=== PATIENT | female | born 1980 | race Caucasian/White ===

== ENCOUNTER 2020-06-24 14:32 | Emergency (ER) | payer OTHER, SELFPAY ==
--- NOTE | 2020-06-24 14:33 | ECG_ITS ---
Test Reason : CHEST PAIN Blood Pressure : / mmHG Vent. Rate : 075 BPM Atrial Rate : 075 BPM P-R Int : 128 ms QRS Dur : 082 ms QT Int : 436 ms P-R-T Axes : 072 067 054 degrees QTc Int : 486 ms Normal sinus rhythm with sinus arrhythmia RSR' or QR pattern in V1 suggests right ventricular conduction delay Otherwise normal ECG When compared with ECG of 10-JUL-2019 19:39, No significant change was found Referred By: Generic ED Physician Electronically Signed By:SELVIN SANDOVAL MD
[2020-06-24 14:55] VITALS: BP 156/89; PULSE 79; RESP 18; TEMP 35.8; O2SAT 97; BMI 31.2
[2020-06-24 16:00] VITALS: BP 166/88; PULSE 62; RESP 16; TEMP 37; O2SAT 99
--- NOTE | 2020-06-24 16:06 | ED.CHESTPAIN ---
HPI - Chest Pain General Chief Complaint: Chest Pain Stated Complaint: CHEST PAIN ABD PAIN Time Seen by Provider: 06/24/20 15:59 Source: patient Mode of arrival: ambulatory Limitations: no limitations History of Present Illness HPI narrative: pt comes to the ED c/o diffuse abdominal cramping and left sided chest pain that started this morning. Pt states that vomiting makes the CP worse MD complaint: chest pain Related Data Previous Rx's Medication Instructions Recorded hyoscyamine sulfate 0.25 mg PO QID PRN #10 tab 06/24/20 ondansetron HCl [Zofran] 4 mg PO Q8H PRN #14 tab 06/24/20 Allergies Allergy/AdvReac Type Severity Reaction Status Date / Time Penicillins Allergy Intermediate HIVES Verified 06/24/20 15:14 ciprofloxacin Allergy Unresponsiv Verified 06/24/20 15:15 e Amoxicillin Allergy Intermediate Unknown Uncoded 06/24/20 15:14 Review of Systems Review of Systems: Constitutional : No Weight loss, No Fever, No Chills, No Night Sweats, No Fatigue, No Malaise ENT/Mouth : No Hearing loss, No Ear Pain, No Nasal Congestion, No Sinus Pain, No Hoarseness, No sore throat, No Rhinorrhea, No Swallowing Difficulty Eyes: No Eye Pain, No Swelling, No Redness, No Foreign Body, No Discharge, No Vision Changes Cardiovascular : Complaining of left-sided chest pain, nonradiating, No SOB, No Dyspnea on Exertion, No Orthopnea, No Edema, No Palpitations Respiratory : No Cough, No Sputum, No Wheezing, No Smoke Exposure, No Dyspnea Gastrointestinal : Patient complaining of nausea and vomiting, no diarrhea, diffuse abdominal pain, No Hematochezia, No Melena Genitourinary : no irregular bleeding, No Dysuria, No Urinary Frequency, No Hematuria, No Urinary Incontinence, No Urgency, No Flank Pain, No Urinary Flow Changes, No Hesitancy Musculoskeletal : No joint pain, No Myalgias, No Joint Swelling Skin : No Skin Lesions, No rash Neuro : No Weakness, No Numbness, No Paresthesias, No Loss of Consciousness, No Dizziness, No Headache Psych : Patient complaining of anxiety, No Depression, No SI/HI/AH/VH, No Social Issues, Heme/Lymph: No Bruising, No Bleeding,No Lymphadenopathy Endocrine : No Polyuria, No Polydipsia, No Temperature Intolerance PMFSH Past Medical History Medical History Anxiety Bipolar 1 disorder Social History Social History Alcohol intake: never Smoking Status: Current every day smoker Use of substances other than those prescribed or required for medical reasons: No Advance Directives: No Advance Directives Information Provided: Yes Physical Exam Vital Signs: Vital Signs: Last Vital Signs Temp 98.6 F 06/24/20 16:00 Pulse 62 06/24/20 16:00 Resp 16 06/24/20 16:00 BP 166/88 H 06/24/20 16:00 Pulse Ox 99 06/24/20 16:00 Body Mass Index 31.2 Appearance: Alert. Oriented X3. No acute distress. Eyes: Pupils equal, round and reactive to light. ENT: Pharynx normal. Neck: Normal inspection. Neck supple. No lymph nodes noted. No crepitus CVS: Normal heart rate and rhythm. Pulses normal. Normal S1 and S2, reproducible chest pain Respiratory: No respiratory distress. Breath sounds normal. No Wheezing. No rales Abdomen: Soft , reports diffuse abdominal tenderness with superficial palpation, No rigidity. No distention. good BS x4 Skin: Skin warm and dry. Normal skin color. Normal skin turgor. Extremities: No lower extremity edema. No lower extremity edema. No Lacerations. No Rash Neuro: Oriented X 3. No motor deficit. No sensory deficit. Moving all extermities. No slurred speech. Course Course Course Narrative: Patient states states that she feels much better now. I discussed the labs with the patient, patient is sleeping comfortably, patient ready to be discharged home. Patient likely having anxiety versus viral illness. Patient will follow-up with her primary care physician. Patient at this time, no longer feeling anxious. MDM - Chest Pain Lab Data Result diagrams: 06/24/20 16:27 06/24/20 16:27 Labs: Lab Results 06/24/20 06/24/20 06/24/20 Range/Units 16:27 16:27 16:27 WBC 11.8 H (4.8-10.8) X10*3/uL RBC 5.06 (4.20-5.50) X10*6/uL Hgb 14.4 (12.0-16.0) g/dl Hct 43.0 (37-47) % MCV 85.0 (80-98) fL MCH 28.5 (27.0-33.0) pg MCHC 33.5 (31.0-35.0) g/dl RDW 13.9 (11.0-16.0) % Plt Count 300 (160-400) X10*3/uL MPV 9.4 (9.4-12.3) fL Immature Gran % (Auto) 0.5 H (0.0-0.4) % Neut % (Auto) 82.5 H (45-73) % Lymph % (Auto) 12.7 L (20-40) % Saunders % (Auto) 3.6 (2-11) % Eos % (Auto) 0.1 (0-4) % Baso % (Auto) 0.6 (0-2) % Lymph # (Auto) 1.5 (1.2-4.9) X10*3/uL Saunders # (Auto) 0.4 (0.1-1.2) X10*3/uL Eos # (Auto) 0.0 (0.0-0.4) X10*3/uL Baso # (Auto) 0.1 (0.0-0.2) X10*3/uL Abs Immat Gran (auto) 0.06 H (0.00-0.03) X10*3/uL Absolute Neuts (auto) 9.8 H (2.0-8.3) X10*3/uL Absolute Nucleated RBC 0.000 (0.0-0.012) X10*3/uL Nucleated RBC % (auto) 0.0 (0.0-0.2) /100WBC Sodium 141 (135-145) mmol/L Potassium 4.0 (3.3-5.1) mmol/l Chloride 105 (96-108) mmol/L Carbon Dioxide 26 (22-29) mmol/L Anion Gap 14 (12-20) BUN 9 (9-16) mg/dL Creatinine 0.86 (0.5-1.4) mg/dL Estim Creat Clear Calc 77.3 Estimated GFR > 60 Random Glucose 192 H (60-115) mg/dL Calcium 9.1 (8.4-10.2) mg/dL Total Bilirubin 0.2 (0.0-1.0) mg/dL Direct Bilirubin < 0.2 (0.0-0.5) mg/dL AST 9 (5-31) U/L ALT 11 (0-31) U/L Alkaline Phosphatase 109 (39-117) U/L Troponin I High Sens < 3.5 (<3.5-17.0) ng/L Total Protein 7.2 (6.5-8.0) g/dL Albumin 4.4 (3.5-5.0) g/dL Urine Color Urine Appearance Urine pH (5.0-8.0) Ur Specific [place] (1.005-1.025) Urine Protein (NEG-TRACE) MG/DL Urine Glucose (UA) (NEG) MG/DL Urine Ketones (NEG) MG/DL Urine Blood (NEG) Urine Nitrite (NEG) Ur Leukocyte Esterase (NEG) 06/24/20 Range/Units 16:27 WBC (4.8-10.8) X10*3/uL RBC (4.20-5.50) X10*6/uL Hgb (12.0-16.0) g/dl Hct (37-47) % MCV (80-98) fL MCH (27.0-33.0) pg MCHC (31.0-35.0) g/dl RDW (11.0-16.0) % Plt Count (160-400) X10*3/uL MPV (9.4-12.3) fL Immature Gran % (Auto) (0.0-0.4) % Neut % (Auto) (45-73) % Lymph % (Auto) (20-40) % Saunders % (Auto) (2-11) % Eos % (Auto) (0-4) % Baso % (Auto) (0-2) % Lymph # (Auto) (1.2-4.9) X10*3/uL Saunders # (Auto) (0.1-1.2) X10*3/uL Eos # (Auto) (0.0-0.4) X10*3/uL Baso # (Auto) (0.0-0.2) X10*3/uL Abs Immat Gran (auto) (0.00-0.03) X10*3/uL Absolute Neuts (auto) (2.0-8.3) X10*3/uL Absolute Nucleated RBC (0.0-0.012) X10*3/uL Nucleated RBC % (auto) (0.0-0.2) /100WBC Sodium (135-145) mmol/L Potassium (3.3-5.1) mmol/l Chloride (96-108) mmol/L Carbon Dioxide (22-29) mmol/L Anion Gap (12-20) BUN (9-16) mg/dL Creatinine (0.5-1.4) mg/dL Estim Creat Clear Calc Estimated GFR Random Glucose (60-115) mg/dL Calcium (8.4-10.2) mg/dL Total Bilirubin (0.0-1.0) mg/dL Direct Bilirubin (0.0-0.5) mg/dL AST (5-31) U/L ALT (0-31) U/L Alkaline Phosphatase (39-117) U/L Troponin I High Sens (<3.5-17.0) ng/L Total Protein (6.5-8.0) g/dL Albumin (3.5-5.0) g/dL Urine Color YELLOW Urine Appearance CLOUDY Urine pH 7.5 (5.0-8.0) Ur Specific [place] 1.020 (1.005-1.025) Urine Protein TRACE (NEG-TRACE) MG/DL Urine Glucose (UA) NEG (NEG) MG/DL Urine Ketones 15 (NEG) MG/DL Urine Blood NEG (NEG) Urine Nitrite NEG (NEG) Ur Leukocyte Esterase NEG (NEG) ECG Data ECG #1: Attestation: I personally reviewed and interpreted this ECG as follows: (Sinus rhythm, heart rate 75, QTC 486, poor quality EKG) Discharge Plan Discharge Clinical Impression: Atypical chest pain, Anxiety Vomiting Qualifiers: Vomiting type: unspecified Vomiting Intractability: unspecified Nausea presence: unspecified Qualified Code(s): R11.10 - Vomiting, unspecified Patient Disposition: Home, Self-Care Instructions: Chest Pain (ED), Acute Nausea and Vomiting (ED) Additional Instructions: Please follow-up with your primary care physician tomorrow. If you have any worsening or new symptoms, please return to the emergency room or call 911 Prescriptions: New ondansetron HCl [Zofran] 4 mg tablet 4 mg PO Q8H PRN (Reason: nausea and vomiting) Qty: 14 RF: 0 hyoscyamine sulfate 0.125 mg tablet 0.25 mg PO QID PRN (Reason: dyspepsia) Qty: 10 RF: 0
[2020-06-24] MEDS: 0.9 % Sodium Chloride 1,000 ML 999 ML IVCONT (16:35)
[2020-06-24] MEDS: LORazepam 2 MG/ML VIAL 1 MG IVPUSH (16:35)
[2020-06-24] MEDS: ondansetron HCL 4 MG/2 ML VIAL IVPUSH (16:35)
[2020-06-24] MEDS: Ketorolac Tromethamine 30 MG/ML VIAL IVPUSH (16:35)
[2020-06-24 16:37] LABS: Basophils Absolute Auto 0.1 X10*3/uL (0.0-0.2); Basophils Percent Auto 0.6 % (0-2); Eosinophils Percent Auto 0.1 % (0-4); Glucose Urine UA NEG (NEG); Hemoglobin 14.4 g/dl (12.0-16.0); Imm Gran Abs Auto 0.06 X10*3/uL (0.00-0.03); Imm Gran Pct Auto 0.5 % (0.0-0.4); Leukocyte Esterase Urine NEG (NEG); Lymphocytes Absolute Auto 1.5 X10*3/uL (1.2-4.9); Lymphocytes Percent Auto 12.7 % (20-40); MANUAL DIFF FLAG NO; Mean Corpuscular HGB Conc 33.5 g/dl (31.0-35.0); Mean Corpuscular Hemoglobin 28.5 pg (27.0-33.0); Mean Platelet Volume 9.4 fL (9.4-12.3); Monocytes Absolute Auto 0.4 X10*3/uL (0.1-1.2); Monocytes Percent Auto 3.6 % (2-11); Neutrophils Absolute Auto 9.8 X10*3/uL (2.0-8.3); Neutrophils Percent Auto 82.5 % (45-73); Nitrite Urine NEG (NEG); PH 7.5 (5.0-8.0); Platelet Count 300 X10*3/uL (160-400); Red Blood Count 5.06 X10*6/uL (4.20-5.50); Red Cell Distribution Width 13.9 % (11.0-16.0); Urine Blood NEG (NEG); Urine Ketones 15 MG/DL (NEG); Urine Protein TRACE MG/DL (NEG-TRACE); White Blood Count 11.8 X10*3/uL (4.8-10.8)
[2020-06-24 16:40] LABS: Appearance Urine CLOUDY; Color Urine YELLOW
[2020-06-24 17:04] LABS: Alanine Aminotransferase 11 U/L (0-31); Albumin Level 4.4 g/dL (3.5-5.0); Alkaline Phosphatase 109 U/L (39-117); Anion Gap 14 (12-20); Aspartate Amino Transferase 9 U/L (5-31); Bilirubin Direct < 0.2 mg/dL (0.0-0.5); Bilirubin Total 0.2 mg/dL (0.0-1.0); Blood Urea Nitrogen 9 mg/dL (9-16); Calcium 9.1 mg/dL (8.4-10.2); Carbon Dioxide 26 mmol/L (22-29); Chloride 105 mmol/L (96-108); Creatinine Clr Calc Pharmacy 77.3; Estimated Glomerular Filt Rate > 60; Glucose Random 192 mg/dL (60-115); Sodium 141 mmol/L (135-145); Total Protein 7.2 g/dL (6.5-8.0)
[2020-06-24 17:11] LABS: Troponin-I High Sensitivity < 3.5 ng/L (<3.5-17.0)
--- NOTE | 2020-06-24 17:55 | PC.NURSE ---
EKG COMPLETED AT 1448 BY UNA JOHNSON
[2020-06-24 18:00] VITALS: BP 162/86; PULSE 62; RESP 16; TEMP 37.1; O2SAT 98
[2020-06-24] MEDS: Prochlorperazine Edisylate 10 MG/2 ML VIAL IM (18:46)
[2020-06-24] MEDS: Acetaminophen 325 MG TABLET 650 MG PO (19:04)
== END 2020-06-24 19:18 | disposition home or self-care (01) ==
PROVIDERS: Emergency Provider Emergency Medicine; PCP Internal Medicine
DX: R07.89 Other chest pain (principal); F41.1 Generalized anxiety disorder; F43.0 Acute stress reaction; R11.10 Vomiting, unspecified; Z79.899 Other long term (current) drug therapy; F17.200 Nicotine dependence, unspecified, uncomplicated; Z71.6 Tobacco abuse counseling
CPT/HCPCS: 36415; 80048; 80076; 81003; 84484; 85025; 93005; 96361; 96372; 96374; 96375; 99284; J1885; J2060; J2405

== ENCOUNTER 2020-06-25 01:22 | Emergency (ER) | payer OTHER, SELFPAY ==
[2020-06-25 01:28] VITALS: BP 162/83; PULSE 81; RESP 18; TEMP 36.6; O2SAT 99
--- NOTE | 2020-06-25 02:01 | ED.NAVMDI ---
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 but has not seen lately patient was here last evening and labs were drawn which were stable went home and continued to vomit hence came back MD elicited complaint: nausea and vomiting Onset (ago): day(s) (3) Description of vomiting: watery and blood-streaked Location of pain: epigastric Related Data Previous Rx's Medication Instructions Recorded hyoscyamine sulfate 0.25 mg PO QID PRN #10 tab 06/24/20 metoclopramide HCl [Reglan] 10 mg PO Q6H PRN #20 tab 06/25/20 Allergies Allergy/AdvReac Type Severity Reaction Status Date / Time Penicillins Allergy Intermediate HIVES Verified 06/24/20 15:14 ciprofloxacin Allergy Unresponsiv Verified 06/24/20 15:15 e Amoxicillin Allergy Intermediate Unknown Uncoded 06/24/20 15:14 Review of Systems Review of Systems: REVIEW OF SYSTEMS: Pertinent positives and negatives are stated above in the history. GEN: no fevers, chills, fatigue HEENT: no nasal congestion, sore throat, ear pain NEURO: no headache, dizziness, focal weakness PULM: no cough, shortness of breath CV: no chest pain, palpitations, LE edema ABD: no diarrhea : no dysuria, urgency, frequency SKIN: no rash ROS otherwise negative x 10 PMFSH Past Medical History Medical History Anxiety Bipolar 1 disorder Social History Social History Alcohol intake: never Smoking Status: Current every day smoker Advance Directives: No Advance Directives Information Provided: No Physical Exam Vital Signs: Vital Signs: Last Vital Signs Temp 99.3 F 06/25/20 02:02 Pulse 81 06/25/20 04:00 Resp 16 06/25/20 04:00 BP 107/50 L 06/25/20 04:00 Pulse Ox 99 11/18/20 04:00 Body Mass Index 29.5 Appearance: Alert. Oriented X3. No acute distress very anxious. Eyes: Pupils equal, round and reactive to light. ENT: Pharynx normal. Neck: Normal inspection. Neck supple. CVS: Normal heart rate and rhythm. Pulses normal. Respiratory: No respiratory distress. Breath sounds normal. Abdomen: Soft and mild tenderness in epigastric area no rebound tenderness no mass no guarding no hepatosplenomegaly bowel sounds are normal Skin: Skin warm and dry. Normal skin color. Normal skin turgor. Extremities: No lower extremity edema. Good range of movement Neuro: Oriented X 3. No motor deficit. No sensory deficit. Course Course Course Narrative: Patient with bipolar disorder chronic gastritis recurrent ER visits for vomiting and abdominal pain likely from anxiety induced. Patient feeling better after IV Reglan and Ativan will try taking p.o. 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 Drink plenty of fluids Prescriptions: New metoclopramide HCl [Reglan] 10 mg tablet 10 mg PO Q6H PRN (Reason: nausea and vomiting) Qty: 20 RF: 0 Discontinued ondansetron HCl [Zofran] 4 mg tablet 4 mg PO Q8H PRN (Reason: nausea and vomiting) Qty: 14 RF: 0 No Action hyoscyamine sulfate 0.125 mg tablet 0.25 mg PO QID PRN (Reason: dyspepsia) Qty: 10 RF: 0
[2020-06-25 02:02] VITALS: BP 171/94; PULSE 80; RESP 16; TEMP 37.4; O2SAT 100; BMI 29.5
[2020-06-25] MEDS: 0.9 % Sodium Chloride 1,000 ML 999 ML IVCONT (02:27)
[2020-06-25] MEDS: LORazepam 2 MG/ML VIAL 1 MG IVPUSH ×2 (02:34→02:35)
[2020-06-25] MEDS: Metoclopramide HCl 10 MG/2 ML VIAL IVPUSH (02:35)
--- NOTE | 2020-06-25 02:51 | PC.NURSE ---
PT AMBULATES TO ROOM WITH C/O MID ABD PAIN WHICH STARTED 2 DAYS AGO. +NAUSEATED WITHOUT VOMITING. PT ARRIVES ALERT, RESPIRATIONS EASY, N/L. SKIN W/D. HL PLACED TO LAC, PT MEDICATED PER EMAR FOR NAUSEA. NS UP AND RUNNING W/O SITE INTACT.
--- NOTE | 2020-06-25 03:58 | PC.NURSE ---
Pt drinking [place] as a PO challenge as per MD's orders. Pt tolerating well. MD aware.
[2020-06-25 04:00] VITALS: BP 107/50; PULSE 81; RESP 16; O2SAT 99
[2020-06-25] MEDS: Magnesium Hydrox/Alum Hydrox 30 ML ORAL.SUSP PO (05:04)
== END 2020-06-25 05:48 | disposition home or self-care (01) ==
PROVIDERS: Emergency Provider Internal Medicine; PCP Internal Medicine
DX: F50.89 Other specified eating disorder (principal); F17.200 Nicotine dependence, unspecified, uncomplicated; Z71.6 Tobacco abuse counseling; Z79.899 Other long term (current) drug therapy
CPT/HCPCS: 96361; 96374; 96375; 99284; J2060; J2765

== ENCOUNTER 2020-06-26 13:32 | Emergency (ER) | payer OTHER, SELFPAY ==
[2020-06-26 13:46] VITALS: BP 170/99; PULSE 76; RESP 21; TEMP 37.1; O2SAT 99; BMI 30.2
--- NOTE | 2020-06-26 14:00 | ED.SOB ---
HPI - SOB/Dyspnea General Chief Complaint: Dyspnea Stated Complaint: sob Time Seen by Provider: 06/26/20 13:58 Source: patient Mode of arrival: ambulatory Limitations: no limitations History of Present Illness HPI Narrative: 39 y/o presenting for her 3rd ER visit in 3 days. She was seen here on the for anxiety and vomiting and again on the for the same. She was prescribed Reglan and instructed to continue her Ativan. Today she presents with left sided chest pain that started today about 2 hours ago. She describes the pain as pressure, it's constant and non-radiating. It is worse with deep breaths and palpation. On arrival she is anxious and crying uncontrollably. She states she took her Ativan as prescribed at 12 noon today. Pain started about 1 hour after. She has been vomiting and took her prescribed reglan without improvement. Related Data Previous Rx's Medication Instructions Recorded hyoscyamine sulfate 0.25 mg PO QID PRN #10 tab 06/24/20 metoclopramide HCl [Reglan] 10 mg PO Q6H PRN #20 tab 06/25/20 lidocaine [Lidoderm] 1 patch TOPICAL DAILY #15 ea 06/26/20 naproxen 500 mg PO BID PRN #20 tab 06/26/20 Allergies Allergy/AdvReac Type Severity Reaction Status Date / Time Penicillins Allergy Intermediate HIVES Verified 06/24/20 15:14 ciprofloxacin Allergy Unresponsiv Verified 06/24/20 15:15 e Amoxicillin Allergy Intermediate Unknown Uncoded 06/24/20 15:14 Review of Systems Review of Systems: Constitutional: No Fever, + Chills ENT/Mouth: No sore throat, No Rhinorrhea, No Swallowing Difficulty Eyes: No Eye Pain, No Swelling, No Redness Cardiovascular: + Chest Pain, + SOB, No Orthopnea, No Edema Respiratory: + Cough (chronic), No Sputum, No Wheezing, No dyspnea Gastrointestinal: + Nausea, + Vomiting, No Diarrhea, + abdominal Pain Genitourinary: No Dysuria, No Urinary Frequency, No Hematuria Musculoskeletal: No joint pain, + Myalgias Skin: No Skin Lesions, No rash Neuro: No Weakness, No Numbness, No Dizziness, No Headache Psych: No Anxiety/Panic, No Depression Heme/Lymph: No Bruising, No Lymphadenopathy Endocrine: No Polyuria, No Polydipsia PMFSH Past Medical History Medical History Anxiety Bipolar 1 disorder Social History Social History Alcohol intake: unknown Smoking Status: Unknown if ever smoked Use of substances other than those prescribed or required for medical reasons: Unknown Advance Directives: No Advance Directives Information Provided: No Physical Exam Vital Signs: Vital Signs: Last Vital Signs Temp 99.1 F 06/26/20 19:17 Pulse 61 06/26/20 19:17 Resp 16 06/26/20 19:17 BP 114/68 06/26/20 19:17 Pulse Ox 97 06/26/20 19:17 Body Mass Index 30.2 Appearance: Tearful, anxious, hyperventilating ENT: Pharynx normal. Neck: Normal inspection. Neck supple. CVS: Normal heart rate and rhythm. Pulses normal. Respiratory: No respiratory distress. Breath sounds normal. Left chest wall tenderness through Abdomen: Soft and nontender. +BS x4 Skin: Skin warm and dry. Normal skin color. Normal skin turgor. No rashes. Extremities: No lower extremity edema. Neuro: Oriented X 3. No motor deficit. No sensory deficit. Course Course Course Narrative: 39 y/o female with her 3rd ER visit in 3 days with anxiety and reported vomiting. Tearful and anxious. Asking for IV for IVF and IV meds. Reports chest pain - reproducible on exam. Very low suspicion for ACS. Will check labs and EKG. Reevaluation(s) Reevaluation #1: 1st troponin <3.5. EKG with some artifact due to crying but no ischemic changes. Ativan and IVF ordered. Repeat troponin ordered. Reevaluation #2: 2nd troponin <5. Upon re-evaluation patient is sleeping comfortably. Results were discussed. She is stable for discharge at this time. MDM - SOB/Dyspnea Lab Data Attestation: I reviewed the patient's lab results. Result diagrams: 06/26/20 14:45 06/26/20 14:45 Labs: Lab Results 06/26/20 06/26/20 06/26/20 Range/Units 14:45 14:45 14:45 WBC 10.0 (4.8-10.8) X10*3/uL RBC 4.47 (4.20-5.50) X10*6/uL Hgb 12.6 (12.0-16.0) g/dl Hct 37.5 (37-47) % MCV 83.9 (80-98) fL MCH 28.2 (27.0-33.0) pg MCHC 33.6 (31.0-35.0) g/dl RDW 13.9 (11.0-16.0) % Plt Count 241 (160-400) X10*3/uL MPV 9.2 L (9.4-12.3) fL Immature Gran % (Auto) 0.2 (0.0-0.4) % Neut % (Auto) 74.2 H (45-73) % Lymph % (Auto) 18.9 L (20-40) % [place] % (Auto) 5.9 (2-11) % Eos % (Auto) 0.2 (0-4) % Baso % (Auto) 0.6 (0-2) % Lymph # (Auto) 1.9 (1.2-4.9) X10*3/uL [place] # (Auto) 0.6 (0.1-1.2) X10*3/uL Eos # (Auto) 0.0 (0.0-0.4) X10*3/uL Baso # (Auto) 0.1 (0.0-0.2) X10*3/uL Abs Immat Gran (auto) 0.02 (0.00-0.03) X10*3/uL Absolute Neuts (auto) 7.4 (2.0-8.3) X10*3/uL Absolute Nucleated RBC 0.000 (0.0-0.012) X10*3/uL Nucleated RBC % (auto) 0.0 (0.0-0.2) /100WBC Sodium 140 (135-145) mmol/L Potassium 3.4 (3.3-5.1) mmol/l Chloride 105 (96-108) mmol/L Carbon Dioxide 23 (22-29) mmol/L Anion Gap 15 (12-20) BUN 8 L (9-16) mg/dL Creatinine 0.75 (0.5-1.4) mg/dL Estim Creat Clear Calc 90.8 Estimated GFR > 60 Random Glucose 116 H D (60-115) mg/dL Calcium 8.4 D (8.4-10.2) mg/dL Troponin I High Sens < 3.5 (<3.5-17.0) ng/L 06/26/20 Range/Units 19:36 WBC (4.8-10.8) X10*3/uL RBC (4.20-5.50) X10*6/uL Hgb (12.0-16.0) g/dl Hct (37-47) % MCV (80-98) fL MCH (27.0-33.0) pg MCHC (31.0-35.0) g/dl RDW (11.0-16.0) % Plt Count (160-400) X10*3/uL MPV (9.4-12.3) fL Immature Gran % (Auto) (0.0-0.4) % Neut % (Auto) (45-73) % Lymph % (Auto) (20-40) % [place] % (Auto) (2-11) % Eos % (Auto) (0-4) % Baso % (Auto) (0-2) % Lymph # (Auto) (1.2-4.9) X10*3/uL [place] # (Auto) (0.1-1.2) X10*3/uL Eos # (Auto) (0.0-0.4) X10*3/uL Baso # (Auto) (0.0-0.2) X10*3/uL Abs Immat Gran (auto) (0.00-0.03) X10*3/uL Absolute Neuts (auto) (2.0-8.3) X10*3/uL Absolute Nucleated RBC (0.0-0.012) X10*3/uL Nucleated RBC % (auto) (0.0-0.2) /100WBC Sodium (135-145) mmol/L Potassium (3.3-5.1) mmol/l Chloride (96-108) mmol/L Carbon Dioxide (22-29) mmol/L Anion Gap (12-20) BUN (9-16) mg/dL Creatinine (0.5-1.4) mg/dL Estim Creat Clear Calc Estimated GFR Random Glucose (60-115) mg/dL Calcium (8.4-10.2) mg/dL Troponin I High Sens 4.6 (<3.5-17.0) ng/L ECG Data Attestation: I personally reviewed and interpreted this ECG as follows: ECG interpretation date: 06/26/20 ECG interpretation time: 14:45 Interpretation: normal sinus rhythm with sinus arrythmia, artifact present, normal ND interval, prolonged QTc 482 ms Scores Heart Score History: -1- moderately suspicious ECG: -0- normal Age: -0- < or = 45 Risk factory: -0- no risk factors known Troponin: -0- < or = normal limit Score: 1 Risk: 1.7% Critical Care Time Critical Care Time Critical Care Time: No Discharge Plan Discharge Clinical Impression: Anxiety, Atypical chest pain Patient Disposition: Home, Self-Care Instructions: Chest Pain (ED) Additional Instructions: Your workup today in the Emergency Department was unremarkable. It is very unlikely that your chest pain is cardiac in nature. Continue taking your Reglan as needed for vomiting. Take the prescribed anti-inflammatory medication as needed for chest discomfort which is likely muscular pain. Follow up with a GI doctor for further evaluation of your vomiting. Follow up with your doctor in the next 1 week. Prescriptions: New lidocaine [Lidoderm] 5 % adhesive patch,medicated 1 patch topical DAILY Qty: 15 RF: 0 naproxen 500 mg tablet 500 mg PO BID PRN (Reason: pain) Qty: 20 RF: 0 No Action hyoscyamine sulfate 0.125 mg tablet 0.25 mg PO QID PRN (Reason: dyspepsia) Qty: 10 RF: 0 metoclopramide HCl [Reglan] 10 mg tablet 10 mg PO Q6H PRN (Reason: nausea and vomiting) Qty: 20 RF: 0 Referrals: Madan Nieto [Physician] - 5 days
--- NOTE | 2020-06-26 14:11 | ECG_ITS ---
Test Reason : VOMITING Blood Pressure : / mmHG Vent. Rate : 075 BPM Atrial Rate : 075 BPM P-R Int : 140 ms QRS Dur : 094 ms QT Int : 432 ms P-R-T Axes : 057 060 049 degrees QTc Int : 482 ms Normal sinus rhythm with sinus arrhythmia Possible Left atrial enlargement RSR' or QR pattern in V1 suggests right ventricular conduction delay Abnormal ECG When compared with ECG of 24-JUN-2020 14:48, No significant changes seen Referred By: Fabi Haley Electronically Signed By:SELVIN SANDOVAL MD
--- NOTE | 2020-06-26 14:11 | XR_ITS ---
EXAMINATION: XR CHEST CLINICAL INFORMATION: Chest pain COMPARISON: 07/10/2019 TECHNIQUE: Frontal view of the chest was obtained. FINDINGS: The lungs are well expanded. There is no focal consolidation, edema, or effusion. No pneumothorax. The cardiomediastinal silhouette is within normal limits. No acute osseous abnormality. XR/XR chest 1V IMPRESSION: Clear lungs.
[2020-06-26] MEDS: Ketorolac Tromethamine 30 MG/ML VIAL IM (14:19)
[2020-06-26] MEDS: LORazepam 1 MG TABLET PO (14:19)
[2020-06-26 14:58] LABS: Basophils Absolute Auto 0.1 X10*3/uL (0.0-0.2); Basophils Percent Auto 0.6 % (0-2); Eosinophils Percent Auto 0.2 % (0-4); Hematocrit 37.5 % (37-47); Hemoglobin 12.6 g/dl (12.0-16.0); Imm Gran Abs Auto 0.02 X10*3/uL (0.00-0.03); Imm Gran Pct Auto 0.2 % (0.0-0.4); Lymphocytes Absolute Auto 1.9 X10*3/uL (1.2-4.9); Lymphocytes Percent Auto 18.9 % (20-40); MANUAL DIFF FLAG NO; Mean Corpuscular HGB Conc 33.6 g/dl (31.0-35.0); Mean Corpuscular Hemoglobin 28.2 pg (27.0-33.0); Mean Corpuscular Volume 83.9 fL (80-98); Mean Platelet Volume 9.2 fL (9.4-12.3); Monocytes Absolute Auto 0.6 X10*3/uL (0.1-1.2); Monocytes Percent Auto 5.9 % (2-11); Neutrophils Absolute Auto 7.4 X10*3/uL (2.0-8.3); Neutrophils Percent Auto 74.2 % (45-73); Platelet Count 241 X10*3/uL (160-400); Red Blood Count 4.47 X10*6/uL (4.20-5.50); Red Cell Distribution Width 13.9 % (11.0-16.0)
[2020-06-26 15:23] LABS: Anion Gap 15 (12-20); Blood Urea Nitrogen 8 mg/dL (9-16); Calcium 8.4 mg/dL (8.4-10.2); Carbon Dioxide 23 mmol/L (22-29); Chloride 105 mmol/L (96-108); Creatinine Clr Calc Pharmacy 90.8; Estimated Glomerular Filt Rate > 60; Glucose Random 116 mg/dL (60-115); Potassium 3.4 mmol/l (3.3-5.1); Sodium 140 mmol/L (135-145)
[2020-06-26 15:35] LABS: Troponin-I High Sensitivity < 3.5 ng/L (<3.5-17.0)
[2020-06-26] MEDS: Metoclopramide HCl 10 MG TABLET PO (16:06)
[2020-06-26] MEDS: diphenhydrAMINE HCL 25 MG TABLET PO (16:06)
[2020-06-26 16:43] VITALS: BP 158/97; PULSE 66; RESP 12; TEMP 37.3; O2SAT 99
[2020-06-26] MEDS: LORazepam 2 MG/ML VIAL 1 MG IVPUSH (17:18)
[2020-06-26] MEDS: 0.9 % Sodium Chloride 1,000 ML 999 ML IVCONT (17:18)
[2020-06-26 19:17] VITALS: BP 114/68; PULSE 61; RESP 16; TEMP 37.3; O2SAT 97
--- NOTE | 2020-06-26 19:25 | PC.NURSE ---
pt moved with her belongings from room 3 to room 13, nurse to nurse report given to Jacob mccauley.
[2020-06-26 20:19] LABS: Troponin-I High Sensitivity 4.6 ng/L (<3.5-17.0)
== END 2020-06-26 20:53 | disposition home or self-care (01) ==
PROVIDERS: Physician Assistant; Emergency Provider Emergency Medicine; PCP Internal Medicine
DX: R07.89 Other chest pain (principal); R06.00 Dyspnea, unspecified; F41.1 Generalized anxiety disorder; F43.0 Acute stress reaction; Z79.899 Other long term (current) drug therapy
CPT/HCPCS: 36415; 71045; 80048; 84484; 85025; 93005; 96361; 96372; 96374; 99284; J1885; J2060; Q0163

== ENCOUNTER 2020-08-25 21:35 | Emergency (ER) | payer OTHER, SELFPAY ==
--- NOTE | 2020-08-25 | XR_ITS ---
EXAMINATION: CHEST 2 VIEWS CLINICAL INFORMATION: back pain . COMPARISON: 06/26/2020. TECHNIQUE: PA and lateral views of the chest obtained. FINDINGS: The lungs are well expanded. No focal infiltrate, effusion, edema, or pneumothorax. Cardiac and mediastinal silhouettes are within normal limits for technique. No acute bony abnormality seen XR/XR chest 1V IMPRESSION: No evidence of acute disease
[2020-08-25 21:46] VITALS: BP 135/84; PULSE 79; RESP 18; TEMP 36.8; O2SAT 96; BMI 28.3
--- NOTE | 2020-08-25 23:27 | PC.NURSE ---
PT UPDATED. WAITING FOR PROVIDER EVAL. DECLINED ICE PACK.
[2020-08-25] MEDS: Acetaminophen 325 MG TABLET 650 MG PO (23:40)
--- NOTE | 2020-08-26 00:24 | ED_ITS ---
HPI - Back Pain/Injury General Chief Complaint: Back Pain/Injury Stated Complaint: Shoulder pain Time Seen by Provider: 08/25/20 23:17 Source: patient Mode of arrival: ambulatory History of Present Illness HPI Narrative: This is a 39-year-old female who presents with right upper back pain that is atraumatic in nature and not associated cough, sore throat, recent travel, calf pain the swelling, fevers, chills,, chest pain/patient's. She denies that it worsens with movement of her right upper extremity. In addition, she denies any radiation of the pain or numbness/tingling into the right upper extremity weakness. Related Data Previous Rx's Medication Instructions Recorded hyoscyamine sulfate 0.25 mg PO QID PRN #10 tab 06/24/20 metoclopramide HCl [Reglan] 10 mg PO Q6H PRN #20 tab 06/25/20 lidocaine [Lidoderm] 1 patch TOPICAL DAILY #15 ea 06/26/20 naproxen 500 mg PO BID PRN #20 tab 06/26/20 cyclobenzaprine 10 mg PO BEDTIME #3 tab 08/26/20 ketorolac 10 mg PO Q6H PRN 5 Days #20 tab 08/26/20 ketorolac 10 mg PO TID PRN 5 Days tab 08/26/20 Allergies Allergy/AdvReac Type Severity Reaction Status Date / Time Penicillins Allergy Intermediate HIVES Verified 08/25/20 23:42 ciprofloxacin Allergy Unresponsiv Verified 08/25/20 23:42 e Amoxicillin Allergy Intermediate Unknown Uncoded 06/24/20 15:14 Review of Systems Review of Systems: Positive negatives as stated in the HPI view of systems is otherwise negative. [facility] Past Medical History Source: nursing notes reviewed Medical History Anxiety Bipolar 1 disorder Social History Social History Alcohol intake: unknown Smoking Status: Unknown if ever smoked Advance Directives: No Advance Directives Information Provided: Yes Physical Exam Vital Signs: Vital Signs: Last Vital Signs Temp 98.2 F 08/25/20 21:46 Pulse 79 08/25/20 21:46 Resp 18 08/25/20 21:46 BP 135/84 08/25/20 21:46 Pulse Ox 96 08/25/20 21:46 Body Mass Index 28.3 VITAL SIGNS: Reviewed. GENERAL: Well developed, well nourished, in no acute distress. NOSE: Nares patent bilateral OROPHARYNX: no oral lesions noted, posterior pharynx clear NECK: Supple, no adenopathy LUNGS: Normal breath sounds. SpO2<96> BACK: Palpation of the back is negative for evidence of pain over the vertebral bodies as well as paraspinal, however there is noted spasm involving the right upper trapezius stretching between the shoulder and running a the superior scalp. CARDIOVASCULAR: Regular rate and rhythm without noted murmurs ABDOMEN: Soft, non-tender, non-distended with bowel sounds. MUSCULOSKELETAL: No tenderness, deformities, or effusions noted on gross inspection. EXTREMITIES: No cyanosis, clubbing or edema. SKIN: Inspection of the skin reveals no rashe NEUROLOGIC: Alert and oriented x 4. Strength and sensation to light touch were grossly intact x 4. Course Course Course Narrative: This is a 39-year-old female with history and clinical presentation consistent with right upper back muscle spasm there is no evidence for pneumonia, bony abnormality, and patient be treated with combination analgesic/ lidocaine patch/muscle relaxant and re-evaluated. On re-evaluation patient has had some improvement of her muscle spasm of the right shoulder and she will be discharged in stable condition with additional outpatient treatment with combination analgesics. Discharge Plan Discharge Clinical Impression: Muscle spasm of right shoulder Patient Disposition: Home, Self-Care Instructions: Muscle Spasm (ED) Additional Instructions: 1. Tylenol 1000 mg, oral, every 6 hours as needed for pain control. Do not exceed 4000 mg within 24 hours. 2. Lidocaine patch, available at every [facility], apply to area of maximal tenderness as directed on the outside packaging. Prescriptions: New ketorolac 10 mg tablet 10 mg PO TID PRN (Reason: pain) 5 Days RF: 0 cyclobenzaprine 10 mg tablet 10 mg PO BEDTIME Qty: 3 RF: 0 ketorolac 10 mg tablet 10 mg PO Q6H PRN (Reason: pain) 5 Days Qty: 20 RF: 0 No Action hyoscyamine sulfate 0.125 mg tablet 0.25 mg PO QID PRN (Reason: dyspepsia) Qty: 10 RF: 0 metoclopramide HCl [Reglan] 10 mg tablet 10 mg PO Q6H PRN (Reason: nausea and vomiting) Qty: 20 RF: 0 lidocaine [Lidoderm] 5 % adhesive patch,medicated 1 patch topical DAILY Qty: 15 RF: 0 naproxen 500 mg tablet 500 mg PO BID PRN (Reason: pain) Qty: 20 RF: 0 Referrals: Mansoor Ren MD [Primary Care Provider] - 2 days (RE-EVALUATION OUTPATIENT MANAGEMENT OF SUSPECTED RIGHT TRAPEZIUS MUSCLE spasm)
[2020-08-26] MEDS: Cyclobenzaprine HCl 10 MG TABLET PO (00:31)
[2020-08-26] MEDS: Lidocaine 4 % Patch ADH..PATCH 1 PATCH TRANSDERMA (00:32)
[2020-08-26] MEDS: Ketorolac Tromethamine 15 MG/ML VIAL IM (00:32)
== END 2020-08-26 01:49 | disposition home or self-care (01) ==
PROVIDERS: Emergency Provider Student in an Organized Health Care Education/Training Program; PCP Internal Medicine
DX: M62.838 Other muscle spasm (principal); M25.511 Pain in right shoulder
CPT/HCPCS: 71045; 96372; 99284; J1885

== ENCOUNTER 2020-10-15 22:27 | Emergency (ER) | payer OTHER, SELFPAY ==
[2020-10-15 23:37] VITALS: BP 178/77; PULSE 74; RESP 16; TEMP 36.8; O2SAT 98; BMI 33.2
[2020-10-16] VITALS: BP 150/96; PULSE 82; RESP 18; O2SAT 99
[2020-10-16 01:24] LABS: Basophils Absolute Auto 0.1 X10*3/uL (0.0-0.2); Basophils Percent Auto 0.5 % (0-2); Hematocrit 41.8 % (37-47); Hemoglobin 14.1 g/dl (12.0-16.0); Imm Gran Abs Auto 0.04 X10*3/uL (0.00-0.03); Imm Gran Pct Auto 0.3 % (0.0-0.4); Lymphocytes Absolute Auto 1.8 X10*3/uL (1.2-4.9); Lymphocytes Percent Auto 13.6 % (20-40); MANUAL DIFF FLAG NO; Mean Corpuscular HGB Conc 33.7 g/dl (31.0-35.0); Mean Corpuscular Hemoglobin 28.1 pg (27.0-33.0); Mean Corpuscular Volume 83.3 fL (80-98); Mean Platelet Volume 9.5 fL (9.4-12.3); Monocytes Absolute Auto 0.3 X10*3/uL (0.1-1.2); Monocytes Percent Auto 2.4 % (2-11); Neutrophils Absolute Auto 10.9 X10*3/uL (2.0-8.3); Neutrophils Percent Auto 83.2 % (45-73); Platelet Count 260 X10*3/uL (160-400); Red Blood Count 5.02 X10*6/uL (4.20-5.50); Red Cell Distribution Width 14.7 % (11.0-16.0); White Blood Count 13.1 X10*3/uL (4.8-10.8)
[2020-10-16 01:25] LABS: Glucose Urine UA NEG (NEG); Leukocyte Esterase Urine NEG (NEG); Nitrite Urine NEG (NEG); PH 8.5 (5.0-8.0); Specific Gravity - Urine 1.015 (1.005-1.025); Urine Blood NEG (NEG); Urine Ketones NEG (NEG); Urine Protein TRACE MG/DL (NEG-TRACE)
[2020-10-16 01:26] LABS: Appearance Urine CLEAR; Color Urine YELLOW
[2020-10-16 01:27] LABS: UPreg QC Valid YES; Urine Pregnancy NEGATIVE (NEGATIVE)
--- NOTE | 2020-10-16 01:41 | ED.NAVMDI ---
HPI - Nausea/Vomiting/Diarrhea General Chief complaint: Abdominal Pain Stated complaint: Abdominal pain Time Seen by Provider: 10/16/20 00:55 Source: patient Mode of arrival: ambulatory History of Present Illness HPI Narrative: This is a 39-year-old female with history of anxiety, marijuana use presents with 2 days of nausea and vomiting with subsequent development of epigastric pain, nonradiating but sharp in nature not associated with fevers, chills or urinary pain/burning/frequency. Patient denies any alcohol use. Related Data Previous Rx's Medication Instructions Recorded hyoscyamine sulfate 0.25 mg PO QID PRN #10 tab 06/24/20 metoclopramide HCl [Reglan] 10 mg PO Q6H PRN #20 tab 06/25/20 lidocaine [Lidoderm] 1 patch TOPICAL DAILY #15 ea 06/26/20 naproxen 500 mg PO BID PRN #20 tab 06/26/20 cyclobenzaprine 10 mg PO BEDTIME #3 tab 08/26/20 ketorolac 10 mg PO Q6H PRN 5 Days #20 tab 08/26/20 ketorolac 10 mg PO TID PRN 5 Days tab 08/26/20 ondansetron HCl [Zofran] 4 mg PO Q6H PRN 3 Days #8 tab 10/16/20 sucralfate [Carafate] 10 ml PO BID #420 ml 10/16/20 Allergies Allergy/AdvReac Type Severity Reaction Status Date / Time Penicillins Allergy Intermediate HIVES Verified 08/25/20 23:42 ciprofloxacin Allergy Unresponsiv Verified 08/25/20 23:42 e Amoxicillin Allergy Intermediate Unknown Uncoded 06/24/20 15:14 Review of Systems Review of Systems: Pertinent positives and negatives as stated in HPI 10 point review systems is otherwise negative. PMFSH Past Medical History Source: nursing notes reviewed Medical History Anxiety Bipolar 1 disorder Surgical History H/O: hysterectomy Social History Social History Alcohol intake: never Smoking Status: Current every day smoker Smoked in Last 30 Days: No Advance Directives: No Advance Directives Information Provided: No Physical Exam Vital Signs: Vital Signs: Last Vital Signs Temp 98.2 F 10/15/20 23:37 Pulse 76 10/16/20 03:01 Resp 20 10/16/20 03:43 BP 110/70 10/16/20 03:01 Pulse Ox 99 10/16/20 00:00 Body Mass Index 33.2 VITAL SIGNS: Reviewed. GENERAL: Well developed, well nourished, in no acute distress. HEAD: Normocephalic/atraumatic, EYES: PERRLA, EOMI EARS: Ext canals without abnormality NOSE: Nares patent bilateral OROPHARYNX: no oral lesions noted, posterior pharynx clear, dry mucosa NECK: Supple, no adenopathy LUNGS: Normal breath sounds. No adventitious sounds or accessory muscle use. SpO2<99> CARDIOVASCULAR: Regular rate and rhythm without noted murmurs ABDOMEN: Soft, diffuse mild tenderness on palpation without rebound, non-distended with bowel sounds. SKIN: Inspection of the skin reveals no rashes NEUROLOGIC: Alert and oriented x 4. Course Course Course Narrative: This is a 39-year-old female with history and clinical presentation consistent with anxiety and noted by nursing to be self inducing vomiting. Suspect patient is suffering from significant gastritis secondary to multiple episodes of nausea and vomiting. -labs, UA 1 L of IV fluids, Pepcid, Reglan/Benadryl, hydroxyzine, Zofran On review of all investigations and on re-evaluation there are no acute findings to better explain patient's presenting symptoms other than suspect cyclic vomiting in nature. On re-evaluation patient has had improvement in her symptoms and is requesting to go home. The noted leukocytosis is consistent with patient's nausea and vomiting. All results and findings were discussed with her at bedside and she was discharged in stable condition tolerating oral intake. MDM - Nausea/Vomiting/Diarrhea Lab Data Result diagrams: 10/16/20 01:15 10/16/20 01:15 Labs: Lab Results 10/16/20 10/16/20 10/16/20 Range/Units 01:15 01:15 01:15 WBC 13.1 H (4.8-10.8) X10*3/uL RBC 5.02 (4.20-5.50) X10*6/uL Hgb 14.1 (12.0-16.0) g/dl Hct 41.8 (37-47) % MCV 83.3 (80-98) fL MCH 28.1 (27.0-33.0) pg MCHC 33.7 (31.0-35.0) g/dl RDW 14.7 (11.0-16.0) % Plt Count 260 (160-400) X10*3/uL MPV 9.5 (9.4-12.3) fL Immature Gran % (Auto) 0.3 (0.0-0.4) % Neut % (Auto) 83.2 H (45-73) % Lymph % (Auto) 13.6 L (20-40) % [place] % (Auto) 2.4 (2-11) % Eos % (Auto) 0.0 (0-4) % Baso % (Auto) 0.5 (0-2) % Lymph # (Auto) 1.8 (1.2-4.9) X10*3/uL [place] # (Auto) 0.3 (0.1-1.2) X10*3/uL Eos # (Auto) 0.0 (0.0-0.4) X10*3/uL Baso # (Auto) 0.1 (0.0-0.2) X10*3/uL Abs Immat Gran (auto) 0.04 H (0.00-0.03) X10*3/uL Absolute Neuts (auto) 10.9 H (2.0-8.3) X10*3/uL Absolute Nucleated RBC 0.000 (0.0-0.012) X10*3/uL Nucleated RBC % (auto) 0.0 (0.0-0.2) /100WBC Sodium 141 (135-145) mmol/L Potassium 3.8 (3.3-5.1) mmol/L Chloride 102 (96-108) mmol/L Carbon Dioxide 27 (22-29) mmol/L Anion Gap 16 (12-20) BUN 9 (9-16) mg/dL Creatinine 0.84 (0.5-1.4) mg/dL Estim Creat Clear Calc 81.7 Estimated GFR > 60 Random Glucose 172 H D (60-115) mg/dL Calcium 9.5 D (8.4-10.2) mg/dL Total Bilirubin 0.2 (0.0-1.0) mg/dL AST 12 (5-31) U/L ALT 11 (0-31) U/L Alkaline Phosphatase 99 (39-117) U/L Total Protein 7.4 (6.5-8.0) g/dL Albumin 4.7 (3.5-5.0) g/dL Lipase 13 (8-78) U/L Urine Color Urine Appearance Urine pH (5.0-8.0) Ur Specific [place] (1.005-1.025) Urine Protein (NEG-TRACE) MG/DL Urine Glucose (UA) (NEG) MG/DL Urine Ketones (NEG) MG/DL Urine Blood (NEG) Urine Nitrite (NEG) Ur Leukocyte Esterase (NEG) Urine Test NEGATIVE (NEGATIVE) 10/16/20 Range/Units 01:15 WBC (4.8-10.8) X10*3/uL RBC (4.20-5.50) X10*6/uL Hgb (12.0-16.0) g/dl Hct (37-47) % MCV (80-98) fL MCH (27.0-33.0) pg MCHC (31.0-35.0) g/dl RDW (11.0-16.0) % Plt Count (160-400) X10*3/uL MPV (9.4-12.3) fL Immature Gran % (Auto) (0.0-0.4) % Neut % (Auto) (45-73) % Lymph % (Auto) (20-40) % [place] % (Auto) (2-11) % Eos % (Auto) (0-4) % Baso % (Auto) (0-2) % Lymph # (Auto) (1.2-4.9) X10*3/uL [place] # (Auto) (0.1-1.2) X10*3/uL Eos # (Auto) (0.0-0.4) X10*3/uL Baso # (Auto) (0.0-0.2) X10*3/uL Abs Immat Gran (auto) (0.00-0.03) X10*3/uL Absolute Neuts (auto) (2.0-8.3) X10*3/uL Absolute Nucleated RBC (0.0-0.012) X10*3/uL Nucleated RBC % (auto) (0.0-0.2) /100WBC Sodium (135-145) mmol/L Potassium (3.3-5.1) mmol/L Chloride (96-108) mmol/L Carbon Dioxide (22-29) mmol/L Anion Gap (12-20) BUN (9-16) mg/dL Creatinine (0.5-1.4) mg/dL Estim Creat Clear Calc Estimated GFR Random Glucose (60-115) mg/dL Calcium (8.4-10.2) mg/dL Total Bilirubin (0.0-1.0) mg/dL AST (5-31) U/L ALT (0-31) U/L Alkaline Phosphatase (39-117) U/L Total Protein (6.5-8.0) g/dL Albumin (3.5-5.0) g/dL Lipase (8-78) U/L Urine Color YELLOW Urine Appearance CLEAR Urine pH 8.5 H (5.0-8.0) Ur Specific [place] 1.015 (1.005-1.025) Urine Protein TRACE (NEG-TRACE) MG/DL Urine Glucose (UA) NEG (NEG) MG/DL Urine Ketones NEG (NEG) MG/DL Urine Blood NEG (NEG) Urine Nitrite NEG (NEG) Ur Leukocyte Esterase NEG (NEG) Urine Test (NEGATIVE) Discharge Plan Discharge Clinical Impression: Mild dehydration Nausea & vomiting Qualifiers: Vomiting type: unspecified Vomiting Intractability: non-intractable Qualified Code(s): R11.2 - Nausea with vomiting, unspecified Patient Disposition: Home, Self-Care Instructions: Dehydration (ED), Acute Nausea and Vomiting (ED) Additional Instructions: Please increase fluid intake especially with water. Please follow-up with your primary care provider in 2-3 days for re-evaluation. Do not hesitate to return to the emergency department should you experience any acute worsening of your symptoms. Prescriptions: New ondansetron HCl [Zofran] 4 mg tablet 4 mg PO Q6H PRN (Reason: nausea and vomiting) 3 Days Qty: 8 RF: 0 sucralfate [Carafate] 100 mg/mL suspension 10 ml PO BID Qty: 420 RF: 0 No Action hyoscyamine sulfate 0.125 mg tablet 0.25 mg PO QID PRN (Reason: dyspepsia) Qty: 10 RF: 0 ketorolac 10 mg tablet 10 mg PO TID PRN (Reason: pain) 5 Days RF: 0 cyclobenzaprine 10 mg tablet 10 mg PO BEDTIME Qty: 3 RF: 0 ketorolac 10 mg tablet 10 mg PO Q6H PRN (Reason: pain) 5 Days Qty: 20 RF: 0 metoclopramide HCl [Reglan] 10 mg tablet 10 mg PO Q6H PRN (Reason: nausea and vomiting) Qty: 20 RF: 0 lidocaine [Lidoderm] 5 % adhesive patch,medicated 1 patch topical DAILY Qty: 15 RF: 0 naproxen 500 mg tablet 500 mg PO BID PRN (Reason: pain) Qty: 20 RF: 0 Referrals: Mansoor Ren MD [Primary Care Provider] - 2 days (Re-evaluation outpatient management for suspected cyclical vomiting with mild dehydration.)
[2020-10-16 01:49] LABS: Alanine Aminotransferase 11 U/L (0-31); Albumin Level 4.7 g/dL (3.5-5.0); Alkaline Phosphatase 99 U/L (39-117); Anion Gap 16 (12-20); Aspartate Amino Transferase 12 U/L (5-31); Bilirubin Total 0.2 mg/dL (0.0-1.0); Blood Urea Nitrogen 9 mg/dL (9-16); Calcium 9.5 mg/dL (8.4-10.2); Carbon Dioxide 27 mmol/L (22-29); Chloride 102 mmol/L (96-108); Creatinine Clr Calc Pharmacy 81.7; Estimated Glomerular Filt Rate > 60; Glucose Random 172 mg/dL (60-115); Lipase 13 U/L (8-78); Potassium 3.8 mmol/L (3.3-5.1); Sodium 141 mmol/L (135-145); Total Protein 7.4 g/dL (6.5-8.0)
[2020-10-16] MEDS: Famotidine/PF 20 MG/2 ML VIAL IVPUSH (02:25)
[2020-10-16] MEDS: ondansetron HCL 4 MG/2 ML VIAL IVPUSH (02:25)
[2020-10-16] MEDS: hydrOXYzine HCL 25 MG TABLET PO (02:25)
[2020-10-16] MEDS: 0.9 % Sodium Chloride 1,000 ML 999 ML IV (02:26)
[2020-10-16 03:01] VITALS: BP 110/70; PULSE 76; RESP 16
[2020-10-16] MEDS: diphenhydrAMINE HCL 50 MG/ML VIAL 25 MG IVPUSH (03:40)
[2020-10-16] MEDS: Metoclopramide HCl 10 MG/2 ML VIAL IVPUSH (03:40)
[2020-10-16 03:43] VITALS: RESP 20
--- NOTE | 2020-10-16 03:49 | PC.NURSE ---
pt is anxiouse, afraid to eat or drink due to vomiting, this rn tried working with the pt to establish anxiety reducing tecniques like guided imagery, getting exercise, walking, eating right with plenty of sleep. pt states she doesnt go anywhere. pt medicated and waiting results.
--- NOTE | 2020-10-16 04:11 | PC.NURSE ---
pt drank a small amount of gingerale and vomited it up. pt doesnt want to try the saltine crackers for fear she will vomit.
== END 2020-10-16 04:51 | disposition home or self-care (01) ==
PROVIDERS: Emergency Provider Student in an Organized Health Care Education/Training Program; PCP Internal Medicine
DX: R11.2 Nausea with vomiting, unspecified (principal); E86.0 Dehydration; R10.13 Epigastric pain; F12.90 Cannabis use, unspecified, uncomplicated; F17.200 Nicotine dependence, unspecified, uncomplicated; F41.9 Anxiety disorder, unspecified
CPT/HCPCS: 36415; 80053; 81003; 81025; 83690; 85025; 96361; 96374; 96375; 99284; J1200; J2405; J2765

== ENCOUNTER 2021-01-04 21:49 | Emergency (ER) | payer OTHER, SELFPAY ==
[2021-01-04 21:55] VITALS: BP 148/115; PULSE 95; RESP 16; TEMP 36.3; O2SAT 98; BMI 31.2
[2021-01-04 22:00] VITALS: BP 142/88; PULSE 82; RESP 18; O2SAT 99
--- NOTE | 2021-01-04 22:00 | ECG_ITS ---
Test Reason : CHEST PAIN Blood Pressure : / mmHG Vent. Rate : 082 BPM Atrial Rate : 082 BPM P-R Int : 130 ms QRS Dur : 082 ms QT Int : 398 ms P-R-T Axes : 053 063 041 degrees QTc Int : 464 ms Sinus rhythm with marked sinus arrhythmia Possible Left atrial enlargement Borderline ECG When compared with ECG of 26-JUN-2020 14:46, No significant change was found Referred By: Generic ED Physician Electronically Signed By:RHIANNA HAMLIN
--- NOTE | 2021-01-04 22:13 | ED_ITS ---
HPI - Chest Pain General Chief Complaint: Chest Pain Stated Complaint: chest pain Time Seen by Provider: 01/04/21 22:13 Source: patient Mode of arrival: ambulatory Limitations: no limitations History of Present Illness HPI narrative: Patient history of cyclic vomiting syndrome history of cocaine and marijuana abuse comes here frequently for vomiting episode comes here with similar episodes since am today vomiting multiple times having diarrhea feel very anxious, epigastric pain was seen in the ER trying to vomit by putting her fingers in mouth Related Data Previous Rx's Medication Instructions Recorded hyoscyamine sulfate 0.25 mg PO QID PRN #10 tab 06/24/20 metoclopramide HCl [Reglan] 10 mg PO Q6H PRN #20 tab 06/25/20 lidocaine [Lidoderm] 1 patch TOPICAL DAILY #15 ea 06/26/20 naproxen 500 mg PO BID PRN #20 tab 06/26/20 cyclobenzaprine 10 mg PO BEDTIME #3 tab 08/26/20 ketorolac 10 mg PO Q6H PRN 5 Days #20 tab 08/26/20 ketorolac 10 mg PO TID PRN 5 Days tab 08/26/20 ondansetron HCl [Zofran] 4 mg PO Q6H PRN 3 Days #8 tab 10/16/20 sucralfate [Carafate] 10 ml PO BID #420 ml 10/16/20 Allergies Allergy/AdvReac Type Severity Reaction Status Date / Time Penicillins Allergy Intermediate HIVES Verified 01/04/21 21:59 ciprofloxacin Allergy Unresponsiv Verified 01/04/21 21:59 e Amoxicillin Allergy Intermediate Unknown Uncoded 01/04/21 21:59 Review of Systems Review of Systems: Constitutional : No Weight loss, No Fever, No Chills ENT/Mouth : No sore throat, No Rhinorrhea Eyes: No Eye Pain, No Swelling Cardiovascular : No Chest Pain, no palpitations Respiratory : No Cough, No Sputum, no shortness of breath Gastrointestinal : + Nausea, + Vomiting, No Diarrhea, No abdominal Pain, no [place] stools Genitourinary : No Dysuria, No Urinary Frequency Musculoskeletal : No joint pain, No Myalgias, No Joint Swelling Skin : No Skin Lesions, No rash Neuro : No Weakness, No Numbness, No Dizziness, No Headache Psych : No Anxiety/Panic, No Depression Heme/Lymph: No Bruising, No Lymphadenopathy Endocrine : No Polyuria, No Polydipsia All other systems reviewed and are negative [facility] Past Medical History Medical History Anxiety Bipolar 1 disorder Surgical History H/O: hysterectomy Social History Social History Alcohol intake: never Advance Directives: No Advance Directives Information Provided: No Patient : No Physical Exam Vital Signs: Vital Signs: Last Vital Signs Temp 97.3 F 01/04/21 21:55 Pulse 82 01/04/21 22:00 Resp 18 01/04/21 22:00 BP 142/88 H 01/04/21 22:00 Pulse Ox 99 01/04/21 22:00 Body Mass Index 31.2 Appearance: Alert. Oriented X3. Anxious no significant distress Eyes: PERRLA, No Nystagmus ENT: Pharynx normal. Oral Mucosa moist Neck: Normal inspection. Neck supple. CVS: Normal heart rate and rhythm. Pulses normal. Respiratory: No respiratory distress. Equal air entry bilateral, no wheezin g/rales/rhonchi Abdomen: Soft and mild epigastric tenderness Bowel sounds are present, no mass palpable, no CVA tenderness Skin: Skin warm and dry. Normal skin color. Normal skin turgor. Extremities: No lower extremity edema. No calf tenderness Neuro: Oriented X 3. No motor deficit. No sensory deficit.No cerebellar signs , cranial nerves II-XII intact MDM - Chest Pain MDM Narrative Medical decision making narrative: Patient was found in the ER putting her fingers in her mouth and trying to vomit feels very anxious will give her Compazine and IV fluids Lab Data Attestation: I reviewed the patient's lab results. Result diagrams: 01/04/21 22:33 01/04/21 22:33 Labs: Lab Results 01/04/21 01/04/21 01/04/21 Range/Units 22:13 22:13 22:13 WBC (4.8-10.8) X10*3/uL RBC (4.20-5.50) X10*6/uL Hgb (12.0-16.0) g/dl Hct (37-47) % MCV (80-98) fL MCH (27.0-33.0) pg MCHC (31.0-35.0) g/dl RDW (11.0-16.0) % Plt Count (160-400) X10*3/uL MPV (9.4-12.3) fL Immature Gran % (Auto) (0.0-0.4) % Neut % (Auto) (45-73) % Lymph % (Auto) (20-40) % [place] % (Auto) (2-11) % Eos % (Auto) (0-4) % Baso % (Auto) (0-2) % Lymph # (Auto) (1.2-4.9) X10*3/uL [place] # (Auto) (0.1-1.2) X10*3/uL Eos # (Auto) (0.0-0.4) X10*3/uL Baso # (Auto) (0.0-0.2) X10*3/uL Abs Immat Gran (auto) (0.00-0.03) X10*3/uL Absolute Neuts (auto) (2.0-8.3) X10*3/uL Absolute Nucleated RBC (0.0-0.012) X10*3/uL Nucleated RBC % (auto) (0.0-0.2) /100WBC Sodium (135-145) mmol/L Potassium (3.3-5.1) mmol/L Chloride (96-108) mmol/L Carbon Dioxide (22-29) mmol/L Anion Gap (12-20) BUN (9-16) mg/dL Creatinine (0.5-1.4) mg/dL Estim Creat Clear Calc Estimated GFR Random Glucose (60-115) mg/dL Calcium (8.4-10.2) mg/dL Total Bilirubin (0.0-1.0) mg/dL Direct Bilirubin (0.0-0.5) mg/dL AST (5-31) U/L ALT (0-31) U/L Alkaline Phosphatase (39-117) U/L Total Protein (6.5-8.0) g/dL Albumin (3.5-5.0) g/dL Lipase (8-78) U/L Urine Color YELLOW Urine Appearance HAZY Urine pH 6.5 (5.0-8.0) Ur Specific [place] 1.025 (1.005-1.025) Urine Protein TRACE (NEG-TRACE) MG/DL Urine Glucose (UA) NEG (NEG) MG/DL Urine Ketones 15 (NEG) MG/DL Urine Blood TRACE (NEG) Urine Nitrite NEG (NEG) Ur Leukocyte Esterase TRACE H (NEG) Urine RBC 1-4 (0) /HPF Urine WBC 5-9 H (0-4) /HPF Ur Squamous Epith Cells 2+ /LPF Urine Bacteria 4+ /LPF Urine Mucus 2+ /LPF Urine Test NEGATIVE (NEGATIVE) Urine Opiates Screen Not Detected (Not Detect) Ur Barbiturates Screen Not Detected (Not Detect) Ur Phencyclidine Scrn Not Detected (Not Detect) Ur Amphetamines Screen Not Detected (Not Detect) U Benzodiazepines Scrn Not Detected (Not Detect) Urine Cocaine Screen POSITIVE H (Not Detect) U Marijuana (THC) Screen POSITIVE H (Not Detect) 01/04/21 01/04/21 Range/Units 22:33 22:33 WBC 11.5 H (4.8-10.8) X10*3/uL RBC 5.31 (4.20-5.50) X10*6/uL Hgb 15.0 (12.0-16.0) g/dl Hct 44.2 (37-47) % MCV 83.2 (80-98) fL MCH 28.2 (27.0-33.0) pg MCHC 33.9 (31.0-35.0) g/dl RDW 14.1 (11.0-16.0) % Plt Count 263 (160-400) X10*3/uL MPV 9.6 (9.4-12.3) fL Immature Gran % (Auto) 0.4 (0.0-0.4) % Neut % (Auto) 61.8 (45-73) % Lymph % (Auto) 29.2 (20-40) % [place] % (Auto) 6.2 (2-11) % Eos % (Auto) 1.7 (0-4) % Baso % (Auto) 0.7 (0-2) % Lymph # (Auto) 3.4 (1.2-4.9) X10*3/uL [place] # (Auto) 0.7 (0.1-1.2) X10*3/uL Eos # (Auto) 0.2 (0.0-0.4) X10*3/uL Baso # (Auto) 0.1 (0.0-0.2) X10*3/uL Abs Immat Gran (auto) 0.05 H (0.00-0.03) X10*3/uL Absolute Neuts (auto) 7.1 (2.0-8.3) X10*3/uL Absolute Nucleated RBC 0.000 (0.0-0.012) X10*3/uL Nucleated RBC % (auto) 0.0 (0.0-0.2) /100WBC Sodium 141 (135-145) mmol/L Potassium 3.5 (3.3-5.1) mmol/L Chloride 103 (96-108) mmol/L Carbon Dioxide 24 (22-29) mmol/L Anion Gap 18 (12-20) BUN 9 (9-16) mg/dL Creatinine 0.88 (0.5-1.4) mg/dL Estim Creat Clear Calc 74.8 Estimated GFR > 60 Random Glucose 143 H (60-115) mg/dL Calcium 9.2 (8.4-10.2) mg/dL Total Bilirubin 0.4 (0.0-1.0) mg/dL Direct Bilirubin 0.2 (0.0-0.5) mg/dL AST 14 (5-31) U/L ALT 19 (0-31) U/L Alkaline Phosphatase 119 H D (39-117) U/L Total Protein 7.2 (6.5-8.0) g/dL Albumin 4.5 (3.5-5.0) g/dL Lipase 22 (8-78) U/L Urine Color Urine Appearance Urine pH (5.0-8.0) Ur Specific [place] (1.005-1.025) Urine Protein (NEG-TRACE) MG/DL Urine Glucose (UA) (NEG) MG/DL Urine Ketones (NEG) MG/DL Urine Blood (NEG) Urine Nitrite (NEG) Ur Leukocyte Esterase (NEG) Urine RBC (0) /HPF Urine WBC (0-4) /HPF Ur Squamous Epith Cells /LPF Urine Bacteria /LPF Urine Mucus /LPF Urine Test (NEGATIVE) Urine Opiates Screen (Not Detect) Ur Barbiturates Screen (Not Detect) Ur Phencyclidine Scrn (Not Detect) Ur Amphetamines Screen (Not Detect) U Benzodiazepines Scrn (Not Detect) Urine Cocaine Screen (Not Detect) U Marijuana (THC) Screen (Not Detect) ECG Data ECG #1: Attestation: I personally reviewed and interpreted this ECG as follows: Interpretation: Normal sinus rhythm with sinus arrhythmia heart rate 82 beats per minute normal axis normal intervals no acute ischemia Discharge Plan Discharge Prescriptions: No Action hyoscyamine sulfate 0.125 mg tablet 0.25 mg PO QID PRN (Reason: dyspepsia) Qty: 10 RF: 0 ketorolac 10 mg tablet 10 mg PO TID PRN (Reason: pain) 5 Days RF: 0 cyclobenzaprine 10 mg tablet 10 mg PO BEDTIME Qty: 3 RF: 0 ketorolac 10 mg tablet 10 mg PO Q6H PRN (Reason: pain) 5 Days Qty: 20 RF: 0 ondansetron HCl [Zofran] 4 mg tablet 4 mg PO Q6H PRN (Reason: nausea and vomiting) 3 Days Qty: 8 RF: 0 sucralfate [Carafate] 100 mg/mL suspension 10 ml PO BID Qty: 420 RF: 0 metoclopramide HCl [Reglan] 10 mg tablet 10 mg PO Q6H PRN (Reason: nausea and vomiting) Qty: 20 RF: 0 lidocaine [Lidoderm] 5 % adhesive patch,medicated 1 patch topical DAILY Qty: 15 RF: 0 naproxen 500 mg tablet 500 mg PO BID PRN (Reason: pain) Qty: 20 RF: 0
--- NOTE | 2021-01-04 22:20 | ECG_ITS ---
Test Reason : CP Blood Pressure : / mmHG Vent. Rate : 078 BPM Atrial Rate : 078 BPM P-R Int : 128 ms QRS Dur : 092 ms QT Int : 442 ms P-R-T Axes : 054 059 037 degrees QTc Int : 503 ms Sinus rhythm with marked sinus arrhythmia Possible Left atrial enlargement RSR' or QR pattern in V1 suggests right ventricular conduction delay Prolonged QT Abnormal ECG When compared with ECG of 04-JAN-2021 22:16, No significant change was found Referred By: Rudy Denson Electronically Signed By:RHIANNA HAMLIN
[2021-01-04 22:28] LABS: Appearance Urine HAZY; Color Urine YELLOW; Glucose Urine UA NEG (NEG); Leukocyte Esterase Urine TRACE (NEG); Nitrite Urine NEG (NEG); PH 6.5 (5.0-8.0); Specific Gravity - Urine 1.025 (1.005-1.025); UACC Culture Trigger YES; Urine Blood TRACE (NEG); Urine Ketones 15 MG/DL (NEG); Urine Protein TRACE MG/DL (NEG-TRACE)
[2021-01-04 22:29] LABS: UPreg QC Valid YES; Urine Pregnancy NEGATIVE (NEGATIVE)
[2021-01-04 22:34] LABS: Bacteria Urine 4+ /LPF; Mucus Urine 2+ /LPF; Squamous Epithelial Cell Urine 2+ /LPF
[2021-01-04 22:37] LABS: MANUAL DIFF FLAG NO
[2021-01-04 22:38] LABS: Basophils Absolute Auto 0.1 X10*3/uL (0.0-0.2); Basophils Percent Auto 0.7 % (0-2); Eosinophils Absolute Auto 0.2 X10*3/uL (0.0-0.4); Eosinophils Percent Auto 1.7 % (0-4); Hematocrit 44.2 % (37-47); Imm Gran Abs Auto 0.05 X10*3/uL (0.00-0.03); Imm Gran Pct Auto 0.4 % (0.0-0.4); Lymphocytes Absolute Auto 3.4 X10*3/uL (1.2-4.9); Lymphocytes Percent Auto 29.2 % (20-40); Mean Corpuscular HGB Conc 33.9 g/dl (31.0-35.0); Mean Corpuscular Hemoglobin 28.2 pg (27.0-33.0); Mean Corpuscular Volume 83.2 fL (80-98); Mean Platelet Volume 9.6 fL (9.4-12.3); Monocytes Absolute Auto 0.7 X10*3/uL (0.1-1.2); Monocytes Percent Auto 6.2 % (2-11); Neutrophils Absolute Auto 7.1 X10*3/uL (2.0-8.3); Neutrophils Percent Auto 61.8 % (45-73); Platelet Count 263 X10*3/uL (160-400); Red Blood Count 5.31 X10*6/uL (4.20-5.50); Red Cell Distribution Width 14.1 % (11.0-16.0); White Blood Count 11.5 X10*3/uL (4.8-10.8)
[2021-01-04] MEDS: 0.9 % Sodium Chloride 1,000 ML 999 ML IVCONT ×2 (22:39→23:37)
[2021-01-04] MEDS: LORazepam 2 MG/ML VIAL IVPUSH (22:39)
[2021-01-04 22:44] LABS: Amphetamine Screen Urine Not Detected (Not Detect); Barbiturates, Urine Not Detected (Not Detect); Benzodiazepines Screen Urine Not Detected (Not Detect); Cannabinoid Screen Urine POSITIVE (Not Detect); Cocaine Screen Urine POSITIVE (Not Detect); Opiate Screen Urine Not Detected (Not Detect); Phencyclidine Screen Urine Not Detected (Not Detect)
[2021-01-04 23:01] LABS: Alanine Aminotransferase 19 U/L (0-31); Albumin Level 4.5 g/dL (3.5-5.0); Alkaline Phosphatase 119 U/L (39-117); Anion Gap 18 (12-20); Aspartate Amino Transferase 14 U/L (5-31); Bilirubin Direct 0.2 mg/dL (0.0-0.5); Bilirubin Total 0.4 mg/dL (0.0-1.0); Blood Urea Nitrogen 9 mg/dL (9-16); Calcium 9.2 mg/dL (8.4-10.2); Carbon Dioxide 24 mmol/L (22-29); Chloride 103 mmol/L (96-108); Creatinine Clr Calc Pharmacy 74.8; Estimated Glomerular Filt Rate > 60; Glucose Random 143 mg/dL (60-115); Lipase 22 U/L (8-78); Potassium 3.5 mmol/L (3.3-5.1); Sodium 141 mmol/L (135-145); Total Protein 7.2 g/dL (6.5-8.0)
--- NOTE | 2021-01-04 23:21 | PC.NURSE ---
Patient medicated as ordered with Ativan 2mg, and Normal Saline 1 liter. Pt is quiet while staff is not in room, but has self-induced vomiting witnessed by this RN once. Pt dry heaves & spits into emesis bag when staff is in the room. Pt is needy, frequently asking for various things, states is one of my favorites. Him and . Pt is known to the ED. Labs drawn and sent for analysis. Awaiting results. Urine toxicology positive for cocaine and marijuana. 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 Will continue to monitor.
[2021-01-04] MEDS: Prochlorperazine Edisylate 10 MG/2 ML VIAL IVPUSH (23:37)
== END 2021-01-05 00:29 | disposition home or self-care (01) ==
PROVIDERS: Emergency Provider Internal Medicine
DX: R07.9 Chest pain, unspecified (principal); R10.13 Epigastric pain; F41.9 Anxiety disorder, unspecified; F14.10 Cocaine abuse, uncomplicated; F12.10 Cannabis abuse, uncomplicated; F31.9 Bipolar disorder, unspecified; R11.15 Cyclical vomiting syndrome unrelated to migraine; F17.210 Nicotine dependence, cigarettes, uncomplicated
CPT/HCPCS: 36415; 80048; 80076; 80307; 81001; 81003; 81025; 83690; 85025; 87086; 93005; 96361; 96374; 96375; 99284; J2060

== ENCOUNTER 2021-01-05 02:57 | Observation (INO) | payer OTHER, SELFPAY ==
[2021-01-05 03:18] VITALS: BP 152/90; PULSE 90; RESP 20; TEMP 36.2; O2SAT 99; BMI 31.2
--- NOTE | 2021-01-05 03:23 | PC.NURSE ---
PT DRINKING LARGE AMOUNTS OF WATER, ADVISED TO HOLD OFF UNTIL SHE IS EVALUATED BY .
--- NOTE | 2021-01-05 04:00 | PC.NURSE ---
Patient arrives to ED after being discharged 2-3 hours prior to return. No new labs to be drawn, per .
[2021-01-05] MEDS: LORazepam 2 MG/ML VIAL 1 MG IVPUSH ×2 (04:22→08:38)
[2021-01-05] MEDS: 0.9 % Sodium Chloride 1,000 ML 999 ML IVCONT (04:22)
[2021-01-05] MEDS: ondansetron HCL 4 MG/2 ML VIAL IVPUSH ×2 (04:22→08:39)
--- NOTE | 2021-01-05 05:44 | PC.NURSE ---
Patient has been sleeping throughout most of this ED visit. Pt then woke up, stating my stomach hurts . notified/aware.
--- NOTE | 2021-01-05 06:22 | ED.NAVMDI ---
HPI - Nausea/Vomiting/Diarrhea General Chief complaint: Nausea/Vomiting/Diarrhea Stated complaint: Vomiting Time Seen by Provider: 01/05/21 03:50 Source: patient Mode of arrival: ambulatory Limitations: no limitations History of Present Illness HPI Narrative: 40-year-old female with history of drug abuse of cocaine and, patient has multiple ED visits for cyclic vomiting syndrome. Patient admitted to last using cocaine was 2 days ago, patient presented earlier to the emergency department with persistent vomiting patient was sent home after felt better then patient returned back again after restarting vomiting. Patient emergency department needed IV hydration and multiple doses of anti emetic medication. Labs earlier today was unremarkable. Related Data Allergies Allergy/AdvReac Type Severity Reaction Status Date / Time Penicillins Allergy Intermediate HIVES Verified 01/05/21 04:51 ciprofloxacin Allergy Unresponsiv Verified 01/05/21 04:51 e Amoxicillin Allergy Intermediate Unknown Uncoded 01/05/21 04:51 Review of Systems Review of Systems: All other systems are reviewed and are negative Constitutional: Reports as per HPI and Reports no additional constitutional complaints Eyes: Reports as per HPI and Reports no additional eye complaints Reports system reviewed and no additional complaints, except as documented Cardiovascular: Reports as per HPI and Reports no additional cardiovascular complaints Respiratory: Reports as per HPI and Reports no additional respiratory complaints Gastrointestinal: Reports as per HPI and Reports no additional gastrointestinal complaints Genitourinary: Reports no additional female genitourinary complaints Musculoskeletal: Reports no additional musculoskeletal complaints Skin/Breast: Reports system reviewed and no additional complaints, except as docu Psychiatric: Reports no additional psychiatric complaints Endocrine: Reports no additional endocrine complaints Hematologic/Lymphatic: Reports no additional hematologic/lymphatic complaints Allergic/Immunologic: Reports no additional allergic/immunologic complaints Reports system reviewed and no additional complaints, except as documented and Reports Abnormal speech present [facility] Past Medical History Medical History Anxiety Bipolar 1 disorder Surgical History H/O: hysterectomy Social History Social History Alcohol intake: never Advance Directives: No Advance Directives Information Provided: No Physical Exam Vital Signs: Vital Signs: Last Vital Signs Temp 97.1 F 01/05/21 03:18 Pulse 90 01/05/21 03:18 Resp 20 01/05/21 03:18 BP 152/90 H 01/05/21 03:18 Pulse Ox 99 01/05/21 03:18 Body Mass Index 31.2 Vital signs have been reviewed as appeared to be correct. Blood pressure elevated. Heart rate normal. Respiration rate normal. Temperature normal. Oxygen saturation normal. Appearance: Alert. Oriented X3. No acute distress. Head: Normal external exam. Normocephalic. Atraumatic. No Argueta signs noted. No raccoon eyes noted Eyes: PERRLA. EOMI. Conjunctiva and sclera normal. Eyelids normal. ENT: TM's Normal. Pharynx normal. Uvula midline. Moist mucous membranes. No trismus noted. No drooling noted. No muffled voice noted. Neck: Normal inspection. Neck supple. FROM. No adenopathy. Thyroid Normal. No meningeal signs. No neck mass noted. CVS: Normal heart rate and rhythm. Heart sound normal. No murmurs noted. Pulses normal throughout. Respiratory: No respiratory distress. Painless inspiration. Breath sounds normal. No wheezes/rales/rhonchi noted. Chest nontender. No accessory muscle usage noted or decreased air movement noted. Abdomen: Soft and nontender. Bowel sounds normal in all 4 quadrants. No distention noted. No organomegaly noted. No visible injury noted. Back: No CVA tenderness. Full range of motion noted. Skin: Skin warm and dry. Normal skin color. Normal skin turgor. No rashes/lesions/lacerations noted. Extremities: No lower extremity edema. Extremities exhibit normal range of motion. Extremities nontender. Neuro: Oriented X 3. No motor deficit. No sensory deficit. Reflexes normal. Course Course Course Narrative: Assessment and plan. Cyclic vomiting syndrome likely due to drug abuse, with intractable vomiting not controlled, require IV hydration and IV medication to control her symptoms. Will admit the patient for further management. MDM - Nausea/Vomiting/Diarrhea Lab Data Attestation: I reviewed the patient's lab results. Discharge Plan Discharge Clinical Impression: Cyclic vomiting syndrome Patient Disposition: Admitted As Inpatient
[2021-01-05 07:37] LABS: COVID-19 Test Negative (Negative)
--- NOTE | 2021-01-05 09:16 | PM.IMHP ---
History of Present Illness Date of Service: 01/05/21 Chief Complaint: n/v 40F with history of cyclic vomiting syndrome, presented complaining of 1 day of nausea vomiting. Patient states the day prior she woke up with no symptoms and was able to eat. Then she had sudden onset nausea vomiting without abdominal pain, she does note diarrhea now has chest pain after multiple vomiting episodes. Patient does smoke marijuana but does not attribute her symptoms to marijuana use. Denies any fevers, chills, sick contacts. In ED patient given antiemetics but still has no appetite and is concerned about hydration. Review of Systems Review of Systems: Constitutional: Denies fever, denies Chills Eyes: denies blurry vision ENT: denies sore throat CVS: chest pain Respiratory: Denies dyspnea GI: no abdominal pain : denies dysuria MSK: denies neck pain Skin: denies rash Neuro: denies specific motor weakness Psych: denies suicidal ideation Endocrine: denies heat/cold intoleratnce Hematologic: denies easy bleeding Allergy: denies hives [facility] Medical History Anxiety Bipolar 1 disorder Endometriosis Pulmonary embolism Family history: reviewed and not pertinent Surgical History H/O: hysterectomy History of cholecystectomy Hx of appendectomy Social History Alcohol intake: never Patient Tobacco Use Status: Current someday Tobacco user Substance Use Type: Crack/Cocaine and Marijuana Advance Directives: No Advance Directives Information Provided: No Meds Allergies Allergy/AdvReac Type Severity Reaction Status Date / Time Penicillins Allergy Intermediate HIVES Verified 01/05/21 04:51 ciprofloxacin Allergy Unresponsiv Verified 01/05/21 04:51 e Amoxicillin Allergy Intermediate Unknown Uncoded 01/05/21 04:51 Home Medications Medication Instructions Recorded Confirmed Last Taken Type aripiprazole 1 tab PO DAILY 01/05/21 01/05/21 Unknown History fluoxetine 1 cap PO DAILY 01/05/21 01/05/21 Unknown History lamotrigine 1 tab PO TID 01/05/21 01/05/21 Unknown History lorazepam 0.5 tab PO BID 01/05/21 01/05/21 Unknown History melatonin 1 tab PO BEDTIME PRN 01/05/21 01/05/21 Unknown History quetiapine 1 tab PO BEDTIME 01/05/21 01/05/21 Unknown History sucralfate 10 ml PO BID 01/05/21 01/05/21 Unknown History zolpidem 1 tab PO BEDTIME PRN 01/05/21 01/05/21 Unknown History Physical Exam Vital Signs and Narrative: Vital Signs: Last Vital Signs Temp 97.1 F 01/05/21 03:18 Pulse 90 01/05/21 03:18 Resp 20 01/05/21 03:18 BP 152/90 H 01/05/21 03:18 Pulse Ox 99 01/05/21 03:18 Body Mass Index 31.2 General: no acute distress HEENT: atraumatic Neck: normal to visual inspection CVS: S1, S2, RRR Resp: CTA bilateral Chest: non tender GI: soft, non tender, non distended : no CVA tenderness Skin: no rashes Extremities: no edema Neuro: lethargic X3, grossly intact Psych: cooperative Results Labs Labs: Laboratory Results - last 24 hr 01/05/21 07:15 COVID-19 ([facility]) Negative COVID-19 Clin Com See Note Assessment and Plan (1) Cyclic vomiting syndrome: Status: Acute 40-year-old female presented with nausea vomiting Cyclic vomiting syndrome with acute episode Placed in observation IV fluids, antiemetics Advance diet as tolerated, patient requesting to be NPO hernia Recommend to discontinue marijuana Bipolar Continue mood stabilizers Smoking cessation Cocaine cessation obesity Recommend weight loss VT prophylaxis low-dose Xarelto
[2021-01-05 11:07] VITALS: BP 97/57; PULSE 79; RESP 20; TEMP 36.8; O2SAT 97
[2021-01-05] MEDS: Lactated Ringers 1,000 ML 80 ML IVCONT (11:17)
--- NOTE | 2021-01-05 12:47 | PM.DS ---
DS: Providers Provider Date of Service: 01/05/21 Date of admission: 01/05/21 09:15 Primary care physician: Unknown Physician DS: Diagnosis Discharge Diagnosis (1) Cyclic vomiting syndrome: Status: Acute DS: Medications Discharge Medications Home Medications: Home Medications Medication Instructions Recorded Confirmed aripiprazole 1 tab PO DAILY 01/05/21 01/05/21 lamotrigine 1 tab PO TID 01/05/21 01/05/21 lorazepam 0.5 tab PO BID 01/05/21 01/05/21 melatonin 1 tab PO BEDTIME PRN 01/05/21 01/05/21 quetiapine 1 tab PO BEDTIME 01/05/21 01/05/21 sucralfate 10 ml PO BID 01/05/21 01/05/21 zolpidem 1 tab PO BEDTIME PRN 01/05/21 01/05/21 DS: Summary Hospital Course Hospital Course: Patient was placed on observation for cyclic vomiting syndrome. She was concerned that she was not going to be able to hydrate herself. However, after short amount of time patient's symptoms improved and she was able to drink plenty of fluids. She is now interested in being discharged home. She is encouraged discontinue illicit drugs and marijuana. Time Spent with Patient Time attestation: Total time spent providing and/or coordinating discharge services: Discharge coordination time: Greater than 30 minutes Quality: Stroke Does the patient have a stroke diagnosis?: No Physical Exam Vital Signs: Vital Signs: Last Vital Signs Temp 98.2 F 01/05/21 11:07 Pulse 79 01/05/21 11:07 Resp 20 01/05/21 11:07 BP 97/57 L 01/05/21 11:07 Pulse Ox 97 01/05/21 11:07 Body Mass Index 31.2 General: AO X 3, no acute distress Resp: CTA bilateral CVS: S1,S2,RRR GI: soft, non tender, non distended Neuro: motor grossly intact Psych: appropriate affect DS: Data Data Completed and Pending Labs on day of discharge: Laboratory Results - last 24 hr 01/05/21 07:15 COVID-19 ([facility]) Negative COVID-19 Clin Com See Note Discharge Plan Discharge Patient Disposition: Home, Self-Care Discharge Diagnosis: cyclic vomitting Referrals: Physician,Unknown [Primary Care Provider] - 1 Week Discharge Medications: Continued aripiprazole 10 mg tablet 1 tab PO DAILY RF: 0 lamotrigine 100 mg tablet 1 tab PO TID RF: 0 lorazepam 1 mg tablet 0.5 tab PO BID RF: 0 melatonin 5 mg tablet 1 tab PO BEDTIME PRN (Reason: insomnia) RF: 0 quetiapine 50 mg tablet 1 tab PO BEDTIME RF: 0 sucralfate 100 mg/mL suspension 10 ml PO BID RF: 0 zolpidem 5 mg tablet 1 tab PO BEDTIME PRN (Reason: Sleep) RF: 0 Discharge Orders: Discharge Order (Routine); Ordered 01/05/21 Ordered By: Krystian Sheikh Diet: advance to usual diet Activity on Discharge: As tolerated Stand Alone Forms: Patient Portal Discharge page Care Plan Goals: Avoid episodes Health Concerns: Cyclic vomiting syndrome Plan of Treatment: Avoid marijuana and other drugs Assessment: See above Discharge Date/Time: 01/05/21 13:31
== END 2021-01-05 13:31 | disposition home or self-care (01) ==
LOC: HO.ED 06:34 → HO.EDOVER 09:30 → HO.IMC 09:36
PROVIDERS: Admitting Provider Internal Medicine; Emergency Provider Emergency Medicine; Visit Provider Internal Medicine
DX: R11.15 Cyclical vomiting syndrome unrelated to migraine (principal); R10.9 Unspecified abdominal pain; N80.9 Endometriosis, unspecified; I26.99 Other pulmonary embolism without acute cor pulmonale; F14.10 Cocaine abuse, uncomplicated; F12.10 Cannabis abuse, uncomplicated; F32.9 Major depressive disorder, single episode, unspecified; Z88.1 Allergy status to other antibiotic agents; Z88.0 Allergy status to penicillin; Z20.822 Contact with and (suspected) exposure to COVID-19; Z72.0 Tobacco use; Z90.710 Acquired absence of both cervix and uterus; Z79.899 Other long term (current) drug therapy; Z53.29 Procedure and treatment not carried out because of patient's decision for other reasons
CPT/HCPCS: 36415; 87635; 96361; 96374; 96375; 96376; 99218; 99285; J2060; J2405

== ENCOUNTER 2021-01-06 21:01 | Emergency (ER) | payer OTHER, SELFPAY ==
[2021-01-06 21:43] VITALS: BP 168/106; PULSE 81; RESP 16; TEMP 37.2; O2SAT 98; BMI 31.2
--- NOTE | 2021-01-07 00:31 | ED.NAVMDI ---
HPI - Nausea/Vomiting/Diarrhea General Chief complaint: Nausea/Vomiting/Diarrhea Stated complaint: VOMITTING Time Seen by Provider: 01/07/21 00:24 Source: patient Mode of arrival: ambulatory Limitations: no limitations History of Present Illness HPI Narrative: Patient comes emergency room complaining of nausea vomiting and diarrhea. Patient states she was discharged on January 05. Since then she has been unable to eat or drink anything due to vomiting. MD elicited complaint: nausea, vomiting and diarrhea Related Data Home Medications Medication Instructions Recorded Confirmed aripiprazole 1 tab PO DAILY 01/05/21 01/05/21 lamotrigine 1 tab PO TID 01/05/21 01/05/21 lorazepam 0.5 tab PO BID 01/05/21 01/05/21 melatonin 1 tab PO BEDTIME PRN 01/05/21 01/05/21 quetiapine 1 tab PO BEDTIME 01/05/21 01/05/21 sucralfate 10 ml PO BID 01/05/21 01/05/21 zolpidem 1 tab PO BEDTIME PRN 01/05/21 01/05/21 Previous Rx's Medication Instructions Recorded acetaminophen [Tylenol 8 Hour] 650 mg PO Q8H PRN #10 tab 01/07/21 ondansetron HCl [Zofran] 4 mg PO Q6H PRN #10 tab 01/07/21 Allergies Allergy/AdvReac Type Severity Reaction Status Date / Time Penicillins Allergy Intermediate HIVES Verified 01/05/21 04:51 ciprofloxacin Allergy Unresponsiv Verified 01/05/21 04:51 e Amoxicillin Allergy Intermediate Unknown Uncoded 01/05/21 04:51 Review of Systems Review of Systems: Constitutional : No Weight loss, No Fever, No Chills, No Night Sweats, No Fatigue, No Malaise ENT/Mouth : No Hearing loss, No Ear Pain, No Nasal Congestion, No Sinus Pain, No Hoarseness, No sore throat, No Rhinorrhea, No Swallowing Difficulty Eyes: No Eye Pain, No Swelling, No Redness, No Foreign Body, No Discharge, No Vision Changes Cardiovascular : No Chest Pain, No SOB, No Dyspnea on Exertion, No Orthopnea, No Edema, No Palpitations Respiratory : No Cough, No Sputum, No Wheezing, No Smoke Exposure, No Dyspnea Gastrointestinal : Planning of nausea vomiting and diarrhea,, No Constipation, No abdominal Pain, No Hematochezia, No Melena Genitourinary : no irregular bleeding, No Dysuria, No Urinary Frequency, No Hematuria, No Urinary Incontinence, No Urgency, No Flank Pain, No Urinary Flow Changes, No Hesitancy Musculoskeletal : No joint pain, No Myalgias, No Joint Swelling Skin : No Skin Lesions, No rash Neuro : No Weakness, No Numbness, No Paresthesias, No Loss of Consciousness, No Dizziness, No Headache Psych : No Anxiety/Panic, No Depression, No SI/HI/AH/VH, No Social Issues, Heme/Lymph: No Bruising, No Bleeding,No Lymphadenopathy Endocrine : No Polyuria, No Polydipsia, No Temperature Intolerance [facility] Past Medical History Medical History Anxiety Bipolar 1 disorder Endometriosis Pulmonary embolism Surgical History H/O: hysterectomy History of cholecystectomy Hx of appendectomy Social History Social History Alcohol intake: never Patient Tobacco Use Status: Current someday Tobacco user Tobacco use type: Cigarette Cigarette Packs Per Day: 0.34 Cigarettes Per Day: 6.8 Years Smoked: 32 Second Hand Smoke Exposure: No Substance Use Type: Crack/Cocaine and Marijuana Advance Directives: No Advance Directives Information Provided: No Patient : No Physical Exam Vital Signs: Vital Signs: Last Vital Signs Temp 99.0 F 01/06/21 21:43 Pulse 81 01/06/21 21:43 Resp 16 01/06/21 21:43 BP 168/106 H 01/06/21 21:43 Pulse Ox 98 01/06/21 21:43 Body Mass Index 31.2 Appearance: Alert. Oriented X3. Crying inconsolably Eyes: Pupils equal, round and reactive to light. ENT: Pharynx normal. Neck: Normal inspection. Neck supple. No lymph nodes noted. No crepitus CVS: Normal heart rate and rhythm. Pulses normal. Normal S1 and S2 Respiratory: No respiratory distress. Breath sounds normal. No Wheezing. No rales Abdomen: Soft and nontender. No rigidity. No distention. good BS x4 Skin: Skin warm and dry. Normal skin color. Normal skin turgor. Extremities: No lower extremity edema. No lower extremity edema. No Lacerations. No Rash Neuro: Oriented X 3. No motor deficit. No sensory deficit. Moving all extermities. No slurred speech. Course Course Course Narrative: Patient crying inconsolably, not vomiting, no dry heaving. Patient states she is crying because she wants to be admitted to the hospital. While patient has been in the emergency room, patient has not vomited. We tried to p.o. challenge the patient. Patient refused to drink any fluids, states she wants to be directly admitted. I discussed with the patient's that her labs showed no acute pathology. I discussed with the patient that if she fails p.o. challenge, she will be admitted. Patient went multiple times to the bathroom, did not provide a urine sample. Patient initially came in complaining of flank pain, states that our couch is very comfortable making her back hurt. I ordered a CT scan to rule out kidney stones, however the patient refused to get a CT scan. As mentioned above, patient had no episodes of vomiting. Requested Ativan which was provided for her. Patient requested to be discharged home MDM - Nausea/Vomiting/Diarrhea Lab Data Result diagrams: 01/07/21 00:59 01/07/21 00:59 Labs: Lab Results 01/07/21 01/07/21 Range/Units 00:59 00:59 WBC 10.2 (4.8-10.8) X10*3/uL RBC 4.87 (4.20-5.50) X10*6/uL Hgb 13.9 (12.0-16.0) g/dl Hct 40.4 (37-47) % MCV 83.0 (80-98) fL MCH 28.5 (27.0-33.0) pg MCHC 34.4 (31.0-35.0) g/dl RDW 14.0 (11.0-16.0) % Plt Count 204 (160-400) X10*3/uL MPV 11.1 (9.4-12.3) fL Immature Gran % (Auto) 0.4 (0.0-0.4) % Neut % (Auto) 72.6 (45-73) % Lymph % (Auto) 21.9 (20-40) % Thomas % (Auto) 4.2 (2-11) % Eos % (Auto) 0.3 (0-4) % Baso % (Auto) 0.6 (0-2) % Lymph # (Auto) 2.2 (1.2-4.9) X10*3/uL Thomas # (Auto) 0.4 (0.1-1.2) X10*3/uL Eos # (Auto) 0.0 (0.0-0.4) X10*3/uL Baso # (Auto) 0.1 (0.0-0.2) X10*3/uL Abs Immat Gran (auto) 0.04 H (0.00-0.03) X10*3/uL Absolute Neuts (auto) 7.4 (2.0-8.3) X10*3/uL Absolute Nucleated RBC 0.000 (0.0-0.012) X10*3/uL Nucleated RBC % (auto) 0.0 (0.0-0.2) /100WBC Sodium 140 (135-145) mmol/L Potassium 3.9 (3.3-5.1) mmol/L Chloride 101 (96-108) mmol/L Carbon Dioxide 23 (22-29) mmol/L Anion Gap 20 (12-20) BUN 9 (9-16) mg/dL Creatinine 0.85 (0.5-1.4) mg/dL Estim Creat Clear Calc 77.4 Estimated GFR > 60 Random Glucose 115 (60-115) mg/dL Calcium 9.6 (8.4-10.2) mg/dL Total Bilirubin 0.5 (0.0-1.0) mg/dL Direct Bilirubin 0.2 (0.0-0.5) mg/dL AST 18 (5-31) U/L ALT 19 (0-31) U/L Alkaline Phosphatase 115 (39-117) U/L Total Protein 7.5 (6.5-8.0) g/dL Albumin 4.6 (3.5-5.0) g/dL Lipase 7 L (8-78) U/L Discharge Plan Discharge Clinical Impression: Nausea, Flank pain Patient Disposition: Home, Self-Care Instructions: Flank Pain (ED) Additional Instructions: Please follow-up with your primary care physician tomorrow. If you have any worsening or new symptoms, please return to the emergency room or call 911 Prescriptions: New ondansetron HCl [Zofran] 4 mg tablet 4 mg PO Q6H PRN (Reason: nausea and vomiting) Qty: 10 RF: 0 acetaminophen [Tylenol 8 Hour] 650 mg tablet extended release 650 mg PO Q8H PRN (Reason: pain) Qty: 10 RF: 0 No Action aripiprazole 10 mg tablet 1 tab PO DAILY RF: 0 lamotrigine 100 mg tablet 1 tab PO TID RF: 0 lorazepam 1 mg tablet 0.5 tab PO BID RF: 0 melatonin 5 mg tablet 1 tab PO BEDTIME PRN (Reason: insomnia) RF: 0 quetiapine 50 mg tablet 1 tab PO BEDTIME RF: 0 sucralfate 100 mg/mL suspension 10 ml PO BID RF: 0 zolpidem 5 mg tablet 1 tab PO BEDTIME PRN (Reason: Sleep) RF: 0
[2021-01-07 01:08] LABS: PLT CLUMP 1; SCAN SMEAR FLAG 1
[2021-01-07 01:10] LABS: Basophils Absolute Auto 0.1 X10*3/uL (0.0-0.2); Basophils Percent Auto 0.6 % (0-2); Eosinophils Percent Auto 0.3 % (0-4); Hematocrit 40.4 % (37-47); Hemoglobin 13.9 g/dl (12.0-16.0); Imm Gran Abs Auto 0.04 X10*3/uL (0.00-0.03); Imm Gran Pct Auto 0.4 % (0.0-0.4); Lymphocytes Absolute Auto 2.2 X10*3/uL (1.2-4.9); Lymphocytes Percent Auto 21.9 % (20-40); Mean Corpuscular HGB Conc 34.4 g/dl (31.0-35.0); Mean Corpuscular Hemoglobin 28.5 pg (27.0-33.0); Mean Platelet Volume 11.1 fL (9.4-12.3); Monocytes Absolute Auto 0.4 X10*3/uL (0.1-1.2); Monocytes Percent Auto 4.2 % (2-11); Neutrophils Absolute Auto 7.4 X10*3/uL (2.0-8.3); Neutrophils Percent Auto 72.6 % (45-73); Platelet Count 204 X10*3/uL (160-400); Red Blood Count 4.87 X10*6/uL (4.20-5.50); White Blood Count 10.2 X10*3/uL (4.8-10.8)
[2021-01-07 01:12] LABS: MANUAL DIFF FLAG NO
[2021-01-07] MEDS: 0.9 % Sodium Chloride 1,000 ML 999 ML IVCONT (01:32)
[2021-01-07 01:37] LABS: Alanine Aminotransferase 19 U/L (0-31); Albumin Level 4.6 g/dL (3.5-5.0); Alkaline Phosphatase 115 U/L (39-117); Anion Gap 20 (12-20); Aspartate Amino Transferase 18 U/L (5-31); Bilirubin Direct 0.2 mg/dL (0.0-0.5); Bilirubin Total 0.5 mg/dL (0.0-1.0); Blood Urea Nitrogen 9 mg/dL (9-16); Calcium 9.6 mg/dL (8.4-10.2); Carbon Dioxide 23 mmol/L (22-29); Chloride 101 mmol/L (96-108); Creatinine Clr Calc Pharmacy 77.4; Estimated Glomerular Filt Rate > 60; Glucose Random 115 mg/dL (60-115); Lipase 7 U/L (8-78); Potassium 3.9 mmol/L (3.3-5.1); Sodium 140 mmol/L (135-145); Total Protein 7.5 g/dL (6.5-8.0)
[2021-01-07] MEDS: ondansetron HCL 4 MG/2 ML VIAL IVPUSH (01:39)
[2021-01-07] MEDS: LORazepam 2 MG/ML VIAL IVPUSH (01:49)
--- NOTE | 2021-01-07 03:22 | PC.NURSE ---
TALKING TO PATIENT MULTIPLE TIMES THROUGHOUT STAY IN ED, WANTING A ROOM AND BED, EXPLAINING THAT THEY ER WAS FULL AND MONITORED PATIENTS [employer] FOR ROOMS WITH MONITORS AT BEDSIDE. PATIENT VERBALIZED UNDERSTANDING BUT THEN WALKING AROUND THE UNIT WAILING AND SOBBING THAT SHE DOES NOT HAVE A ROOM. PATIENT ABLE TO COMPLETE HER COURSE OF TREATMENT FROM HER ASSIGNED SPOT IN THE ER, SEEN BY THE PROVIDER AND MEDICATED AND TREATMENTS ACCORDING TO DOCUMENTATION IN CHART. PATIENT AGREEABLE TO DISCHARGE, GIVEN DISCHARGE PAPERWORK AND EXPLAINING PLAN OF CARE FOR HOME BY PRIMARY RN. PATIENT THEN GOING OUT TO THE WAITING ROOM, CONTINUING TO CRY OUT IN THE WAITING ROOM. THIS HYDRATOR OPERATOR CALLED TO COME TALK WITH PATIENT. ASKING PATIENT IF SHE WOULD LIKE TO BE SEEN AGAIN BY THE PROVIDER. PATIENTS RESPONSE WAS I NEED A BED AND TO GET ADMITTED AM I JUST SUPPOSED TO KEEP VOMITING . TALKING WITH PROVIDER DR. LUNDBERG WHO SAW PATIENT, NO DIAGNOSIS FOR ADMISSION AT THIS TIME. INFORMING THE PATIENT OF THAT, WHO STATING I DON'T WANNA SEE THE SAME PERSON I AM JUST GOING TO GO TO [place] SO THEY CAN ADMIT ME WALKING OUT THE WAITING ROOM DOORS TO HER RIDE WAITING THERE BY THE DOOR. NO DIFFICULTY AMBULATING, BREATHING IS EVEN AND UNLABORED, NO ACTIVE VOMITING NOTED FOR THE WHO ER STAY.
== END 2021-01-07 03:00 | disposition home or self-care (01) ==
PROVIDERS: Emergency Provider Emergency Medicine
DX: R11.2 Nausea with vomiting, unspecified (principal); R19.7 Diarrhea, unspecified; R10.9 Unspecified abdominal pain; F17.210 Nicotine dependence, cigarettes, uncomplicated; Z79.899 Other long term (current) drug therapy; Z71.6 Tobacco abuse counseling
CPT/HCPCS: 36415; 80048; 80076; 83690; 85025; 96365; 96375; 99283; J2060; J2405

== ENCOUNTER 2021-08-24 05:42 | Emergency (ER) | payer OTHER, SELFPAY ==
--- NOTE | 2021-08-24 | ECG_ITS ---
Test Reason : cp Blood Pressure : / mmHG Vent. Rate : 076 BPM Atrial Rate : 076 BPM P-R Int : 128 ms QRS Dur : 084 ms QT Int : 414 ms P-R-T Axes : 043 056 041 degrees QTc Int : 465 ms Normal sinus rhythm Normal ECG When compared with ECG of 05-JAN-2021 08:04, No significant change was found Referred By: Generic ED Physician Electronically Signed By:Pascual Casey
--- NOTE | ~2021-08-24 | CT_ITS ---
EXAMINATION: CT ABDOMEN AND PELVIS WITH CONTRAST CLINICAL INFORMATION: Left flank and abdominal tenderness COMPARISON: Previous CT of the abdomen and pelvis January 2019 TECHNIQUE: Multidetector volumetric images were obtained from the superior aspect of the liver through the pubic symphysis following administration 85 mL of Omnipaque 350 intravenous contrast. Sagittal and coronal reformatted images were obtained on the technologist's workstation. Oral contrast: Yes This CT examination was performed using dose optimization techniques as appropriate, variously including the following: *Automated exposure control *Adjustment of mA and/or kV according to patient size (this includes techniques or standardized protocols for targeted exams where dose is matched to indication/reason for exam; i.e. extremities or head) *Use of iterative reconstruction technique DLP: 658 mGy-cm FINDINGS: LUNG BASES: The visualized lung bases are unremarkable. LIVER, GALLBLADDER, AND BILIARY TREE: There is a small 7 mm low-attenuation lesion high in the dome of the liver that is stable from January 2019 exam and therefore probably benign. The liver is otherwise unremarkable. The gallbladder has been removed. PANCREAS: Unremarkable. SPLEEN: There is a stable 7 mm low-attenuation lesion in the main also likely benign. ADRENAL GLANDS: Unremarkable. KIDNEYS AND URETERS: There is a 3 mm stone in the lower pole of the left kidney. There is a cyst small 5 mm low-attenuation lesion exophytic to the posterior upper pole the left kidney that is stable and probably represents a small cyst. It may be renal cortical thinning or scarring in the posterior mid pole of the right kidney. The kidneys are otherwise unremarkable. BLADDER: Unremarkable. GASTROINTESTINAL TRACT: There is a large duodenal diverticulum. Small and large bowel are otherwise unremarkable. The appendix is not identified and may have been removed. ABDOMINAL WALL: No significant hernia is appreciated. LYMPH NODES: Normal. VASCULAR: There is evidence of mild atherosclerotic disease. No aneurysm is seen. PELVIC VISCERA: Unremarkable. OSSEOUS STRUCTURES: Unremarkable. CT/CT abdomen pelvis w con IMPRESSION: 3 mm nonobstructing left lower pole renal stone. Stable small low-attenuation lesions in the liver, spleen and left kidney, probably benign. Fleischner guidelines were followed.
[2021-08-24 05:48] VITALS: BP 107/102; PULSE 81; RESP 16; TEMP 35.7; O2SAT 99; BMI 33.2
--- NOTE | 2021-08-24 06:49 | PC.NURSE ---
pt complaining of chest pain. Ekg completed, provider boudreaux, labs drawn and sent. pt back in waiting. Will continue to monitor.
--- NOTE | 2021-08-24 07:01 | PC.NURSE ---
Pt has approached multiple staff members regarding chest pain/ n/v vomiting blood after EKG being taken. Pt verbalized being upset with waiting in the waiting room and no bed being available.
[2021-08-24] MEDS: Ondansetron ODT 4 MG TAB.RAPDIS TRANSLINGU (07:18)
[2021-08-24 08:53] LABS: COVID-19 Test Negative (Negative)
[2021-08-24 08:58] LABS: Alanine Aminotransferase 21 U/L (0-31); Albumin Level 4.9 g/dL (3.5-5.0); Alkaline Phosphatase 100 U/L (39-117); Aspartate Amino Transferase 16 U/L (5-31); Bilirubin Direct 0.2 mg/dL (0.0-0.5); Bilirubin Total 0.4 mg/dL (0.0-1.0)
[2021-08-24 09:01] LABS: Troponin-I High Sensitivity 3.6 ng/L (<3.5-17.0)
--- NOTE | 2021-08-24 10:25 | ED_ITS ---
HPI - Nausea/Vomiting/Diarrhea General Chief complaint: Nausea/Vomiting/Diarrhea Stated complaint: vomiting Time Seen by Provider: 08/24/21 10:25 Source: patient Mode of arrival: ambulatory Limitations: no limitations History of Present Illness HPI Narrative: 40-year-old female with a history of bipolar, IBS, anxiety, cyclic vomiting syndrome presents with multiple episodes of vomiting that started yesterday evening. Patient reports she has vomited more than 12 times, and has some coffee-ground emesis. No bright red blood. Patient has had diarrhea twice, which is not unusual for her, as she has IBS. Nothing dark or tarry or bloody in her stool. She has a sore throat from vomiting, her chest and back is sore from vomiting. She reports she has some left sided abdominal pain that started yesterday.. P ain in the left side of her abdomen is a 7/10, is a crampy pain, and radiates to her left back. No fevers. Patient has not had any bad foods, unusual water sources, no recent camping, no recent travel, no recent antibiotics. And patient is not vaccinated for COVID, states that her is ?wacky? and does not want her to get vaccinated for COVID. And and denies alcohol or recent drug use. Patient states she was at [facility] 2 days ago for evaluation of abdominal pain Patient has had cholecystectomy, appendectomy, and bilateral oophorectomy and bilateral fallopian tube removal MD elicited complaint: nausea, vomiting, diarrhea, abdominal pain and flank pain Pertinent past history: cyclical vomiting Onset (ago): day(s) (1) Description of vomiting: coffee grounds and continuous Description of diarrhea: loose Associated nausea: Yes Associated abdominal pain: Yes Location of pain: LUQ, LLQ and L flank Radiation: left flank Pain consistency: constant Severity: moderate Pain scale (0-10): 7 Quality: cramping Exacerbating factors: vomiting Relieving factors: none Context: history of abdominal surgery Associated symptoms: nausea/vomiting and anxiety Treatment prior to arrival: none Related Data Home Medications Medication Instructions Recorded Confirmed aripiprazole 10 mg tablet 1 tab PO DAILY 01/05/21 01/05/21 lamotrigine 100 mg tablet 1 tab PO TID 01/05/21 01/05/21 lorazepam 1 mg tablet 0.5 tab PO BID 01/05/21 01/05/21 melatonin 5 mg tablet 1 tab PO BEDTIME PRN 01/05/21 01/05/21 quetiapine 50 mg tablet 1 tab PO BEDTIME 01/05/21 01/05/21 sucralfate 100 mg/mL oral 10 ml PO BID 01/05/21 01/05/21 suspension zolpidem 5 mg tablet 1 tab PO BEDTIME PRN 01/05/21 01/05/21 Previous Rx's Medication Instructions Recorded acetaminophen 650 mg 650 mg PO Q8H PRN #10 tab 01/07/21 tablet,extended release (Tylenol 8 Hour) ondansetron HCl 4 mg tablet 4 mg PO Q6H PRN #10 tab 01/07/21 (Zofran) Allergies Allergy/AdvReac Type Severity Reaction Status Date / Time Penicillins Allergy Intermediate HIVES Verified 01/05/21 04:51 ciprofloxacin Allergy Unresponsiv Verified 01/05/21 04:51 e Amoxicillin Allergy Intermediate Unknown Uncoded 01/05/21 04:51 Review of Systems Constitutional: Constitutional: Denies body ache(s), Denies chills, Denies fatigue, Denies fever(s), Denies headache(s), Denies malaise and Denies weakness Eyes: Eyes: Denies diplopia ENT: Denies dizziness, Denies otalgia, Denies headache(s), Denies nasal discharge, Denies odynophagia, Reports sinus pain, Denies sinus pressure and Reports sore throat (from vomiting) Cardiovascular: Cardiovascular: Denies chest pain, Denies syncope, Denies leg edema, Denies Loss of Consciousness, Denies palpitations and Denies dyspnea Comments: Chest wall pain radiating up into left shoulder Respiratory: Respiratory: Denies chest congestion, Denies cough and Denies dyspnea Gastrointestinal: Gastrointestinal: Reports abdominal pain, Denies melena, Denies hematochezia, Reports coffee ground emesis, Reports GI cramping, Reports diarrhea, Reports nausea, Denies odynophagia, Reports vomiting and Denies hematemesis Genitourinary: Genitourinary: Reports no additional female genitourinary complaints, Denies abnormal vaginal bleeding, Denies hematuria, Denies dysuria and Denies pelvic pain Musculoskeletal: Comments: Chest wall pain Neurologic: Denies confusion, Denies dizziness, Denies syncope, Denies headache(s) and Denies weakness Psychiatric: Psychiatric: Denies anxiety, Denies confusion and Denies depres kyle Endocrine: Endocrine: Denies fatigue and Denies palpitations PMFSH Past Medical History Medical History Anxiety Bipolar 1 disorder Endometriosis Pulmonary embolism Surgical History H/O: hysterectomy History of cholecystectomy Hx of appendectomy Social History Social History Alcohol intake: never Patient Tobacco Use Status: Current someday Tobacco user Tobacco use type: Cigarette Cigarette Packs Per Day: 0.34 Cigarettes Per Day: 6.8 Years Smoked: 32 Second Hand Smoke Exposure: No Substance Use Type: Crack/Cocaine and Marijuana Advance Directives: No Advance Directives Information Provided: No Patient : No (Compete hysterectomy) Physical Exam Vital Signs: Vital Signs: Last Vital Signs Temp 96.3 F L 08/24/21 05:48 Pulse 73 08/24/21 11:09 Resp 18 08/24/21 11:51 BP 103/60 08/24/21 11:09 Pulse Ox 97 08/24/21 11:09 BMI result Body Mass Index 33.2 Const: General: no acute distress, alert and awake; No confusion Nutritional Appearance: well nourished and overweight Orientation/consciousness: patient oriented x3 and No confusion Limitations: no limitations HENMT: Other: hoarse voice Head: Yes normal to inspection, Yes normocephalic and Yes atraumatic Ears: hearing grossly normal bilaterally, external ears normal, TM's normal bilaterally and EAC's normal General nose exam: Normal external nose present Face and sinus: Yes normal facial exam and Yes sinuses nontender Mouth: Normal oral and palatal mucosa present Teeth and gingiva: caries and poor den tition Throat: Yes posterior oropharynx abnormal (mildly erythematous) Eyes: Conjunctivae: conjunctivae normal Pupils: Equal, round and reactive pupils present EOM: EOMs intact bilaterally Neck: Neck: Yes full ROM, Yes no lymphadenopathy and Yes supple Resp: Effort & Inspection: normal respiratory effort and able to speak in complete sentences Auscultation: no crackles, no rales, no rhonchi and wheezes (MIld inspiratory wheeze) Cardio: Rate: regular rate Rhythm: regular rhythm Heart sounds: S1 normal heart sound present and S2 normal heart sound present GI: Inspection: Yes obesity Palpation (GI): Soft to palpation, Tenderness to palpation present (GI) in the LLQ and in the LUQ, Guarding due to palpation present (GI) in the LLQ and not rigid Percussion: Yes normal to percussion Auscultation: normal bowel sounds : General: Yes CVA tenderness on the left Back/Spine/Pelvis: Back: CVA tenderness Skin: General skin exam: no rashes or lesions noted Neuro: General: patient oriented x3 and No confusion Cranial nerves: Yes Equal, round and reactive pupils present Extrem: General: Yes normal to inspection and Yes full ROM Psych: Appearance: grossly normal Affect: normal affect Attitude: cooperative Thought process: Normal thought process present Course Course Course Narrative: 40-year-old female presents with vomiting since yesterday. Patient is well-known to the emergency room, his history of cyclic vomiting. On exam, patient has stable vitals, patient is tender and guarding in her lower left quadrant and has mild left CVA tenderness Will get EKG, troponin, to rule out chest pain of a cardiac etiology. Will get urine, urine drug screen, labs. Gave morphine, Reglan, Compazine, fluids. Will scan abdomen and re-evaluate. Reevaluation(s) Reevaluation #1: CT/CT abdomen pelvis w con IMPRESSION: 3 mm nonobstructing left lower pole renal stone. Stable small low-attenuation lesions in the liver, spleen and left kidney, probably benign. On re-examination, pt is feeling much better. She is not nauseous, reports she did vomit but it was only a little bit, does not feel nauseous now. Patient has mild leukocytosis at 11.5, most likely inflammatory response from vomiting Troponin 3.6, patient has had chest wall pain since yesterday, greater than 6 h ours. EKG is unremarkable CMP is unremarkable. Awaiting urine, then will anticipate discharge home Reevaluation #2: Patient feeling much better with 2 L of fluid, anxious to go home. Patient did give a urine, but we cannot find it, is unable to give a 2nd urine Will send patient home with PCP follow-up. MDM - Nausea/Vomiting/Diarrhea Lab Data Result diagrams: 08/24/21 08:30 08/24/21 14:13 Labs: Lab Results 08/24/21 08/24/21 08/24/21 Range/Units 08:30 08:30 08:30 WBC 11.5 H (4.8-10.8) X10*3/uL RBC 5.56 H (4.20-5.50) X10*6/uL Hgb 15.8 (12.0-16.0) g/dl Hct 46.8 (37.0-47.0) % MCV 84.2 (80.0-98.0) fL MCH 28.4 (27.0-33.0) pg MCHC 33.8 (31.0-35.0) g/dl RDW 14.1 (11.0-16.0) % Plt Count 282 (160-400) X10*3/uL MPV 10.1 (9.4-12.3) fL Immature Gran % (Auto) 0.3 (0.0-0.4) % Neut % (Auto) 80.9 H (45-73) % Lymph % (Auto) 14.1 L (20-40) % [place] % (Auto) 4.3 (2-11) % Eos % (Auto) 0.1 (0-4) % Baso % (Auto) 0.3 (0-2) % Lymph # (Auto) 1.6 (1.2-4.9) X10*3/uL [place] # (Auto) 0.5 (0.1-1.2) X10*3/uL Eos # (Auto) 0.0 (0.0-0.4) X10*3/uL Baso # (Auto) 0.0 (0.0-0.2) X10*3/uL Abs Immat Gran (auto) 0.04 H (0.00-0.03) X10*3/uL Absolute Neuts (auto) 9.3 H (2.0-8.3) x10*3/uL Absolute Nucleated RBC 0.000 (0.0-0.012) X10*3/uL Nucleated RBC % (auto) 0.0 (0.0-0.2) /100WBC Sodium (135-145) mmol/L Potassium (3.3-5.1) mmol/L Chloride (96-108) mmol/L Carbon Dioxide (22-29) mmol/L Anion Gap (12-20) BUN (9-16) mg/dL Creatinine (0.5-1.4) mg/dL Estim Creat Clear Calc Estimated GFR Random Glucose (60-115) mg/dL Calcium (8.4-10.2) mg/dL Total Bilirubin 0.4 (0.0-1.0) mg/dL Direct Bilirubin 0.2 (0.0-0.5) mg/dL AST 16 (5-31) U/L ALT 21 (0-31) U/L Alkaline Phosphatase 100 (39-117) U/L Troponin I High Sens (<3.5-17.0) ng/L Total Protein 8.0 (6.5-8.0) g/dL Albumin 4.9 (3.5-5.0) g/dL COVID-19 ([facility]) Negative (Negative) COVID-19 Clin Com See Note 08/24/21 08/24/21 Range/Units 08:30 14:13 WBC (4.8-10.8) X10*3/uL RBC (4.20-5.50) X10*6/uL Hgb (12.0-16.0) g/dl Hct (37.0-47.0) % MCV (80.0-98.0) fL MCH (27.0-33.0) pg MCHC (31.0-35.0) g/dl RDW (11.0-16.0) % Plt Count (160-400) X10*3/uL MPV (9.4-12.3) fL Immature Gran % (Auto) (0.0-0.4) % Neut % (Auto) (45-73) % Lymph % (Auto) (20-40) % [place] % (Auto) (2-11) % Eos % (Auto) (0-4) % Baso % (Auto) (0-2) % Lymph # (Auto) (1.2-4.9) X10*3/uL [place] # (Auto) (0.1-1.2) X10*3/uL Eos # (Auto) (0.0-0.4) X10*3/uL Baso # (Auto) (0.0-0.2) X10*3/uL Abs Immat Gran (auto) (0.00-0.03) X10*3/uL Absolute Neuts (auto) (2.0-8.3) x10*3/uL Absolute Nucleated RBC (0.0-0.012) X10*3/uL Nucleated RBC % (auto) (0.0-0.2) /100WBC Sodium 138 (135-145) mmol/L Potassium 3.6 (3.3-5.1) mmol/L Chloride 103 (96-108) mmol/L Carbon Dioxide 27 (22-29) mmol/L Anion Gap 12 (12-20) BUN 12 (9-16) mg/dL Creatinine 0.74 (0.5-1.4) mg/dL Estim Creat Clear Calc 91.9 Estimated GFR > 60 Random Glucose 107 (60-115) mg/dL Calcium 8.6 D (8.4-10.2) mg/dL Total Bilirubin (0.0-1.0) mg/dL Direct Bilirubin (0.0-0.5) mg/dL AST (5-31) U/L ALT (0-31) U/L Alkaline Phosphatase (39-117) U/L Troponin I High Sens 3.6 (<3.5-17.0) ng/L Total Protein (6.5-8.0) g/dL Albumin (3.5-5.0) g/dL COVID-19 ([facility]) (Negative) COVID-19 Clin Com ECG Data Interpretation: Normal axis, sinus at a rate of 76, NV 120, QRS 84, QTC 465. No ST elevations or depressions Discharge Plan Discharge Clinical Impression: Cyclic vomiting syndrome Patient Disposition: Home, Self-Care Instructions: Cyclic Vomiting Syndrome (ED) Additional Instructions: All of your labs and your CT scan were normal today. Please call your primary care provider tomorrow for a follow-up appointment from today's ER visit. They may want to prescribe you some antinausea medication, I do not want to prescribe this for you because it may interact with your bipolar medications. If you have worsening abdominal pain, fevers, intractable nausea vomiting, please return. Prescriptions: No Action aripiprazole 10 mg tablet 1 tab PO DAILY RF: 0 lamotrigine 100 mg tablet 1 tab PO TID RF: 0 lorazepam 1 mg tablet 0.5 tab PO BID RF: 0 melatonin 5 mg tablet 1 tab PO BEDTIME PRN (Reason: insomnia) RF: 0 quetiapine 50 mg tablet 1 tab PO BEDTIME RF: 0 sucralfate 100 mg/mL suspension 10 ml PO BID RF: 0 zolpidem 5 mg tablet 1 tab PO BEDTIME PRN (Reason: Sleep) RF: 0 ondansetron HCl [Zofran] 4 mg tablet 4 mg PO Q6H PRN (Reason: nausea and vomiting) Qty: 10 RF: 0 acetaminophen [Tylenol 8 Hour] 650 mg tablet extended release 650 mg PO Q8H PRN (Reason: pain) Qty: 10 RF: 0
[2021-08-24 10:37] LABS: MANUAL DIFF FLAG NO
[2021-08-24 10:38] LABS: Basophils Percent Auto 0.3 % (0-2); Eosinophils Percent Auto 0.1 % (0-4); Hematocrit 46.8 % (37.0-47.0); Hemoglobin 15.8 g/dl (12.0-16.0); Imm Gran Abs Auto 0.04 X10*3/uL (0.00-0.03); Imm Gran Pct Auto 0.3 % (0.0-0.4); Lymphocytes Absolute Auto 1.6 X10*3/uL (1.2-4.9); Lymphocytes Percent Auto 14.1 % (20-40); Mean Corpuscular HGB Conc 33.8 g/dl (31.0-35.0); Mean Corpuscular Hemoglobin 28.4 pg (27.0-33.0); Mean Corpuscular Volume 84.2 fL (80.0-98.0); Mean Platelet Volume 10.1 fL (9.4-12.3); Monocytes Absolute Auto 0.5 X10*3/uL (0.1-1.2); Monocytes Percent Auto 4.3 % (2-11); Neutrophils Absolute Auto 9.3 x10*3/uL (2.0-8.3); Neutrophils Percent Auto 80.9 % (45-73); Platelet Count 282 X10*3/uL (160-400); Red Blood Count 5.56 X10*6/uL (4.20-5.50); Red Cell Distribution Width 14.1 % (11.0-16.0); White Blood Count 11.5 X10*3/uL (4.8-10.8)
[2021-08-24 11:09] VITALS: BP 103/60; PULSE 73; RESP 16; O2SAT 97
[2021-08-24] MEDS: iohexoL 350 MG/ML 100 ML INFUS..BTL IV (11:31)
[2021-08-24] MEDS: 0.9 % Sodium Chloride 1,000 ML 999 ML IV ×2 (11:48→14:02)
[2021-08-24 11:51] VITALS: RESP 18
[2021-08-24] MEDS: Prochlorperazine Edisylate 10 MG/2 ML VIAL IVPUSH (11:51)
[2021-08-24] MEDS: Metoclopramide HCl 10 MG/2 ML VIAL IVPUSH (11:51)
[2021-08-24] MEDS: Morphine Sulfate 4 MG/ML CARTRIDGE IVPUSH (11:51)
[2021-08-24 14:35] LABS: Anion Gap 12 (12-20); Blood Urea Nitrogen 12 mg/dL (9-16); Calcium 8.6 mg/dL (8.4-10.2); Carbon Dioxide 27 mmol/L (22-29); Chloride 103 mmol/L (96-108); Creatinine Clr Calc Pharmacy 91.9; Estimated Glomerular Filt Rate > 60; Glucose Random 107 mg/dL (60-115); Potassium 3.6 mmol/L (3.3-5.1); Sodium 138 mmol/L (135-145)
[2021-08-24 15:42] VITALS: PULSE 64; RESP 18; TEMP 37; O2SAT 97
== END 2021-08-24 15:55 | disposition home or self-care (01) ==
PROVIDERS: Physician Assistant; Emergency Provider Emergency Medicine
DX: R11.15 Cyclical vomiting syndrome unrelated to migraine (principal); Z20.822 Contact with and (suspected) exposure to COVID-19; F17.200 Nicotine dependence, unspecified, uncomplicated; F12.90 Cannabis use, unspecified, uncomplicated
CPT/HCPCS: 36415; 74177; 80048; 80076; 84484; 85025; 87635; 93005; 96361; 96374; 96375; 99284; J2270; J2765; Q9967

== ENCOUNTER 2022-01-05 16:53 | Emergency (ER) | payer OTHER, SELFPAY ==
--- NOTE | 2022-01-05 16:56 | ECG_ITS ---
Test Reason : chest pain Blood Pressure : / mmHG Vent. Rate : 066 BPM Atrial Rate : 066 BPM P-R Int : 122 ms QRS Dur : 084 ms QT Int : 438 ms P-R-T Axes : 056 056 039 degrees QTc Int : 459 ms Sinus rhythm with marked sinus arrhythmia Otherwise normal ECG When compared with ECG of 24-AUG-2021 06:15, No significant change was found Referred By: Inna Overton Electronically Signed By:WILFRIDO MARTIN MD
[2022-01-05 17:03] VITALS: BP 157/100; PULSE 68; RESP 18; TEMP 36.4; O2SAT 98; BMI 33.2
[2022-01-05 17:17] LABS: MANUAL DIFF FLAG NO
[2022-01-05 17:21] LABS: Basophils Absolute Auto 0.1 X10*3/uL (0.0-0.2); Basophils Percent Auto 0.6 % (0-2); Eosinophils Percent Auto 0.3 % (0-4); Hematocrit 45.1 % (37.0-47.0); Hemoglobin 14.8 g/dl (12.0-16.0); Imm Gran Abs Auto 0.05 X10*3/uL (0.00-0.03); Imm Gran Pct Auto 0.4 % (0.0-0.4); Lymphocytes Absolute Auto 2.6 X10*3/uL (1.2-4.9); Lymphocytes Percent Auto 20.2 % (20-40); Mean Corpuscular HGB Conc 32.8 g/dl (31.0-35.0); Mean Corpuscular Hemoglobin 27.7 pg (27.0-33.0); Mean Corpuscular Volume 84.3 fL (80.0-98.0); Mean Platelet Volume 9.4 fL (9.4-12.3); Monocytes Absolute Auto 0.5 X10*3/uL (0.1-1.2); Monocytes Percent Auto 3.7 % (2-11); Neutrophils Absolute Auto 9.6 x10*3/uL (2.0-8.3); Neutrophils Percent Auto 74.8 % (45-73); Platelet Count 274 X10*3/uL (160-400); Red Blood Count 5.35 X10*6/uL (4.20-5.50); Red Cell Distribution Width 14.4 % (11.0-16.0); White Blood Count 12.9 X10*3/uL (4.8-10.8)
[2022-01-05 17:43] LABS: Anion Gap 15 (12-20); Blood Urea Nitrogen 9 mg/dL (9-16); Calcium 9.9 mg/dL (8.4-10.2); Carbon Dioxide 25 mmol/L (22-29); Chloride 106 mmol/L (96-108); Creatinine Clr Calc Pharmacy 76.4; Estimated Glomerular Filt Rate > 60; Glucose Fasting 156 mg/dL (60-99); Lipase 9 U/L (8-78); Potassium 4.9 mmol/L (3.3-5.1); Sodium 141 mmol/L (135-145)
[2022-01-05] MEDS: Ondansetron ODT 4 MG TAB.RAPDIS TRANSLINGU (17:49)
== END 2022-01-05 20:46 | disposition left against medical advice (07) ==
PROVIDERS: Emergency Provider Emergency Medicine
DX: R07.9 Chest pain, unspecified (principal); R11.2 Nausea with vomiting, unspecified; F12.90 Cannabis use, unspecified, uncomplicated; F17.200 Nicotine dependence, unspecified, uncomplicated
CPT/HCPCS: 36415; 80048; 83690; 85025; 93005; 99281; 99283

== ENCOUNTER 2022-01-06 05:55 | Emergency (ER) | payer OTHER, SELFPAY ==
[2022-01-06 06:19] VITALS: BP 181/84; PULSE 77; RESP 18; TEMP 37.2; O2SAT 98; BMI 33.2
[2022-01-06 07:08] VITALS: BP 148/91; PULSE 70; RESP 12; TEMP 36.8; O2SAT 99
[2022-01-06 07:17] LABS: MANUAL DIFF FLAG NO
[2022-01-06 07:19] LABS: Basophils Absolute Auto 0.1 X10*3/uL (0.0-0.2); Basophils Percent Auto 0.5 % (0-2); Hematocrit 43.2 % (37.0-47.0); Hemoglobin 14.4 g/dl (12.0-16.0); Imm Gran Abs Auto 0.03 X10*3/uL (0.00-0.03); Imm Gran Pct Auto 0.3 % (0.0-0.4); Lymphocytes Absolute Auto 1.9 X10*3/uL (1.2-4.9); Lymphocytes Percent Auto 17.3 % (20-40); Mean Corpuscular HGB Conc 33.3 g/dl (31.0-35.0); Mean Corpuscular Hemoglobin 27.7 pg (27.0-33.0); Mean Corpuscular Volume 83.1 fL (80.0-98.0); Mean Platelet Volume 9.5 fL (9.4-12.3); Monocytes Absolute Auto 0.6 X10*3/uL (0.1-1.2); Monocytes Percent Auto 5.3 % (2-11); Neutrophils Absolute Auto 8.5 x10*3/uL (2.0-8.3); Neutrophils Percent Auto 76.6 % (45-73); Platelet Count 269 X10*3/uL (160-400); Red Cell Distribution Width 14.6 % (11.0-16.0)
[2022-01-06 07:41] LABS: Alanine Aminotransferase 17 U/L (0-31); Albumin Level 4.6 g/dL (3.5-5.0); Alkaline Phosphatase 115 U/L (39-117); Anion Gap 15 (12-20); Aspartate Amino Transferase 12 U/L (5-31); Bilirubin Direct < 0.2 mg/dL (0.0-0.5); Bilirubin Total < 0.2 mg/dL (0.0-1.0); Blood Urea Nitrogen 10 mg/dL (9-16); Carbon Dioxide 26 mmol/L (22-29); Chloride 101 mmol/L (96-108); Estimated Glomerular Filt Rate > 60; Glucose Random 151 mg/dL (60-115); Lipase 5 U/L (8-78); Potassium 3.8 mmol/L (3.3-5.1); Sodium 138 mmol/L (135-145); Total Protein 7.8 g/dL (6.5-8.0)
--- NOTE | 2022-01-06 07:56 | ED.NAVMDI ---
HPI - Nausea/Vomiting/Diarrhea General Chief complaint: Nausea/Vomiting/Diarrhea Stated complaint: Vomiting and CP Time Seen by Provider: 01/06/22 07:56 Source: patient Mode of arrival: ambulatory Limitations: no limitations History of Present Illness HPI Narrative: yesterday at 4pm with left upper abdominal pain, patient had a lot of vomiting and eventually had some fine streaks of blood, she then developed diarrhea and states that she developed bloody diarrhea. She feels that she is anxious and has not taken her anxiety medication. MD elicited complaint: nausea, vomiting and diarrhea Onset (ago): week(s) Description of diarrhea: blood and watery Associated nausea: Yes Associated abdominal pain: Yes Location of pain: LUQ Quality: cramping Associated symptoms: nausea/vomiting, shortness of breath and anxiety Related Data Home Medications Medication Instructions Recorded Confirmed aripiprazole 10 mg tablet 1 tab PO DAILY 01/05/21 01/05/21 lamotrigine 100 mg tablet 1 tab PO TID 01/05/21 01/05/21 lorazepam 1 mg tablet 0.5 tab PO BID 01/05/21 01/05/21 melatonin 5 mg tablet 1 tab PO BEDTIME PRN 01/05/21 01/05/21 quetiapine 50 mg tablet 1 tab PO BEDTIME 01/05/21 01/05/21 sucralfate 100 mg/mL oral 10 ml PO BID 01/05/21 01/05/21 suspension zolpidem 5 mg tablet 1 tab PO BEDTIME PRN 01/05/21 01/05/21 Previous Rx's Medication Instructions Recorded acetaminophen 650 mg 650 mg PO Q8H PRN #10 tab 01/07/21 tablet,extended release (Tylenol 8 Hour) ondansetron HCl 4 mg tablet 4 mg PO Q6H PRN #10 tab 01/07/21 (Zofran) promethazine 25 mg tablet 25 mg PO TID PRN #20 tab 01/06/22 Allergies Allergy/AdvReac Type Severity Reaction Status Date / Time Penicillins Allergy Intermediate HIVES Verified 01/05/21 04:51 ciprofloxacin Allergy Unresponsiv Verified 01/05/21 04:51 e Amoxicillin Allergy Intermediate Unknown Uncoded 01/05/21 04:51 Review of Systems Constitutional: Constitutional: Reports no additional constitutional complaints Eyes: Eyes: Reports no additional eye complaints ENT: Denies dizziness Cardiovascular: Cardiovascular: Reports no additional cardiovascular complaints Respiratory: Respiratory: Reports as per HPI Gastrointestinal: Gastrointestinal: Reports nausea Genitourinary: Genitourinary: Reports no additional female genitourinary complaints Musculoskeletal: Musculoskeletal: Reports no additional musculoskeletal complaints Integumentary/Breasts: Skin/Breast: Denies rash Neurologic: Reports system reviewed and no additional complaints, except as documented, Denies dizziness and Denies Sensory deficit (Neuro) Psychiatric: Psychiatric: Denies anxiety PMFSH Past Medical History Medical History Anxiety Bipolar 1 disorder Endometriosis Pulmonary embolism Surgical History H/O: hysterectomy History of cholecystectomy Hx of appendectomy Social History Social History Alcohol intake: never Patient Tobacco Use Status: Current everyday Tobacco user Tobacco use type: Cigarette Cigarette Packs Per Day: 0.34 Cigarettes Per Day: 6.8 Years Smoked: 32 Smoked in Last 30 Days: Yes Second Hand Smoke Exposure: No Use of substances other than those prescribed or required for medical reasons: No Substance Use Type: Crack/Cocaine and Marijuana Advance Directives: No Advance Directives Information Provided: Yes Patient : No Physical Exam Vital Signs: Vital Signs: Last Vital Signs Temp 98.2 F 01/06/22 07:08 Pulse 70 01/06/22 10:12 Resp 18 01/06/22 10:12 BP 130/82 01/06/22 10:12 Pulse Ox 99 01/06/22 10:12 BMI result Body Mass Index 33.2 Const: Other: female looking older than stated age, anxious Nutritional Appearance: average body habitus Orientation/consciousness: oriented to person and patient oriented x3 Limitations: no limitations HEENT: Head: Yes normal to inspection Ears: external ears normal General nose exam: Normal external nose present Mouth: Normal oral and palatal mucosa present and oropharynx normal Throat: Yes posterior oropharynx normal Eyes: General: appearance normal, both eyes and all related structures Neck: Other: supple Neck: Yes normal visual inspection Chest: Chest palpation & inspection: normal inspection of the chest Resp: Auscultation: clear to auscultation bilaterally Cardio: Jugular venous distension: no JVD Rate: regular rate Rhythm: regular rhythm Heart sounds: S1 normal heart sound present and S2 normal heart sound present GI: Inspection: Yes normal to inspection Palpation (GI): Soft to palpation, nontender and No hepatosplenomegaly present Auscultation: normal bowel sounds : Other: rectal brown stool heme negative General: Yes no CVA tenderness Back/Spine/Pelvis: Back: no CVA tenderness Skin: General skin exam: no rashes or lesions noted Neuro: General: oriented to person and patient oriented x3 Cranial nerves: Yes CN's II-XII intact bilaterally Motor exam (neuro): 5/5 motor strength present throughout Sensory Exam: No Sensory deficit (Neuro) Extrem: General: Yes normal to inspection Psych: Appearance: grossly normal Course Reevaluation(s) Reevaluation #1: patient sleeping and resting comfortably, will dc on on phenergan Time: 11:20 MDM - Nausea/Vomiting/Diarrhea Lab Data Result diagrams: 01/06/22 07:14 01/06/22 07:14 Labs: Lab Results 01/06/22 01/06/22 01/06/22 Range/Units 07:14 07:14 10:14 WBC 11.0 H (4.8-10.8) X10*3/uL RBC 5.20 (4.20-5.50) X10*6/uL Hgb 14.4 (12.0-16.0) g/dl Hct 43.2 (37.0-47.0) % MCV 83.1 (80.0-98.0) fL MCH 27.7 (27.0-33.0) pg MCHC 33.3 (31.0-35.0) g/dl RDW 14.6 (11.0-16.0) % Plt Count 269 (160-400) X10*3/uL MPV 9.5 (9.4-12.3) fL Immature Gran % (Auto) 0.3 (0.0-0.4) % Neut % (Auto) 76.6 H (45-73) % Lymph % (Auto) 17.3 L (20-40) % [place] % (Auto) 5.3 (2-11) % Eos % (Auto) 0.0 (0-4) % Baso % (Auto) 0.5 (0-2) % Lymph # (Auto) 1.9 (1.2-4.9) X10*3/uL [place] # (Auto) 0.6 (0.1-1.2) X10*3/uL Eos # (Auto) 0.0 (0.0-0.4) X10*3/uL Baso # (Auto) 0.1 (0.0-0.2) X10*3/uL Abs Immat Gran (auto) 0.03 (0.00-0.03) X10*3/uL Absolute Neuts (auto) 8.5 H (2.0-8.3) x10*3/uL Absolute Nucleated RBC 0.000 (0.0-0.012) X10*3/uL Nucleated RBC % (auto) 0.0 (0.0-0.2) /100WBC Sodium 138 (135-145) mmol/L Potassium 3.8 D (3.3-5.1) mmol/L Chloride 101 (96-108) mmol/L Carbon Dioxide 26 (22-29) mmol/L Anion Gap 15 (12-20) BUN 10 (9-16) mg/dL Creatinine 0.82 (0.5-1.4) mg/dL Estim Creat Clear Calc 82.0 Estimated GFR > 60 Random Glucose 151 H (60-115) mg/dL Calcium 10.0 (8.4-10.2) mg/dL Total Bilirubin < 0.2 (0.0-1.0) mg/dL Direct Bilirubin < 0.2 (0.0-0.5) mg/dL AST 12 (5-31) U/L ALT 17 (0-31) U/L Alkaline Phosphatase 115 (39-117) U/L Total Protein 7.8 (6.5-8.0) g/dL Albumin 4.6 (3.5-5.0) g/dL Lipase 5 L (8-78) U/L Urine Color YELLOW Urine Appearance HAZY Urine pH 7.0 (5.0-8.0) Ur Specific [place] 1.020 (1.005-1.025) Urine Protein 1+ H (NEG-TRACE) MG/DL Urine Glucose (UA) NEG (NEG) MG/DL Urine Ketones NEG (NEG) MG/DL Urine Blood NEG (NEG) Urine Nitrite NEG (NEG) Ur Leukocyte Esterase NEG (NEG) Urine RBC 0 (0) /HPF Urine WBC 0-2 (0-4) /HPF Ur Squamous Epith Cells 3+ /LPF Urine Bacteria TRACE /LPF Urine Mucus 4+ /LPF Discharge Plan Discharge Clinical Impression: Cyclic vomiting syndrome, IBS (irritable bowel syndrome), Anxiety Patient Disposition: Home, Self-Care Instructions: Irritable Bowel Syndrome (ED), Anxiety (ED), Cyclic Vomiting Syndrome (ED) Prescriptions: New promethazine 25 mg tablet 25 mg PO TID PRN (Reason: nausea and vomiting) Qty: 20 0RF No Action aripiprazole 10 mg tablet 1 tab PO DAILY 0RF lamotrigine 100 mg tablet 1 tab PO TID 0RF lorazepam 1 mg tablet 0.5 tab PO BID 0RF melatonin 5 mg tablet 1 tab PO BEDTIME PRN (Reason: insomnia) 0RF quetiapine 50 mg tablet 1 tab PO BEDTIME 0RF sucralfate 100 mg/mL suspension 10 ml PO BID 0RF zolpidem 5 mg tablet 1 tab PO BEDTIME PRN (Reason: Sleep) 0RF ondansetron HCl [Zofran] 4 mg tablet 4 mg PO Q6H PRN (Reason: nausea and vomiting) Qty: 10 0RF acetaminophen [Tylenol 8 Hour] 650 mg tablet extended release 650 mg PO Q8H PRN (Reason: pain) Qty: 10 0RF Referrals: Physician,Nonstaff [Primary Care Provider] - 1 week
[2022-01-06] MEDS: 0.9 % Sodium Chloride 1,000 ML 999 ML IVCONT ×2 (08:27→10:09)
[2022-01-06] MEDS: Pantoprazole Sodium 40 MG/10 ML VIAL IVPUSH (08:28)
[2022-01-06 08:44] VITALS: BP 146/73; PULSE 80; RESP 12; O2SAT 97
[2022-01-06 10:12] VITALS: BP 130/82; PULSE 70; RESP 18; O2SAT 99
[2022-01-06 10:20] LABS: Appearance Urine HAZY; Color Urine YELLOW; Glucose Urine UA NEG (NEG); Leukocyte Esterase Urine NEG (NEG); Nitrite Urine NEG (NEG); UACC Culture Trigger NO; Urine Blood NEG (NEG); Urine Ketones NEG (NEG); Urine Protein 1+ MG/DL (NEG-TRACE)
[2022-01-06 10:28] LABS: Bacteria Urine TRACE /LPF; Mucus Urine 4+ /LPF; RBC Urine 0 /HPF (0); Squamous Epithelial Cell Urine 3+ /LPF; WBC Urine 0-2 /HPF (0-4)
== END 2022-01-06 11:38 | disposition home or self-care (01) ==
PROVIDERS: Emergency Provider Emergency Medicine
DX: K58.0 Irritable bowel syndrome with diarrhea (principal); R11.15 Cyclical vomiting syndrome unrelated to migraine; F41.9 Anxiety disorder, unspecified; Z86.711 Personal history of pulmonary embolism
CPT/HCPCS: 36415; 80048; 80076; 81001; 83690; 85025; 96361; 96374; 96375; 99284; J2550

== ENCOUNTER 2022-04-25 20:48 | Emergency (ER) | payer OTHER, SELFPAY ==
[2022-04-25 20:50] VITALS: BP 142/100; PULSE 77; RESP 18; TEMP 37.2; O2SAT 100; BMI 39.0
--- NOTE | 2022-04-25 20:53 | ECG_ITS ---
Test Reason : NAUSEA Blood Pressure : / mmHG Vent. Rate : 072 BPM Atrial Rate : 072 BPM P-R Int : 134 ms QRS Dur : 086 ms QT Int : 462 ms P-R-T Axes : 051 057 046 degrees QTc Int : 505 ms Normal sinus rhythm with sinus arrhythmia Prolonged QT Abnormal ECG When compared with ECG of 05-JAN-2022 16:55, QT has lengthened Referred By: Generic ED Physician Electronically Signed By:MONIKA GARCIA
[2022-04-25 21:03] LABS: MANUAL DIFF FLAG NO
[2022-04-25 21:04] LABS: Basophils Absolute Auto 0.1 X10*3/uL (0.0-0.2); Basophils Percent Auto 0.5 % (0-2); Eosinophils Absolute Auto 0.1 X10*3/uL (0.0-0.4); Eosinophils Percent Auto 0.4 % (0-4); Hematocrit 43.2 % (37.0-47.0); Imm Gran Abs Auto 0.06 X10*3/uL (0.00-0.03); Imm Gran Pct Auto 0.4 % (0.0-0.4); Lymphocytes Absolute Auto 2.2 X10*3/uL (1.2-4.9); Lymphocytes Percent Auto 15.5 % (20-40); Mean Corpuscular HGB Conc 34.7 g/dl (31.0-35.0); Mean Corpuscular Hemoglobin 28.2 pg (27.0-33.0); Mean Corpuscular Volume 81.4 fL (80.0-98.0); Monocytes Absolute Auto 0.5 X10*3/uL (0.1-1.2); Monocytes Percent Auto 3.6 % (2-11); Neutrophils Absolute Auto 11.2 x10*3/uL (2.0-8.3); Neutrophils Percent Auto 79.6 % (45-73); Platelet Count 301 X10*3/uL (160-400); Red Blood Count 5.31 X10*6/uL (4.20-5.50); Red Cell Distribution Width 14.6 % (11.0-16.0)
[2022-04-25 21:34] LABS: Alanine Aminotransferase 34 U/L (0-31); Albumin Level 4.7 g/dL (3.5-5.0); Alkaline Phosphatase 103 U/L (39-117); Anion Gap 20 (12-20); Aspartate Amino Transferase 22 U/L (5-31); Bilirubin Direct < 0.2 mg/dL (0.0-0.5); Bilirubin Total 0.3 mg/dL (0.0-1.0); Blood Urea Nitrogen 15 mg/dL (9-16); Calcium 10.1 mg/dL (8.4-10.2); Carbon Dioxide 23 mmol/L (22-29); Chloride 102 mmol/L (96-108); Creatinine Clr Calc Pharmacy 93.1; Estimated Glomerular Filt Rate > 60; Ethanol < 10 mg/dL; Glucose Random 185 mg/dL (60-115); Lipase 19 U/L (8-78); Potassium 4.1 mmol/L (3.3-5.1); Sodium 141 mmol/L (135-145); Total Protein 7.8 g/dL (6.5-8.0)
== END 2022-04-25 23:22 | disposition left against medical advice (07) ==
LOC: HO.ED 23:15
PROVIDERS: Emergency Provider Emergency Medicine
DX: N93.9 Abnormal uterine and vaginal bleeding, unspecified (principal); R11.0 Nausea; Z79.899 Other long term (current) drug therapy
CPT/HCPCS: 36415; 80053; 82077; 82248; 83690; 85025; 93005; 99281; 99283

== ENCOUNTER 2022-04-26 03:15 | Emergency (ER) | payer OTHER, SELFPAY ==
--- NOTE | 2022-04-26 | ECG_ITS ---
Test Reason : CHEST PAIN Blood Pressure : / mmHG Vent. Rate : 071 BPM Atrial Rate : 071 BPM P-R Int : 132 ms QRS Dur : 082 ms QT Int : 444 ms P-R-T Axes : 062 078 060 degrees QTc Int : 482 ms Poor data quality, interpretation may be adversely affected Normal sinus rhythm with sinus arrhythmia Prolonged QT Abnormal ECG When compared with ECG of 25-APR-2022 20:55, QT has shortened Referred By: Generic ED Physician Electronically Signed By:MONIKA GARCIA
[2022-04-26 03:43] VITALS: BP 146/88; PULSE 74; RESP 18; TEMP 36.4; O2SAT 96; BMI 38.0
[2022-04-26 04:14] LABS: Hematocrit 43.8 % (37.0-47.0); Hemoglobin 14.9 g/dl (12.0-16.0); Mean Corpuscular Hemoglobin 27.9 pg (27.0-33.0); Mean Platelet Volume 9.2 fL (9.4-12.3); Platelet Count 286 X10*3/uL (160-400); Red Blood Count 5.34 X10*6/uL (4.20-5.50); Red Cell Distribution Width 14.6 % (11.0-16.0)
[2022-04-26 04:36] LABS: Alanine Aminotransferase 37 U/L (0-31); Alkaline Phosphatase 100 U/L (39-117); Anion Gap 22 (12-20); Aspartate Amino Transferase 22 U/L (5-31); Bilirubin Total 0.4 mg/dL (0.0-1.0); Blood Urea Nitrogen 17 mg/dL (9-16); Calcium 10.1 mg/dL (8.4-10.2); Carbon Dioxide 24 mmol/L (22-29); Chloride 99 mmol/L (96-108); Creatinine Clr Calc Pharmacy 85.3; Estimated Glomerular Filt Rate > 60; Glucose Random 191 mg/dL (60-115); Potassium 4.2 mmol/L (3.3-5.1); Sodium 141 mmol/L (135-145); Total Protein 8.2 g/dL (6.5-8.0)
[2022-04-26 08:45] VITALS: BP 149/90; PULSE 81; RESP 16; O2SAT 100
--- NOTE | 2022-04-26 08:51 | ED_ITS ---
HPI - General Adult General Chief complaint: General Medical Stated complaint: Vomiting Pain Time Seen by Provider: 04/26/22 08:44 Source: patient Mode of arrival: ambulatory Limitations: no limitations History of Present Illness HPI narrative: [age] year old female presented with upper abdominal pain and vomiting. Symptoms started since yesterday after eating spaghetti sauce that she thinks that is why she is vomiting, the whole family ate from the same food but nobody got sick. Patient did have frequent vomiting with epigastric pain and chest burning, 2 episodes of diarrhea which was described as nonbloody watery diarrhea. Declined any fever or chills, no recent travel, no other sick contact, no recent use of antibiotic. Patient had a had surgical history of appendectomy, cholecystectomy, tubal ligation. Related Data Home Medications Medication Instructions Recorded Confirmed aripiprazole 10 mg tablet 1 tab PO DAILY 01/05/21 01/05/21 lamotrigine 100 mg tablet 1 tab PO TID 01/05/21 01/05/21 lorazepam 1 mg tablet 0.5 tab PO BID 01/05/21 01/05/21 melatonin 5 mg tablet 1 tab PO BEDTIME PRN insomnia 01/05/21 01/05/21 quetiapine 50 mg tablet 1 tab PO BEDTIME 01/05/21 01/05/21 sucralfate 100 mg/mL oral 10 ml PO BID 01/05/21 01/05/21 suspension zolpidem 5 mg tablet 1 tab PO BEDTIME PRN Sleep 01/05/21 01/05/21 Previous Rx's Medication Instructions Recorded acetaminophen 650 mg 650 mg PO Q8H PRN pain #10 tabs 01/07/21 tablet,extended release (Tylenol 8 Hour) ondansetron HCl 4 mg tablet 4 mg PO Q6H PRN nausea and 01/07/21 (Zofran) vomiting #10 tabs promethazine 25 mg tablet 25 mg PO TID PRN nausea and 01/06/22 vomiting #20 tabs Allergies Allergy/AdvReac Type Severity Reaction Status Date / Time Penicillins Allergy Intermediate HIVES Verified 01/05/21 04:51 ciprofloxacin Allergy Unresponsiv Verified 01/05/21 04:51 e Amoxicillin Allergy Intermediate Unknown Uncoded 01/05/21 04:51 Review of Systems Review of Systems: All other systems are reviewed and are negative Constitutional: Reports as per HPI and Reports no additional constitutional complaints Eyes: Reports as per HPI and Reports no additional eye complaints Reports system reviewed and no additional complaints, except as documented Cardiovascular: Reports as per HPI and Reports no additional cardiovascular complaints Respiratory: Reports as per HPI and Reports no additional respiratory complaints Gastrointestinal: Reports as per HPI and Reports no additional gastrointestinal complaints Genitourinary: Reports no additional female genitourinary complaints Musculoskeletal: Reports no additional musculoskeletal complaints Skin/Breast: Reports system reviewed and no additional complaints, except as docu Psychiatric: Reports no additional psychiatric complaints Endocrine: Reports no additional endocrine complaints Hematologic/Lymphatic: Reports no additional hematologic/lymphatic complaints Allergic/Immunologic: Reports no additional allergic/immunologic complaints Reports system reviewed and no additional complaints, except as documented and Reports Abnormal speech present COUNT INCLUDES [facility] Past Medical History Medical History Anxiety Bipolar 1 disorder Endometriosis Pulmonary embolism Surgical History H/O: hysterectomy History of cholecystectomy Hx of appendectomy Social History Social History Alcohol intake: never Patient Tobacco Use Status: Current everyday Tobacco user Tobacco use type: Cigarette Cigarette Packs Per Day: 0.34 Cigarettes Per Day: 6.8 Years Smoked: 32 Second Hand Smoke Exposure: No Use of substances other than those prescribed or required for medical reasons: No Substance Use Type: Crack/Cocaine and Marijuana Advance Directives: No Advance Directives Information Provided: Yes Patient : No Physical Exam ED Vital Signs: Vital Signs - 24 hr 04/26/22 03:43 04/26/22 08:45 04/26/22 11:24 Temperature 97.5 F Pulse Rate 74 81 88 Respiratory Rate 18 16 16 Blood Pressure 146/88 H 149/90 H 110/54 L Pulse Oximetry 96 100 95 Oxygen Delivery Method Room Air Room Air Room Air 04/26/22 12:02 Temperature 99.5 F Pulse Rate 87 Respiratory Rate 16 Blood Pressure 106/63 Pulse Oximetry 97 Oxygen Delivery Method Room Air BMI result Body Mass Index 38.0 Vital signs have been reviewed as appeared to be correct. Blood pressure normal. Heart rate normal. Respiration rate normal. Temperature normal. Oxygen saturation normal. Appearance: Alert. Oriented X3. No acute distress. Head: Normal external exam. Normocephalic. Atraumatic. No Argueta signs noted. No raccoon eyes noted Eyes: PERRLA. EOMI. Conjunctiva and sclera normal. Eyelids normal. ENT: TM's Normal. Pharynx normal. Uvula midline. Moist mucous membranes. No trismus noted. No drooling noted. No muffled voice noted. Neck: Normal inspection. Neck supple. FROM. No adenopathy. Thyroid Normal. No meningeal signs. No neck mass noted. CVS: Normal heart rate and rhythm. Heart sound normal. No murmurs noted. Pulses normal throughout. Respiratory: No respiratory distress. Painless inspiration. Breath sounds normal. No wheezes/rales/rhonchi noted. Chest nontender. No accessory muscle usage noted or decreased air movement noted. Abdomen: Soft, mild epigastric tenderness, no guarding, no rebound tenderness. Bowel sounds normal in all 4 quadrants. No distention noted. No organomegaly noted. No visible injury noted. Back: No CVA tenderness. Full range of motion noted. Skin: Skin warm and dry. Normal skin color. Normal skin turgor. No rashes/lesions/lacerations noted. Extremities: No lower extremity edema. Extremities exhibit normal range of motion. Extremities nontender. Neuro: Oriented X 3. Cranial nerve exam: II-XII are grossly intact No motor deficit. No sensory deficit. Reflexes normal. Course Course Course Narrative: 41-year-old female came in with a complaint of nausea, vomiting and diarrhea after eating bad food, patient improved after IV hydration, able to tolerate p.o. intake now. Leukocytosis is secondary to vomiting and gastroenteritis. Status post remote appendectomy and cholecystectomy. Will discharge the patient with instruction to return to the ED if worsening of her symptoms. Medical Decision Making Medical Records Medical records reviewed: Yes I reviewed the patient's medical records. Lab Data Lab results reviewed: Yes I reviewed the patient's lab results. Result diagrams: 04/26/22 04:10 04/26/22 04:10 Labs: Lab Results 04/26/22 04/26/22 Range/Units 04:10 04:10 WBC 13.0 H (4.8-10.8) X10*3/uL RBC 5.34 (4.20-5.50) X10*6/uL Hgb 14.9 (12.0-16.0) g/dl Hct 43.8 (37.0-47.0) % MCV 82.0 (80.0-98.0) fL MCH 27.9 (27.0-33.0) pg MCHC 34.0 (31.0-35.0) g/dl RDW 14.6 (11.0-16.0) % Plt Count 286 (160-400) X10*3/uL MPV 9.2 L (9.4-12.3) fL Absolute Nucleated RBC 0.000 (0.0-0.012) X10*3/uL Nucleated RBC % (auto) 0.0 (0.0-0.2) /100WBC Sodium 141 (135-145) mmol/L Potassium 4.2 (3.3-5.1) mmol/L Chloride 99 (96-108) mmol/L Carbon Dioxide 24 (22-29) mmol/L Anion Gap 22 H (12-20) BUN 17 H (9-16) mg/dL Creatinine 0.85 (0.5-1.4) mg/dL Estim Creat Clear Calc 85.3 Estimated GFR > 60 Random Glucose 191 H (60-115) mg/dL Calcium 10.1 (8.4-10.2) mg/dL Total Bilirubin 0.4 (0.0-1.0) mg/dL AST 22 (5-31) U/L ALT 37 H (0-31) U/L Alkaline Phosphatase 100 (39-117) U/L Total Protein 8.2 H (6.5-8.0) g/dL Albumin 5.0 (3.5-5.0) g/dL Discharge Plan Discharge Clinical Impression: Gastroenteritis Patient Disposition: Home, Self-Care Instructions: Gastroenteritis (ED) Prescriptions: No Action aripiprazole 10 mg tablet 1 tab PO DAILY lamotrigine 100 mg tablet 1 tab PO TID lorazepam 1 mg tablet 0.5 tab PO BID melatonin 5 mg tablet 1 tab PO BEDTIME PRN (Reason: insomnia) quetiapine 50 mg tablet 1 tab PO BEDTIME sucralfate 100 mg/mL suspension 10 ml PO BID zolpidem 5 mg tablet 1 tab PO BEDTIME PRN (Reason: Sleep) ondansetron HCl [Zofran] 4 mg tablet 4 mg PO Q6H PRN (Reason: nausea and vomiting) Qty: 10 0RF acetaminophen [Tylenol 8 Hour] 650 mg tablet extended release 650 mg PO Q8H PRN (Reason: pain) Qty: 10 0RF promethazine 25 mg tablet 25 mg PO TID PRN (Reason: nausea and vomiting) Qty: 20 0RF Referrals: Physician,Unknown J [Primary Care Provider] -
[2022-04-26] MEDS: ondansetron HCL 4 MG/2 ML VIAL IVPUSH ×2 (09:27→11:23)
[2022-04-26] MEDS: Famotidine/PF 20 MG/2 ML VIAL IVPUSH (09:29)
[2022-04-26] MEDS: 0.9 % Sodium Chloride 1,000 ML 999 ML IV ×2 (09:31→11:23)
[2022-04-26] MEDS: Lidocaine HCl Viscous 2 % 15 ML SOLUTION MUCOUS MEM (09:32)
[2022-04-26] MEDS: Magnesium Hydrox/Alum Hydrox 30 ML ORAL.SUSP PO (09:32)
--- NOTE | 2022-04-26 09:34 | PC.NURSE ---
Pt c/o coiting and diarrhea since yesterday 1600. Green bile noted in vomitus bag. Medicated as charted. States burninf pain worsened by vomiting in throat and epigastric region. Fluids infusing
[2022-04-26 11:24] VITALS: BP 110/54; PULSE 88; RESP 16; O2SAT 95
--- NOTE | 2022-04-26 11:25 | PC.NURSE ---
Decreased vomiting/pain s/p medication interventions. New fluid bolus starte. VSS
[2022-04-26 12:02] VITALS: BP 106/63; PULSE 87; RESP 16; TEMP 37.5; O2SAT 97
== END 2022-04-26 13:00 | disposition home or self-care (01) ==
PROVIDERS: Emergency Provider Emergency Medicine
DX: K52.9 Noninfective gastroenteritis and colitis, unspecified (principal); F17.210 Nicotine dependence, cigarettes, uncomplicated
CPT/HCPCS: 36415; 80053; 85027; 93005; 96361; 96374; 96375; 96376; 99284; 99285; J2405

== ENCOUNTER 2022-06-13 18:16 | Emergency (ER) | payer OTHER, SELFPAY ==
--- NOTE | ~2022-06-13 | CT_ITS ---
EXAMINATION: CT ABDOMEN AND PELVIS WITH CONTRAST CLINICAL INFORMATION: Abdominal pain, question colitis COMPARISON: 08/24/2021 TECHNIQUE: Multidetector volumetric images were obtained from the superior aspect of the liver through the pubic symphysis following administration 85 mL of Omnipaque 350 intravenous contrast. Sagittal and coronal reformatted images were obtained on the technologist's workstation. Oral contrast: No This CT examination was performed using dose optimization techniques as appropriate, variously including the following: *Automated exposure control *Adjustment of mA and/or kV according to patient size (this includes techniques or standardized protocols for targeted exams where dose is matched to indication/reason for exam; i.e. extremities or head) *Use of iterative reconstruction technique DLP: 775 mGy-cm FINDINGS: LUNG BASES: Dependent bibasilar atelectasis. LIVER, GALLBLADDER, AND BILIARY TREE: The liver is normal in size, shape, and attenuation. Subcentimeter hypodensity at the dome of the liver is too small to characterize though appears unchanged from 08/24/2021. There is mild intrahepatic biliary ductal dilatation which may be physiologic in the setting of prior cholecystectomy. PANCREAS: Unremarkable. SPLEEN: Subcentimeter hypodensity at the superior spleen is nonspecific, unchanged from prior. ADRENAL GLANDS: Unremarkable. KIDNEYS AND URETERS: The kidneys are normal in size, shape, and attenuation. There is a 2 mm calculus in the lower left kidney. No hydronephrosis, hydroureter, or obstructing calculi seen. No perinephric stranding. BLADDER: Unremarkable. GASTROINTESTINAL TRACT: No evidence of bowel obstruction or significant wall thickening. Patient appears to be status post appendectomy. No free fluid or free air is seen. ABDOMINAL WALL: No significant hernia is appreciated. LYMPH NODES: Normal. VASCULAR: There is atherosclerotic plaque and calcification along the aorta. PELVIC VISCERA: Unremarkable. OSSEOUS STRUCTURES: Unremarkable. CT/CT abdomen pelvis w IV con IMPRESSION: No acute findings identified in the abdomen/pelvis. Mild intrahepatic biliary ductal dilatation may be physiologic in the setting of prior cholecystectomy.
[2022-06-13 19:26] VITALS: BP 137/77; PULSE 94; RESP 16; TEMP 36.8; O2SAT 97; BMI 36.8
[2022-06-13 19:48] LABS: MANUAL DIFF FLAG NO
[2022-06-13 19:49] LABS: Basophils Absolute Auto 0.1 X10*3/uL (0.0-0.2); Basophils Percent Auto 0.8 % (0-2); Eosinophils Absolute Auto 0.2 X10*3/uL (0.0-0.4); Eosinophils Percent Auto 2.2 % (0-4); Hematocrit 43.9 % (37.0-47.0); Hemoglobin 14.3 g/dl (12.0-16.0); Imm Gran Abs Auto 0.02 X10*3/uL (0.00-0.03); Imm Gran Pct Auto 0.2 % (0.0-0.4); Lymphocytes Absolute Auto 2.9 X10*3/uL (1.2-4.9); Mean Corpuscular HGB Conc 32.6 g/dl (31.0-35.0); Mean Corpuscular Hemoglobin 27.8 pg (27.0-33.0); Mean Corpuscular Volume 85.4 fL (80.0-98.0); Mean Platelet Volume 9.1 fL (9.4-12.3); Monocytes Absolute Auto 0.5 X10*3/uL (0.1-1.2); Neutrophils Absolute Auto 5.9 x10*3/uL (2.0-8.3); Neutrophils Percent Auto 61.8 % (45-73); Platelet Count 241 X10*3/uL (160-400); Red Blood Count 5.14 X10*6/uL (4.20-5.50); Red Cell Distribution Width 14.8 % (11.0-16.0); White Blood Count 9.6 X10*3/uL (4.8-10.8)
[2022-06-13 20:02] LABS: Anion Gap 15 (12-20); Blood Urea Nitrogen 10 mg/dL (9-16); Calcium 9.3 mg/dL (8.4-10.2); Carbon Dioxide 29 mmol/L (22-29); Chloride 103 mmol/L (96-108); Creatinine Clr Calc Pharmacy 80.5; Estimated Glomerular Filt Rate > 60; Glucose Random 79 mg/dL (60-115); Potassium 4.1 mmol/L (3.3-5.1); Sodium 143 mmol/L (135-145)
[2022-06-13 20:04] LABS: COVID-19 Test Negative (Negative)
[2022-06-13 21:22] VITALS: BP 126/76; PULSE 78; RESP 18; TEMP 36.9; O2SAT 96
[2022-06-13] MEDS: 0.9 % Sodium Chloride 1,000 ML 999 ML IV (22:30)
[2022-06-13] MEDS: Morphine Sulfate 4 MG/ML CARTRIDGE IVPUSH (22:31)
[2022-06-13] MEDS: ondansetron HCL 4 MG/2 ML VIAL IVPUSH (22:31)
[2022-06-13 22:38] LABS: HCG Quantitative 6 mIU/mL
[2022-06-13 22:41] LABS: Alanine Aminotransferase 31 U/L (0-31); Albumin Level 4.5 g/dL (3.5-5.0); Alkaline Phosphatase 98 U/L (39-117); Aspartate Amino Transferase 18 U/L (5-31); Bilirubin Direct < 0.2 mg/dL (0.0-0.5); Bilirubin Total 0.3 mg/dL (0.0-1.0); Lipase 19 U/L (8-78); Total Protein 7.2 g/dL (6.5-8.0)
--- NOTE | 2022-06-13 23:19 | PC.NURSE ---
pt receiving iv liter bolus normal saline and morphine and zofran for pain and nausea. vital signs updated. call weeks within reach. patient resting comfortably in no apparent distress. will continue to monitor
[2022-06-13 23:27] VITALS: BP 107/42; PULSE 71; RESP 18; TEMP 36.7; O2SAT 97
--- NOTE | 2022-06-14 00:54 | ED_ITS ---
HPI - Abdominal Pain General Chief Complaint: Abdominal Pain Stated Complaint: showing signs of colitis Time Seen by Provider: 06/13/22 21:51 Source: patient Mode of arrival: ambulatory Limitations: no limitations History of Present Illness HPI narrative: 41 yold female with pmh of IBS, anxiety, and bipolar presents to the ED for diarrhea, abdominal pain, and nausea. patient denies any fever, chills, chest pain, shortness of breath, or coughing. Related Data Home Medications Medication Instructions Recorded Confirmed aripiprazole 10 mg tablet 1 tab PO DAILY 01/05/21 01/05/21 lamotrigine 100 mg tablet 1 tab PO TID 01/05/21 01/05/21 lorazepam 1 mg tablet 0.5 tab PO BID 01/05/21 01/05/21 melatonin 5 mg tablet 1 tab PO BEDTIME PRN insomnia 01/05/21 01/05/21 quetiapine 50 mg tablet 1 tab PO BEDTIME 01/05/21 01/05/21 sucralfate 100 mg/mL oral 10 ml PO BID 01/05/21 01/05/21 suspension zolpidem 5 mg tablet 1 tab PO BEDTIME PRN Sleep 01/05/21 01/05/21 Previous Rx's Medication Instructions Recorded acetaminophen 650 mg 650 mg PO Q8H PRN pain #10 tabs 01/07/21 tablet,extended release (Tylenol 8 Hour) ondansetron HCl 4 mg tablet 4 mg PO Q6H PRN nausea and 01/07/21 (Zofran) vomiting #10 tabs promethazine 25 mg tablet 25 mg PO TID PRN nausea and 01/06/22 vomiting #20 tabs dicyclomine 10 mg capsule 10 mg PO QID 7 days #28 caps 06/14/22 nitrofurantoin 100 mg PO Q12H 7 days #14 caps 06/14/22 monohydrate/macrocrystals 100 mg capsule (Macrobid) Allergies Allergy/AdvReac Type Severity Reaction Status Date / Time Penicillins Allergy Intermediate HIVES Verified 01/05/21 04:51 ciprofloxacin Allergy Unresponsiv Verified 01/05/21 04:51 e Amoxicillin Allergy Intermediate Unknown Uncoded 01/05/21 04:51 Review of Systems Review of Systems Abdominal pain, diarrhea, PMFSH Past Medical History Medical History Anxiety Bipolar 1 disorder Endometriosis Pulmonary embolism Surgical History H/O: hysterectomy History of cholecystectomy Hx of appendectomy Social History Social History Alcohol intake: never Patient Tobacco Use Status: Current everyday Tobacco user Tobacco use type: Cigarette Cigarette Packs Per Day: 0.34 Cigarettes Per Day: 6.8 Years Smoked: 32 Second Hand Smoke Exposure: No Substance Use Type: Crack/Cocaine and Marijuana Advance Directives: No Advance Directives Information Provided: Yes Physical Exam ED Vital Signs: Vital Signs - 24 hr 06/13/22 19:26 06/13/22 21:22 06/13/22 23:27 Temperature 98.3 F 98.5 F 98.0 F Pulse Rate 94 78 71 Respiratory Rate 16 18 18 Blood Pressure 137/77 126/76 107/42 L Pulse Oximetry 97 96 97 Oxygen Delivery Method Room Air Room Air Room Air BMI result Body Mass Index 36.8 Const General: cooperative, healthy appearing, comfortable, no acute distress, well developed, alert, awake and Physically active Orientation/consciousness: oriented to time and patient oriented x3 HENMT Head: Yes normal to inspection, Yes No palpable skull fracture present, Yes normocephalic, Yes atraumatic and No abrasion Eyes General: appearance normal, both eyes and all related structures Neck Neck: Yes normal visual inspection, Yes full ROM, Yes no lymphadenopathy, Yes no meningeal signs, Yes trachea midline, Yes supple, No anterior neck swelling and No tender Chest Chest palpation & inspection: normal inspection of the chest and normal palpation of entire chest wall Resp Effort & Inspection: normal respiratory effort and able to speak in complete sentences Cardio Jugular venous distension: no JVD Heart sounds: S1 normal heart sound present and S2 normal heart sound present GI Inspection: Yes normal to inspection and No abdominal wall ecchymosis Palpation (GI): Soft to palpation, not firm, Tenderness to palpation present (GI) in the LLQ, no guarding and not rigid General: No CVA tenderness and Yes no CVA tenderness Back/Spine/Pelvis Back: no CVA tenderness, No CVA tenderness and No back tenderness Skin General skin exam: no rashes or lesions noted and elasticity normal Neuro General: oriented to time, patient oriented x3, gait normal, tone normal, no meningeal signs and CN's II-XI intact bilaterally Cranial nerves: Yes CN's II-XII intact bilaterally Extrem General: Yes normal to inspection and Yes full ROM Psych Appearance: grossly normal, well kempt and not disheveled Course Course Course Narrative: Labs ordered. Reevaluation(s) Reevaluation #1: Patient had ovaries removed. HCG has a false positive. States she had been false positive in the past. Patient tender to abdomen. Patient going to CT scan of abdomen. UA shows mild TI Time: 01:02 Reevaluation #2: Patient's CT scan normal. Patient discharged with antibiotics and dycloclimine Time: 15:01 MDM - Abdominal Pain MDM Narrative Medical decision making narrative: IBS. UTI Lab Data Result diagrams: 06/13/22 19:41 06/13/22 19:41 Labs: Lab Results 06/13/22 06/13/22 06/13/22 Range/Units 19:41 19:41 19:41 WBC 9.6 (4.8-10.8) X10*3/uL RBC 5.14 (4.20-5.50) X10*6/uL Hgb 14.3 (12.0-16.0) g/dl Hct 43.9 (37.0-47.0) % MCV 85.4 (80.0-98.0) fL MCH 27.8 (27.0-33.0) pg MCHC 32.6 (31.0-35.0) g/dl RDW 14.8 (11.0-16.0) % Plt Count 241 (160-400) X10*3/uL MPV 9.1 L (9.4-12.3) fL Immature Gran % (Auto) 0.2 (0.0-0.4) % Neut % (Auto) 61.8 (45-73) % Lymph % (Auto) 30.0 (20-40) % [place] % (Auto) 5.0 (2-11) % Eos % (Auto) 2.2 (0-4) % Baso % (Auto) 0.8 (0-2) % Lymph # (Auto) 2.9 (1.2-4.9) X10*3/uL [place] # (Auto) 0.5 (0.1-1.2) X10*3/uL Eos # (Auto) 0.2 (0.0-0.4) X10*3/uL Baso # (Auto) 0.1 (0.0-0.2) X10*3/uL Abs Immat Gran (auto) 0.02 (0.00-0.03) X10*3/uL Absolute Neuts (auto) 5.9 (2.0-8.3) x10*3/uL Absolute Nucleated RBC 0.000 (0.0-0.012) X10*3/uL Nucleated RBC % (auto) 0.0 (0.0-0.2) /100WBC Sodium 143 (135-145) mmol/L Potassium 4.1 (3.3-5.1) mmol/L Chloride 103 (96-108) mmol/L Carbon Dioxide 29 (22-29) mmol/L Anion Gap 15 (12-20) BUN 10 (9-16) mg/dL Creatinine 0.92 (0.5-1.4) mg/dL Estim Creat Clear Calc 80.5 Estimated GFR > 60 Random Glucose 79 (60-115) mg/dL Calcium 9.3 D (8.4-10.2) mg/dL Total Bilirubin 0.3 (0.0-1.0) mg/dL Direct Bilirubin < 0.2 (0.0-0.5) mg/dL AST 18 (5-31) U/L ALT 31 (0-31) U/L Alkaline Phosphatase 98 (39-117) U/L Total Protein 7.2 (6.5-8.0) g/dL Albumin 4.5 (3.5-5.0) g/dL Lipase 19 (8-78) U/L Beta HCG, Quant 6 mIU/mL Urine Color Urine Appearance Urine pH (5.0-9.0) Ur Specific [place] (1.005-1.025) Urine Protein (Neg-Trace) mg/dL Urine Glucose (UA) (Negative) mg/dL Urine Ketones (Negative) mg/dL Urine Blood (Negative) Urine Nitrite (Negative) Ur Leukocyte Esterase (Negative) Urine RBC (0-2) /HPF Urine WBC (0-5) /HPF Ur Squamous Epith Cells (0-2) /HPF Urine Bacteria (None Seen) Hyaline Casts (0-2) /LPF Urine Test (NEGATIVE) COVID-19 ([facility]) Negative (Negative) COVID-19 Clin Com See Note 06/14/22 06/14/22 Range/Units 01:25 01:26 WBC (4.8-10.8) X10*3/uL RBC (4.20-5.50) X10*6/uL Hgb (12.0-16.0) g/dl Hct (37.0-47.0) % MCV (80.0-98.0) fL MCH (27.0-33.0) pg MCHC (31.0-35.0) g/dl RDW (11.0-16.0) % Plt Count (160-400) X10*3/uL MPV (9.4-12.3) fL Immature Gran % (Auto) (0.0-0.4) % Neut % (Auto) (45-73) % Lymph % (Auto) (20-40) % [place] % (Auto) (2-11) % Eos % (Auto) (0-4) % Baso % (Auto) (0-2) % Lymph # (Auto) (1.2-4.9) X10*3/uL [place] # (Auto) (0.1-1.2) X10*3/uL Eos # (Auto) (0.0-0.4) X10*3/uL Baso # (Auto) (0.0-0.2) X10*3/uL Abs Immat Gran (auto) (0.00-0.03) X10*3/uL Absolute Neuts (auto) (2.0-8.3) x10*3/uL Absolute Nucleated RBC (0.0-0.012) X10*3/uL Nucleated RBC % (auto) (0.0-0.2) /100WBC Sodium (135-145) mmol/L Potassium (3.3-5.1) mmol/L Chloride (96-108) mmol/L Carbon Dioxide (22-29) mmol/L Anion Gap (12-20) BUN (9-16) mg/dL Creatinine (0.5-1.4) mg/dL Estim Creat Clear Calc Estimated GFR Random Glucose (60-115) mg/dL Calcium (8.4-10.2) mg/dL Total Bilirubin (0.0-1.0) mg/dL Direct Bilirubin (0.0-0.5) mg/dL AST (5-31) U/L ALT (0-31) U/L Alkaline Phosphatase (39-117) U/L Total Protein (6.5-8.0) g/dL Albumin (3.5-5.0) g/dL Lipase (8-78) U/L Beta HCG, Quant mIU/mL Urine Color Yellow Urine Appearance Clear Urine pH 8.0 (5.0-9.0) Ur Specific [place] >= 1.030 H (1.005-1.025) Urine Protein Trace (Neg-Trace) mg/dL Urine Glucose (UA) Negative (Negative) mg/dL Urine Ketones Trace (Negative) mg/dL Urine Blood Negative (Negative) Urine Nitrite Negative (Negative) Ur Leukocyte Esterase Trace H (Negative) Urine RBC 0-2 (0-2) /HPF Urine WBC 11-20 H (0-5) /HPF Ur Squamous Epith Cells 6-10 (0-2) /HPF Urine Bacteria 2+ (None Seen) Hyaline Casts 0-2 (0-2) /LPF Urine Test NEGATIVE (NEGATIVE) COVID-19 ([facility]) (Negative) COVID-19 Clin Com Discharge Plan Discharge Clinical Impression: UTI (urinary tract infection), Irritable bowel syndrome Patient Disposition: Home, Self-Care Instructions: Irritable Bowel Syndrome (ED), Urinary Tract Infection in Women (ED) Additional Instructions: Your CAT scan and labs came back normal. UA shows UTI recommend follow-up with primary care provider and lead applications developer. Return to the ED for severe pain, nausea, vomiting, hematuria, flank pain, fever, chills, blood in stool, or any other concerning symptoms. Prescriptions: New nitrofurantoin monohyd/m-cryst [Macrobid] 100 mg capsule 100 mg PO Q12H 7 Days Qty: 14 0RF Rx Instructions: must administer with a meal/food dicyclomine 10 mg capsule 10 mg PO QID 7 Days Qty: 28 0RF No Action aripiprazole 10 mg tablet 1 tab PO DAILY lamotrigine 100 mg tablet 1 tab PO TID lorazepam 1 mg tablet 0.5 tab PO BID melatonin 5 mg tablet 1 tab PO BEDTIME PRN (Reason: insomnia) quetiapine 50 mg tablet 1 tab PO BEDTIME sucralfate 100 mg/mL suspension 10 ml PO BID zolpidem 5 mg tablet 1 tab PO BEDTIME PRN (Reason: Sleep) ondansetron HCl [Zofran] 4 mg tablet 4 mg PO Q6H PRN (Reason: nausea and vomiting) Qty: 10 0RF acetaminophen [Tylenol 8 Hour] 650 mg tablet extended release 650 mg PO Q8H PRN (Reason: pain) Qty: 10 0RF promethazine 25 mg tablet 25 mg PO TID PRN (Reason: nausea and vomiting) Qty: 20 0RF Stand Alone Forms: Work/School Release Print Language: Ma[place]
[2022-06-14] MEDS: iohexoL 350 MG/ML 100 ML INFUS..BTL 85 ML IV (01:09)
--- NOTE | 2022-06-14 01:22 | PC.NURSE ---
pt asking for more pain meds. states relief from morphine but now the pain is back. ambulatory with steady gait to and from bathroom.
[2022-06-14 01:36] LABS: Appearance Urine Clear; Color Urine Yellow; Glucose Urine UA Negative (Negative); Leukocyte Esterase Urine Trace (Negative); Nitrite Urine Negative (Negative); Specific Gravity - Urine >= 1.030 (1.005-1.025); UMIC TRIGGER UACC YES; Urine Blood Negative (Negative); Urine Ketones Trace mg/dL (Negative); Urine Protein Trace mg/dL (Neg-Trace)
[2022-06-14 01:37] LABS: UPreg QC Valid YES; Urine Pregnancy NEGATIVE (NEGATIVE)
[2022-06-14 01:41] LABS: Bacteria Urine 2+ (None Seen); Hyaline Casts Urine 0-2 /LPF (0-2); RBC Urine 0-2 /HPF (0-2); UACC Culture Trigger YES
[2022-06-14] MEDS: Ketorolac Tromethamine 30 MG/ML VIAL IVPUSH (01:50)
== END 2022-06-14 03:11 | disposition home or self-care (01) ==
PROVIDERS: Physician Assistant; Emergency Provider Emergency Medicine
DX: N39.0 Urinary tract infection, site not specified (principal); K58.9 Irritable bowel syndrome, unspecified; Z20.822 Contact with and (suspected) exposure to COVID-19; Z79.899 Other long term (current) drug therapy
CPT/HCPCS: 74177; 80048; 80076; 81001; 81025; 83690; 84702; 85025; 87086; 87635; 96374; 96375; 99283; 99284; J1885; J2270; J2405; Q9967

== ENCOUNTER 2022-06-16 16:42 | Emergency (ER) | payer OTHER, SELFPAY ==
[2022-06-16 18:11] VITALS: BP 117/49; PULSE 76; RESP 16; TEMP 36.6; O2SAT 96; BMI 36.8
[2022-06-16 18:22] LABS: MANUAL DIFF FLAG NO
[2022-06-16 18:25] LABS: Appearance Urine Clear; Color Urine Yellow; Glucose Urine UA Negative (Negative); Leukocyte Esterase Urine Trace (Negative); Nitrite Urine Negative (Negative); PH 7.5 (5.0-9.0); UMIC TRIGGER UACC YES; Urine Blood Negative (Negative); Urine Ketones Negative (Negative); Urine Protein Negative (Neg-Trace)
[2022-06-16 18:25] LABS: Basophils Absolute Auto 0.1 X10*3/uL (0.0-0.2); Basophils Percent Auto 1.1 % (0-2); Eosinophils Absolute Auto 0.2 X10*3/uL (0.0-0.4); Eosinophils Percent Auto 1.6 % (0-4); Hematocrit 42.4 % (37.0-47.0); Imm Gran Abs Auto 0.02 X10*3/uL (0.00-0.03); Imm Gran Pct Auto 0.2 % (0.0-0.4); Lymphocytes Absolute Auto 3.1 X10*3/uL (1.2-4.9); Lymphocytes Percent Auto 32.9 % (20-40); Mean Corpuscular Hemoglobin 27.9 pg (27.0-33.0); Mean Corpuscular Volume 84.6 fL (80.0-98.0); Mean Platelet Volume 9.2 fL (9.4-12.3); Monocytes Absolute Auto 0.5 X10*3/uL (0.1-1.2); Monocytes Percent Auto 5.2 % (2-11); Neutrophils Absolute Auto 5.5 x10*3/uL (2.0-8.3); Platelet Count 245 X10*3/uL (160-400); Red Blood Count 5.01 X10*6/uL (4.20-5.50); Red Cell Distribution Width 14.4 % (11.0-16.0); White Blood Count 9.3 X10*3/uL (4.8-10.8)
[2022-06-16 18:28] LABS: Bacteria Urine Trace (None Seen); Hyaline Casts Urine 0-2 /LPF (0-2); RBC Urine 0-2 /HPF (0-2); WBC Urine 0-5 /HPF (0-5)
[2022-06-16 18:42] LABS: Alanine Aminotransferase 32 U/L (0-31); Albumin Level 4.4 g/dL (3.5-5.0); Alkaline Phosphatase 88 U/L (39-117); Anion Gap 16 (12-20); Aspartate Amino Transferase 16 U/L (5-31); Bilirubin Total 0.2 mg/dL (0.0-1.0); Blood Urea Nitrogen 6 mg/dL (9-16); Calcium 9.4 mg/dL (8.4-10.2); Carbon Dioxide 25 mmol/L (22-29); Chloride 102 mmol/L (96-108); Creatinine Clr Calc Pharmacy 93.8; Estimated Glomerular Filt Rate > 60; Glucose Random 93 mg/dL (60-115); Potassium 4.4 mmol/L (3.3-5.1); Sodium 139 mmol/L (135-145); Total Protein 7.1 g/dL (6.5-8.0)
--- NOTE | 2022-06-16 20:59 | ED.ABDPAIN ---
HPI - Abdominal Pain General Chief Complaint: Abdominal Pain Stated Complaint: uti Source: patient Mode of arrival: ambulatory Limitations: no limitations History of Present Illness HPI narrative: pt c/o of Right flank pain for 2 dyas, pt was dx with a uti 2 days ago, was here in the ED, was sent home with rx macrobid. denies fever, has mild chills, no nausea/vomiting/diarrhea Related Data Home Medications Medication Instructions Recorded Confirmed aripiprazole 10 mg tablet 1 tab PO DAILY 01/05/21 01/05/21 lamotrigine 100 mg tablet 1 tab PO TID 01/05/21 01/05/21 lorazepam 1 mg tablet 0.5 tab PO BID 01/05/21 01/05/21 melatonin 5 mg tablet 1 tab PO BEDTIME PRN insomnia 01/05/21 01/05/21 quetiapine 50 mg tablet 1 tab PO BEDTIME 01/05/21 01/05/21 sucralfate 100 mg/mL oral 10 ml PO BID 01/05/21 01/05/21 suspension zolpidem 5 mg tablet 1 tab PO BEDTIME PRN Sleep 01/05/21 01/05/21 Previous Rx's Medication Instructions Recorded acetaminophen 650 mg 650 mg PO Q8H PRN pain #10 tabs 01/07/21 tablet,extended release (Tylenol 8 Hour) ondansetron HCl 4 mg tablet 4 mg PO Q6H PRN nausea and 01/07/21 (Zofran) vomiting #10 tabs promethazine 25 mg tablet 25 mg PO TID PRN nausea and 01/06/22 vomiting #20 tabs dicyclomine 10 mg capsule 10 mg PO QID 7 days #28 caps 06/14/22 nitrofurantoin 100 mg PO Q12H 7 days #14 caps 06/14/22 monohydrate/macrocrystals 100 mg capsule (Macrobid) ibuprofen 600 mg tablet 600 mg PO TID PRN pain #20 tabs 06/16/22 phenazopyridine 100 mg tablet 100 mg PO TID 6 doses #6 tabs 06/16/22 sulfamethoxazole 800 1 tab PO BID #14 tabs 06/16/22 mg-trimethoprim 160 mg tablet (Bactrim DS) Allergies Allergy/AdvReac Type Severity Reaction Status Date / Time Penicillins Allergy Intermediate HIVES Verified 01/05/21 04:51 ciprofloxacin Allergy Unresponsiv Verified 01/05/21 04:51 e Amoxicillin Allergy Intermediate Unknown Uncoded 01/05/21 04:51 Review of Systems Review of Systems Constitutional : No Weight loss, No Fever, No Chills, No Night Sweats, No Fatigue, No Malaise ENT/Mouth : No Hearing loss, No Ear Pain, No Nasal Congestion, No Sinus Pain, No Hoarseness, No sore throat, No Rhinorrhea, No Swallowing Difficulty Eyes: No Eye Pain, No Swelling, No Redness, No Foreign Body, No Discharge, No Vision Changes Cardiovascular : No Chest Pain, No SOB, No Dyspnea on Exertion, No Orthopnea, No Edema, No Palpitations Respiratory : No Cough, No Sputum, No Wheezing, No Smoke Exposure, No Dyspnea Gastrointestinal : No Nausea, No Vomiting, No Diarrhea, No Constipation, No abdominal Pain, No Hematochezia, No Melena Genitourinary :c/o mild Dysuria, mild Urinary Frequency, No Hematuria, No Urinary Incontinence, No Urgency, c/o right sided Flank Pain, No Urinary Flow Changes, No Hesitancy Musculoskeletal : No joint pain, No Myalgias, No Joint Swelling Skin : No Skin Lesions, No rash Neuro : No Weakness, No Numbness, No Paresthesias, No Loss of Consciousness, No Dizziness, No Headache Psych : No Anxiety/Panic, No Depression, No SI/HI/AH/VH, No Social Issues, Heme/Lymph: No Bruising, No Bleeding,No Lymphadenopathy Endocrine : No Polyuria, No Polydipsia, No Temperature Intolerance PMFSH Past Medical History Medical History Anxiety Bipolar 1 disorder Endometriosis Pulmonary embolism Surgical History H/O: hysterectomy History of cholecystectomy Hx of appendectomy Social History Social History Alcohol intake: never Patient Tobacco Use Status: Current everyday Tobacco user Tobacco use type: Cigarette Cigarette Packs Per Day: 0.34 Cigarettes Per Day: 6.8 Years Smoked: 32 Second Hand Smoke Exposure: No Substance Use Type: Crack/Cocaine and Marijuana Advance Directives: No Advance Directives Information Provided: Yes Physical Exam ED Vital Signs: Vital Signs - 24 hr 06/16/22 18:11 Temperature 97.8 F Pulse Rate 76 Respiratory Rate 16 Blood Pressure 117/49 L Pulse Oximetry 96 Oxygen Delivery Method Room Air BMI result Body Mass Index 36.8 Const Other: Appearance: Alert. Oriented X3. No acute distress. Well-appearing Eyes: Pupils equal, round and reactive to light. ENT: Pharynx normal. Neck: Normal inspection. Neck supple. No lymph nodes noted. No crepitus CVS: Normal heart rate and rhythm. Pulses normal. Normal S1 and S2 Respiratory: No respiratory distress. Breath sounds normal. No Wheezing. No rales Abdomen: Soft and nontender. No rigidity. No distention. Mild CVA tenderness on the right side Skin: Skin warm and dry. Normal skin color. Normal skin turgor. Extremities: No lower extremity edema. No Lacerations. No Rash Neuro: Oriented X 3. No motor deficit. No sensory deficit. Moving all extremities. No slurred speech. CN 2 through 12 grossly intact Psych: calm, cooperative, normal affect Course Course Course Narrative: Patient's white blood cell count normal limits, mild UTI, given patient's symptoms UTI right-sided flank pain, clinically patient has pyelonephritis. Sepsis is not suspected. Patient instructed to return to the emergency room she has any further symptoms. Instructed to discontinue taking Macrobid, will be starting Bactrim. Patient cannot take ciprofloxacin or levofloxacin due to allergy. MDM - Abdominal Pain Lab Data Result diagrams: 06/16/22 18:18 06/16/22 18:18 Labs: Lab Results 06/16/22 06/16/22 06/16/22 Range/Units 18:17 18:18 18:18 WBC 9.3 (4.8-10.8) X10*3/uL RBC 5.01 (4.20-5.50) X10*6/uL Hgb 14.0 (12.0-16.0) g/dl Hct 42.4 (37.0-47.0) % MCV 84.6 (80.0-98.0) fL MCH 27.9 (27.0-33.0) pg MCHC 33.0 (31.0-35.0) g/dl RDW 14.4 (11.0-16.0) % Plt Count 245 (160-400) X10*3/uL MPV 9.2 L (9.4-12.3) fL Immature Gran % (Auto) 0.2 (0.0-0.4) % Neut % (Auto) 59.0 (45-73) % Lymph % (Auto) 32.9 (20-40) % [place] % (Auto) 5.2 (2-11) % Eos % (Auto) 1.6 (0-4) % Baso % (Auto) 1.1 (0-2) % Lymph # (Auto) 3.1 (1.2-4.9) X10*3/uL [place] # (Auto) 0.5 (0.1-1.2) X10*3/uL Eos # (Auto) 0.2 (0.0-0.4) X10*3/uL Baso # (Auto) 0.1 (0.0-0.2) X10*3/uL Abs Immat Gran (auto) 0.02 (0.00-0.03) X10*3/uL Absolute Neuts (auto) 5.5 (2.0-8.3) x10*3/uL Absolute Nucleated RBC 0.000 (0.0-0.012) X10*3/uL Nucleated RBC % (auto) 0.0 (0.0-0.2) /100WBC Sodium 139 (135-145) mmol/L Potassium 4.4 (3.3-5.1) mmol/L Chloride 102 (96-108) mmol/L Carbon Dioxide 25 (22-29) mmol/L Anion Gap 16 (12-20) BUN 6 L (9-16) mg/dL Creatinine 0.79 (0.5-1.4) mg/dL Estim Creat Clear Calc 93.8 Estimated GFR > 60 Random Glucose 93 (60-115) mg/dL Calcium 9.4 (8.4-10.2) mg/dL Total Bilirubin 0.2 (0.0-1.0) mg/dL AST 16 (5-31) U/L ALT 32 H (0-31) U/L Alkaline Phosphatase 88 (39-117) U/L Total Protein 7.1 (6.5-8.0) g/dL Albumin 4.4 (3.5-5.0) g/dL Urine Color Yellow Urine Appearance Clear Urine pH 7.5 (5.0-9.0) Ur Specific [place] 1.010 (1.005-1.025) Urine Protein Negative (Neg-Trace) mg/dL Urine Glucose (UA) Negative (Negative) mg/dL Urine Ketones Negative (Negative) mg/dL Urine Blood Negative (Negative) Urine Nitrite Negative (Negative) Ur Leukocyte Esterase Trace H (Negative) Urine RBC 0-2 (0-2) /HPF Urine WBC 0-5 (0-5) /HPF Ur Squamous Epith Cells 3-5 (0-2) /HPF Urine Bacteria Trace (None Seen) Hyaline Casts 0-2 (0-2) /LPF Discharge Plan Discharge Clinical Impression: Pyelonephritis Patient Disposition: Home, Self-Care Instructions: Kidney Infection (ED) Additional Instructions: Please follow-up with your primary care physician tomorrow. If you have any worsening or new symptoms, please return to the emergency room or call 911 Prescriptions: New sulfamethoxazole-trimethoprim [Bactrim DS] 800-160 mg tablet 1 tab PO BID Qty: 14 0RF phenazopyridine 100 mg tablet 100 mg PO TID Qty: 6 0RF ibuprofen 600 mg tablet 600 mg PO TID PRN (Reason: pain) Qty: 20 0RF No Action aripiprazole 10 mg tablet 1 tab PO DAILY lamotrigine 100 mg tablet 1 tab PO TID lorazepam 1 mg tablet 0.5 tab PO BID melatonin 5 mg tablet 1 tab PO BEDTIME PRN (Reason: insomnia) quetiapine 50 mg tablet 1 tab PO BEDTIME sucralfate 100 mg/mL suspension 10 ml PO BID zolpidem 5 mg tablet 1 tab PO BEDTIME PRN (Reason: Sleep) ondansetron HCl [Zofran] 4 mg tablet 4 mg PO Q6H PRN (Reason: nausea and vomiting) Qty: 10 0RF acetaminophen [Tylenol 8 Hour] 650 mg tablet extended release 650 mg PO Q8H PRN (Reason: pain) Qty: 10 0RF nitrofurantoin monohyd/m-cryst [Macrobid] 100 mg capsule 100 mg PO Q12H 7 Days Qty: 14 0RF Rx Instructions: must administer with a meal/food dicyclomine 10 mg capsule 10 mg PO QID 7 Days Qty: 28 0RF promethazine 25 mg tablet 25 mg PO TID PRN (Reason: nausea and vomiting) Qty: 20 0RF
[2022-06-16 21:00] VITALS: BP 125/78; PULSE 76; RESP 18; TEMP 36.5; O2SAT 98
== END 2022-06-16 21:09 | disposition home or self-care (01) ==
PROVIDERS: Emergency Provider Emergency Medicine
DX: N12 Tubulo-interstitial nephritis, not specified as acute or chronic (principal); N39.0 Urinary tract infection, site not specified; F17.210 Nicotine dependence, cigarettes, uncomplicated; F14.10 Cocaine abuse, uncomplicated; Z71.6 Tobacco abuse counseling; Z79.899 Other long term (current) drug therapy
CPT/HCPCS: 36415; 80053; 81001; 85025; 99282; 99283

== ENCOUNTER 2022-12-12 01:25 | Emergency (ER) | payer OTHER, SELFPAY ==
--- NOTE | ~2022-12-12 | CT_ITS ---
EXAMINATION: CT ABDOMEN AND PELVIS WITH CONTRAST CLINICAL INFORMATION: diffuse abd pain, distention, nausea COMPARISON: 06/14/2022 TECHNIQUE: Multidetector volumetric images were obtained from the superior aspect of the liver through the pubic symphysis following administration 85 mL of Omnipaque 350 intravenous contrast. Sagittal and coronal reformatted images were obtained on the technologist's workstation. Oral contrast: No This CT examination was performed using dose optimization techniques as appropriate, variously including the following: *Automated exposure control *Adjustment of mA and/or kV according to patient size (this includes techniques or standardized protocols for targeted exams where dose is matched to indication/reason for exam; i.e. extremities or head) *Use of iterative reconstruction technique DLP: 760 mGy-cm FINDINGS: LUNG BASES: Mild atelectasis. Pleural parenchymal scarring in the lingula. LIVER, GALLBLADDER, AND BILIARY TREE: The liver is normal in size, shape, and attenuation. No biliary ductal dilatation is present. No suspicious hepatic lesions. A 6 mm focus of hypoattenuation in the hepatic lobe near the dome is unchanged 09/27/2018 and of doubtful clinical significance, likely benign. Gallbladder is surgically absent. PANCREAS: Unremarkable. SPLEEN: A 7 mm low-attenuation focus within the spleen near the left hemidiaphragm is unchanged and also benign. ADRENAL GLANDS: Unremarkable. KIDNEYS AND URETERS: Focal cortical scarring in the posterior aspect of the interpolar region of the right kidney. No hydronephrosis or hydroureter. Kidneys enhance symmetrically. Preserved lobulation is noted. A 2 mm nonobstructing calculus is present within a calyx at the lower pole of the left kidney. No suspicious renal lesions are identified. BLADDER: Unremarkable. GASTROINTESTINAL TRACT: Stomach, small bowel, and colon are normal in caliber. Again seen is a 2.5 cm diverticulum at the lateral aspect of the second segment of the duodenum. No bowel wall thickening or surrounding inflammatory changes. Appendix is surgically absent. No intraperitoneal free fluid or free air. ABDOMINAL WALL: No significant hernia is appreciated. A sebaceous cyst is again seen in the epigastric region, measuring 1.3 cm in diameter. LYMPH NODES: Normal. VASCULAR: Atherosclerotic calcifications are present in the abdominal aorta and iliac arteries. No aneurysmal dilatation. PELVIC VISCERA: The uterus and adnexa are unremarkable. OSSEOUS STRUCTURES: Unremarkable. CT/CT abdomen pelvis w IV con IMPRESSION: 1. No acute intra-abdominal or intrapelvic abnormalities. 2. A 2 mm nonobstructing left renal calculus. Fleischner guidelines were followed.
[2022-12-12 01:30] VITALS: BP 136/82; PULSE 102; RESP 18; TEMP 36.6; O2SAT 95; BMI 39.1
[2022-12-12 02:12] LABS: MANUAL DIFF FLAG NO
[2022-12-12 02:15] LABS: Basophils Absolute Auto 0.1 X10*3/uL (0.0-0.2); Basophils Percent Auto 0.9 % (0-2); Eosinophils Absolute Auto 0.2 X10*3/uL (0.0-0.4); Eosinophils Percent Auto 1.8 % (0-4); Hematocrit 42.7 % (37.0-47.0); Hemoglobin 14.2 g/dl (12.0-16.0); Imm Gran Abs Auto 0.02 X10*3/uL (0.00-0.03); Imm Gran Pct Auto 0.2 % (0.0-0.4); Lymphocytes Absolute Auto 3.8 X10*3/uL (1.2-4.9); Lymphocytes Percent Auto 41.4 % (20-40); Mean Corpuscular HGB Conc 33.3 g/dl (31.0-35.0); Mean Corpuscular Hemoglobin 28.1 pg (27.0-33.0); Mean Corpuscular Volume 84.6 fL (80.0-98.0); Mean Platelet Volume 9.7 fL (9.4-12.3); Monocytes Absolute Auto 0.4 X10*3/uL (0.1-1.2); Monocytes Percent Auto 4.7 % (2-11); Neutrophils Absolute Auto 4.6 x10*3/uL (2.0-8.3); Platelet Count 254 X10*3/uL (160-400); Red Blood Count 5.05 X10*6/uL (4.20-5.50); Red Cell Distribution Width 14.7 % (11.0-16.0); White Blood Count 9.1 X10*3/uL (4.8-10.8)
[2022-12-12 02:40] LABS: Alanine Aminotransferase 20 U/L (0-31); Albumin Level 4.1 g/dL (3.5-5.0); Alkaline Phosphatase 96 U/L (39-117); Anion Gap 13 (12-20); Aspartate Amino Transferase 14 U/L (5-31); Bilirubin Direct 0.1 mg/dL (0.0-0.5); Bilirubin Total 0.3 mg/dL (0.0-1.0); Blood Urea Nitrogen 9 mg/dL (9-16); Calcium 9.5 mg/dL (8.4-10.2); Carbon Dioxide 30 mmol/L (22-29); Chloride 103 mmol/L (96-108); Creatinine Clr Calc Pharmacy 86.5; Estimated Glomerular Filt Rate > 60; Glucose Random 96 mg/dL (60-115); Lipase 23 U/L (8-78); Potassium 4.1 mmol/L (3.3-5.1); Sodium 142 mmol/L (135-145); Total Protein 6.7 g/dL (6.5-8.0)
[2022-12-12 02:46] LABS: HCG Quantitative 6 mIU/mL
[2022-12-12 04:15] VITALS: BP 122/72; PULSE 75; RESP 17; TEMP 36.6; O2SAT 97
[2022-12-12 04:25] LABS: Appearance Urine Turbid; Color Urine Yellow; Glucose Urine UA Negative (Negative); Leukocyte Esterase Urine Moderate (2+) (Negative); Nitrite Urine Negative (Negative); PH 8.5 (5.0-9.0); UMIC TRIGGER UACC YES; Urine Blood Negative (Negative); Urine Ketones Negative (Negative); Urine Protein Trace mg/dL (Neg-Trace)
[2022-12-12 04:37] LABS: Bacteria Urine 2+ (None Seen); Hyaline Casts Urine 0-2 /LPF (0-2); RBC Urine 0-2 /HPF (0-2); UACC Culture Trigger YES
--- NOTE | 2022-12-12 06:29 | ED_ITS ---
HPI - Abdominal Pain General Chief Complaint: Abdominal Pain Stated Complaint: swollen stomach, nausea Time Seen by Provider: 12/12/22 06:28 Source: patient Mode of arrival: ambulatory Limitations: no limitations History of Present Illness HPI narrative: 41 yo female with history of bipolar disorder, anxiety, IBS, cyclical vomiting syndrome who presents to the ER for evaluation of abdominal pain & for the last 4 days. She states she has significant nausea but has not vomited. Shes has been having normal BMs. She states she has not been able to eat or drink much in days due to the pain. She reports the pain is mostly in the epigastric area but radiates down to her periumbilical area. she describes it as rumbling and Bubbling type pains. She has intermittent cramping Throughout the whole abdomen. She denies any back pain, chest pain, fever, chills, urinary symptoms. MD elicited complaint: abdominal pain Pertinent past history: other (irritable bowel syndrome and cyclical vomiting) Onset (ago): day(s) (4) Pain Consistency: constant Location: epigastric Severity: moderate Quality: stabbing and aching Radiation: other (periumbilical area) Migration to: periumbilical Exacerbating factors: eating Relieving factors: nothing Context: history of similar episodes Associated symptoms: nausea Related Data Home Medications Medication Instructions Recorded Confirmed aripiprazole 10 mg tablet 1 tab PO DAILY 01/05/21 01/05/21 lamotrigine 100 mg tablet 1 tab PO TID 01/05/21 01/05/21 lorazepam 1 mg tablet 0.5 tab PO BID 01/05/21 01/05/21 melatonin 5 mg tablet 1 tab PO BEDTIME PRN insomnia 01/05/21 01/05/21 quetiapine 50 mg tablet 1 tab PO BEDTIME 01/05/21 01/05/21 sucralfate 100 mg/mL oral 10 ml PO BID 01/05/21 01/05/21 suspension zolpidem 5 mg tablet 1 tab PO BEDTIME PRN Sleep 01/05/21 01/05/21 Previous Rx's Medication Instructions Recorded acetaminophen 650 mg 650 mg PO Q8H PRN pain #10 tabs 01/07/21 tablet,extended release (Tylenol 8 Hour) ondansetron HCl 4 mg tablet 4 mg PO Q6H PRN nausea and 06/02/21 (Zofran) vomiting #10 tabs promethazine 25 mg tablet 25 mg PO TID PRN nausea and 01/06/22 vomiting #20 tabs dicyclomine 10 mg capsule 10 mg PO QID 7 days #28 caps 06/14/22 nitrofurantoin 100 mg PO Q12H 7 days #14 caps 06/14/22 monohydrate/macrocrystals 100 mg capsule (Macrobid) ibuprofen 600 mg tablet 600 mg PO TID PRN pain #20 tabs 06/16/22 phenazopyridine 100 mg tablet 100 mg PO TID 6 doses #6 tabs 06/16/22 sulfamethoxazole 800 1 tab PO BID #14 tabs 06/16/22 mg-trimethoprim 160 mg tablet (Bactrim DS) cefuroxime axetil 250 mg tablet 250 mg PO BID #10 tabs 12/12/22 dicyclomine 10 mg capsule 10 mg PO TID PRN abdominal 12/12/22 distention #20 caps ondansetron 4 mg disintegrating 4 mg PO Q8H PRN nausea and 12/12/22 tablet vomiting #7 tabs polyethylene glycol 3350 17 gram 17 g PO DAILY #14 ea 12/12/22 oral powder packet (Miralax) simethicone 180 mg capsule (Gas 180 mg PO BID PRN abdominal 12/12/22 Relief (simethicone)) distention #14 caps Allergies Allergy/AdvReac Type Severity Reaction Status Date / Time Penicillins Allergy Intermediate HIVES Verified 12/12/22 01:29 ciprofloxacin Allergy Unresponsiv Verified 12/12/22 01:29 e Amoxicillin Allergy Intermediate Unknown Uncoded 12/12/22 01:29 Review of Systems Review of Systems Yes all other systems are reviewed and are negative PMFSH Past Medical History Medical History Anxiety Bipolar 1 disorder Endometriosis Pulmonary embolism Surgical History H/O: hysterectomy History of cholecystectomy Hx of appendectomy Social History Social History Alcohol intake: never Patient Tobacco Use Status: Current everyday Tobacco user Tobacco use type: Cigarette Cigarette Packs Per Day: 0.34 Cigarettes Per Day: 6.8 Years Smoked: 32 Second Hand Smoke Exposure: No Use of substances other than those prescribed or required for medical reasons: No Substance Use Type: Crack/Cocaine and Marijuana Advance Directives: No Advance Directives Information Provided: Yes Patient : No Physical Exam ED Vital Signs: Vital Signs - 24 hr 12/12/22 01:30 12/12/22 04:15 12/12/22 07:11 Temperature 97.9 F 97.8 F Pulse Rate 102 H 75 Respiratory Rate 18 17 20 Blood Pressure 136/82 122/72 Pulse Oximetry 95 97 Oxygen Delivery Method Room Air Room Air 12/12/22 08:40 Temperature 97.7 F Pulse Rate 64 Respiratory Rate 15 Blood Pressure 117/57 L Pulse Oximetry 98 Oxygen Delivery Method Room Air BMI result Body Mass Index 39.1 Appearance: Alert. Oriented X3. No acute distress. Head: normocephalic, atraumatic. Eyes: Pupils equal, round and reactive to light. ENT: Pharynx normal. No tonsillar swelling or exudate. Neck: Normal inspection. Neck supple. CVS: Normal heart rate and rhythm. Pulses normal. Respiratory: No respiratory distress. Breath sounds normal. Abdomen: Softly distended with diffuse tenderness throughout, guarding in the lower quadrants, hyperactive +BS x4 Skin: Skin warm and dry. Normal skin color. Normal skin turgor. No rashes. Extremities: No lower extremity edema. No joint swelling. Neuro/psych: Oriented X 3. No motor deficit. No sensory deficit. CN II-XII intact. Normal speech and cognition. Medical Decision Making Medical Decision Making MDM Narrative: 41 yo female with history of bipolar, anxiety, IBS, cyclical vomiting who presents to the ER for evaluation abdominal distension, abdominal pain and nausea for the last 4 days. No vomiting. She is having normal bowel movements. Her abdomen is softly distended. She has guarding in her lower quadrants. A CT scan was done that was unremarkable. Her urinalysis is positive for infection. Her lab work is otherwise unremarkable. She is complaining of cramping and bubbling in her abdomen. She did have a moderate stool burden on her CT scan. Pain is most likely due to combination of things; gas, UTI, possible flare of her irritable bowel syndrome. Will plan to discharge her on oral antibiotics for UTI, Bentyl, MiraLax, Zofran p.r.n.. We discussed results and plan. She is stable for discharge home. All questions were answered. Differential Diagnosis Differential Diagnoses: The differential diagnosis associated with the presentation includes Colitis, gastroenteritis, obstruction, cystitis, UTI, mass, gas pain, IBS, Lab Data MDM Lab Attestation statement: I reviewed the patient's lab results. unremarkable lab workup. Urinalysis consistent with infection however does appear to be contaminated. Given her lower abdominal tenderness will empirically treat with antibiotics while awaiting urine culture 12/12/22 02:09 12/12/22 02:09 Labs: Lab Results 12/12/22 12/12/22 12/12/22 Range/Units 02:09 02:09 02:09 WBC 9.1 (4.8-10.8) X10*3/uL RBC 5.05 (4.20-5.50) X10*6/uL Hgb 14.2 (12.0-16.0) g/dl Hct 42.7 (37.0-47.0) % MCV 84.6 (80.0-98.0) fL MCH 28.1 (27.0-33.0) pg MCHC 33.3 (31.0-35.0) g/dl RDW 14.7 (11.0-16.0) % Plt Count 254 (160-400) X10*3/uL MPV 9.7 (9.4-12.3) fL Immature Gran % (Auto) 0.2 (0.0-0.4) % Neut % (Auto) 51.0 (45-73) % Lymph % (Auto) 41.4 H (20-40) % [place] % (Auto) 4.7 (2-11) % Eos % (Auto) 1.8 (0-4) % Baso % (Auto) 0.9 (0-2) % Lymph # (Auto) 3.8 (1.2-4.9) X10*3/uL [place] # (Auto) 0.4 (0.1-1.2) X10*3/uL Eos # (Auto) 0.2 (0.0-0.4) X10*3/uL Baso # (Auto) 0.1 (0.0-0.2) X10*3/uL Abs Immat Gran (auto) 0.02 (0.00-0.03) X10*3/uL Absolute Neuts (auto) 4.6 (2.0-8.3) x10*3/uL Absolute Nucleated RBC 0.000 (0.0-0.012) X10*3/uL Nucleated RBC % (auto) 0.0 (0.0-0.2) /100WBC Sodium 142 (135-145) mmol/L Potassium 4.1 (3.3-5.1) mmol/L Chloride 103 (96-108) mmol/L Carbon Dioxide 30 H (22-29) mmol/L Anion Gap 13 (12-20) BUN 9 (9-16) mg/dL Creatinine 0.85 (0.5-1.4) mg/dL Estim Creat Clear Calc 86.5 Estimated GFR > 60 Random Glucose 96 (60-115) mg/dL Calcium 9.5 (8.4-10.2) mg/dL Total Bilirubin 0.3 (0.0-1.0) mg/dL Direct Bilirubin 0.1 (0.0-0.5) mg/dL AST 14 (5-31) U/L ALT 20 (0-31) U/L Alkaline Phosphatase 96 (39-117) U/L Total Protein 6.7 (6.5-8.0) g/dL Albumin 4.1 (3.5-5.0) g/dL Lipase 23 (8-78) U/L Beta HCG, Quant 6 mIU/mL Urine Color Urine Appearance Urine pH (5.0-9.0) Ur Specific [place] (1.005-1.025) Urine Protein (Neg-Trace) mg/dL Urine Glucose (UA) (Negative) mg/dL Urine Ketones (Negative) mg/dL Urine Blood (Negative) Urine Nitrite (Negative) Ur Leukocyte Esterase (Negative) Urine RBC (0-2) /HPF Urine WBC (0-5) /HPF Ur Squamous Epith Cells (0-2) /HPF Urine Bacteria (None Seen) Hyaline Casts (0-2) /LPF 12/12/22 Range/Units 04:18 WBC (4.8-10.8) X10*3/uL RBC (4.20-5.50) X10*6/uL Hgb (12.0-16.0) g/dl Hct (37.0-47.0) % MCV (80.0-98.0) fL MCH (27.0-33.0) pg MCHC (31.0-35.0) g/dl RDW (11.0-16.0) % Plt Count (160-400) X10*3/uL MPV (9.4-12.3) fL Immature Gran % (Auto) (0.0-0.4) % Neut % (Auto) (45-73) % Lymph % (Auto) (20-40) % [place] % (Auto) (2-11) % Eos % (Auto) (0-4) % Baso % (Auto) (0-2) % Lymph # (Auto) (1.2-4.9) X10*3/uL [place] # (Auto) (0.1-1.2) X10*3/uL Eos # (Auto) (0.0-0.4) X10*3/uL Baso # (Auto) (0.0-0.2) X10*3/uL Abs Immat Gran (auto) (0.00-0.03) X10*3/uL Absolute Neuts (auto) (2.0-8.3) x10*3/uL Absolute Nucleated RBC (0.0-0.012) X10*3/uL Nucleated RBC % (auto) (0.0-0.2) /100WBC Sodium (135-145) mmol/L Potassium (3.3-5.1) mmol/L Chloride (96-108) mmol/L Carbon Dioxide (22-29) mmol/L Anion Gap (12-20) BUN (9-16) mg/dL Creatinine (0.5-1.4) mg/dL Estim Creat Clear Calc Estimated GFR Random Glucose (60-115) mg/dL Calcium (8.4-10.2) mg/dL Total Bilirubin (0.0-1.0) mg/dL Direct Bilirubin (0.0-0.5) mg/dL AST (5-31) U/L ALT (0-31) U/L Alkaline Phosphatase (39-117) U/L Total Protein (6.5-8.0) g/dL Albumin (3.5-5.0) g/dL Lipase (8-78) U/L Beta HCG, Quant mIU/mL Urine Color Yellow Urine Appearance Turbid Urine pH 8.5 (5.0-9.0) Ur Specific [place] 1.020 (1.005-1.025) Urine Protein Trace (Neg-Trace) mg/dL Urine Glucose (UA) Negative (Negative) mg/dL Urine Ketones Negative (Negative) mg/dL Urine Blood Negative (Negative) Urine Nitrite Negative (Negative) Ur Leukocyte Esterase Moderate (2+) H (Negative) Urine RBC 0-2 (0-2) /HPF Urine WBC 6-10 H (0-5) /HPF Ur Squamous Epith Cells 11-20 (0-2) /HPF Urine Bacteria 2+ (None Seen) Hyaline Casts 0-2 (0-2) /LPF Independent Interpretation I performed an independent interpretation of an: CT Scan Interpretation: unremarkable CT abd, agree w/ radiology read Radiology Impression Discussion of test interpretation with radiology: I have reviewed the radiologist's reading. Radiologist Impression: EXAMINATION: CT ABDOMEN AND PELVIS WITH CONTRAST? CLINICAL INFORMATION: diffuse abd pain, distention, nausea? COMPARISON: 06/14/2022 TECHNIQUE: Multidetector volumetric images were obtained from the superior aspect of the liver through the pubic symphysis following administration 85 mL of Omnipaque 350 intravenous contrast. Sagittal and coronal reformatted images were obtained on the technologist's workstation.? Oral contrast: No This CT examination was performed using dose optimization techniques as appropriate, variously including the following: *Automated exposure control *Adjustment of mA and/or kV according to patient size (this includes techniques or standardized protocols for targeted exams where dose is matched to indication/reason for exam; i.e. extremities or head) *Use of iterative reconstruction technique DLP: 760 mGy-cm FINDINGS: LUNG BASES: Mild atelectasis. Pleural parenchymal scarring in the lingula.? LIVER, GALLBLADDER, AND BILIARY TREE: The liver is normal in size, shape, and attenuation. No biliary ductal dilatation is present. No suspicious hepatic lesions. A 6 mm focus of hypoattenuation in the hepatic lobe near the dome is unchanged 09/27/2018 and of doubtful clinical significance, likely benign. Gallbladder is surgically absent. ? PANCREAS: Unremarkable.? SPLEEN: A 7 mm low-attenuation focus within the spleen near the left hemidiaphragm is unchanged and also benign.? ADRENAL GLANDS: Unremarkable.? KIDNEYS AND URETERS: Focal cortical scarring in the posterior aspect of the interpolar region of the right kidney. No hydronephrosis or hydroureter. Kidneys enhance symmetrically. Preserved lobulation is noted. A 2 mm nonobstructing calculus is present within a calyx at the lower pole of the left kidney. No suspicious renal lesions are identified.? BLADDER: Unremarkable.? GASTROINTESTINAL TRACT: Stomach, small bowel, and colon are normal in caliber. Again seen is a 2.5 cm diverticulum at the lateral aspect of the second segment of the duodenum. No bowel wall thickening or surrounding inflammatory changes. Appendix is surgically absent. No intraperitoneal free fluid or free air.? ABDOMINAL WALL: No significant hernia is appreciated. A sebaceous cyst is again seen in the epigastric region, measuring 1.3 cm in diameter. LYMPH NODES: Normal. VASCULAR: Atherosclerotic calcifications are present in the abdominal aorta and iliac arteries. No aneurysmal dilatation. PELVIC VISCERA: The uterus and adnexa are unremarkable.? OSSEOUS STRUCTURES: Unremarkable.? CT/CT abdomen pelvis w IV con IMPRESSION: 1.? No acute intra-abdominal or intrapelvic abnormalities. 2.? A 2 mm nonobstructing left renal calculus. Independent Historian Clinical information obtained from an independent historian. History obtained from or confirmed by: Spouse External Record Review External record reviewed: Office record, Outpatient record, Prior outpatient labs and Prior outpatient radiology Prescription Management I considered prescription management with: Pain Medication and Antibiotic Chronic Conditions Patient?s care impacted by: Other (IBS) Medications Administered Discontinued Medications Generic Name Dose Route Start Last Admin Trade Name Freq PRN Reason Stop Dose Admin Cefuroxime Axetil 250 mg 12/12/22 08:21 12/12/22 08:29 Cefuroxime Axetil 250 Mg Tablet PO 12/12/22 08:22 250 mg ONCE ONE Administration Dicyclomine HCl 10 mg 12/12/22 08:21 12/12/22 08:29 Dicyclomine Hcl 10 Mg Capsule PO 12/12/22 08:22 10 mg ONCE ONE Administration Sodium Chloride 1,000 mls @ 999 mls/hr 12/12/22 07:00 12/12/22 08:30 Ns IVCONT 12/12/22 08:00 Infused .Q1H1M FAM Infusion Iohexol 100 ml 12/12/22 07:39 12/12/22 07:39 Iohexol 350 Mg/Ml 100 Ml Infus..Btl IV 12/12/22 07:40 85 ml ONCE ONE Administration Morphine Sulfate 4 mg 12/12/22 06:46 12/12/22 07:11 Morphine Sulfate 4 Mg/Ml Cartridge IVPUSH 12/12/22 06:47 4 mg ONCE ONE Administration Protocol Ondansetron HCl 4 mg 12/12/22 06:46 12/12/22 07:11 Ondansetron Hcl 4 Mg/2 Ml Vial IVPUSH 12/12/22 06:47 4 mg ONCE ONE Administration Polyethylene Glycol 17 gm 12/12/22 08:21 12/12/22 08:29 Polyethylene Glycol 3350 17 Gm Powd.Pack PO 12/12/22 08:22 17 gm ONCE ONE Administration Simethicone 160 mg 12/12/22 08:21 12/12/22 08:29 Simethicone 80 Mg Tab.Chew PO 12/12/22 08:22 160 mg ONCE ONE Administration Discharge Plan Discharge Clinical Impression: Abdominal pain, Constipation, UTI (urinary tract infection) Patient Disposition: Home, Self-Care Instructions: Constipation (DC), Urinary Tract Infection in Women (DC) Additional Instructions: Your CT scan today was normal. You did have a large amount of stool. You are likely constipated. Your lab work was normal. Your urine test showed infection. Take the prescribed antibiotic as directed - sent to [facility] on . in [place] Take the prescribed medications as directed Rest and drink plenty of fluids Stick to a bland diet while you are not feeling well Follow up with your doctor this week If you develop new or worsening symptoms call 911 or come back to the ER for further evaluation. Prescriptions: New dicyclomine 10 mg capsule 10 mg PO TID PRN (Reason: abdominal distention) Qty: 20 0RF cefuroxime axetil 250 mg tablet 250 mg PO BID Qty: 10 0RF ondansetron 4 mg tablet,disintegrating 4 mg PO Q8H PRN (Reason: nausea and vomiting) Qty: 7 0RF simethicone [Gas Relief (simethicone)] 180 mg capsule 180 mg PO BID PRN (Reason: abdominal distention) Qty: 14 0RF polyethylene glycol 3350 [Miralax] 17 gram powder in packet 17 g PO DAILY Qty: 14 0RF No Action aripiprazole 10 mg tablet 1 tab PO DAILY lamotrigine 100 mg tablet 1 tab PO TID lorazepam 1 mg tablet 0.5 tab PO BID melatonin 5 mg tablet 1 tab PO BEDTIME PRN (Reason: insomnia) quetiapine 50 mg tablet 1 tab PO BEDTIME sucralfate 100 mg/mL suspension 10 ml PO BID zolpidem 5 mg tablet 1 tab PO BEDTIME PRN (Reason: Sleep) ondansetron HCl [Zofran] 4 mg tablet 4 mg PO Q6H PRN (Reason: nausea and vomiting) Qty: 10 0RF acetaminophen [Tylenol 8 Hour] 650 mg tablet extended release 650 mg PO Q8H PRN (Reason: pain) Qty: 10 0RF nitrofurantoin monohyd/m-cryst [Macrobid] 100 mg capsule 100 mg PO Q12H 7 Days Qty: 14 0RF Rx Instructions: must administer with a meal/food dicyclomine 10 mg capsule 10 mg PO QID 7 Days Qty: 28 0RF promethazine 25 mg tablet 25 mg PO TID PRN (Reason: nausea and vomiting) Qty: 20 0RF sulfamethoxazole-trimethoprim [Bactrim DS] 800-160 mg tablet 1 tab PO BID Qty: 14 0RF phenazopyridine 100 mg tablet 100 mg PO TID Qty: 6 0RF ibuprofen 600 mg tablet 600 mg PO TID PRN (Reason: pain) Qty: 20 0RF
[2022-12-12 07:11] VITALS: RESP 20
[2022-12-12] MEDS: Morphine Sulfate 4 MG/ML CARTRIDGE IVPUSH (07:11)
[2022-12-12] MEDS: 0.9 % Sodium Chloride 1,000 ML 999 ML IVCONT (07:11)
[2022-12-12] MEDS: ondansetron HCL 4 MG/2 ML VIAL IVPUSH (07:11)
--- NOTE | 2022-12-12 07:36 | PC.NURSE ---
Resumed care of patient this morning, she is a/ox4. reporting 05/17 abd pain, IV placed, medications given, pt taken for CT scan at this time
[2022-12-12] MEDS: iohexoL 350 MG/ML 100 ML INFUS..BTL IV (07:39)
[2022-12-12] MEDS: Dicyclomine HCl 10 MG CAPSULE PO (08:29)
[2022-12-12] MEDS: Simethicone 80 MG TAB.CHEW 160 MG PO (08:29)
[2022-12-12] MEDS: polyethylene glycoL 3350 17 GM POWD.PACK PO (08:29)
[2022-12-12 08:40] VITALS: BP 117/57; PULSE 64; RESP 15; TEMP 36.5; O2SAT 98
== END 2022-12-12 09:02 | disposition home or self-care (01) ==
PROVIDERS: Student in an Organized Health Care Education/Training Program; Emergency Provider Emergency Medicine
DX: R10.13 Epigastric pain (principal); K59.00 Constipation, unspecified; N39.0 Urinary tract infection, site not specified; Z79.899 Other long term (current) drug therapy
CPT/HCPCS: 36415; 74177; 80048; 80076; 81001; 83690; 84702; 85025; 87086; 96361; 96374; 96375; 99284; J2270; J2405; Q9967

== ENCOUNTER 2022-12-19 23:14 | Emergency (ER) | payer OTHER, SELFPAY ==
--- NOTE | ~2022-12-19 | CT_ITS ---
EXAMINATION: CT ABDOMEN AND PELVIS WITH CONTRAST CLINICAL INFORMATION: Epigastric skin lesion, question tracking into deeper tissue COMPARISON: 12/12/2022 TECHNIQUE: Multidetector volumetric images were obtained from the superior aspect of the liver through the pubic symphysis following administration 85 mL of Omnipaque 350 intravenous contrast. Sagittal and coronal reformatted images were obtained on the technologist's workstation. Oral contrast: No This CT examination was performed using dose optimization techniques as appropriate, variously including the following: *Automated exposure control *Adjustment of mA and/or kV according to patient size (this includes techniques or standardized protocols for targeted exams where dose is matched to indication/reason for exam; i.e. extremities or head) *Use of iterative reconstruction technique DLP: 739 mGy-cm FINDINGS: LUNG BASES: The visualized lung bases are unremarkable. LIVER, GALLBLADDER, AND BILIARY TREE: The liver is normal in size, shape, and attenuation. Tiny hypodensity at the dome of the liver is too small to characterize, suggestive of a cyst. No biliary ductal dilatation is present. Patient is status post cholecystectomy. PANCREAS: Unremarkable. SPLEEN: Redemonstrated nonspecific small hypodensity in the anterior spleen. ADRENAL GLANDS: Unremarkable. KIDNEYS AND URETERS: Bilateral nephrograms are symmetric. No hydronephrosis or obstructing calculus identified. There is a 2 mm calculus in the lower left kidney. BLADDER: Partially distended and grossly unremarkable. GASTROINTESTINAL TRACT: No evidence of bowel obstruction or significant bowel wall thickening. Patient is suspected to be status post appendectomy. No free fluid or free air is seen. ABDOMINAL WALL: There is a superficial subcutaneous hypodense lesion measuring 1.5 cm in diameter and 60 Hounsfield units in the anterior upper abdominal wall near the midline, with subtle peripheral enhancement. Mild surrounding stranding is present. No extension into the abdominal wall musculature or intra-abdominal cavity is seen. This lesion was also present on 12/12/2022, though no stranding was present that time. LYMPH NODES: Normal. VASCULAR: There is atherosclerotic calcification along the aorta. PELVIC VISCERA: Unremarkable. OSSEOUS STRUCTURES: Unremarkable. CT/CT abdomen pelvis w IV con IMPRESSION: 1. Superficial subcutaneous cystic appearing lesion measuring 1.5 cm in diameter in the anterior upper abdominal wall near the midline, with mild surrounding stranding. This lesion was also present on 12/12/2022, though no stranding was present that time. This could represent a sebaceous cyst with superimposed infection. No extension into the abdominal wall musculature or intra-abdominal cavity is seen. 2. Left lower pole 3 mm renal calculus without hydronephrosis.
[2022-12-19 23:29] VITALS: BP 132/90; PULSE 98; RESP 18; TEMP 37.1; O2SAT 99; BMI 37.1
[2022-12-20 00:17] LABS: MANUAL DIFF FLAG NO
[2022-12-20 00:19] LABS: Basophils Absolute Auto 0.1 X10*3/uL (0.0-0.2); Basophils Percent Auto 0.7 % (0-2); Eosinophils Absolute Auto 0.2 X10*3/uL (0.0-0.4); Eosinophils Percent Auto 1.9 % (0-4); Hematocrit 39.5 % (37.0-47.0); Hemoglobin 13.3 g/dl (12.0-16.0); Imm Gran Abs Auto 0.03 X10*3/uL (0.00-0.03); Imm Gran Pct Auto 0.3 % (0.0-0.4); Lymphocytes Absolute Auto 2.9 X10*3/uL (1.2-4.9); Mean Corpuscular HGB Conc 33.7 g/dl (31.0-35.0); Mean Corpuscular Hemoglobin 28.4 pg (27.0-33.0); Mean Corpuscular Volume 84.4 fL (80.0-98.0); Mean Platelet Volume 9.4 fL (9.4-12.3); Monocytes Absolute Auto 0.5 X10*3/uL (0.1-1.2); Monocytes Percent Auto 5.3 % (2-11); Neutrophils Absolute Auto 6.2 x10*3/uL (2.0-8.3); Neutrophils Percent Auto 62.8 % (45-73); Platelet Count 219 X10*3/uL (160-400); Red Blood Count 4.68 X10*6/uL (4.20-5.50); Red Cell Distribution Width 14.7 % (11.0-16.0)
--- NOTE | 2022-12-20 00:36 | ED.ABDPAIN ---
HPI - Abdominal Pain General Chief Complaint: Abdominal Pain Stated Complaint: Lump in chest with pain Time Seen by Provider: 12/19/22 23:42 History of Present Illness HPI narrative: Patient is a 41-year-old female presents today with having a lesion developing over the epigastric area. Patient denies any fever chills. Positive history of cyclic vomiting. History of bipolar history of anxiety. History of irritable bowel syndrome. No nausea no vomiting no diarrhea. Patient is from home Related Data Home Medications Medication Instructions Recorded Confirmed aripiprazole 10 mg tablet 1 tab PO DAILY 01/05/21 01/05/21 lamotrigine 100 mg tablet 1 tab PO TID 01/05/21 01/05/21 lorazepam 1 mg tablet 0.5 tab PO BID 01/05/21 01/05/21 melatonin 5 mg tablet 1 tab PO BEDTIME PRN insomnia 01/05/21 01/05/21 quetiapine 50 mg tablet 1 tab PO BEDTIME 01/05/21 01/05/21 sucralfate 100 mg/mL oral 10 ml PO BID 01/05/21 01/05/21 suspension zolpidem 5 mg tablet 1 tab PO BEDTIME PRN Sleep 01/05/21 01/05/21 Previous Rx's Medication Instructions Recorded acetaminophen 650 mg 650 mg PO Q8H PRN pain #10 tabs 01/07/21 tablet,extended release (Tylenol 8 Hour) ondansetron HCl 4 mg tablet 4 mg PO Q6H PRN nausea and 01/07/21 (Zofran) vomiting #10 tabs promethazine 25 mg tablet 25 mg PO TID PRN nausea and 01/06/22 vomiting #20 tabs dicyclomine 10 mg capsule 10 mg PO QID 7 days #28 caps 06/14/22 nitrofurantoin 100 mg PO Q12H 7 days #14 caps 06/14/22 monohydrate/macrocrystals 100 mg capsule (Macrobid) ibuprofen 600 mg tablet 600 mg PO TID PRN pain #20 tabs 06/16/22 phenazopyridine 100 mg tablet 100 mg PO TID 6 doses #6 tabs 06/16/22 sulfamethoxazole 800 1 tab PO BID #14 tabs 06/16/22 mg-trimethoprim 160 mg tablet (Bactrim DS) cefuroxime axetil 250 mg tablet 250 mg PO BID #10 tabs 12/12/22 dicyclomine 10 mg capsule 10 mg PO TID PRN abdominal 12/12/22 distention #20 caps ondansetron 4 mg disintegrating 4 mg PO Q8H PRN nausea and 12/12/22 tablet vomiting #7 tabs polyethylene glycol 3350 17 gram 17 g PO DAILY #14 ea 12/12/22 oral powder packet (Miralax) simethicone 180 mg capsule (Gas 180 mg PO BID PRN abdominal 12/12/22 Relief (simethicone)) distention #14 caps Allergies Allergy/AdvReac Type Severity Reaction Status Date / Time Penicillins Allergy Intermediate HIVES Verified 12/12/22 01:29 ciprofloxacin Allergy Unresponsiv Verified 12/12/22 01:29 e Amoxicillin Allergy Intermediate Unknown Uncoded 12/12/22 01:29 Review of Systems Review of Systems Positive lesion to the epigastric area Yes all other systems are reviewed and are negative PMFSH Past Medical History Attestation statement: The following information was validated with the patient. Medical History Anxiety Bipolar 1 disorder Endometriosis Pulmonary embolism Surgical History H/O: hysterectomy History of cholecystectomy Hx of appendectomy Social History Social History Alcohol intake: never Patient Tobacco Use Status: Current everyday Tobacco user Tobacco use type: Cigarette Cigarette Packs Per Day: 0.34 Cigarettes Per Day: 6.8 Years Smoked: 32 Smoked in Last 30 Days: Yes Second Hand Smoke Exposure: No Use of substances other than those prescribed or required for medical reasons: No Substance Use Type: Crack/Cocaine and Marijuana Advance Directives: No Advance Directives Information Provided: Yes Physical Exam ED Vital Signs: Vital Signs - 24 hr 12/19/22 23:29 12/20/22 02:13 12/20/22 07:07 Temperature 98.8 F 98.8 F 97.8 F Pulse Rate 98 83 75 Respiratory Rate 18 16 16 Blood Pressure 132/90 H 108/58 L 116/54 L Pulse Oximetry 99 97 96 Oxygen Delivery Method Room Air Room Air Room Air BMI result Body Mass Index 37.1 Appearance: Alert. Oriented X3. No acute distress. Eyes: Pupils equal, round and reactive to light. ENT: Pharynx normal. Neck: Normal inspection. Neck supple. No lymph nodes noted. No crepitus CVS: Normal heart rate and rhythm. Pulses normal. Normal S1 and S2 Respiratory: No respiratory distress. Breath sounds normal. No Wheezing. No rales Abdomen: Soft and nontender. No rigidity. No distention. good BS x4. Positive lesion in the epigastric area proximally 3 cm x 3 cm in size, fluctuant. Slight redness noted. Skin: Skin warm and dry. Normal skin color. Normal skin turgor. Extremities: No lower extremity edema. Neurovascular intact to all extremities. No Lacerations. No Rash Neuro: Oriented X 3. No motor deficit. No sensory deficit. Moving all extermities. No slurred speech Procedures Abscess I/D Site: scalp and abdomen Local Anesthetic: lidocaine 1% Amount of anesthesia used (mL): 5 Technique: incised with blade Amount of fluid expressed (mL): 5 Sent for culture/gram staining?: Yes Irrigation: Yes Packing used?: iodoform Medical Decision Making Medical Decision Making [facility] Narrative: Patient is 41 years old positive fluctuant mass in the epigastric area. CT scan of the abdomen did not show any connection to the in her abdominal cavity. The wound was then I and D. Large amount of pus was expressed. Subsequently packed. Culture was sent. Symptoms seems to have improved. Patient is to follow-up in 2 days. Differential Diagnosis Differential Diagnoses: The differential diagnosis associated with the presentation includes Abscess Lab Data [facility] Lab Attestation statement: I reviewed the patient's lab results. 12/20/22 00:11 12/20/22 00:11 Labs: Lab Results 12/20/22 12/20/22 Range/Units 00:11 00:11 WBC 10.0 (4.8-10.8) X10*3/uL RBC 4.68 (4.20-5.50) X10*6/uL Hgb 13.3 (12.0-16.0) g/dl Hct 39.5 (37.0-47.0) % MCV 84.4 (80.0-98.0) fL MCH 28.4 (27.0-33.0) pg MCHC 33.7 (31.0-35.0) g/dl RDW 14.7 (11.0-16.0) % Plt Count 219 (160-400) X10*3/uL MPV 9.4 (9.4-12.3) fL Immature Gran % (Auto) 0.3 (0.0-0.4) % Neut % (Auto) 62.8 (45-73) % Lymph % (Auto) 29.0 (20-40) % [place] % (Auto) 5.3 (2-11) % Eos % (Auto) 1.9 (0-4) % Baso % (Auto) 0.7 (0-2) % Lymph # (Auto) 2.9 (1.2-4.9) X10*3/uL [place] # (Auto) 0.5 (0.1-1.2) X10*3/uL Eos # (Auto) 0.2 (0.0-0.4) X10*3/uL Baso # (Auto) 0.1 (0.0-0.2) X10*3/uL Abs Immat Gran (auto) 0.03 (0.00-0.03) X10*3/uL Absolute Neuts (auto) 6.2 (2.0-8.3) x10*3/uL Absolute Nucleated RBC 0.000 (0.0-0.012) X10*3/uL Nucleated RBC % (auto) 0.0 (0.0-0.2) /100WBC Sodium 140 (135-145) mmol/L Potassium 3.8 (3.3-5.1) mmol/L Chloride 104 (96-108) mmol/L Carbon Dioxide 28 (22-29) mmol/L Anion Gap 12 (12-20) BUN 11 (9-16) mg/dL Creatinine 0.84 (0.5-1.4) mg/dL Estim Creat Clear Calc 85.1 Estimated GFR > 60 Random Glucose 103 (60-115) mg/dL Calcium 9.1 (8.4-10.2) mg/dL Total Bilirubin 0.2 (0.0-1.0) mg/dL Direct Bilirubin < 0.2 (0.0-0.5) mg/dL AST 13 (5-31) U/L ALT 26 (0-31) U/L Alkaline Phosphatase 106 (39-117) U/L Total Protein 6.3 L (6.5-8.0) g/dL Albumin 3.9 (3.5-5.0) g/dL Lipase 59 (8-78) U/L Beta HCG, Quant 4 mIU/mL Medications Administered Discontinued Medications Generic Name Dose Route Start Last Admin Trade Name Freq PRN Reason Stop Dose Admin Sodium Chloride 500 mls @ 999 mls/hr 12/19/22 23:45 12/20/22 01:40 Ns IV 12/20/22 00:15 Infused .Q31M FAM Infusion Iohexol 85 ml 12/20/22 01:14 12/20/22 01:15 Iohexol 350 Mg/Ml 100 Ml Infus..Btl IV 12/20/22 01:15 85 ml ONCE ONE Administration Lidocaine HCl 10 ml 12/20/22 02:03 12/20/22 07:19 Lidocaine Hcl 1 % Mpf 5 Ml Vial SUBCUT 12/20/22 02:04 10 ml ONCE ONE Administration Discharge Plan Discharge Clinical Impression: Abscess Patient Disposition: Home, Self-Care Instructions: Abscess (ED), Abscess Incision and Drainage (DC) Prescriptions: No Action aripiprazole 10 mg tablet 1 tab PO DAILY lamotrigine 100 mg tablet 1 tab PO TID lorazepam 1 mg tablet 0.5 tab PO BID melatonin 5 mg tablet 1 tab PO BEDTIME PRN (Reason: insomnia) quetiapine 50 mg tablet 1 tab PO BEDTIME sucralfate 100 mg/mL suspension 10 ml PO BID zolpidem 5 mg tablet 1 tab PO BEDTIME PRN (Reason: Sleep) ondansetron HCl [Zofran] 4 mg tablet 4 mg PO Q6H PRN (Reason: nausea and vomiting) Qty: 10 0RF acetaminophen [Tylenol 8 Hour] 650 mg tablet extended release 650 mg PO Q8H PRN (Reason: pain) Qty: 10 0RF nitrofurantoin monohyd/m-cryst [Macrobid] 100 mg capsule 100 mg PO Q12H 7 Days Qty: 14 0RF Rx Instructions: must administer with a meal/food dicyclomine 10 mg capsule 10 mg PO QID 7 Days Qty: 28 0RF promethazine 25 mg tablet 25 mg PO TID PRN (Reason: nausea and vomiting) Qty: 20 0RF sulfamethoxazole-trimethoprim [Bactrim DS] 800-160 mg tablet 1 tab PO BID Qty: 14 0RF phenazopyridine 100 mg tablet 100 mg PO TID Qty: 6 0RF ibuprofen 600 mg tablet 600 mg PO TID PRN (Reason: pain) Qty: 20 0RF dicyclomine 10 mg capsule 10 mg PO TID PRN (Reason: abdominal distention) Qty: 20 0RF cefuroxime axetil 250 mg tablet 250 mg PO BID Qty: 10 0RF ondansetron 4 mg tablet,disintegrating 4 mg PO Q8H PRN (Reason: nausea and vomiting) Qty: 7 0RF simethicone [Gas Relief (simethicone)] 180 mg capsule 180 mg PO BID PRN (Reason: abdominal distention) Qty: 14 0RF polyethylene glycol 3350 [Miralax] 17 gram powder in packet 17 g PO DAILY Qty: 14 0RF Referrals: Connie Marcelino MD [Emergency Provider] - 12/23/22
[2022-12-20 00:42] LABS: Alanine Aminotransferase 26 U/L (0-31); Albumin Level 3.9 g/dL (3.5-5.0); Alkaline Phosphatase 106 U/L (39-117); Anion Gap 12 (12-20); Aspartate Amino Transferase 13 U/L (5-31); Bilirubin Direct < 0.2 mg/dL (0.0-0.5); Bilirubin Total 0.2 mg/dL (0.0-1.0); Blood Urea Nitrogen 11 mg/dL (9-16); Calcium 9.1 mg/dL (8.4-10.2); Carbon Dioxide 28 mmol/L (22-29); Chloride 104 mmol/L (96-108); Creatinine Clr Calc Pharmacy 85.1; Estimated Glomerular Filt Rate > 60; Glucose Random 103 mg/dL (60-115); Lipase 59 U/L (8-78); Potassium 3.8 mmol/L (3.3-5.1); Sodium 140 mmol/L (135-145); Total Protein 6.3 g/dL (6.5-8.0)
[2022-12-20 00:43] LABS: HCG Quantitative 4 mIU/mL
[2022-12-20] MEDS: 0.9 % Sodium Chloride 500 ML 999 ML IV (00:52)
--- NOTE | 2022-12-20 00:53 | PC.NURSE ---
IV established, IVF infusing. Pt requesting pain medication, Marcelino aware. MD Abbottu not ordering pain mediation @ this time. Pt aware, pt upset, crying, states that doctor hates me! Pt showing this RN reddened lump below xiphoid process, reporting 10/10 pain. Pt aware of plan for CT.
[2022-12-20] MEDS: iohexoL 350 MG/ML 100 ML INFUS..BTL 85 ML IV (01:15)
[2022-12-20 02:13] VITALS: BP 108/58; PULSE 83; RESP 16; TEMP 37.1; O2SAT 97
[2022-12-20 07:07] VITALS: BP 116/54; PULSE 75; RESP 16; TEMP 36.6; O2SAT 96
--- NOTE | 2022-12-20 07:13 | PC.NURSE ---
Pt on stretcher, airway open and patent, no obvious signs of distress, no difficulty breathing, equal chest rise and fall. Pt a&ox4. Skin color normal for ethnicity, warm, and dry. Heart sounds normal. Bowel sounds present all villar. Abdomen soft. Pt complaining of pain 8/10 on epigastric abdomen. Pt has lesion with slight redness on epigastric area. No edema noted.
[2022-12-20] MEDS: Lidocaine HCl 1 % MPF 5 ML VIAL 10 ML SUBCUT (07:19)
[2022-12-20 07:33] VITALS: BP 125/64; PULSE 82; RESP 16; O2SAT 98
== END 2022-12-20 08:11 | disposition home or self-care (01) ==
PROVIDERS: Emergency Provider Emergency Medicine Emergency Medical Services
DX: L02.211 Cutaneous abscess of abdominal wall (principal); R10.13 Epigastric pain; R10.2 Pelvic and perineal pain; Z79.899 Other long term (current) drug therapy
CPT/HCPCS: 10060; 36415; 74177; 80048; 80076; 83690; 84702; 85025; 87070; 87205; 99284; Q9967

== ENCOUNTER 2022-12-22 17:11 | Emergency (ER) | payer OTHER, SELFPAY ==
[2022-12-22 17:25] VITALS: BP 125/92; PULSE 88; RESP 18; TEMP 36.6; O2SAT 100; BMI 37.5
--- NOTE | 2022-12-22 17:25 | ED.SKABFB ---
HPI - Skin/Abscess/Foreign Bdy General Chief complaint: Skin/Abscess/Foreign Body Stated complaint: gauze removal from abscess Time Seen by Provider: 12/22/22 17:38 Source: patient, family and old records reviewed Mode of arrival: ambulatory Limitations: no limitations History of Present Illness HPI narrative: 41 yo female presents to the ER for evaluation of an abscess to her epigastric area that was incised and drained here on 12/20. The area was packed. She was not discharged on antibiotics. She has kept the area covered with a bandage. No drainage from the area. No fever or chills. complaint: abscess/boil Onset (ago): day(s) Tetanus up to date: yes Location: chest Severity: mild Quality: aching Pain Consistency: intermittent Relieving factors: none Exacerbating factors: none Associated symptoms: denies other symptoms Treatments prior to arrival: bandages Related Data Home Medications Medication Instructions Recorded Confirmed aripiprazole 10 mg tablet 1 tab PO DAILY 01/05/21 01/05/21 lamotrigine 100 mg tablet 1 tab PO TID 01/05/21 01/05/21 lorazepam 1 mg tablet 0.5 tab PO BID 01/05/21 01/05/21 melatonin 5 mg tablet 1 tab PO BEDTIME PRN insomnia 01/05/21 01/05/21 quetiapine 50 mg tablet 1 tab PO BEDTIME 01/05/21 01/05/21 sucralfate 100 mg/mL oral 10 ml PO BID 01/05/21 01/05/21 suspension zolpidem 5 mg tablet 1 tab PO BEDTIME PRN Sleep 01/05/21 01/05/21 Previous Rx's Medication Instructions Recorded acetaminophen 650 mg 650 mg PO Q8H PRN pain #10 tabs 01/07/21 tablet,extended release (Tylenol 8 Hour) ondansetron HCl 4 mg tablet 4 mg PO Q6H PRN nausea and 01/07/21 (Zofran) vomiting #10 tabs promethazine 25 mg tablet 25 mg PO TID PRN nausea and 01/06/22 vomiting #20 tabs dicyclomine 10 mg capsule 10 mg PO QID 7 days #28 caps 06/14/22 nitrofurantoin 100 mg PO Q12H 7 days #14 caps 06/14/22 monohydrate/macrocrystals 100 mg capsule (Macrobid) ibuprofen 600 mg tablet 600 mg PO TID PRN pain #20 tabs 06/16/22 phenazopyridine 100 mg tablet 100 mg PO TID 6 doses #6 tabs 06/16/22 sulfamethoxazole 800 1 tab PO BID #14 tabs 06/16/22 mg-trimethoprim 160 mg tablet (Bactrim DS) cefuroxime axetil 250 mg tablet 250 mg PO BID #10 tabs 12/12/22 dicyclomine 10 mg capsule 10 mg PO TID PRN abdominal 12/12/22 distention #20 caps ondansetron 4 mg disintegrating 4 mg PO Q8H PRN nausea and 12/12/22 tablet vomiting #7 tabs polyethylene glycol 3350 17 gram 17 g PO DAILY #14 ea 12/12/22 oral powder packet (Miralax) simethicone 180 mg capsule (Gas 180 mg PO BID PRN abdominal 12/12/22 Relief (simethicone)) distention #14 caps Allergies Allergy/AdvReac Type Severity Reaction Status Date / Time Penicillins Allergy Intermediate HIVES Verified 12/12/22 01:29 ciprofloxacin Allergy Unresponsiv Verified 12/12/22 01:29 e Amoxicillin Allergy Intermediate Unknown Uncoded 12/12/22 01:29 Review of Systems Review of Systems: Yes all other systems are reviewed and are negative PMFSH Past Medical History Medical History Anxiety Bipolar 1 disorder Endometriosis Pulmonary embolism Surgical History H/O: hysterectomy History of cholecystectomy Hx of appendectomy Social History Social History Alcohol intake: never Patient Tobacco Use Status: Current everyday Tobacco user Tobacco use type: Cigarette Cigarette Packs Per Day: 0.34 Cigarettes Per Day: 6.8 Years Smoked: 32 Second Hand Smoke Exposure: No Substance Use Type: Crack/Cocaine and Marijuana Advance Directives: No Advance Directives Information Provided: No Physical Exam Vital Signs: Vital Signs: Last Vital Signs Temp 97.8 F 12/22/22 17:25 Pulse 88 12/22/22 17:25 Resp 18 12/22/22 17:25 BP 125/92 H 12/22/22 17:25 Pulse Ox 100 12/22/22 17:25 O2 Del Method Room Air 12/22/22 17:25 BMI result Body Mass Index 37.5 Appearance: Alert. Oriented X3. No acute distress. Hoarse voice HEENT: normal inspection CVS: Normal heart rate and rhythm. Pulses normal. Respiratory: No respiratory distress. Skin: Skin warm and dry. Normal skin color. Normal skin turgor. Epigastic area with a 1cm opening w/ gauze tail extending out, minimal surrounding erythema, no drainage. mild tenderness. Extremities: normal inspection x4 Neuro: Oriented X 3. No motor deficit. No sensory deficit. Medical Decision Making Medical Decision Making MDM Narrative: 41 yo female presenting for packing removal from epigastric abscess which was drained here on 12/20 (CT confirmed no extension into peritoneum) Gauze was removed and wound was repacked Ongoing wound care d/w patient and - he will take the packing out in 2 days stable for d/c home. no abx needed at this time. Differential Diagnosis Differential Diagnoses: The differential diagnosis associated with the presentation includes abscess, cellulitis, delayed wound healing, appropriate wound healing Radiology Impression Discussion of test interpretation with radiology: I have reviewed the radiologist's reading. Radiologist Impression: 12/20/22 ?CT/CT abdomen pelvis w IV con IMPRESSION: 1.? Superficial subcutaneous cystic appearing lesion measuring 1.5 cm in diameter in the anterior upper abdominal wall near the midline, with mild surrounding stranding. This lesion was also present on 12/12/2022, though no stranding was present that time. This could represent a sebaceous cyst with superimposed infection. No extension into the abdominal wall musculature or intra-abdominal cavity is seen. 2.? Left lower pole 3 mm renal calculus without hydronephrosis. External Record Review External record reviewed: Outpatient record, Prior outpatient labs and Prior outpatient radiology Prescription Management I considered prescription management with: Antibiotic Critical Care Time Critical Care Time Critical Care Time: No Discharge Plan Discharge Clinical Impression: Abscess packing removal Patient Disposition: Home, Self-Care Instructions: Acute Wounds (DC) Additional Instructions: remove the packing in 2 days keep clean and covered the abscess will take time to heal if you develop increased pain, redness or drainage from the area, call your doctor or come back to the ER for further evaluation Prescriptions: No Action aripiprazole 10 mg tablet 1 tab PO DAILY lamotrigine 100 mg tablet 1 tab PO TID lorazepam 1 mg tablet 0.5 tab PO BID melatonin 5 mg tablet 1 tab PO BEDTIME PRN (Reason: insomnia) quetiapine 50 mg tablet 1 tab PO BEDTIME sucralfate 100 mg/mL suspension 10 ml PO BID zolpidem 5 mg tablet 1 tab PO BEDTIME PRN (Reason: Sleep) ondansetron HCl [Zofran] 4 mg tablet 4 mg PO Q6H PRN (Reason: nausea and vomiting) Qty: 10 0RF acetaminophen [Tylenol 8 Hour] 650 mg tablet extended release 650 mg PO Q8H PRN (Reason: pain) Qty: 10 0RF nitrofurantoin monohyd/m-cryst [Macrobid] 100 mg capsule 100 mg PO Q12H 7 Days Qty: 14 0RF Rx Instructions: must administer with a meal/food dicyclomine 10 mg capsule 10 mg PO QID 7 Days Qty: 28 0RF promethazine 25 mg tablet 25 mg PO TID PRN (Reason: nausea and vomiting) Qty: 20 0RF sulfamethoxazole-trimethoprim [Bactrim DS] 800-160 mg tablet 1 tab PO BID Qty: 14 0RF phenazopyridine 100 mg tablet 100 mg PO TID Qty: 6 0RF ibuprofen 600 mg tablet 600 mg PO TID PRN (Reason: pain) Qty: 20 0RF dicyclomine 10 mg capsule 10 mg PO TID PRN (Reason: abdominal distention) Qty: 20 0RF cefuroxime axetil 250 mg tablet 250 mg PO BID Qty: 10 0RF ondansetron 4 mg tablet,disintegrating 4 mg PO Q8H PRN (Reason: nausea and vomiting) Qty: 7 0RF simethicone [Gas Relief (simethicone)] 180 mg capsule 180 mg PO BID PRN (Reason: abdominal distention) Qty: 14 0RF polyethylene glycol 3350 [Miralax] 17 gram powder in packet 17 g PO DAILY Qty: 14 0RF
== END 2022-12-22 17:49 | disposition home or self-care (01) ==
PROVIDERS: Emergency Provider Emergency Medicine
DX: Z48.01 Encounter for change or removal of surgical wound dressing (principal); Z79.899 Other long term (current) drug therapy
CPT/HCPCS: 99282

== ENCOUNTER 2023-04-20 00:09 | Emergency (ER) | payer OTHER, SELFPAY ==
--- NOTE | ~2023-04-20 | CT_ITS ---
EXAMINATION: CT SOFT TISSUE NECK WITHOUT CONTRAST CLINICAL INFORMATION: Neck pain. Difficulty swallowing. COMPARISON: None available. TECHNIQUE: Helical imaging was performed in the axial plane with generation of coronal and sagittal reformatted images. This CT examination was performed using dose optimization techniques as appropriate, variously including the following: *Automated exposure control *Adjustment of mA and/or kV according to patient size (this includes techniques or standardized protocols for targeted exams where dose is matched to indication/reason for exam; i.e. extremities or head) *Use of iterative reconstruction technique DLP: 522 mGy-cm FINDINGS: The nasopharynx, oropharynx and hypopharynx are within normal limits. The laryngeal regions are unremarkable. The epiglottis is within normal limits. The prevertebral soft tissues are unremarkable. Scattered nonspecific lymph nodes are seen. The thyroid glands, submandibular glands and parotid glands are unremarkable. The visualized upper lung villar are clear. There is mild cervical disc degenerative change with mild reversal of the expected cervical spine curvature. The visualized intracranial structures are unremarkable CT/CT soft tissue neck wo IV con IMPRESSION: No significant abnormality identified.
[2023-04-20 00:10] VITALS: BP 118/59; PULSE 92; RESP 22; TEMP 36.9; O2SAT 96; BMI 36.9
--- NOTE | 2023-04-20 01:03 | ED_ITS ---
HPI - General Adult General Chief complaint: General Medical Stated complaint: Sore throat Time Seen by Provider: 04/20/23 00:49 Source: patient and old records reviewed Mode of arrival: ambulatory Limitations: no limitations History of Present Illness HPI narrative: 42 yo female with hx of anxixety, IBS, bipolar, cyclical vomiting syndrome with hx of visits for pain issues in past tells me [facility] dx with throat cysts when pressed further she notes ENT looked down her throat and told her she had cysts I asked if she meant vocal cord nodules and she states maybe. She also had her tonsils removed around age 19. She note tonight she developed a sore throat and coughed her throat feels tight and she was wondering if a cyst popped. Her voice is more hoarse. She denies sick contacts, she states she has not had a fever and her nose is always congested. She states it is very painful MD complaint: sore throat Onset (ago): hour(s) (10pm yesterday ) Location: mouth Radiation: non-radiation Severity: severe Quality: aching and constant Pain Consistency: constant Relieving factors: none Exacerbating factors: other (swallowing) Associated symptoms: other (states she feels it is swollen) Treatments prior to arrival: none Related Data Home Medications Medication Instructions Recorded Confirmed aripiprazole 10 mg tablet 1 tab PO DAILY 01/05/21 01/05/21 lamotrigine 100 mg tablet 1 tab PO TID 01/05/21 01/05/21 lorazepam 1 mg tablet 0.5 tab PO BID 01/05/21 01/05/21 melatonin 5 mg tablet 1 tab PO BEDTIME PRN insomnia 01/05/21 01/05/21 quetiapine 50 mg tablet 1 tab PO BEDTIME 01/05/21 01/05/21 sucralfate 100 mg/mL oral 10 ml PO BID 01/05/21 01/05/21 suspension zolpidem 5 mg tablet 1 tab PO BEDTIME PRN Sleep 01/05/21 01/05/21 Previous Rx's Medication Instructions Recorded acetaminophen 650 mg 650 mg PO Q8H PRN pain #10 tabs 01/07/21 tablet,extended release (Tylenol 8 Hour) ondansetron HCl 4 mg tablet 4 mg PO Q6H PRN nausea and 01/07/21 (Zofran) vomiting #10 tabs promethazine 25 mg tablet 25 mg PO TID PRN nausea and 01/06/22 vomiting #20 tabs dicyclomine 10 mg capsule 10 mg PO QID 7 days #28 caps 06/14/22 nitrofurantoin 100 mg PO Q12H 7 days #14 caps 06/14/22 monohydrate/macrocrystals 100 mg capsule (Macrobid) ibuprofen 600 mg tablet 600 mg PO TID PRN pain #20 tabs 06/16/22 phenazopyridine 100 mg tablet 100 mg PO TID 6 doses #6 tabs 06/16/22 sulfamethoxazole 800 1 tab PO BID #14 tabs 06/16/22 mg-trimethoprim 160 mg tablet (Bactrim DS) cefuroxime axetil 250 mg tablet 250 mg PO BID #10 tabs 12/12/22 dicyclomine 10 mg capsule 10 mg PO TID PRN abdominal 12/12/22 distention #20 caps ondansetron 4 mg disintegrating 4 mg PO Q8H PRN nausea and 12/12/22 tablet vomiting #7 tabs polyethylene glycol 3350 17 gram 17 g PO DAILY #14 ea 12/12/22 oral powder packet (Miralax) simethicone 180 mg capsule (Gas 180 mg PO BID PRN abdominal 12/12/22 Relief (simethicone)) distention #14 caps Allergies Allergy/AdvReac Type Severity Reaction Status Date / Time Penicillins Allergy Intermediate HIVES Verified 12/12/22 01:29 ciprofloxacin Allergy Unresponsiv Verified 12/12/22 01:29 e Amoxicillin Allergy Intermediate Unknown Uncoded 12/12/22 01:29 Review of Systems 2 Review of Systems: Constitutional : No Fever, No Chills ENT/Mouth : pos swallowing difficulty, no change in voice, positive throat pain, no facial swelling, pos nasal congestion Eyes: No Eye Pain, No Swelling Cardiovascular : No Chest Pain, No SOB Respiratory : pos Cough, No Sputum Gastrointestinal : No Nausea, No Vomiting, No Diarrhea Genitourinary : No Dysuria Musculoskeletal : No Myalgias Skin : No rash Neuro : No Weakness, No Numbness, No Headache PMFSH Past Medical History Attestation statement: The following information was validated with the patient. Medical History Endometriosis Pulmonary embolism Anxiety Bipolar 1 disorder Surgical History Hx of appendectomy History of cholecystectomy H/O: hysterectomy Social History Social History Alcohol intake: never Patient Tobacco Use Status: Current everyday Tobacco user Tobacco use type: Cigarette Cigarette Packs Per Day: 0.34 Cigarettes Per Day: 6.8 Years Smoked: 32 Second Hand Smoke Exposure: No Substance Use Type: Crack/Cocaine and Marijuana Advance Directives: No Advance Directives Information Provided: Yes Physical Exam ED Vital Signs: Vital Signs - 24 hr 04/20/23 00:10 04/20/23 02:31 Temperature 98.4 F 98.0 F Pulse Rate 92 77 Respiratory Rate 22 H 18 Blood Pressure 118/59 L 108/56 L Pulse Oximetry 96 98 Oxygen Delivery Method Room Air Room Air BMI result Body Mass Index 36.9 Appearance: Alert. Oriented X3. No acute distress. Eyes: Pupils equal, round and reactive to light. ENT: uvula midline, no swelling, mild erythema no exudates, hoarse voice, no drooling Neck: Normal inspection. Neck supple. no submandibular or sublingual swelling no mass felt, no stridor CVS: Normal heart rate and rhythm. Pulses normal. Respiratory: No respiratory distress. Breath sounds normal. Abdomen: Soft and nontender. Skin: Skin warm and dry. Normal skin color. Normal skin turgor. Extremities: No lower extremity edema. No calf ttp Neuro: Oriented X 3. No motor deficit. No sensory deficit. Medications Administered Discontinued Medications Generic Name Dose Route Start Last Admin Trade Name Rahatq PRN Reason Stop Dose Admin Dexamethasone Sodium Phosphate 8 mg 04/20/23 01:01 04/20/23 01:07 Dexamethasone Sod Phosphate 4 Mg/Ml Vial PO 04/20/23 01:02 8 mg ONCE ONE Administration Ibuprofen 400 mg 04/20/23 01:01 04/20/23 01:07 Ibuprofen Oral Susp 200 Mg/10 Ml Oral.Susp PO 04/20/23 01:02 400 mg ONCE ONE Administration Ondansetron HCl 4 mg 04/20/23 01:01 04/20/23 01:07 Ondansetron Odt 4 Mg Tab.Rapdis TRANSLINGU 04/20/23 01:02 4 mg ONCE ONE Administration Medical Decision Making Medical Decision Making MDM Narrative: 42 yo female with hx of anxixety, IBS, bipolar, cyclical vomiting syndrome - here with atypical throat pain without external signs of swelling and mild erythema. Has no neck swelling does have hoarse voice. She is hard to follow at times and I believe she is describing cord nodules. I am going to treat her symptoms with liquid motrin and dexamethasone will test for strep, covid, mono and obtain CT scan for mass though clinically there is no outward signs of infection. She initially stated there was swelling but then started to complain of pain but if she has oral swelling I am holding any form of narcotics that could cause airway issue. Differential Diagnosis Differential Diagnoses: The differential diagnosis associated with the presentation includes strep, mono, anxiety, pharyngitis, viral syndrome Admission/Observation Consideration of admission/observation: Escalation of care including admission/observation considered labs and VS stable can be DC home, no edema no resp issues no signs of airway compromise on physical exam or CT scan Lab Data MDM Lab Attestation statement: I reviewed the patient's lab results. 04/20/23 01:11 04/20/23 01:11 Labs: Lab Results 04/20/23 Range/Units 01:11 WBC 8.5 (4.8-10.8) X10*3/uL RBC 4.53 (4.20-5.50) X10*6/uL Hgb 13.0 (12.0-16.0) g/dl Hct 38.2 (37.0-47.0) % MCV 84.3 (80.0-98.0) fL MCH 28.7 (27.0-33.0) pg MCHC 34.0 (31.0-35.0) g/dl RDW 14.2 (11.0-16.0) % Plt Count 219 (160-400) X10*3/uL MPV 9.6 (9.4-12.3) fL Immature Gran % (Auto) 0.2 (0.0-0.4) % Neut % (Auto) 51.6 (45-73) % Lymph % (Auto) 40.5 H (20-40) % [place] % (Auto) 5.2 (2-11) % Eos % (Auto) 1.8 (0-4) % Baso % (Auto) 0.7 (0-2) % Lymph # (Auto) 3.5 (1.2-4.9) X10*3/uL [place] # (Auto) 0.4 (0.1-1.2) X10*3/uL Eos # (Auto) 0.2 (0.0-0.4) X10*3/uL Baso # (Auto) 0.1 (0.0-0.2) X10*3/uL Abs Immat Gran (auto) 0.02 (0.00-0.03) X10*3/uL Absolute Neuts (auto) 4.4 (2.0-8.3) x10*3/uL Absolute Nucleated RBC 0.000 (0.0-0.012) X10*3/uL Nucleated RBC % (auto) 0.0 (0.0-0.2) /100WBC Sodium 141 (135-145) mmol/L Potassium 3.7 (3.3-5.1) mmol/L Chloride 106 (96-108) mmol/L Carbon Dioxide 29 (22-29) mmol/L Anion Gap 10 L (12-20) BUN 8 L (9-16) mg/dL Creatinine 0.81 (0.5-1.4) mg/dL Estim Creat Clear Calc 87.0 Estimated GFR > 60 Random Glucose 94 (60-115) mg/dL Calcium 9.4 (8.4-10.2) mg/dL COVID-19 (WOLF) Negative (Negative) COVID-19 Clin Com See Note Monoscreen Negative (Negative) S. pyogenes GrpA KIANA Negative (Negative) Independent Interpretation I performed an independent interpretation of an: CT Scan (no swelling) Radiology Impression Discussion of test interpretation with radiology: I have reviewed the radiologist's reading. External Record Review External record reviewed: Inpatient record Prescription Management I considered prescription management with: Antibiotic Discharge Plan Discharge Clinical Impression: Acute viral pharyngitis Patient Disposition: Home, Self-Care Instructions: Pharyngitis (ED) Additional Instructions: covid, strep, mono negative. labs normal no swelling or mass seen on CT scan at this time continue to take tylenol or motrin as needed for pain. you were given a dose of steroids in ED to help with swelling return for worsening symptoms swelling, pain, fevers or any other concerns. Prescriptions: No Action aripiprazole 10 mg tablet 1 tab PO DAILY lamotrigine 100 mg tablet 1 tab PO TID lorazepam 1 mg tablet 0.5 tab PO BID melatonin 5 mg tablet 1 tab PO BEDTIME PRN (Reason: insomnia) quetiapine 50 mg tablet 1 tab PO BEDTIME sucralfate 100 mg/mL suspension 10 ml PO BID zolpidem 5 mg tablet 1 tab PO BEDTIME PRN (Reason: Sleep) ondansetron HCl [Zofran] 4 mg tablet 4 mg PO Q6H PRN (Reason: nausea and vomiting) Qty: 10 0RF acetaminophen [Tylenol 8 Hour] 650 mg tablet extended release 650 mg PO Q8H PRN (Reason: pain) Qty: 10 0RF nitrofurantoin monohyd/m-cryst [Macrobid] 100 mg capsule 100 mg PO Q12H 7 Days Qty: 14 0RF Rx Instructions: must administer with a meal/food dicyclomine 10 mg capsule 10 mg PO QID 7 Days Qty: 28 0RF promethazine 25 mg tablet 25 mg PO TID PRN (Reason: nausea and vomiting) Qty: 20 0RF sulfamethoxazole-trimethoprim [Bactrim DS] 800-160 mg tablet 1 tab PO BID Qty: 14 0RF phenazopyridine 100 mg tablet 100 mg PO TID Qty: 6 0RF ibuprofen 600 mg tablet 600 mg PO TID PRN (Reason: pain) Qty: 20 0RF dicyclomine 10 mg capsule 10 mg PO TID PRN (Reason: abdominal distention) Qty: 20 0RF cefuroxime axetil 250 mg tablet 250 mg PO BID Qty: 10 0RF ondansetron 4 mg tablet,disintegrating 4 mg PO Q8H PRN (Reason: nausea and vomiting) Qty: 7 0RF simethicone [Gas Relief (simethicone)] 180 mg capsule 180 mg PO BID PRN (Reason: abdominal distention) Qty: 14 0RF polyethylene glycol 3350 [Miralax] 17 gram powder in packet 17 g PO DAILY Qty: 14 0RF
[2023-04-20] MEDS: Ondansetron ODT 4 MG TAB.RAPDIS TRANSLINGU (01:07)
[2023-04-20] MEDS: Ibuprofen Oral Susp 200 MG/10 ML ORAL.SUSP 400 MG PO (01:07)
[2023-04-20] MEDS: dexAMETHasone sod phosphate 4 MG/ML VIAL 8 MG PO (01:07)
[2023-04-20 01:16] LABS: MANUAL DIFF FLAG NO
[2023-04-20 01:27] LABS: IDNOW Serial# 08D9AD1C; Strep A Nucleic Acid Negative (Negative)
[2023-04-20 01:29] LABS: Basophils Absolute Auto 0.1 X10*3/uL (0.0-0.2); Basophils Percent Auto 0.7 % (0-2); Eosinophils Absolute Auto 0.2 X10*3/uL (0.0-0.4); Eosinophils Percent Auto 1.8 % (0-4); Hematocrit 38.2 % (37.0-47.0); Imm Gran Abs Auto 0.02 X10*3/uL (0.00-0.03); Imm Gran Pct Auto 0.2 % (0.0-0.4); Lymphocytes Absolute Auto 3.5 X10*3/uL (1.2-4.9); Lymphocytes Percent Auto 40.5 % (20-40); Mean Corpuscular Hemoglobin 28.7 pg (27.0-33.0); Mean Corpuscular Volume 84.3 fL (80.0-98.0); Mean Platelet Volume 9.6 fL (9.4-12.3); Monocytes Absolute Auto 0.4 X10*3/uL (0.1-1.2); Monocytes Percent Auto 5.2 % (2-11); Neutrophils Absolute Auto 4.4 x10*3/uL (2.0-8.3); Neutrophils Percent Auto 51.6 % (45-73); Platelet Count 219 X10*3/uL (160-400); Red Blood Count 4.53 X10*6/uL (4.20-5.50); Red Cell Distribution Width 14.2 % (11.0-16.0); White Blood Count 8.5 X10*3/uL (4.8-10.8)
[2023-04-20 01:30] LABS: Monotest Negative (Negative)
[2023-04-20 01:32] LABS: Anion Gap 10 (12-20); Blood Urea Nitrogen 8 mg/dL (9-16); Calcium 9.4 mg/dL (8.4-10.2); Carbon Dioxide 29 mmol/L (22-29); Chloride 106 mmol/L (96-108); Estimated Glomerular Filt Rate > 60; Glucose Random 94 mg/dL (60-115); Potassium 3.7 mmol/L (3.3-5.1); Sodium 141 mmol/L (135-145)
[2023-04-20 01:37] LABS: IDNOW Serial# BCCEAD1C
[2023-04-20 01:38] LABS: COVID-19 Test Negative (Negative)
[2023-04-20 02:31] VITALS: BP 108/56; PULSE 77; RESP 18; TEMP 36.7; O2SAT 98
--- NOTE | 2023-04-20 02:33 | MHC.EDTECH ---
Hourly rounds and vitals completed,patient is resting comfortably at this time and call weeks within reach.
== END 2023-04-20 03:15 | disposition home or self-care (01) ==
PROVIDERS: Emergency Provider Emergency Medicine; PCP Internal Medicine
DX: J02.8 Acute pharyngitis due to other specified organisms (principal); M54.2 Cervicalgia; F17.210 Nicotine dependence, cigarettes, uncomplicated; Z71.6 Tobacco abuse counseling; Z20.822 Contact with and (suspected) exposure to COVID-19; Z20.828 Contact with and (suspected) exposure to other viral communicable diseases; Z79.899 Other long term (current) drug therapy
CPT/HCPCS: 70490; 80048; 85025; 86308; 87635; 87651; 99283; 99284; J1100

== ENCOUNTER 2023-08-31 20:22 | Emergency (ER) | payer OTHER, SELFPAY ==
--- NOTE | ~2023-08-31 | XR_ITS ---
EXAMINATION: XR CHEST CLINICAL INFORMATION: Syncope. Chest pain. COMPARISON: Previous chest x-ray most recent August 2020 TECHNIQUE: 2 views of the chest were obtained. FINDINGS: The cardiac and mediastinal contours are stable. The lungs are clear. No pleural effusion or pneumothorax. Bony structures are unremarkable. XR/XR chest 2V IMPRESSION: Unremarkable examination.
[2023-08-31 20:40] VITALS: BP 154/85; PULSE 84; RESP 18; TEMP 37; O2SAT 97; BMI 36.7
--- NOTE | 2023-08-31 20:40 | ED_ITS ---
HPI - SOB/Dyspnea General Chief Complaint: General Medical Stated Complaint: ? blood clot Time Seen by Provider: 08/31/23 23:26 Source: patient Mode of arrival: ambulatory History of Present Illness HPI Narrative: 42-year-old female who is an everyday smoker presents with a provoked PE history in her 30s that was attributed to estrogen use and states that she has had 1-1/2 weeks right-sided chest discomfort that is achy in nature she denies any associated fevers, chills, sick contacts, nausea/vomiting/abdominal discomfort. Patient states that the discomfort worsens with deep breathing Related Data Home Medications Medication Instructions Recorded Confirmed aripiprazole 10 mg tablet 1 tab PO DAILY 01/05/21 01/05/21 lamotrigine 100 mg tablet 1 tab PO TID 01/05/21 01/05/21 lorazepam 1 mg tablet 0.5 tab PO BID 01/05/21 01/05/21 melatonin 5 mg tablet 1 tab PO BEDTIME PRN insomnia 01/05/21 01/05/21 quetiapine 50 mg tablet 1 tab PO BEDTIME 01/05/21 01/05/21 sucralfate 100 mg/mL oral 10 ml PO BID 01/05/21 01/05/21 suspension zolpidem 5 mg tablet 1 tab PO BEDTIME PRN Sleep 01/05/21 01/05/21 Previous Rx's Medication Instructions Recorded acetaminophen 650 mg 650 mg PO Q8H PRN pain #10 tabs 01/07/21 tablet,extended release (Tylenol 8 Hour) ondansetron HCl 4 mg tablet 4 mg PO Q6H PRN nausea and 01/07/21 (Zofran) vomiting #10 tabs promethazine 25 mg tablet 25 mg PO TID PRN nausea and 01/06/22 vomiting #20 tabs dicyclomine 10 mg capsule 10 mg PO QID 7 days #28 caps 06/14/22 nitrofurantoin 100 mg PO Q12H 7 days #14 caps 06/14/22 monohydrate/macrocrystals 100 mg capsule (Macrobid) ibuprofen 600 mg tablet 600 mg PO TID PRN pain #20 tabs 06/16/22 phenazopyridine 100 mg tablet 100 mg PO TID 6 doses #6 tabs 06/16/22 sulfamethoxazole 800 1 tab PO BID #14 tabs 06/16/22 mg-trimethoprim 160 mg tablet (Bactrim DS) cefuroxime axetil 250 mg tablet 250 mg PO BID #10 tabs 12/12/22 dicyclomine 10 mg capsule 10 mg PO TID PRN abdominal 12/12/22 distention #20 caps ondansetron 4 mg disintegrating 4 mg PO Q8H PRN nausea and 12/12/22 tablet vomiting #7 tabs polyethylene glycol 3350 17 gram 17 g PO DAILY #14 ea 12/12/22 oral powder packet (Miralax) simethicone 180 mg capsule (Gas 180 mg PO BID PRN abdominal 12/12/22 Relief (simethicone)) distention #14 caps Allergies Allergy/AdvReac Type Severity Reaction Status Date / Time Penicillins Allergy Intermediate HIVES Verified 08/31/23 20:39 ciprofloxacin Allergy Unresponsiv Verified 08/31/23 20:39 e Amoxicillin Allergy Intermediate Hives Uncoded 08/31/23 20:39 Review of Systems 2 Review of Systems: Pertinent positives and negatives as stated in [facility] Past Medical History Source: nursing notes reviewed Medical History Endometriosis Pulmonary embolism Anxiety Bipolar 1 disorder Surgical History Hx of appendectomy History of cholecystectomy H/O: hysterectomy Social History Social History Alcohol intake: never Patient Tobacco Use Status: Current everyday Tobacco user Tobacco use type: Cigarette Cigarette Packs Per Day: 0.34 Cigarettes Per Day: 6.8 Years Smoked: 32 Second Hand Smoke Exposure: No Substance Use Type: Crack/Cocaine and Marijuana Advance Directives: No Advance Directives Information Provided: No Physical Exam 2 Vital Signs: Vital Signs: Last Vital Signs Temp 97.9 F 08/31/23 23:58 Pulse 69 08/31/23 23:58 Resp 15 08/31/23 23:58 BP 97/55 L 08/31/23 23:58 Pulse Ox 95 08/31/23 23:58 O2 Del Method Room Air 08/31/23 23:58 BMI result Body Mass Index 36.7 VITAL SIGNS: Reviewed. GENERAL: Well developed, well nourished, in no acute distress. HEAD: Normocephalic/atraumatic EYES: PERRLA, EOMI EARS: Ext canals without abnormality NOSE: Nares patent bilateral OROPHARYNX: no oral lesions noted, posterior pharynx clear NECK: Supple, no adenopathy LUNGS: Normal breath sounds. No adventitious sounds or accessory muscle use. SpO2<95> CARDIOVASCULAR: Regular rate and rhythm without noted murmurs ABDOMEN: Soft, non-tender, non-distended with bowel sounds. MUSCULOSKELETAL: No tenderness, deformities, or effusions noted on gross inspection. EXTREMITIES: No cyanosis, clubbing or edema. SKIN: Inspection of the skin reveals no rashes NEUROLOGIC: Alert and oriented x 4. Strength and sensation to light touch were grossly intact x 4. Course Course Course Narrative: RME: 42 year-old F w/ PMHx IBS, Bipolar, PE (not currently on AC - prior PE believed to be after Estrogen pills) presenting to the ED c/o R upper chest wall pain, SOB & pain worse with deep breathing x1 wk. Admits sx feel similar to prior PE in the past. EKG, Labs, CXR, viral testing ordered Full HPI, ROS and PE to be performed by primary ED provider. Medical Decision Making Medical Decision Making MDM Narrative: 42-year-old female with history and clinical presentation, DDX: Bronchitis, chest wall discomfort, viral illness, low clinical suspicion for PE. I reviewed all investigations and hematologic indices are negative for leukocytosis/left shift/anemia/thrombocytopenia. Coagulation studies are within normal limits with the exception of a chronically stable D-dimer -208. Patient is not tachycardic it is not noted to be hypoxic, there is no lower extremity swelling or discomfort and patient has no recent history of travel or immobilization. Chemistry indices do not demonstrate an LITTLE and there are no electrolyte or liver enzyme derangements, high sensitivity troponin is undetectable and there are no acute changes on EKG. Viral testing is negative for COVID-19/influenza. Chest x-ray is negative for infiltrate or venous congestion otherwise my interpretation is in agreement with radiology suppression. No acute findings on EKG to suggest right heart strain. My impression that patient likely has a bronchitis. Differential Diagnosis Differential Diagnoses: The differential diagnosis associated with the presentation includes Please see the discussion above Admission/Observation Consideration of admission/observation: Escalation of care including admission/observation considered Please see the discussion above Lab Data [facility] Lab Attestation statement: I reviewed the patient's lab results. Please see the discussion above 08/31/23 21:10 08/31/23 21:10 Labs: Lab Results 08/31/23 Range/Units 21:10 WBC 9.7 (4.8-10.8) X10*3/uL RBC 4.78 (4.20-5.50) X10*6/uL Hgb 13.5 (12.0-16.0) g/dl Hct 40.0 (37.0-47.0) % MCV 83.7 (80.0-98.0) fL MCH 28.2 (27.0-33.0) pg MCHC 33.8 (31.0-35.0) g/dl RDW 14.4 (11.0-16.0) % Plt Count 236 (160-400) X10*3/uL MPV 9.4 (9.4-12.3) fL Immature Gran % (Auto) 0.3 (0.0-0.4) % Neut % (Auto) 55.1 (45-73) % Lymph % (Auto) 36.1 (20-40) % [place] % (Auto) 6.1 (2-11) % Eos % (Auto) 1.8 (0-4) % Baso % (Auto) 0.6 (0-2) % Lymph # (Auto) 3.5 (1.2-4.9) X10*3/uL [place] # (Auto) 0.6 (0.1-1.2) X10*3/uL Eos # (Auto) 0.2 (0.0-0.4) X10*3/uL Baso # (Auto) 0.1 (0.0-0.2) X10*3/uL Abs Immat Gran (auto) 0.03 (0.00-0.03) X10*3/uL Absolute Neuts (auto) 5.4 (2.0-8.3) x10*3/uL Absolute Nucleated RBC 0.000 (0.0-0.012) X10*3/uL Nucleated RBC % (auto) 0.0 (0.0-0.2) /100WBC PT 11.2 (11.1-13.3) SEC INR 0.9 (0.9-1.1) D-Dimer High Sensitivty 208 NG/ML Sodium 138 (135-145) mmol/L Potassium 3.7 (3.3-5.1) mmol/L Chloride 102 (96-108) mmol/L Carbon Dioxide 27 (22-29) mmol/L Anion Gap 13 (12-20) BUN 7 L (9-16) mg/dL Creatinine 0.70 (0.5-1.4) mg/dL Estim Creat Clear Calc 104.6 Estimated GFR > 60 Random Glucose 86 (60-115) mg/dL Calcium 9.3 (8.4-10.2) mg/dL Total Bilirubin 0.2 (0.0-1.0) mg/dL Direct Bilirubin < 0.2 (0.0-0.5) mg/dL AST 14 (5-31) U/L ALT 19 (0-31) U/L Alkaline Phosphatase 88 (39-117) U/L Troponin I High Sens < 2.7 (<3.5-17.0) ng/L B-Natriuretic Peptide 30 (<100) pg/mL Total Protein 6.9 (6.5-8.0) g/dL Albumin 4.0 (3.5-5.0) g/dL COVID-19 (WOLF) Negative (Negative) COVID-19 Clin Com See Note Influenza Type A (KIANA) Negative (Negative) Influenza Type B (KIANA) Negative (Negative) Influenza A & B Note N Independent Interpretation I performed an independent interpretation of an: EKG Interpretation: Normal sinus rhythm, HR-79, no STEMI, NH/QRS/QTC is within normal limits. Radiology Impression Discussion of test interpretation with radiology: I have reviewed the radiologist's reading. Radiologist Impression: Please see the discussion above External Record Review External record reviewed: Outpatient record, Prior outpatient labs and Prior outpatient radiology Chronic Conditions Patient?s care impacted by: Other IBS, anxiety, bipolar Critical Care Time Critical Care Time Critical Care Time: Yes Total Critical Care Time: 30 Attestation: I personally attest to this time spent taking care of the patient. Discharge Plan Discharge Clinical Impression: Atypical chest pain, Chest wall pain, Bronchitis Patient Disposition: Home, Self-Care Instructions: Chronic Bronchitis (ED), Chest Wall Pain (ED) Additional Instructions: 1. Resume all home medications as prescribed. 2. Tylenol 1000 mg, orally, every 6 hours as needed for pain control. Do not exceed 4000 mg within 24 hours. 3. Ibuprofen 400 mg, orally with milk and food, every 6 hours for pain control. 4. It is very important that you follow-up with your primary care doctor by calling the office 1st thing in the morning and setting up an appointment for re-evaluation. Return to the ER for any worsening symptoms. Prescriptions: No Action aripiprazole 10 mg tablet 1 tab PO DAILY lamotrigine 100 mg tablet 1 tab PO TID lorazepam 1 mg tablet 0.5 tab PO BID melatonin 5 mg tablet 1 tab PO BEDTIME PRN (Reason: insomnia) quetiapine 50 mg tablet 1 tab PO BEDTIME sucralfate 100 mg/mL suspension 10 ml PO BID zolpidem 5 mg tablet 1 tab PO BEDTIME PRN (Reason: Sleep) ondansetron HCl [Zofran] 4 mg tablet 4 mg PO Q6H PRN (Reason: nausea and vomiting) Qty: 10 0RF acetaminophen [Tylenol 8 Hour] 650 mg tablet extended release 650 mg PO Q8H PRN (Reason: pain) Qty: 10 0RF nitrofurantoin monohyd/m-cryst [Macrobid] 100 mg capsule 100 mg PO Q12H 7 Days Qty: 14 0RF Rx Instructions: must administer with a meal/food dicyclomine 10 mg capsule 10 mg PO QID 7 Days Qty: 28 0RF promethazine 25 mg tablet 25 mg PO TID PRN (Reason: nausea and vomiting) Qty: 20 0RF sulfamethoxazole-trimethoprim [Bactrim DS] 800-160 mg tablet 1 tab PO BID Qty: 14 0RF phenazopyridine 100 mg tablet 100 mg PO TID Qty: 6 0RF ibuprofen 600 mg tablet 600 mg PO TID PRN (Reason: pain) Qty: 20 0RF dicyclomine 10 mg capsule 10 mg PO TID PRN (Reason: abdominal distention) Qty: 20 0RF cefuroxime axetil 250 mg tablet 250 mg PO BID Qty: 10 0RF ondansetron 4 mg tablet,disintegrating 4 mg PO Q8H PRN (Reason: nausea and vomiting) Qty: 7 0RF simethicone [Gas Relief (simethicone)] 180 mg capsule 180 mg PO BID PRN (Reason: abdominal distention) Qty: 14 0RF polyethylene glycol 3350 [Miralax] 17 gram powder in packet 17 g PO DAILY Qty: 14 0RF
--- NOTE | 2023-08-31 20:42 | ECG_ITS ---
Test Reason : CHEST PAIN Blood Pressure : / mmHG Vent. Rate : 079 BPM Atrial Rate : 079 BPM P-R Int : 144 ms QRS Dur : 086 ms QT Int : 392 ms P-R-T Axes : 038 041 039 degrees QTc Int : 449 ms Normal sinus rhythm Normal ECG When compared with ECG of 26-APR-2022 05:38, No significant change was found Referred By: Inna Overton Electronically Signed By:Pascual Casey
[2023-08-31 21:16] LABS: MANUAL DIFF FLAG NO
[2023-08-31 21:20] LABS: Basophils Absolute Auto 0.1 X10*3/uL (0.0-0.2); Basophils Percent Auto 0.6 % (0-2); Eosinophils Absolute Auto 0.2 X10*3/uL (0.0-0.4); Eosinophils Percent Auto 1.8 % (0-4); Hemoglobin 13.5 g/dl (12.0-16.0); Imm Gran Abs Auto 0.03 X10*3/uL (0.00-0.03); Imm Gran Pct Auto 0.3 % (0.0-0.4); Lymphocytes Absolute Auto 3.5 X10*3/uL (1.2-4.9); Lymphocytes Percent Auto 36.1 % (20-40); Mean Corpuscular HGB Conc 33.8 g/dl (31.0-35.0); Mean Corpuscular Hemoglobin 28.2 pg (27.0-33.0); Mean Corpuscular Volume 83.7 fL (80.0-98.0); Mean Platelet Volume 9.4 fL (9.4-12.3); Monocytes Absolute Auto 0.6 X10*3/uL (0.1-1.2); Monocytes Percent Auto 6.1 % (2-11); Neutrophils Absolute Auto 5.4 x10*3/uL (2.0-8.3); Neutrophils Percent Auto 55.1 % (45-73); Platelet Count 236 X10*3/uL (160-400); Red Blood Count 4.78 X10*6/uL (4.20-5.50); Red Cell Distribution Width 14.4 % (11.0-16.0); White Blood Count 9.7 X10*3/uL (4.8-10.8)
[2023-08-31 21:34] LABS: Alanine Aminotransferase 19 U/L (0-31); Alkaline Phosphatase 88 U/L (39-117); Anion Gap 13 (12-20); Aspartate Amino Transferase 14 U/L (5-31); Bilirubin Direct < 0.2 mg/dL (0.0-0.5); Bilirubin Total 0.2 mg/dL (0.0-1.0); Blood Urea Nitrogen 7 mg/dL (9-16); Calcium 9.3 mg/dL (8.4-10.2); Carbon Dioxide 27 mmol/L (22-29); Chloride 102 mmol/L (96-108); Creatinine Clr Calc Pharmacy 104.6; Estimated Glomerular Filt Rate > 60; Glucose Random 86 mg/dL (60-115); Potassium 3.7 mmol/L (3.3-5.1); Sodium 138 mmol/L (135-145); Total Protein 6.9 g/dL (6.5-8.0)
[2023-08-31 21:40] LABS: B Type Natriuretic Peptide 30 pg/mL (<100); COVID-19 Test Negative (Negative); IDNOW Serial# 08D9AD1C; INTERNATIONAL NORM RATIO 0.9 (0.9-1.1); Prothrombin Time 11.2 SEC (11.1-13.3)
[2023-08-31 21:41] LABS: D Dimer High Sensitivity 208 NG/ML
[2023-08-31 21:46] LABS: IDNOW Serial# 152EDE1D; Influenza A Negative (Negative); Influenza A & B2 Note N; Influenza B2 Negative (Negative); Troponin-I High Sensitivity < 2.7 ng/L (<3.5-17.0)
[2023-08-31 22:51] VITALS: BP 124/65; PULSE 69; RESP 16; TEMP 36.7; O2SAT 97
[2023-08-31 23:58] VITALS: BP 97/55; PULSE 69; RESP 15; TEMP 36.6; O2SAT 95
[2023-09-01] MEDS: Ibuprofen 400 MG TABLET PO (00:51)
[2023-09-01] MEDS: Acetaminophen 325 MG TABLET 975 MG PO (00:51)
[2023-09-01 00:59] VITALS: BP 138/70; PULSE 83; RESP 18; O2SAT 98
== END 2023-09-01 01:01 | disposition home or self-care (01) ==
PROVIDERS: Physician Assistant; Emergency Provider Student in an Organized Health Care Education/Training Program
DX: J40 Bronchitis, not specified as acute or chronic (principal); R06.02 Shortness of breath; R07.89 Other chest pain; Z79.899 Other long term (current) drug therapy; Z11.52 Encounter for screening for COVID-19
CPT/HCPCS: 71046; 80048; 80076; 83880; 84484; 85025; 85379; 85610; 87502; 87635; 93005; 99283; 99284

== ENCOUNTER → 2023-08-31 20:42 | Outpatient (BNV) | payer OTHER, SELFPAY | PROVIDERS: Emergency Provider Student in an Organized Health Care Education/Training Program; Visit Provider Internal Medicine Cardiovascular Disease | DX: R07.9 Chest pain, unspecified (principal) | CPT/HCPCS: 93010 ==

== ENCOUNTER 2023-10-03 07:14 | Emergency (ER) | payer OTHER, SELFPAY ==
--- NOTE | ~2023-10-03 | CT_ITS ---
EXAMINATION: CT ABDOMEN AND PELVIS WITH CONTRAST CLINICAL INFORMATION: Abdomen pain. Nausea, vomiting and diarrhea COMPARISON: Portions of a previous study 12/20/22 TECHNIQUE: Multidetector volumetric images were obtained from the superior aspect of the liver through the pubic symphysis following administration 85 mL of Omnipaque 350 intravenous contrast. Sagittal and coronal reformatted images were obtained on the technologist's workstation. Oral contrast: No This CT examination was performed using dose optimization techniques as appropriate, variously including the following: *Automated exposure control *Adjustment of mA and/or kV according to patient size (this includes techniques or standardized protocols for targeted exams where dose is matched to indication/reason for exam; i.e. extremities or head) *Use of iterative reconstruction technique DLP: 700 mGy-cm FINDINGS: LUNG BASES: No suspicious abnormality in the visualized lower chest LIVER, GALLBLADDER, AND BILIARY TREE: Unchanged small circumscribed low attenuating lesion in the dome of the right lobe of liver does not require any further evaluation. There are surgical clips in the expected region of the gallbladder. No significant biliary dilation. PANCREAS: No suspicious abnormality SPLEEN: Unchanged small round low attenuating lesion does not require any further evaluation. ADRENAL GLANDS: No suspicious abnormality KIDNEYS AND URETERS: There is bilateral urinary excretion. There are areas of cortical scarring. No suspicious renal mass. BLADDER: The bladder wall is slightly thickened. No suspicious focal mass demonstrated GASTROINTESTINAL TRACT: There is no localized pericolonic fat stranding. The colon is not fully distended. There is possible submucosal edema in the transverse colon. Alternatively this may be related to incomplete distention. There are some distended fluid-filled loops of jejunum in the left upper quadrant. The stomach is not well distended or evaluated. ABDOMINAL WALL: No bowel hernia. LYMPH NODES: There are no enlarged abdominal or pelvic lymph nodes. There is no free intraperitoneal fluid. VASCULAR: There is no abdominal aortic aneurysm. The portal vein enhances. PELVIC VISCERA: No suspicious abnormality. OSSEOUS STRUCTURES: No suspicious abnormality CT/CT abdomen pelvis w IV con IMPRESSION: No definite acute abnormality. There are some areas of possible bowel wall thickening and some nonspecific distention of jejunal loops. Enteritis or colitis could be present. No evidence of high-grade obstruction or abscess Fleischner guidelines were followed.
--- NOTE | ~2023-10-03 | XR_ITS ---
EXAMINATION: XR CHEST CLINICAL INFORMATION: Chest pain COMPARISON: Chest x-ray August 31, 2023 TECHNIQUE: 2 views of the chest were obtained. FINDINGS: Cardiac silhouette is normal in size. The lungs are well aerated. There is no lobar consolidation. No pleural effusion or pneumothorax. No acute osseous abnormality. XR/XR chest 2V IMPRESSION: No acute pulmonary pathology.
[2023-10-03 07:18] VITALS: BP 167/111; PULSE 106; RESP 18; TEMP 36.6; O2SAT 98; BMI 37.1
[2023-10-03 07:29] LABS: MANUAL DIFF FLAG NO
[2023-10-03 07:30] LABS: Basophils Absolute Auto 0.1 X10*3/uL (0.0-0.2); Basophils Percent Auto 0.5 % (0-2); Eosinophils Absolute Auto 0.1 X10*3/uL (0.0-0.4); Eosinophils Percent Auto 0.5 % (0-4); Hematocrit 45.1 % (37.0-47.0); Hemoglobin 15.9 g/dl (12.0-16.0); Imm Gran Abs Auto 0.07 X10*3/uL (0.00-0.03); Imm Gran Pct Auto 0.4 % (0.0-0.4); Lymphocytes Absolute Auto 4.7 X10*3/uL (1.2-4.9); Lymphocytes Percent Auto 25.7 % (20-40); Mean Corpuscular HGB Conc 35.3 g/dl (31.0-35.0); Mean Corpuscular Volume 79.4 fL (80.0-98.0); Mean Platelet Volume 9.3 fL (9.4-12.3); Monocytes Percent Auto 5.6 % (2-11); Neutrophils Absolute Auto 12.4 x10*3/uL (2.0-8.3); Neutrophils Percent Auto 67.3 % (45-73); Platelet Count 340 X10*3/uL (160-400); Red Blood Count 5.68 X10*6/uL (4.20-5.50); Red Cell Distribution Width 14.2 % (11.0-16.0); White Blood Count 18.5 X10*3/uL (4.8-10.8)
[2023-10-03 07:42] LABS: Anion Gap 18 (12-20); Blood Urea Nitrogen 14 mg/dL (9-16); Calcium 9.6 mg/dL (8.4-10.2); Carbon Dioxide 24 mmol/L (22-29); Chloride 93 mmol/L (96-108); Estimated Glomerular Filt Rate > 60; Glucose Random 194 mg/dL (60-115); Sodium 132 mmol/L (135-145)
--- NOTE | 2023-10-03 08:05 | ECG_ITS ---
Test Reason : cp Blood Pressure : / mmHG Vent. Rate : 085 BPM Atrial Rate : 085 BPM P-R Int : 122 ms QRS Dur : 086 ms QT Int : 428 ms P-R-T Axes : 059 061 038 degrees QTc Int : 509 ms Normal sinus rhythm with sinus arrhythmia Anterior infarct , age undetermined Prolonged QT Abnormal ECG When compared with ECG of 31-AUG-2023 21:04, T wave inversion now evident in Anterior leads QT has lengthened Referred By: Xochilt Carmen Electronically Signed By:RHIANNA HAMLIN
--- NOTE | 2023-10-03 08:17 | ED_ITS ---
HPI - Nausea/Vomiting/Diarrhea General Chief complaint: Nausea/Vomiting/Diarrhea Stated complaint: vomiting Time Seen by Provider: 10/03/23 07:55 Source: patient and RN notes reviewed Mode of arrival: ambulatory Limitations: no limitations History of Present Illness HPI Narrative: This is a 42-year-old female, with a history of bipolar disorder, IBS, anxiety, cyclic vomiting syndrome, who presents emergency department with complaints of multiple episodes of vomiting, abdominal pain pain since yesterday. Patient reports that she has vomited more than 12 times. No coffee-ground emesis. No bright red blood. She also endorses numerous bouts of diarrhea, reports dark stool. She is also endorsing chest and back pain which she attributes to soreness from vomiting. She reports that she has some periumbilical abdominal pain, crampy like in nature, which radiates to her back. Denies consuming of any unusual or bad foods, recent camping, travel or antibiotics. No sick contacts. She is unable to tolerate anything p.o. no other complaints or concerns at this time. MD elicited complaint: nausea, vomiting, diarrhea and abdominal pain Pertinent past history: cyclical vomiting Onset (ago): day(s) Description of vomiting: watery Description of diarrhea: black tarry Associated nausea: Yes Associated abdominal pain: Yes Location of pain: periumbilical Radiation: diffuse Pain consistency: constant Severity: moderate Quality: cramping Exacerbating factors: eating and vomiting Relieving factors: none Context: marijuana use Associated symptoms: denies other symptoms Related Data Home Medications Medication Instructions Recorded Confirmed aripiprazole 10 mg tablet 1 tab PO DAILY 01/05/21 01/05/21 lamotrigine 100 mg tablet 1 tab PO TID 01/05/21 01/05/21 lorazepam 1 mg tablet 0.5 tab PO BID 01/05/21 01/05/21 melatonin 5 mg tablet 1 tab PO BEDTIME PRN insomnia 01/05/21 01/05/21 quetiapine 50 mg tablet 1 tab PO BEDTIME 01/05/21 01/05/21 sucralfate 100 mg/mL oral 10 ml PO BID 01/05/21 01/05/21 suspension zolpidem 5 mg tablet 1 tab PO BEDTIME PRN Sleep 01/05/21 01/05/21 Previous Rx's Medication Instructions Recorded acetaminophen 650 mg 650 mg PO Q8H PRN pain #10 tabs 01/07/21 tablet,extended release (Tylenol 8 Hour) ondansetron HCl 4 mg tablet 4 mg PO Q6H PRN nausea and 01/07/21 (Zofran) vomiting #10 tabs promethazine 25 mg tablet 25 mg PO TID PRN nausea and 01/06/22 vomiting #20 tabs dicyclomine 10 mg capsule 10 mg PO QID 7 days #28 caps 06/14/22 nitrofurantoin 100 mg PO Q12H 7 days #14 caps 06/14/22 monohydrate/macrocrystals 100 mg capsule (Macrobid) ibuprofen 600 mg tablet 600 mg PO TID PRN pain #20 tabs 06/16/22 phenazopyridine 100 mg tablet 100 mg PO TID 6 doses #6 tabs 06/16/22 sulfamethoxazole 800 1 tab PO BID #14 tabs 06/16/22 mg-trimethoprim 160 mg tablet (Bactrim DS) cefuroxime axetil 250 mg tablet 250 mg PO BID #10 tabs 12/12/22 dicyclomine 10 mg capsule 10 mg PO TID PRN abdominal 12/12/22 distention #20 caps ondansetron 4 mg disintegrating 4 mg PO Q8H PRN nausea and 12/12/22 tablet vomiting #7 tabs polyethylene glycol 3350 17 gram 17 g PO DAILY #14 ea 12/12/22 oral powder packet (Miralax) simethicone 180 mg capsule (Gas 180 mg PO BID PRN abdominal 12/12/22 Relief (simethicone)) distention #14 caps ondansetron 4 mg disintegrating 4 mg PO Q6-8H PRN nausea and 10/03/23 tablet vomiting #14 tabs Allergies Allergy/AdvReac Type Severity Reaction Status Date / Time Penicillins Allergy Intermediate HIVES Verified 08/31/23 20:39 ciprofloxacin Allergy Unresponsiv Verified 08/31/23 20:39 e Amoxicillin Allergy Intermediate Hives Uncoded 08/31/23 20:39 Review of Systems 2 Review of Systems: Yes all other systems are reviewed and are negative Constitutional: Constitutional: Reports as per HPI Gastrointestinal: Gastrointestinal: Reports nausea PMFSH Past Medical History Attestation statement: The following information was validated with the patient. Medical History Endometriosis Pulmonary embolism Anxiety Bipolar 1 disorder Surgical History Hx of appendectomy History of cholecystectomy H/O: hysterectomy Social History Social History Alcohol intake: never Patient Tobacco Use Status: Current everyday Tobacco user Tobacco use type: Cigarette Cigarette Packs Per Day: 0.34 Cigarettes Per Day: 6.8 Years Smoked: 32 Second Hand Smoke Exposure: No Substance Use Type: Crack/Cocaine and Marijuana Advance Directives: No Advance Directives Information Provided: No Physical Exam 2 Vital Signs: Vital Signs: Last Vital Signs Temp 98.2 F 10/03/23 12:58 Pulse 88 10/03/23 12:58 Resp 16 10/03/23 12:58 BP 117/83 10/03/23 12:58 Pulse Ox 96 10/03/23 12:58 O2 Del Method Room Air 10/03/23 12:58 BMI result Body Mass Index 37.1 Const: General: cooperative, comfortable and no acute distress O rientation/consciousness: patient oriented x3 Limitations: no limitations HEENT: Head: Yes normal to inspection, Yes normocephalic and Yes atraumatic Ears: hearing grossly normal bilaterally General nose exam: Normal external nose present Face and sinus: Yes normal facial exam Mouth: Normal oral and palatal mucosa present, oropharynx normal and moist mucous membranes Throat: Yes posterior oropharynx normal Eyes: General: appearance normal, both eyes and all related structures E yelids: Yes eyelids normal Conjunctivae: conjunctivae normal Sclerae: s clerae normal Pupils: Equal, round and reactive pupils present EOM: EOMs intact bilaterally Neck: Neck: Yes normal visual inspection, Yes full ROM and Yes no lymphadenopathy Lymphatic: no lymphadenopathy noted Chest: Chest palpation & inspection: normal inspection of the chest Resp: Effort & Inspection: normal respiratory effort and able to speak in complete sentences Auscultation: clear to auscultation bilaterally, no crackles, no rales, no rhonchi and no wheezes Cardio: Rate: regular rate Rhythm: regular rhythm Heart sounds: S1 normal heart sound present and S2 normal heart sound present GI: Other: Abdomen is soft, with tenderness palpation periumbilical region, with guarding. No rebound. Hyperactive bowel sounds present in all 4 quadrants Inspection: Yes normal to inspection Skin: General skin exam: no rashes or lesions noted Trauma: no lacerations or abrasions Wounds: no wounds Neuro: General: patient oriented x3 and moves all extremities Cranial nerves: Yes Equal, round and reactive pupils present Extrem: General: Yes normal to inspection Right upper extremity: normal to inspection Left upper extremity: normal to inspection Right lower extremity: normal to inspection Left lower extremity: normal to inspection Course Reevaluation(s) Reevaluation #1: Patient re-evaluated, feeling much better after receiving IV morphine and IV Zofran. She states that she is only having body aches at this time. Will provide her with 2 L of IV fluids, and oral potassium. Will p.o. challenge afterwards. Time: 11:43 Reevaluation #2: Patient feeling much better, requesting to go home. She was able to drink fluids without difficulty. Given return precautions. Patient understands agrees with plan. Patient stable for discharge Time: 13:57 Medications Administered Discontinued Medications Generic Name Dose Route Start Last Admin Trade Name Freq PRN Reason Stop Dose Admin Sodium Chloride 1,000 mls @ 999 mls/hr 10/03/23 08:06 10/03/23 11:01 Ns IV 10/03/23 09:06 Infused .Q1H1M ONE Infusion Sodium Chloride 1,000 mls @ 999 mls/hr 10/03/23 11:42 10/03/23 13:47 Ns IV 10/03/23 12:42 Infused .Q1H1M ONE Infusion Iohexol 100 ml 10/03/23 10:35 10/03/23 10:35 Iohexol 350 Mg/Ml 100 Ml Infus..Btl IV 10/03/23 10:36 85 ml ONCE ONE Administration Morphine Sulfate 4 mg 10/03/23 08:05 10/03/23 09:25 Morphine Sulfate 4 Mg/Ml Cartridge IVPUSH 10/03/23 08:06 4 mg ONCE ONE Administration Protocol Ondansetron HCl 4 mg 10/03/23 08:05 10/03/23 09:24 Ondansetron Hcl 4 Mg/2 Ml Vial IVPUSH 10/03/23 08:06 4 mg ONCE ONE Administration Potassium Chloride 40 meq 10/03/23 11:42 10/03/23 11:55 Potassium Chloride Er 20 Meq Tab.Er.Prt PO 10/03/23 11:43 40 meq ONCE ONE Administration Medical Decision Making Medical Decision Making [facility] Narrative: This is a 42-year-old female, with a history of bipolar disorder, IBS, anxiety, cyclical vomiting syndrome, who presents emergency department complaints of multiple episodes of nausea, vomiting, abdominal pain, back pain since yesterday. On arrival, patient is hypertensive at 167/111, pulse 106, she is afebrile nontoxic appearing. Abdomen is soft, with tenderness palpation periumbilical region. Plan: Labs, EKG, chest x-ray, CT abdomen and pelvis Differential Diagnosis Differential Diagnoses: The differential diagnosis associated with the presentation includes Gastroenteritis, gastritis, cyclical vomiting syndrome, dehydration, electrolyte abnormality Admission/Observation Consideration of admission/observation: Escalation of care including admission/observation considered Lab Data [facility] Lab Attestation statement: I reviewed the patient's lab results. Patient with leukocytosis > likely reactive given recurrent vomiting. H&H WNL, K low at 3.0; slight hyponatremia 10/03/23 07:26 10/03/23 07:26 Labs: Lab Results 10/03/23 10/03/23 10/03/23 Range/Units 07:26 08:49 09:22 WBC 18.5 H (4.8-10.8) X10*3/uL RBC 5.68 H (4.20-5.50) X10*6/uL Hgb 15.9 (12.0-16.0) g/dl Hct 45.1 (37.0-47.0) % MCV 79.4 L (80.0-98.0) fL MCH 28.0 (27.0-33.0) pg MCHC 35.3 H (31.0-35.0) g/dl RDW 14.2 (11.0-16.0) % Plt Count 340 D (160-400) X10*3/uL MPV 9.3 L (9.4-12.3) fL Immature Gran % (Auto) 0.4 (0.0-0.4) % Neut % (Auto) 67.3 (45-73) % Lymph % (Auto) 25.7 (20-40) % Chambers % (Auto) 5.6 (2-11) % Eos % (Auto) 0.5 (0-4) % Baso % (Auto) 0.5 (0-2) % Lymph # (Auto) 4.7 (1.2-4.9) X10*3/uL Chambers # (Auto) 1.0 (0.1-1.2) X10*3/uL Eos # (Auto) 0.1 (0.0-0.4) X10*3/uL Baso # (Auto) 0.1 (0.0-0.2) X10*3/uL Abs Immat Gran (auto) 0.07 H (0.00-0.03) X10*3/uL Absolute Neuts (auto) 12.4 H (2.0-8.3) x10*3/uL Absolute Nucleated RBC 0.000 (0.0-0.012) X10*3/uL Nucleated RBC % (auto) 0.0 (0.0-0.2) /100WBC Sodium 132 L (135-145) mmol/L Potassium 3.0 L (3.3-5.1) mmol/L Chloride 93 L (96-108) mmol/L Carbon Dioxide 24 (22-29) mmol/L Anion Gap 18 (12-20) BUN 14 (9-16) mg/dL Creatinine 0.93 (0.5-1.4) mg/dL Estim Creat Clear Calc 76.0 Estimated GFR > 60 Random Glucose 194 H (60-115) mg/dL Calcium 9.6 (8.4-10.2) mg/dL Troponin I High Sens 4.0 (<3.5-17.0) ng/L Beta HCG, Quant 7 mIU/mL Ethyl Alcohol < 10 mg/dL COVID-19 ([facility]) Negative (Negative) COVID-19 Clin Com See Note Influenza Type A ([facility]) Negative (Negative) Influenza Type B ([facility]) Negative (Negative) Influenza A & B Note See Note Independent Interpretation I performed an independent interpretation of an: EKG Interpretation: NSR with sinus arrythmia at 85 bpm, no st elevation or depression Radiology Impression Discussion of test interpretation with radiology: I have reviewed the radiologist's reading. Radiologist Impression: EXAMINATION: XR CHEST CLINICAL INFORMATION: Chest pain COMPARISON: Chest x-ray August 31, 2023 TECHNIQUE: 2 views of the chest were obtained. FINDINGS: Cardiac silhouette is normal in size. The lungs are well aerated. There is no lobar consolidation. No pleural effusion or pneumothorax. No acute osseous abnormality. XR/XR chest 2V IMPRESSION: No acute pulmonary pathology. Dictated By: Aroldo Kaye MD Signed By: <Electronically sign External Record Review External record reviewed: Inpatient record, Office record, Outpatient record, Prior outpatient labs, Prior outpatient radiology, Primary care record and Outside ED record Discharge Plan Discharge Clinical Impression: Gastroenteritis, Nausea vomiting and diarrhea, Acute hypokalemia Patient Disposition: Home, Self-Care Instructions: Gastroenteritis (ED), Acute Nausea and Vomiting (ED) Additional Instructions: Your seen in the emergency department due to nausea vomiting and diarrhea. Your CT scan shows evidence of an inflamed bowel, this likely is viral. Your potassium was low, we had given you oral potassium, please have this level rechecked in 1 week to ensure that your potassium is at a normal level. Drink plenty of fluids get plenty of rest. Eat a bland diet, bananas, rice, applesauce, toast. Avoid spicy, fried or dairy containing products. Take Zofran as needed for nausea and vomiting. If any new or worsening symptoms occur including but not limited to inability to eat or drink secondary to vomiting, worsening abdominal pain, fevers, chills, chest pain or shortness of breath, please return for re-evaluation. Prescriptions: New ondansetron 4 mg tablet,disintegrating 4 mg PO Q6-8H PRN (Reason: nausea and vomiting) Qty: 14 0RF No Action aripiprazole 10 mg tablet 1 tab PO DAILY lamotrigine 100 mg tablet 1 tab PO TID lorazepam 1 mg tablet 0.5 tab PO BID melatonin 5 mg tablet 1 tab PO BEDTIME PRN (Reason: insomnia) quetiapine 50 mg tablet 1 tab PO BEDTIME sucralfate 100 mg/mL suspension 10 ml PO BID zolpidem 5 mg tablet 1 tab PO BEDTIME PRN (Reason: Sleep) ondansetron HCl [Zofran] 4 mg tablet 4 mg PO Q6H PRN (Reason: nausea and vomiting) Qty: 10 0RF acetaminophen [Tylenol 8 Hour] 650 mg tablet extended release 650 mg PO Q8H PRN (Reason: pain) Qty: 10 0RF nitrofurantoin monohyd/m-cryst [Macrobid] 100 mg capsule 100 mg PO Q12H 7 Days Qty: 14 0RF Rx Instructions: must administer with a meal/food dicyclomine 10 mg capsule 10 mg PO QID 7 Days Qty: 28 0RF promethazine 25 mg tablet 25 mg PO TID PRN (Reason: nausea and vomiting) Qty: 20 0RF sulfamethoxazole-trimethoprim [Bactrim DS] 800-160 mg tablet 1 tab PO BID Qty: 14 0RF phenazopyridine 100 mg tablet 100 mg PO TID Qty: 6 0RF ibuprofen 600 mg tablet 600 mg PO TID PRN (Reason: pain) Qty: 20 0RF dicyclomine 10 mg capsule 10 mg PO TID PRN (Reason: abdominal distention) Qty: 20 0RF cefuroxime axetil 250 mg tablet 250 mg PO BID Qty: 10 0RF ondansetron 4 mg tablet,disintegrating 4 mg PO Q8H PRN (Reason: nausea and vomiting) Qty: 7 0RF simethicone [Gas Relief (simethicone)] 180 mg capsule 180 mg PO BID PRN (Reason: abdominal distention) Qty: 14 0RF polyethylene glycol 3350 [Miralax] 17 gram powder in packet 17 g PO DAILY Qty: 14 0RF Stand Alone Forms: Work/School Release Interventions: ED Discharge Assessment Last Done: 10/03/23 14:24 Discharge Date/Time: 10/03/23 14:25
[2023-10-03 09:17] LABS: COVID-19 Test Negative (Negative); IDNOW Serial# 08D9AD1C
[2023-10-03 09:18] LABS: IDNOW Serial# 9DB6401D; Influenza A Negative (Negative); Influenza B2 Negative (Negative)
[2023-10-03] MEDS: 0.9 % Sodium Chloride 1,000 ML 999 ML IV ×2 (09:22→11:55)
[2023-10-03] MEDS: ondansetron HCL 4 MG/2 ML VIAL IVPUSH (09:24)
[2023-10-03] MEDS: Morphine Sulfate 4 MG/ML CARTRIDGE IVPUSH (09:25)
[2023-10-03 09:57] LABS: Ethanol < 10 mg/dL
[2023-10-03 09:59] LABS: HCG Quantitative 7 mIU/mL
[2023-10-03] MEDS: iohexoL 350 MG/ML 100 ML INFUS..BTL IV (10:35)
[2023-10-03] MEDS: Potassium Chloride ER 20 MEQ TAB.ER.PRT 40 MEQ PO (11:55)
[2023-10-03 12:58] VITALS: BP 117/83; PULSE 88; RESP 16; TEMP 36.8; O2SAT 96
== END 2023-10-03 14:25 | disposition home or self-care (01) ==
PROVIDERS: Physician Assistant Medical; Emergency Provider Emergency Medicine; PCP Internal Medicine
DX: K52.9 Noninfective gastroenteritis and colitis, unspecified (principal); R11.2 Nausea with vomiting, unspecified; E87.6 Hypokalemia; Z11.52 Encounter for screening for COVID-19; R10.33 Periumbilical pain; R11.15 Cyclical vomiting syndrome unrelated to migraine; F41.9 Anxiety disorder, unspecified; F17.210 Nicotine dependence, cigarettes, uncomplicated; Z79.899 Other long term (current) drug therapy
CPT/HCPCS: 36415; 71046; 74177; 80048; 80307; 84484; 84702; 85025; 87502; 87635; 93005; 96361; 96374; 96375; 99284; 99285; J2270; J2405; Q9967

== ENCOUNTER → 2023-10-03 08:05 | Outpatient (BNV) | payer OTHER, SELFPAY | PROVIDERS: Emergency Provider Emergency Medicine; PCP Internal Medicine; Visit Provider Internal Medicine | DX: I45.81 Long QT syndrome (principal) | CPT/HCPCS: 93010 ==

== ENCOUNTER 2023-10-16 15:21 | Emergency (ER) | payer OTHER, SELFPAY ==
--- NOTE | 2023-10-16 15:22 | ECG_ITS ---
Test Reason : CHEST PAIN Blood Pressure : / mmHG Vent. Rate : 069 BPM Atrial Rate : 069 BPM P-R Int : 130 ms QRS Dur : 082 ms QT Int : 420 ms P-R-T Axes : 052 051 055 degrees QTc Int : 450 ms Normal sinus rhythm Normal ECG When compared with ECG of 03-OCT-2023 08:41, QT has shortened Referred By: Brigid Slater Electronically Signed By:WILFRIDO MARTIN MD
[2023-10-16 15:49] LABS: MANUAL DIFF FLAG NO
[2023-10-16 15:58] LABS: Basophils Absolute Auto 0.1 X10*3/uL (0.0-0.2); Basophils Percent Auto 0.7 % (0-2); Eosinophils Absolute Auto 0.2 X10*3/uL (0.0-0.4); Eosinophils Percent Auto 1.2 % (0-4); Hematocrit 43.3 % (37.0-47.0); Hemoglobin 14.8 g/dl (12.0-16.0); Imm Gran Abs Auto 0.06 X10*3/uL (0.00-0.03); Imm Gran Pct Auto 0.4 % (0.0-0.4); Lymphocytes Absolute Auto 2.5 X10*3/uL (1.2-4.9); Lymphocytes Percent Auto 16.8 % (20-40); Mean Corpuscular HGB Conc 34.2 g/dl (31.0-35.0); Mean Corpuscular Hemoglobin 28.5 pg (27.0-33.0); Mean Corpuscular Volume 83.3 fL (80.0-98.0); Mean Platelet Volume 9.3 fL (9.4-12.3); Monocytes Absolute Auto 0.6 X10*3/uL (0.1-1.2); Monocytes Percent Auto 4.2 % (2-11); Neutrophils Absolute Auto 11.3 x10*3/uL (2.0-8.3); Neutrophils Percent Auto 76.7 % (45-73); Platelet Count 330 X10*3/uL (160-400); Prothrombin Time 11.6 SEC (11.1-13.3); White Blood Count 14.7 X10*3/uL (4.8-10.8)
[2023-10-16 16:11] VITALS: BP 134/76; PULSE 74; RESP 17; TEMP 36.6; O2SAT 98; BMI 37.1
[2023-10-16 16:13] LABS: Alanine Aminotransferase 26 U/L (0-31); Albumin Level 4.4 g/dL (3.5-5.0); Alkaline Phosphatase 96 U/L (39-117); Anion Gap 18 (12-20); Aspartate Amino Transferase 16 U/L (5-31); Bilirubin Direct 0.2 mg/dL (0.0-0.5); Bilirubin Total 0.4 mg/dL (0.0-1.0); Blood Urea Nitrogen 8 mg/dL (9-16); Calcium 10.2 mg/dL (8.4-10.2); Carbon Dioxide 21 mmol/L (22-29); Chloride 105 mmol/L (96-108); Estimated Glomerular Filt Rate > 60; Ethanol < 10 mg/dL; Glucose Random 164 mg/dL (60-115); Lipase 97 U/L (8-78); Magnesium 2.1 mg/dL (1.6-2.6); Potassium 3.7 mmol/L (3.3-5.1); Sodium 140 mmol/L (135-145); Total Protein 7.6 g/dL (6.5-8.0)
[2023-10-16 16:15] LABS: HCG Quantitative 7 mIU/mL; Troponin-I High Sensitivity < 2.7 ng/L (<3.5-17.0)
--- NOTE | 2023-10-16 16:27 | ED.ABDPAIN ---
HPI - Abdominal Pain General Chief Complaint: Abdominal Pain Stated Complaint: chest pain/vomiting Related Data Home Medications Medication Instructions Recorded Confirmed aripiprazole 10 mg tablet 1 tab PO DAILY 01/05/21 01/05/21 lamotrigine 100 mg tablet 1 tab PO TID 01/05/21 01/05/21 lorazepam 1 mg tablet 0.5 tab PO BID 01/05/21 01/05/21 melatonin 5 mg tablet 1 tab PO BEDTIME PRN insomnia 01/05/21 01/05/21 quetiapine 50 mg tablet 1 tab PO BEDTIME 01/05/21 01/05/21 sucralfate 100 mg/mL oral 10 ml PO BID 01/05/21 01/05/21 suspension zolpidem 5 mg tablet 1 tab PO BEDTIME PRN Sleep 01/05/21 01/05/21 Previous Rx's Medication Instructions Recorded acetaminophen 650 mg 650 mg PO Q8H PRN pain #10 tabs 01/07/21 tablet,extended release (Tylenol 8 Hour) ondansetron HCl 4 mg tablet 4 mg PO Q6H PRN nausea and 01/07/21 (Zofran) vomiting #10 tabs promethazine 25 mg tablet 25 mg PO TID PRN nausea and 01/06/22 vomiting #20 tabs dicyclomine 10 mg capsule 10 mg PO QID 7 days #28 caps 06/14/22 nitrofurantoin 100 mg PO Q12H 7 days #14 caps 06/14/22 monohydrate/macrocrystals 100 mg capsule (Macrobid) ibuprofen 600 mg tablet 600 mg PO TID PRN pain #20 tabs 06/16/22 phenazopyridine 100 mg tablet 100 mg PO TID 6 doses #6 tabs 06/16/22 sulfamethoxazole 800 1 tab PO BID #14 tabs 06/16/22 mg-trimethoprim 160 mg tablet (Bactrim DS) cefuroxime axetil 250 mg tablet 250 mg PO BID #10 tabs 12/12/22 dicyclomine 10 mg capsule 10 mg PO TID PRN abdominal 12/12/22 distention #20 caps ondansetron 4 mg disintegrating 4 mg PO Q8H PRN nausea and 12/12/22 tablet vomiting #7 tabs polyethylene glycol 3350 17 gram 17 g PO DAILY #14 ea 05/07/23 oral powder packet (Miralax) simethicone 180 mg capsule (Gas 180 mg PO BID PRN abdominal 12/12/22 Relief (simethicone)) distention #14 caps ondansetron 4 mg disintegrating 4 mg PO Q6-8H PRN nausea and 10/03/23 tablet vomiting #14 tabs Allergies Allergy/AdvReac Type Severity Reaction Status Date / Time Penicillins Allergy Intermediate HIVES Verified 10/16/23 16:10 ciprofloxacin Allergy Unresponsiv Verified 10/16/23 16:10 e Amoxicillin Allergy Intermediate Hives Uncoded 10/16/23 16:10 [facility] Past Medical History Medical History Endometriosis Pulmonary embolism Anxiety Bipolar 1 disorder Surgical History Hx of appendectomy History of cholecystectomy H/O: hysterectomy Social History Social History Alcohol intake: never Patient Tobacco Use Status: Current everyday Tobacco user Tobacco use type: Cigarette Cigarette Packs Per Day: 0.34 Cigarettes Per Day: 6.8 Years Smoked: 32 Second Hand Smoke Exposure: No Substance Use Type: Crack/Cocaine and Marijuana Advance Directives: No Advance Directives Information Provided: No Physical Exam ED Vital Signs: Vital Signs - 24 hr 10/16/23 16:11 Temperature 98 F Pulse Rate 74 Respiratory Rate 17 Blood Pressure 134/76 Pulse Oximetry 98 Oxygen Delivery Method Room Air BMI result Body Mass Index 37.1 Course Course Course Narrative: This is a rapid medical exam. Defer additional HPI, ROS, PE to primary provider. 42-year-old female with history of cyclic vomiting syndrome presents the ER with complaints of chest pain, abdominal pain, nausea, vomiting, dizziness. Will obtain labs, EKG, viral testing VSS Medical Decision Making Lab Data 10/16/23 15:42 10/16/23 15:42 Labs: Lab Results 10/16/23 Range/Units 15:42 WBC 14.7 H (4.8-10.8) X10*3/uL RBC 5.20 (4.20-5.50) X10*6/uL Hgb 14.8 (12.0-16.0) g/dl Hct 43.3 (37.0-47.0) % MCV 83.3 (80.0-98.0) fL MCH 28.5 (27.0-33.0) pg MCHC 34.2 (31.0-35.0) g/dl RDW 15.0 (11.0-16.0) % Plt Count 330 (160-400) X10*3/uL MPV 9.3 L (9.4-12.3) fL Immature Gran % (Auto) 0.4 (0.0-0.4) % Neut % (Auto) 76.7 H (45-73) % Lymph % (Auto) 16.8 L (20-40) % [place] % (Auto) 4.2 (2-11) % Eos % (Auto) 1.2 (0-4) % Baso % (Auto) 0.7 (0-2) % Lymph # (Auto) 2.5 (1.2-4.9) X10*3/uL [place] # (Auto) 0.6 (0.1-1.2) X10*3/uL Eos # (Auto) 0.2 (0.0-0.4) X10*3/uL Baso # (Auto) 0.1 (0.0-0.2) X10*3/uL Abs Immat Gran (auto) 0.06 H (0.00-0.03) X10*3/uL Absolute Neuts (auto) 11.3 H (2.0-8.3) x10*3/uL Absolute Nucleated RBC 0.000 (0.0-0.012) X10*3/uL Nucleated RBC % (auto) 0.0 (0.0-0.2) /100WBC PT 11.6 (11.1-13.3) SEC INR 1.0 (0.9-1.1) Sodium 140 (135-145) mmol/L Potassium 3.7 D (3.3-5.1) mmol/L Chloride 105 (96-108) mmol/L Carbon Dioxide 21 L (22-29) mmol/L Anion Gap 18 (12-20) BUN 8 L (9-16) mg/dL Creatinine 0.79 (0.5-1.4) mg/dL Estim Creat Clear Calc TNP Estimated GFR > 60 Random Glucose 164 H (60-115) mg/dL Calcium 10.2 D (8.4-10.2) mg/dL Magnesium 2.1 (1.6-2.6) mg/dL Total Bilirubin 0.4 (0.0-1.0) mg/dL Direct Bilirubin 0.2 (0.0-0.5) mg/dL AST 16 (5-31) U/L ALT 26 (0-31) U/L Alkaline Phosphatase 96 (39-117) U/L Troponin I High Sens < 2.7 (<3.5-17.0) ng/L Total Protein 7.6 (6.5-8.0) g/dL Albumin 4.4 (3.5-5.0) g/dL Lipase 97 H (8-78) U/L Beta HCG, Quant 7 mIU/mL Ethyl Alcohol < 10 mg/dL Influenza Type A (PCR) NEGATIVE (Negative) Influenza Type B (PCR) NEGATIVE (Negative) RSV RNA Qual (PCR) NEGATIVE (Negative) SARS-CoV-2 RNA (RT-PCR) NEGATIVE (Negative) Discharge Plan Discharge Clinical Impression: Abdominal pain Patient Disposition: Left W/O Completing Treatment Prescriptions: No Action aripiprazole 10 mg tablet 1 tab PO DAILY lamotrigine 100 mg tablet 1 tab PO TID lorazepam 1 mg tablet 0.5 tab PO BID melatonin 5 mg tablet 1 tab PO BEDTIME PRN (Reason: insomnia) quetiapine 50 mg tablet 1 tab PO BEDTIME sucralfate 100 mg/mL suspension 10 ml PO BID zolpidem 5 mg tablet 1 tab PO BEDTIME PRN (Reason: Sleep) ondansetron HCl [Zofran] 4 mg tablet 4 mg PO Q6H PRN (Reason: nausea and vomiting) Qty: 10 0RF acetaminophen [Tylenol 8 Hour] 650 mg tablet extended release 650 mg PO Q8H PRN (Reason: pain) Qty: 10 0RF nitrofurantoin monohyd/m-cryst [Macrobid] 100 mg capsule 100 mg PO Q12H 7 Days Qty: 14 0RF Rx Instructions: must administer with a meal/food dicyclomine 10 mg capsule 10 mg PO QID 7 Days Qty: 28 0RF promethazine 25 mg tablet 25 mg PO TID PRN (Reason: nausea and vomiting) Qty: 20 0RF sulfamethoxazole-trimethoprim [Bactrim DS] 800-160 mg tablet 1 tab PO BID Qty: 14 0RF phenazopyridine 100 mg tablet 100 mg PO TID Qty: 6 0RF ibuprofen 600 mg tablet 600 mg PO TID PRN (Reason: pain) Qty: 20 0RF dicyclomine 10 mg capsule 10 mg PO TID PRN (Reason: abdominal distention) Qty: 20 0RF cefuroxime axetil 250 mg tablet 250 mg PO BID Qty: 10 0RF ondansetron 4 mg tablet,disintegrating 4 mg PO Q8H PRN (Reason: nausea and vomiting) Qty: 7 0RF simethicone [Gas Relief (simethicone)] 180 mg capsule 180 mg PO BID PRN (Reason: abdominal distention) Qty: 14 0RF polyethylene glycol 3350 [Miralax] 17 gram powder in packet 17 g PO DAILY Qty: 14 0RF ondansetron 4 mg tablet,disintegrating 4 mg PO Q6-8H PRN (Reason: nausea and vomiting) Qty: 14 0RF Discharge Date/Time: 10/16/23 20:18
[2023-10-16 16:33] LABS: Influenza A PCR NEGATIVE (Negative); Influenza B PCR NEGATIVE (Negative); Resp Syncy Virus RNA Qual PCR NEGATIVE (Negative); SARS COV2 PCR INHOUSE NEGATIVE (Negative)
== END 2023-10-16 20:18 | disposition left against medical advice (07) ==
PROVIDERS: Nurse Practitioner Family; Emergency Provider Emergency Medicine; PCP Internal Medicine
DX: R07.89 Other chest pain (principal); R11.2 Nausea with vomiting, unspecified; R10.9 Unspecified abdominal pain; Z11.52 Encounter for screening for COVID-19; Z20.822 Contact with and (suspected) exposure to COVID-19; Z79.899 Other long term (current) drug therapy
CPT/HCPCS: 0241U; 36415; 80048; 80076; 80307; 83690; 83735; 84484; 84702; 85025; 85610; 93005; 99283

== ENCOUNTER → 2023-10-16 15:22 | Outpatient (BNV) | payer OTHER, SELFPAY | PROVIDERS: Emergency Provider Emergency Medicine; PCP Internal Medicine; Visit Provider Internal Medicine Cardiovascular Disease | DX: R07.9 Chest pain, unspecified (principal) | CPT/HCPCS: 93010 ==

== ENCOUNTER 2023-11-30 21:45 | Emergency (ER) | payer OTHER, SELFPAY ==
[2023-11-30 22:14] VITALS: BP 135/94; BP 148/94; PULSE 85; PULSE 93; RESP 20; TEMP 36.9; O2SAT 96; O2SAT 98; BMI 35.2
--- NOTE | 2023-11-30 22:23 | PC.NURSE ---
EMS IV removed in triage.
[2023-11-30 22:33] LABS: MANUAL DIFF FLAG NO
[2023-11-30 22:34] LABS: Basophils Absolute Auto 0.1 X10*3/uL (0.0-0.2); Basophils Percent Auto 0.6 % (0-2); Eosinophils Absolute Auto 0.1 X10*3/uL (0.0-0.4); Eosinophils Percent Auto 0.4 % (0-4); Hematocrit 42.5 % (37.0-47.0); Hemoglobin 14.7 g/dl (12.0-16.0); Imm Gran Abs Auto 0.04 X10*3/uL (0.00-0.03); Imm Gran Pct Auto 0.3 % (0.0-0.4); Lymphocytes Absolute Auto 2.6 X10*3/uL (1.2-4.9); Lymphocytes Percent Auto 18.6 % (20-40); Mean Corpuscular HGB Conc 34.6 g/dl (31.0-35.0); Mean Corpuscular Hemoglobin 28.3 pg (27.0-33.0); Mean Corpuscular Volume 81.7 fL (80.0-98.0); Mean Platelet Volume 9.6 fL (9.4-12.3); Monocytes Absolute Auto 0.7 X10*3/uL (0.1-1.2); Monocytes Percent Auto 5.2 % (2-11); Neutrophils Absolute Auto 10.6 x10*3/uL (2.0-8.3); Neutrophils Percent Auto 74.9 % (45-73); Platelet Count 262 X10*3/uL (160-400); Red Cell Distribution Width 14.6 % (11.0-16.0); White Blood Count 14.2 X10*3/uL (4.8-10.8)
[2023-11-30 22:48] LABS: Alanine Aminotransferase 26 U/L (0-31); Albumin Level 4.5 g/dL (3.5-5.0); Alkaline Phosphatase 92 U/L (39-117); Anion Gap 14 (12-20); Aspartate Amino Transferase 17 U/L (5-31); Bilirubin Direct 0.1 mg/dL (0.0-0.5); Bilirubin Total 0.3 mg/dL (0.0-1.0); Blood Urea Nitrogen 7 mg/dL (9-16); Carbon Dioxide 25 mmol/L (22-29); Chloride 106 mmol/L (96-108); Creatinine Clr Calc Pharmacy 85.8; Estimated Glomerular Filt Rate > 60; Glucose Random 134 mg/dL (60-115); Lipase 43 U/L (8-78); Sodium 141 mmol/L (135-145); Total Protein 7.7 g/dL (6.5-8.0)
[2023-11-30 22:55] LABS: HCG Quantitative 11 mIU/mL
[2023-11-30 23:11] LABS: Influenza A PCR NEGATIVE (Negative); Influenza B PCR NEGATIVE (Negative); Resp Syncy Virus RNA Qual PCR NEGATIVE (Negative); SARS COV2 PCR INHOUSE NEGATIVE (Negative)
[2023-12-01 01:12] VITALS: BP 148/76; PULSE 69; RESP 18; TEMP 37; O2SAT 99
--- NOTE | 2023-12-01 03:47 | ED.GENADULT ---
HPI - General Adult General Chief complaint: Abdominal Pain Stated complaint: N/V/D X2DAYS,05/17 ABD PAIN Time Seen by Provider: 12/01/23 03:30 History of Present Illness HPI narrative: The patient is a 42-year-old woman presents to the emergency room complaining of abdominal pain. She says she has not felt well for about 2 or 3 days. She describes having a lot of loose stools. She has also had some nausea and vomiting. She indicates that she has discomfort in her upper abdomen primarily. She says that she thinks she has colitis because of her loose stools and she believes that she has had colitis once in the past although she does not know if she had a particular form of colitis. No fevers. Related Data Home Medications ?Medication ?Instructions ?Recorded ?Confirmed aripiprazole 10 mg tablet 1 tab PO DAILY 01/05/21 01/05/21 lamotrigine 100 mg tablet 1 tab PO TID 01/05/21 01/05/21 lorazepam 1 mg tablet 0.5 tab PO BID 01/05/21 01/05/21 melatonin 5 mg tablet 1 tab PO BEDTIME PRN insomnia 01/05/21 01/05/21 quetiapine 50 mg tablet 1 tab PO BEDTIME 01/05/21 01/05/21 sucralfate 100 mg/mL oral 10 ml PO BID 01/05/21 01/05/21 suspension zolpidem 5 mg tablet 1 tab PO BEDTIME PRN Sleep 01/05/21 01/05/21 Previous Rx's ?Medication ?Instructions ?Recorded acetaminophen 650 mg 650 mg PO Q8H PRN pain #10 tabs 01/07/21 tablet,extended release (Tylenol 8 Hour) ondansetron HCl 4 mg tablet 4 mg PO Q6H PRN nausea and 01/07/21 (Zofran) vomiting #10 tabs promethazine 25 mg tablet 25 mg PO TID PRN nausea and 01/06/22 vomiting #20 tabs dicyclomine 10 mg capsule 10 mg PO QID 7 days #28 caps 06/14/22 nitrofurantoin 100 mg PO Q12H 7 days #14 caps 06/14/22 monohydrate/macrocrystals 100 mg capsule (Macrobid) ibuprofen 600 mg tablet 600 mg PO TID PRN pain #20 tabs 06/16/22 phenazopyridine 100 mg tablet 100 mg PO TID 6 doses #6 tabs 06/16/22 sulfamethoxazole 800 1 tab PO BID #14 tabs 06/16/22 mg-trimethoprim 160 mg tablet (Bactrim DS) cefuroxime axetil 250 mg tablet 250 mg PO BID #10 tabs 12/12/22 dicyclomine 10 mg capsule 10 mg PO TID PRN abdominal 12/12/22 distention #20 caps ondansetron 4 mg disintegrating 4 mg PO Q8H PRN nausea and 12/12/22 tablet vomiting #7 tabs polyethylene glycol 3350 17 gram 17 g PO DAILY #14 ea 12/12/22 oral powder packet (Miralax) simethicone 180 mg capsule (Gas 180 mg PO BID PRN abdominal 12/12/22 Relief (simethicone)) distention #14 caps ondansetron 4 mg disintegrating 4 mg PO Q6-8H PRN nausea and 10/03/23 tablet vomiting #14 tabs ondansetron 4 mg disintegrating 4 mg PO Q6H PRN nausea and 12/01/23 tablet vomiting #10 tabs sucralfate 1 gram tablet 1 g PO BID PRN Upper abdominal 12/01/23 pain #40 tabs Allergies Allergy/AdvReac Type Severity Reaction Status Date / Time Penicillins Allergy Intermediate HIVES Verified 11/30/23 22:17 ciprofloxacin Allergy Unresponsiv Verified 11/30/23 22:17 e Amoxicillin Allergy Intermediate Hives Uncoded 10/16/23 16:10 Review of Systems Review of Systems: Yes all other systems are reviewed and are negative PMFSH Past Medical History Medical History Endometriosis Pulmonary embolism Anxiety Bipolar 1 disorder Surgical History Hx of appendectomy History of cholecystectomy H/O: hysterectomy Social History Social History Alcohol intake: never Patient Tobacco Use Status: Current everyday Tobacco user Tobacco use type: Cigarette Cigarette Packs Per Day: 0.34 Cigarettes Per Day: 6.8 Years Smoked: 32 Smoked in Last 30 Days: Yes Second Hand Smoke Exposure: No Use of substances other than those prescribed or required for medical reasons: No Substance Use Type: Crack/Cocaine and Marijuana Advance Directives: No Advance Directives Information Provided: Yes Do you have a plan to hurt others: No Plan Patient : No Physical Exam ED Vital Signs: Vital Signs - 24 hr 11/30/23 22:14 12/01/23 01:12 12/01/23 04:49 Temperature 98.5 F 98.6 F 98.4 F Pulse Rate 85 69 74 Respiratory Rate 20 18 16 Blood Pressure 135/94 H 148/76 H 120/81 Pulse Oximetry 96 99 97 Oxygen Delivery Method Room Air Room Air Room Air 12/01/23 06:28 Temperature Pulse Rate 81 Respiratory Rate 18 Blood Pressure 121/76 Pulse Oximetry 97 Oxygen Delivery Method Room Air BMI result Body Mass Index 35.2 Const Other: The patient is a somewhat unkempt in chronically ill-appearing 42-year-old with a BMI of 35. She is awake and alert and said she was very uncomfortable. HENMT Other: Face is symmetrical. Mucous membranes moist. Eyes Other: Pupils are round equal, conjunctivae clear Resp Effort & Inspection: normal respiratory effort Auscultation: clear to auscultation bilaterally Cardio Rate: regular rate Rhythm: regular rhythm Heart sounds: S1 normal heart sound present and S2 normal heart sound present GI Other: The patient's abdomen is soft. She seems to have diffuse abdominal tenderness. No definite clear focal tenderness. No rebound or guarding. Skin Other: Skin is dry and unremarkable Neuro Other: The patient is awake, alert and grossly neurologically intact. Extrem Other: No peripheral edema Medications Administered Discontinued Medications Generic Name Dose Route Start Last Admin Trade Name Rahatq PRN Reason Stop Dose Admin Famotidine 20 mg 12/01/23 03:41 12/01/23 04:02 Famotidine/Pf 20 Mg/2 Ml Vial IVPUSH 12/01/23 03:42 20 mg ONCE ONE Administration Sodium Chloride 1,000 mls @ 999 mls/hr 12/01/23 03:45 12/01/23 04:03 Ns IV 12/01/23 04:45 999 mls/hr .Q1H1M FAM Administration Ketorolac Tromethamine 10 mg 12/01/23 03:41 12/01/23 04:02 Ketorolac Tromethamine 15 Mg/Ml Vial IVPUSH 12/01/23 03:42 10 mg ONCE ONE Administration Morphine Sulfate 4 mg 12/01/23 04:11 12/01/23 04:18 Morphine Sulfate 4 Mg/Ml Cartridge IVPUSH 12/01/23 04:12 4 mg ONCE ONE Administration Protocol Morphine Sulfate 4 mg 12/01/23 05:44 12/01/23 06:02 Morphine Sulfate 4 Mg/Ml Cartridge IVPUSH 12/01/23 05:45 4 mg ONCE ONE Administration Protocol Ondansetron HCl 4 mg 12/01/23 04:11 12/01/23 04:18 Ondansetron Hcl 4 Mg/2 Ml Vial IVPUSH 12/01/23 04:12 4 mg ONCE ONE Administration Medical Decision Making Medical Decision Making [facility] Narrative: The patient is a 42-year-old woman who comes for evaluation of abdominal pain, nausea, vomiting, and diarrhea. When I 1st spoke to her she told me ?I think I have colitis. Clinically the patient did not seem toxic and she did not have an acute abdomen. She was treated with IV fluids as well as ketorolac, ondansetron, famotidine, and morphine. She felt somewhat better but had ongoing discomfort and was given additional doses of morphine. She also seemed to be describing epigastric discomfort which might represent gastritis. I reviewed her old chart that showed she has had 5 cat scans of her abdomen and pelvis in the last 2 years none of which have shown any acute pathology. I suspect today's presentation is similar. Stool was sent that is negative for C diff. Her white count is mildly elevated at 13,000 thousand but her CRP is 0.32. After 2 L of hydration and symptomatic treatment I felt she was likely well enough for discharge. She will be discharged to follow up with her PCP and should probably see a absorption operator given her multiple ER visits for abdominal symptoms. She was also given a prescription for sucralfate. Lab Data 11/30/23 22:28 11/30/23 22:28 Labs: Lab Results 11/30/23 12/01/23 Range/Units 22:28 05:32 WBC 14.2 H (4.8-10.8) X10*3/uL RBC 5.20 (4.20-5.50) X10*6/uL Hgb 14.7 (12.0-16.0) g/dl Hct 42.5 (37.0-47.0) % MCV 81.7 (80.0-98.0) fL MCH 28.3 (27.0-33.0) pg MCHC 34.6 (31.0-35.0) g/dl RDW 14.6 (11.0-16.0) % Plt Count 262 (160-400) X10*3/uL MPV 9.6 (9.4-12.3) fL Immature Gran % (Auto) 0.3 (0.0-0.4) % Neut % (Auto) 74.9 H (45-73) % Lymph % (Auto) 18.6 L (20-40) % [place] % (Auto) 5.2 (2-11) % Eos % (Auto) 0.4 (0-4) % Baso % (Auto) 0.6 (0-2) % Lymph # (Auto) 2.6 (1.2-4.9) X10*3/uL [place] # (Auto) 0.7 (0.1-1.2) X10*3/uL Eos # (Auto) 0.1 (0.0-0.4) X10*3/uL Baso # (Auto) 0.1 (0.0-0.2) X10*3/uL Abs Immat Gran (auto) 0.04 H (0.00-0.03) X10*3/uL Absolute Neuts (auto) 10.6 H (2.0-8.3) x10*3/uL Absolute Nucleated RBC 0.000 (0.0-0.012) X10*3/uL Nucleated RBC % (auto) 0.0 (0.0-0.2) /100WBC Sodium 141 (135-145) mmol/L Potassium 4.0 (3.3-5.1) mmol/L Chloride 106 (96-108) mmol/L Carbon Dioxide 25 (22-29) mmol/L Anion Gap 14 (12-20) BUN 7 L (9-16) mg/dL Creatinine 0.80 (0.5-1.4) mg/dL Estim Creat Clear Calc 85.8 Estimated GFR > 60 Random Glucose 134 H (60-115) mg/dL Calcium 10.0 (8.4-10.2) mg/dL Total Bilirubin 0.3 (0.0-1.0) mg/dL Direct Bilirubin 0.1 (0.0-0.5) mg/dL AST 17 (5-31) U/L ALT 26 (0-31) U/L Alkaline Phosphatase 92 (39-117) U/L C-Reactive Protein 0.32 (< or = 0.50) mg/dL Total Protein 7.7 (6.5-8.0) g/dL Albumin 4.5 (3.5-5.0) g/dL Lipase 43 (8-78) U/L Beta HCG, Quant 11 mIU/mL C. difficile Tox B Gene NEGATIVE (Negative) Influenza Type A (PCR) NEGATIVE (Negative) Influenza Type B (PCR) NEGATIVE (Negative) RSV RNA Qual (PCR) NEGATIVE (Negative) SARS-CoV-2 RNA (RT-PCR) NEGATIVE (Negative) Discharge Plan Discharge Clinical Impression: Abdominal pain, vomiting, and diarrhea Patient Disposition: Home, Self-Care Additional Instructions: I have sent a prescription for medication called sucralfate to your pharmacy. This may be helpful for upper abdominal discomfort in case you are having some worsening gastritis pains. I have also sent a prescription for ondansetron (Zofran) that you may use on an as-needed basis for nausea. You seemed to have fairly frequent episodes of abdominal symptoms which often result in CT scans. The 5 CT scans of your abdomen that you have had in the last 2 years have not demonstrated any clearly identifiable problem. Given that you are having these episodes of symptoms I think it would be good for you to follow up with a absorption operator. I provided the number for Dr. Evangelista, one of our absorption operator. Please contact the office to see if you can follow up with their office. You should also follow up with your primary care doctor as you may need a referral to Gastroenterology and there may also be a delay in seeing a absorption operator. Return to the emergency room if worse. Prescriptions: New sucralfate 1 gram tablet 1 g PO BID PRN (Reason: Upper abdominal pain) Qty: 40 0RF ondansetron 4 mg tablet,disintegrating 4 mg PO Q6H PRN (Reason: nausea and vomiting) Qty: 10 0RF No Action aripiprazole 10 mg tablet 1 tab PO DAILY lamotrigine 100 mg tablet 1 tab PO TID lorazepam 1 mg tablet 0.5 tab PO BID melatonin 5 mg tablet 1 tab PO BEDTIME PRN (Reason: insomnia) quetiapine 50 mg tablet 1 tab PO BEDTIME sucralfate 100 mg/mL suspension 10 ml PO BID zolpidem 5 mg tablet 1 tab PO BEDTIME PRN (Reason: Sleep) ondansetron HCl [Zofran] 4 mg tablet 4 mg PO Q6H PRN (Reason: nausea and vomiting) Qty: 10 0RF acetaminophen [Tylenol 8 Hour] 650 mg tablet extended release 650 mg PO Q8H PRN (Reason: pain) Qty: 10 0RF nitrofurantoin monohyd/m-cryst [Macrobid] 100 mg capsule 100 mg PO Q12H 7 Days Qty: 14 0RF Rx Instructions: must administer with a meal/food dicyclomine 10 mg capsule 10 mg PO QID 7 Days Qty: 28 0RF promethazine 25 mg tablet 25 mg PO TID PRN (Reason: nausea and vomiting) Qty: 20 0RF sulfamethoxazole-trimethoprim [Bactrim DS] 800-160 mg tablet 1 tab PO BID Qty: 14 0RF phenazopyridine 100 mg tablet 100 mg PO TID Qty: 6 0RF ibuprofen 600 mg tablet 600 mg PO TID PRN (Reason: pain) Qty: 20 0RF dicyclomine 10 mg capsule 10 mg PO TID PRN (Reason: abdominal distention) Qty: 20 0RF cefuroxime axetil 250 mg tablet 250 mg PO BID Qty: 10 0RF ondansetron 4 mg tablet,disintegrating 4 mg PO Q8H PRN (Reason: nausea and vomiting) Qty: 7 0RF simethicone [Gas Relief (simethicone)] 180 mg capsule 180 mg PO BID PRN (Reason: abdominal distention) Qty: 14 0RF polyethylene glycol 3350 [Miralax] 17 gram powder in packet 17 g PO DAILY Qty: 14 0RF ondansetron 4 mg tablet,disintegrating 4 mg PO Q6-8H PRN (Reason: nausea and vomiting) Qty: 14 0RF Referrals: Alexei Evangelista MD [Physician] - Fahad Thompson MD [Physician] - (possible colitis) Print Language: Amharic
[2023-12-01 04:00] LABS: C Reactive Protein 0.32 mg/dL (< or = 0.50)
[2023-12-01] MEDS: Famotidine/PF 20 MG/2 ML VIAL IVPUSH (04:02)
[2023-12-01] MEDS: Ketorolac Tromethamine 15 MG/ML VIAL 10 MG IVPUSH (04:02)
[2023-12-01] MEDS: 0.9 % Sodium Chloride 1,000 ML 999 ML IV (04:03)
[2023-12-01] MEDS: Morphine Sulfate 4 MG/ML CARTRIDGE IVPUSH ×3 (04:18→08:23)
[2023-12-01] MEDS: ondansetron HCL 4 MG/2 ML VIAL IVPUSH (04:18)
[2023-12-01 04:49] VITALS: BP 120/81; PULSE 74; RESP 16; TEMP 36.9; O2SAT 97
[2023-12-01 06:28] VITALS: BP 121/76; PULSE 81; RESP 18; O2SAT 97
[2023-12-01 06:34] LABS: CDiff Gene PCR NEGATIVE (Negative)
[2023-12-01 08:02] VITALS: BP 129/71; PULSE 76; RESP 18; TEMP 36.4; O2SAT 97
[2023-12-01] MEDS: Sucralfate Oral Suspension 1 GM/10 ML ORAL.SUSP PO (08:23)
[2023-12-01 08:34] VITALS: BP 129/71; PULSE 76; RESP 18; TEMP 36.4; O2SAT 97
== END 2023-12-01 08:35 | disposition home or self-care (01) ==
PROVIDERS: Emergency Provider Emergency Medicine
DX: R11.2 Nausea with vomiting, unspecified (principal); R10.10 Upper abdominal pain, unspecified; Z79.899 Other long term (current) drug therapy; Z11.52 Encounter for screening for COVID-19; Z20.822 Contact with and (suspected) exposure to COVID-19
CPT/HCPCS: 0241U; 36415; 80048; 80076; 83690; 84702; 85025; 86140; 87493; 87507; 96361; 96374; 96375; 96376; 99285; J1885; J2270; J2405

== ENCOUNTER 2024-05-08 08:07 | Emergency (ER) | payer OTHER, SELFPAY ==
[2024-05-08] VITALS (7 sets, daily range): BP systolic 134–156; BP diastolic 72–84; PULSE 78–85; RESP 16–20; TEMP 36.1–36.6; O2SAT 96–100; BMI 30.3
--- NOTE | 2024-05-08 | ECG_ITS ---
Test Reason : chest pain Blood Pressure : / mmHG Vent. Rate : 081 BPM Atrial Rate : 081 BPM P-R Int : 126 ms QRS Dur : 082 ms QT Int : 414 ms P-R-T Axes : 040 051 040 degrees QTc Int : 480 ms Normal sinus rhythm Prolonged QT Abnormal ECG When compared with ECG of 16-OCT-2023 15:30, QT has lengthened Referred By: Generic ED Physician Electronically Signed By:MONIKA GARCIA
--- NOTE | ~2024-05-08 | CT_ITS ---
EXAMINATION: CT ABDOMEN AND PELVIS WITH CONTRAST CLINICAL INFORMATION: Left upper quadrant pain, epigastric pain, vomiting. COMPARISON: CT abdomen 10/03/2023. TECHNIQUE: Multidetector volumetric images were obtained from the superior aspect of the liver through the pubic symphysis following administration 85 mL of Omnipaque 350 intravenous contrast. Sagittal and coronal reformatted images were obtained on the technologist's workstation. Oral contrast: No This CT examination was performed using dose optimization techniques as appropriate, variously including the following: *Automated exposure control *Adjustment of mA and/or kV according to patient size (this includes techniques or standardized protocols for targeted exams where dose is matched to indication/reason for exam; i.e. extremities or head) *Use of iterative reconstruction technique DLP: 596 mGy-cm FINDINGS: LUNG BASES: No suspicious findings. LIVER, GALLBLADDER, AND BILIARY TREE: Stable small circumscribed low attenuation lesion in the dome of the right lobe of the liver, additional workup required. Gallbladder surgically absent. No abnormal biliary duct dilatation. PANCREAS: Unremarkable. SPLEEN: Stable small low-attenuation lesion, no further evaluation required. ADRENAL GLANDS: Unremarkable. KIDNEYS AND URETERS: Symmetric parenchymal enhancement. Redemonstrated are areas of cortical scarring. No suspicious lesions. No calculi. No hydronephrosis. BLADDER: Slightly thickened urinary bladder wall is redemonstrated. More focal wall thickening measuring 1.5 cm AP, (3:83), mass lesion cannot be excluded. GASTROINTESTINAL TRACT: The large colon is nondistended. There is a possible submucosal edema/wall thickening of the descending colon, transverse colon and possibly part of the descending colon. Alternatively, this could be related to lack of distention. The findings appear more extensive as compared to the prior study. Stomach is partially distended, limiting evaluation. No dilated small bowel loops. No free air. No free fluid. ABDOMINAL WALL: No significant hernia is appreciated. LYMPH NODES: No pathologically enlarged lymph node seen. VASCULAR: No aortic aneurysmal dilatation. Portal vein and hepatic veins are enhancing. PELVIC VISCERA: No suspicious findings. OSSEOUS STRUCTURES: No suspicious findings. CT/CT abdomen pelvis w IV con IMPRESSION: Apparent bowel wall thickening of the ascending colon, transverse colon, and possibly part of the descending colon versus sequela of lack of distention. Colitis could be present. Clinically correlate. Urinary bladder wall is slightly thickened. There is a more focal wall thickening measuring 1.5 cm in the anterior bladder wall. A mass lesion could be present. Recommend urinalysis, urology consultation, consideration for cystoscopy. Fleischner guidelines were followed. Electronically signed by: Seferino Hendrix MD 05/08/2024 03:43 PM EDT RP
--- NOTE | ~2024-05-08 | XR_ITS ---
EXAMINATION: XR CHEST CLINICAL INFORMATION: Altered mental status. Chest pain. Vomiting since this morning. COMPARISON: None available. TECHNIQUE: 2 views of the chest were obtained. FINDINGS: No significant abnormality is noted involving the heart, lungs, mediastinum, bony thorax or soft tissues. Status post cholecystectomy. XR/XR chest 2V IMPRESSION: Unremarkable examination. Electronically signed by: Jarett Mills MD 05/08/2024 11:11 AM EDT
--- NOTE | 2024-05-08 08:32 | ED.CHESTPAIN ---
HPI - Chest Pain General Chief Complaint: Chest Pain Stated Complaint: chest pain vomiting headache Time Seen by Provider: 05/08/24 08:30 Source: patient, family and RN notes reviewed Mode of arrival: ambulatory Limitations: no limitations History of Present Illness ED Provider: Xochilt Carmen PA-C HPI narrative: This is a 43-year-old female, with a history of bipolar, IBS, anxiety, and cyclical vomiting syndrome, who presents emergency department with complaints of chest pain for 4 days. She states that she has had vomiting since this morning. She is also endorsing chest pain which has been constant over the last 4 days. She denies fevers, chills, headaches, dizziness, shortness of breath, palpitations. She states that she has vomited many times this morning. She states that she has a history of cyclical vomiting and symptoms feel similar. She denies any alcohol use. She states that she does use marijuana, last used yesterday. No sick contacts, or any known exposures that would have caused her to have her symptoms. She denies any fevers, chills, shortness of breath, palpitations. She reports some diarrhea. No constipation. Denies taking any medications at home. She describes the chest pain as constant pressure, which worsens with vomiting. No recent surgeries, travel or hospitalizations. She is not on control. No other complaints or concerns at this time. MD complaint: chest pain Timing of current episode: constant Severity: moderate Quality: aching Exacerbating factors: nothing Associated symptoms: nausea and vomiting Risk Factors Coronary artery disease risk factors: none Thoracic aortic dissection risk factors: none Related Data On Oral Contraceptives: No Home Medications ?Medication ?Instructions ?Recorded ?Confirmed aripiprazole 10 mg tablet 1 tab PO DAILY 01/05/21 01/05/21 lamotrigine 100 mg tablet 1 tab PO TID 01/05/21 01/05/21 lorazepam 1 mg tablet 0.5 tab PO BID 01/05/21 01/05/21 melatonin 5 mg tablet 1 tab PO BEDTIME PRN insomnia 01/05/21 01/05/21 quetiapine 50 mg tablet 1 tab PO BEDTIME 01/05/21 01/05/21 sucralfate 100 mg/mL oral 10 ml PO BID 01/05/21 01/05/21 suspension zolpidem 5 mg tablet 1 tab PO BEDTIME PRN Sleep 01/05/21 01/05/21 Previous Rx's ?Medication ?Instructions ?Recorded acetaminophen 650 mg 650 mg PO Q8H PRN pain #10 tabs 01/07/21 tablet,extended release (Tylenol 8 Hour) ondansetron HCl 4 mg tablet 4 mg PO Q6H PRN nausea and 01/07/21 (Zofran) vomiting #10 tabs promethazine 25 mg tablet 25 mg PO TID PRN nausea and 01/06/22 vomiting #20 tabs dicyclomine 10 mg capsule 10 mg PO QID 7 days #28 caps 06/14/22 nitrofurantoin 100 mg PO Q12H 7 days #14 caps 06/14/22 monohydrate/macrocrystals 100 mg capsule (Macrobid) ibuprofen 600 mg tablet 600 mg PO TID PRN pain #20 tabs 06/16/22 phenazopyridine 100 mg tablet 100 mg PO TID 6 doses #6 tabs 06/16/22 sulfamethoxazole 800 1 tab PO BID #14 tabs 06/16/22 mg-trimethoprim 160 mg tablet (Bactrim DS) cefuroxime axetil 250 mg tablet 250 mg PO BID #10 tabs 12/12/22 dicyclomine 10 mg capsule 10 mg PO TID PRN abdominal 12/12/22 distention #20 caps ondansetron 4 mg disintegrating 4 mg PO Q8H PRN nausea and 12/12/22 tablet vomiting #7 tabs polyethylene glycol 3350 17 gram 17 g PO DAILY #14 ea 12/12/22 oral powder packet (Miralax) simethicone 180 mg capsule (Gas 180 mg PO BID PRN abdominal 12/12/22 Relief (simethicone)) distention #14 caps ondansetron 4 mg disintegrating 4 mg PO Q6-8H PRN nausea and 10/03/23 tablet vomiting #14 tabs ondansetron 4 mg disintegrating 4 mg PO Q6H PRN nausea and 12/01/23 tablet vomiting #10 tabs sucralfate 1 gram tablet 1 g PO BID PRN Upper abdominal 12/01/23 pain #40 tabs ondansetron 4 mg disintegrating 4 mg PO Q6H PRN nausea and 05/08/24 tablet vomiting #10 tabs Allergies Allergy/AdvReac Type Severity Reaction Status Date / Time Penicillins Allergy Intermediate HIVES Verified 05/09/24 05:37 ciprofloxacin Allergy Unresponsiv Verified 05/09/24 05:37 e Amoxicillin Allergy Intermediate Hives Uncoded 05/09/24 05:37 Review of Systems Review of Systems: Yes all other systems are reviewed and are negative Constitutional: Constitutional: Reports as per HPI [facility] Past Medical History Medical History Endometriosis Pulmonary embolism Anxiety Bipolar 1 disorder Surgical History Hx of appendectomy History of cholecystectomy H/O: hysterectomy Social History Social History Alcohol intake: never Patient Tobacco Use Status: Current everyday Tobacco user Tobacco use type: Cigarette Cigarette Packs Per Day: 0.34 Cigarettes Per Day: 6.8 Years Smoked: 32 Second Hand Smoke Exposure: No Substance Use Type: Marijuana Advance Directives: No Advance Directives Information Provided: No Do you have a plan to hurt others: No Plan Physical Exam Vital Signs: Vital Signs: Last Vital Signs Temp 97.0 F 05/08/24 18:04 Pulse 85 05/08/24 18:04 Resp 16 05/08/24 18:04 BP 156/84 H 05/08/24 18:04 Pulse Ox 96 05/08/24 18:04 O2 Del Method Room Air 05/08/24 18:04 BMI result Body Mass Index 30.3 Const: General: cooperative, comfortable and no acute distress Orientation/consciousness: patient oriented x3 Limitations: no limitations HEENT: Head: Yes normal to inspection, Yes normocephalic and Yes atraumatic Ears: hearing grossly normal bilaterally General nose exam: Normal external nose present Face and sinus: Yes normal facial exam Mouth: Normal oral and palatal mucosa present, oropharynx normal and moist mucous membranes Throat: Yes posterior oropharynx normal Eyes: General: appearance normal, both eyes and all related structures Eyelids: Yes eyelids normal Conjunctivae: conjunctivae normal Sclerae: sclerae normal Pupils: Equal, round and reactive pupils present EOM: EOMs intact bilaterally Neck: Neck: Yes normal visual inspection, Yes full ROM and Yes no lymphadenopathy Lymphatic: no lymphadenopathy noted Chest: Other: Tenderness to palpation along the anterior chest wall Chest palpation & inspection: normal inspection of the chest Resp: Effort & Inspection: normal respiratory effort and able to speak in complete sentences Auscultation: clear to auscultation bilaterally, no crackles, no rales, no rhonchi and no wheezes Cardio: Rate: regular rate Rhythm: regular rhythm Heart sounds: S1 normal heart sound present and S2 normal heart sound present GI: Other: Abdomen is soft with mild tenderness diffusely. No rebound or guarding. No specific point tenderness Inspection: Yes normal to inspection Skin: General skin exam: no rashes or lesions noted Trauma: no lacerations or abrasions Wounds: no wounds Neuro: General: patient oriented x3 and moves all extremities Cranial nerves: Yes Equal, round and reactive pupils present Extrem: General: Yes normal to inspection Right upper extremity: normal to inspection Left upper extremity: normal to inspection Right lower extremity: normal to inspection Left lower extremity: normal to inspection Course Reevaluation(s) Reevaluation #1: Pt resting comfortably after droperidol and benadryl. Will continue to closely monitor. Reevaluation #2: Pt reporting continued pain, overall improvement of nausea. Reporting pain mostly in her abdomen, chest pain has improved. Abdomen still remains soft with no specific point tenderness to palpation. Given ongoing abdominal pain, will obtain CT abd/pelvis to r/o any abnormalities. Time: 12:40 Reevaluation #3: CT scan finally returns, revealed apparent bowel wall thickening of the ascending colon, transverse colon, and parts of the descending colon versus sequela of lack of distention. Colitis could be present. The urinary bladder also appears to be slightly thickened, there is a more focal wall thickening measuring 1.5 cm in the anterior bladder wall a mass lesion could be present. Discussed findings with my attending physician, Dr. Barlow, who agrees that this is not a colitis like presentation and is more consisent with cannabis hyperemesis. She has no urinary symptoms > will await urine culture if + for UTI. Discussed this with patient, she is feeling much better and is eager for discharge. Given strict return precautions. Pt stable for d/c. Time: 16:09 Medications Administered Discontinued Medications Generic Name Dose Route Start Last Admin Trade Name Freq PRN Reason Stop Dose Admin Diphenhydramine HCl 50 mg 05/08/24 09:01 05/08/24 09:19 Diphenhydramine Hcl 50 Mg/Ml Vial IVPUSH 10/01/24 09:02 50 mg ONCE ONE Administration Droperidol 1.25 mg 05/08/24 08:55 05/08/24 09:07 Droperidol 5 Mg/2 Ml Vial IVPUSH 05/08/24 08:56 1.25 mg ONCE ONE Administration Sodium Chloride 1,000 mls @ 999 mls/hr 05/08/24 08:39 05/08/24 10:33 Ns IV 05/08/24 09:39 Infused .Q1H1M ONE Infusion Sodium Chloride 1,000 mls @ 999 mls/hr 05/08/24 12:26 05/08/24 14:33 Ns IV 05/08/24 13:26 Infused .Q1H1M ONE Infusion Iohexol 85 ml 05/08/24 13:39 05/08/24 13:39 Iohexol 350 Mg/Ml 75 Ml Infus..Btl IV 05/08/24 13:40 85 ml ONCE ONE Administration Morphine Sulfate 4 mg 05/08/24 08:38 05/08/24 09:00 Morphine Sulfate 4 Mg/Ml Cartridge IVPUSH 05/08/24 08:39 4 mg ONCE ONE Administration Protocol Morphine Sulfate 4 mg 05/08/24 12:25 05/08/24 12:42 Morphine Sulfate 4 Mg/Ml Cartridge IVPUSH 05/08/24 12:26 4 mg ONCE ONE Administration Protocol Ondansetron HCl 4 mg 05/08/24 08:38 05/08/24 09:05 Ondansetron Hcl 4 Mg/2 Ml Vial IVPUSH 05/08/24 08:39 Not Given ONCE ONE Medical Decision Making Medical Decision Making MDM Narrative: 43 y/o F, with a hx of cyclical vomiting syndrome, who presents to the ER with complaints of chest pain x 4 days and vomiting since this morning. On arrival, pt actively wretching and vomiting. Abdomen soft, nontender. She is speaking in full sentences. Chest pain has been constant for 4 days, without any other symptoms, unlikely ACS. DDX including cyclical vomiting, ACS, PE unlikely given presentation and risk factors, aspiration pneumonia, pneumonia, viral illness, URI, costochondritis, chest wall strain. Pt was seen and evaluated by my attending physician, Dr. Barlow. Given pt has had hx of similar presentation of cyclical vomiting syndrome in the past, will treat with IV hydration, and antiemetics. Plan: Labs, EKG, CXR, antiemetics Differential Diagnosis Differential Diagnoses: The differential diagnosis associated with the presentation includes see above Admission/Observation Consideration of admission/observation: Escalation of care including admission/observation considered Lab Data MDM Lab Attestation statement: I reviewed the patient's lab results. Slight leukocytosis at 13.5, H&H stable, CHEM WNL. 05/08/24 09:17 05/08/24 09:17 Labs: Lab Results 05/08/24 Range/Units 09:17 WBC 13.5 H (4.8-10.8) X10*3/uL RBC 5.36 (4.20-5.50) X10*6/uL Hgb 15.5 (12.0-16.0) g/dl Hct 45.3 (37.0-47.0) % MCV 84.5 (80.0-98.0) fL MCH 28.9 (27.0-33.0) pg MCHC 34.2 (31.0-35.0) g/dl RDW 14.3 (11.0-16.0) % Plt Count 297 (160-400) X10*3/uL MPV 9.6 (9.4-12.3) fL Immature Gran % (Auto) 0.4 (0.0-0.4) % Neut % (Auto) 78.6 H (45-73) % Lymph % (Auto) 16.0 L (20-40) % [place] % (Auto) 3.3 (2-11) % Eos % (Auto) 1.0 (0-4) % Baso % (Auto) 0.7 (0-2) % Lymph # (Auto) 2.2 (1.2-4.9) X10*3/uL [place] # (Auto) 0.5 (0.1-1.2) X10*3/uL Eos # (Auto) 0.1 (0.0-0.4) X10*3/uL Baso # (Auto) 0.1 (0.0-0.2) X10*3/uL Abs Immat Gran (auto) 0.06 H (0.00-0.03) X10*3/uL Absolute Neuts (auto) 10.6 H (2.0-8.3) x10*3/uL Absolute Nucleated RBC 0.000 (0.0-0.012) X10*3/uL Nucleated RBC % (auto) 0.0 (0.0-0.2) /100WBC Sodium 142 (135-145) mmol/L Potassium 3.6 (3.3-5.1) mmol/L Chloride 103 (96-108) mmol/L Carbon Dioxide 24 (22-29) mmol/L Anion Gap 19 (12-20) BUN 11 (9-16) mg/dL Creatinine 0.93 (0.5-1.4) mg/dL Estim Creat Clear Calc 67.5 Estimated GFR > 60 Random Glucose 163 H (60-115) mg/dL Calcium 10.6 H (8.4-10.2) mg/dL Magnesium 2.0 (1.6-2.6) mg/dL Total Bilirubin 0.3 (0.0-1.0) mg/dL Direct Bilirubin 0.1 (0.0-0.5) mg/dL AST 14 (5-31) U/L ALT 18 (0-31) U/L Alkaline Phosphatase 110 (39-117) U/L Troponin I High Sens < 2.7 (<3.5-17.0) ng/L Total Protein 7.8 (6.5-8.0) g/dL Albumin 4.6 (3.5-5.0) g/dL Lipase 19 (8-78) U/L Influenza Type A (PCR) NEGATIVE (Negative) Influenza Type B (PCR) NEGATIVE (Negative) RSV RNA Qual (PCR) NEGATIVE (Negative) SARS-CoV-2 RNA (RT-PCR) NEGATIVE (Negative) Independent Interpretation I performed an independent interpretation of an: EKG Interpretation: NSR at a ventricular rate of 81bpm, no ST elevation or depression. slight prolonged QT at 414, QTc 480. Radiology Impression Discussion of test interpretation with radiology: I have reviewed the radiologist's reading. Radiologist Impression: EXAMINATION: XR CHEST CLINICAL INFORMATION: Altered mental status. Chest pain. Vomiting since this morning. COMPARISON: None available. TECHNIQUE: 2 views of the chest were obtained. FINDINGS: No significant abnormality is noted involving the heart, lungs, mediastinum, bony thorax or soft tissues. Status post cholecystectomy. XR/XR chest 2V IMPRESSION: Unremarkable examination. Electronically signed by: Jarett Mills MD 05/08/2024 11:11 AM EDT RP Dictated By: Jarett Mills CT/CT abdomen pelvis w IV con IMPRESSION: Apparent bowel wall thickening of the ascending colon, transverse colon, and possibly part of the descending colon versus sequela of lack of distention. Colitis could be present. Clinically correlate. Urinary bladder wall is slightly thickened. There is a more focal wall thickening measuring 1.5 cm in the anterior bladder wall. A mass lesion could be present. Recommend urinalysis, urology consultation, consideration for cystoscopy. Fleischner guidelines were followed. Electronically signed by: Seferino Hendrix MD 05/08/2024 03:43 PM EDT RP Dictated By: Seferino Hendrix MD Discharge Plan Discharge Clinical Impression: Nausea & vomiting Patient Disposition: Home, Self-Care Instructions: Acute Nausea and Vomiting (ED) Additional Instructions: You were seen in the emergency department due to chest pain and abdominal pain. Your workup today was reassuring. Please stick to a bland diet, avoid spicy or fried foods. Avoid dairy products. Take prescribed Zofran at only as needed for nausea or vomiting. You need to follow-up with your primary care physician. If any new or worsening symptoms occur including but not limited to worsening pain, inability to eat or drink secondary to nausea and vomiting, chest pain, shortness breath, please return or seek emergent care for re-evaluation Prescriptions: New ondansetron 4 mg tablet,disintegrating 4 mg PO Q6H PRN (Reason: nausea and vomiting) Qty: 10 0RF No Action aripiprazole 10 mg tablet 1 tab PO DAILY lamotrigine 100 mg tablet 1 tab PO TID lorazepam 1 mg tablet 0.5 tab PO BID melatonin 5 mg tablet 1 tab PO BEDTIME PRN (Reason: insomnia) quetiapine 50 mg tablet 1 tab PO BEDTIME sucralfate 100 mg/mL suspension 10 ml PO BID zolpidem 5 mg tablet 1 tab PO BEDTIME PRN (Reason: Sleep) ondansetron HCl [Zofran] 4 mg tablet 4 mg PO Q6H PRN (Reason: nausea and vomiting) Qty: 10 0RF acetaminophen [Tylenol 8 Hour] 650 mg tablet extended release 650 mg PO Q8H PRN (Reason: pain) Qty: 10 0RF nitrofurantoin monohyd/m-cryst [Macrobid] 100 mg capsule 100 mg PO Q12H 7 Days Qty: 14 0RF Rx Instructions: must administer with a meal/food dicyclomine 10 mg capsule 10 mg PO QID 7 Days Qty: 28 0RF promethazine 25 mg tablet 25 mg PO TID PRN (Reason: nausea and vomiting) Qty: 20 0RF sulfamethoxazole-trimethoprim [Bactrim DS] 800-160 mg tablet 1 tab PO BID Qty: 14 0RF phenazopyridine 100 mg tablet 100 mg PO TID Qty: 6 0RF ibuprofen 600 mg tablet 600 mg PO TID PRN (Reason: pain) Qty: 20 0RF sucralfate 1 gram tablet 1 g PO BID PRN (Reason: Upper abdominal pain) Qty: 40 0RF ondansetron 4 mg tablet,disintegrating 4 mg PO Q6H PRN (Reason: nausea and vomiting) Qty: 10 0RF dicyclomine 10 mg capsule 10 mg PO TID PRN (Reason: abdominal distention) Qty: 20 0RF cefuroxime axetil 250 mg tablet 250 mg PO BID Qty: 10 0RF ondansetron 4 mg tablet,disintegrating 4 mg PO Q8H PRN (Reason: nausea and vomiting) Qty: 7 0RF simethicone [Gas Relief (simethicone)] 180 mg capsule 180 mg PO BID PRN (Reason: abdominal distention) Qty: 14 0RF polyethylene glycol 3350 [Miralax] 17 gram powder in packet 17 g PO DAILY Qty: 14 0RF ondansetron 4 mg tablet,disintegrating 4 mg PO Q6-8H PRN (Reason: nausea and vomiting) Qty: 14 0RF Interventions: ED Discharge Assessment Last Done: 05/08/24 18:04 Discharge Date/Time: 05/08/24 18:05 Print Language: Finnish
[2024-05-08] MEDS: Morphine Sulfate 4 MG/ML CARTRIDGE IVPUSH ×2 (09:00→12:42)
[2024-05-08] MEDS: droPERidol 5 MG/2 ML VIAL 1.25 MG IVPUSH (09:07)
[2024-05-08] MEDS: 0.9 % Sodium Chloride 1,000 ML 999 ML IV ×2 (09:18→13:14)
[2024-05-08] MEDS: diphenhydrAMINE HCL 50 MG/ML VIAL IVPUSH (09:19)
[2024-05-08 09:23] LABS: MANUAL DIFF FLAG NO
[2024-05-08 09:27] LABS: Basophils Absolute Auto 0.1 X10*3/uL (0.0-0.2); Basophils Percent Auto 0.7 % (0-2); Eosinophils Absolute Auto 0.1 X10*3/uL (0.0-0.4); Hematocrit 45.3 % (37.0-47.0); Hemoglobin 15.5 g/dl (12.0-16.0); Imm Gran Abs Auto 0.06 X10*3/uL (0.00-0.03); Imm Gran Pct Auto 0.4 % (0.0-0.4); Lymphocytes Absolute Auto 2.2 X10*3/uL (1.2-4.9); Mean Corpuscular HGB Conc 34.2 g/dl (31.0-35.0); Mean Corpuscular Hemoglobin 28.9 pg (27.0-33.0); Mean Corpuscular Volume 84.5 fL (80.0-98.0); Mean Platelet Volume 9.6 fL (9.4-12.3); Monocytes Absolute Auto 0.5 X10*3/uL (0.1-1.2); Monocytes Percent Auto 3.3 % (2-11); Neutrophils Absolute Auto 10.6 x10*3/uL (2.0-8.3); Neutrophils Percent Auto 78.6 % (45-73); Platelet Count 297 X10*3/uL (160-400); Red Blood Count 5.36 X10*6/uL (4.20-5.50); Red Cell Distribution Width 14.3 % (11.0-16.0); White Blood Count 13.5 X10*3/uL (4.8-10.8)
[2024-05-08 09:43] LABS: Anion Gap 19 (12-20); Blood Urea Nitrogen 11 mg/dL (9-16); Calcium 10.6 mg/dL (8.4-10.2); Carbon Dioxide 24 mmol/L (22-29); Chloride 103 mmol/L (96-108); Creatinine Clr Calc Pharmacy 67.5; Estimated Glomerular Filt Rate > 60; Glucose Random 163 mg/dL (60-115); Potassium 3.6 mmol/L (3.3-5.1); Sodium 142 mmol/L (135-145)
[2024-05-08 09:44] LABS: Lipase 19 U/L (8-78)
[2024-05-08 09:53] LABS: Troponin-I High Sensitivity < 2.7 ng/L (<3.5-17.0)
[2024-05-08 10:16] LABS: Influenza A PCR NEGATIVE (Negative); Influenza B PCR NEGATIVE (Negative); Resp Syncy Virus RNA Qual PCR NEGATIVE (Negative); SARS COV2 PCR INHOUSE NEGATIVE (Negative)
--- NOTE | 2024-05-08 10:22 | PC.NURSE ---
Pt comes to ED today with c/o L sided chest pain with n/v/d. Pt presents with significant agitation, restlessness, and anxiety. Unable to obtain a full set of VS as Pt was unable to tolerate BP cuff and unable to sit still for assessment. Initial BP in triage stable and provider aware. Will attempt to obtain when Pt can better tolerate. 20G to RAC placed and Pt medicated per OCT. Pt has been resting comfortably with eyes close since medications administered.
[2024-05-08 10:31] LABS: Alanine Aminotransferase 18 U/L (0-31); Albumin Level 4.6 g/dL (3.5-5.0); Alkaline Phosphatase 110 U/L (39-117); Aspartate Amino Transferase 14 U/L (5-31); Bilirubin Direct 0.1 mg/dL (0.0-0.5); Bilirubin Total 0.3 mg/dL (0.0-1.0); Total Protein 7.8 g/dL (6.5-8.0)
[2024-05-08] MEDS: iohexoL 350 MG/ML 75 ML INFUS..BTL 85 ML IV (13:39)
== END 2024-05-08 18:05 | disposition home or self-care (01) ==
PROVIDERS: Physician Assistant Medical; Emergency Provider Emergency Medicine
DX: R11.2 Nausea with vomiting, unspecified (principal); Z03.818 Encounter for observation for suspected exposure to other biological agents ruled out; R07.9 Chest pain, unspecified; F12.90 Cannabis use, unspecified, uncomplicated; F17.210 Nicotine dependence, cigarettes, uncomplicated; Z79.899 Other long term (current) drug therapy
CPT/HCPCS: 0241U; 36415; 71046; 74177; 80048; 80076; 83690; 83735; 84484; 85025; 93005; 96361; 96374; 96375; 96376; 99285; J1200; J1790; J2270; Q9967

== ENCOUNTER 2024-05-09 05:31 | Emergency (ER) | payer OTHER, SELFPAY ==
--- NOTE | ~2024-05-09 | XR_ITS ---
EXAMINATION: XR CHEST CLINICAL INFORMATION: Cough COMPARISON: 05/08/2024 TECHNIQUE: Frontal view of the chest was obtained. FINDINGS: Lungs clear. Heart and pulmonary vessels normal. Slight elevation right hemidiaphragm again seen and accentuated due to positional change. XR/XR chest 1V IMPRESSION: No active disease. Electronically signed by: Chris Baer MD 05/09/2024 08:52 AM EDT
[2024-05-09 05:33] VITALS: BP 108/88; PULSE 108; RESP 18; TEMP 36.9; O2SAT 108; BMI 30.4
--- NOTE | 2024-05-09 06:35 | ED_ITS ---
HPI - Nausea/Vomiting/Diarrhea General Chief complaint: Nausea/Vomiting/Diarrhea Stated complaint: n/v Time Seen by Provider: 05/09/24 06:28 Source: patient, RN notes reviewed and old records reviewed Mode of arrival: ambulatory Limitations: no limitations History of Present Illness ED Provider: Shawanda Haley PA-C HPI Narrative: 43 yo female with history of cyclical vomiting syndrome, bipolar disorder, anxiety, irritable bowel syndrome who was seen here yesterday for N/V presents back to the ER for evaluation of recurrent vomiting along with headaches and chest wall pain with vomiting. She states she has a burning sensation in her upper abdomen, so she keeps drinking water and then vomiting at back up. She reports her vomit is now pink tinged at times. No maddy hematemesis. She reports throbbing headache and pain in her chest whenever she vomits. She denies any fever or chills. No urinary symptoms. No diarrhea. She reports history of cyclical vomiting but these symptoms are worse. MD elicited complaint: nausea, vomiting and other (headache, chest pain) Pertinent past history: cyclical vomiting Onset (ago): day(s) Description of vomiting: watery Associated nausea: Yes Associated abdominal pain: Yes Location of pain: diffuse Radiation: diffuse Exacerbating factors: eating Relieving factors: medication Associated symptoms: chest pain, headaches, nausea/vomiting, anxiety and other (tingling in her hands) Related Data Home Medications ?Medication ?Instructions ?Recorded ?Confirmed aripiprazole 10 mg tablet 1 tab PO DAILY 01/05/21 01/05/21 lamotrigine 100 mg tablet 1 tab PO TID 01/05/21 01/05/21 lorazepam 1 mg tablet 0.5 tab PO BID 01/05/21 01/05/21 melatonin 5 mg tablet 1 tab PO BEDTIME PRN insomnia 01/05/21 01/05/21 quetiapine 50 mg tablet 1 tab PO BEDTIME 01/05/21 01/05/21 sucralfate 100 mg/mL oral 10 ml PO BID 01/05/21 01/05/21 suspension zolpidem 5 mg tablet 1 tab PO BEDTIME PRN Sleep 01/05/21 01/05/21 Previous Rx's ?Medication ?Instructions ?Recorded acetaminophen 650 mg 650 mg PO Q8H PRN pain #10 tabs 01/07/21 tablet,extended release (Tylenol 8 Hour) ondansetron HCl 4 mg tablet 4 mg PO Q6H PRN nausea and 01/07/21 (Zofran) vomiting #10 tabs promethazine 25 mg tablet 25 mg PO TID PRN nausea and 01/06/22 vomiting #20 tabs dicyclomine 10 mg capsule 10 mg PO QID 7 days #28 caps 06/14/22 nitrofurantoin 100 mg PO Q12H 7 days #14 caps 06/14/22 monohydrate/macrocrystals 100 mg capsule (Macrobid) ibuprofen 600 mg tablet 600 mg PO TID PRN pain #20 tabs 06/16/22 phenazopyridine 100 mg tablet 100 mg PO TID 6 doses #6 tabs 06/16/22 sulfamethoxazole 800 1 tab PO BID #14 tabs 06/16/22 mg-trimethoprim 160 mg tablet (Bactrim DS) cefuroxime axetil 250 mg tablet 250 mg PO BID #10 tabs 12/12/22 dicyclomine 10 mg capsule 10 mg PO TID PRN abdominal 12/12/22 distention #20 caps ondansetron 4 mg disintegrating 4 mg PO Q8H PRN nausea and 12/12/22 tablet vomiting #7 tabs polyethylene glycol 3350 17 gram 17 g PO DAILY #14 ea 12/12/22 oral powder packet (Miralax) simethicone 180 mg capsule (Gas 180 mg PO BID PRN abdominal 12/12/22 Relief (simethicone)) distention #14 caps ondansetron 4 mg disintegrating 4 mg PO Q6-8H PRN nausea and 10/03/23 tablet vomiting #14 tabs ondansetron 4 mg disintegrating 4 mg PO Q6H PRN nausea and 12/01/23 tablet vomiting #10 tabs sucralfate 1 gram tablet 1 g PO BID PRN Upper abdominal 12/01/23 pain #40 tabs ondansetron 4 mg disintegrating 4 mg PO Q6H PRN nausea and 05/08/24 tablet vomiting #10 tabs Allergies Allergy/AdvReac Type Severity Reaction Status Date / Time Penicillins Allergy Intermediate HIVES Verified 05/09/24 05:37 ciprofloxacin Allergy Unresponsiv Verified 05/09/24 05:37 e Amoxicillin Allergy Intermediate Hives Uncoded 10/02/24 05:37 Review of Systems 2 Review of Systems: Yes all other systems are reviewed and are negative Gastrointestinal: Gastrointestinal: Reports nausea PMFSH Past Medical History Medical History Endometriosis Pulmonary embolism Anxiety Bipolar 1 disorder Surgical History Hx of appendectomy History of cholecystectomy H/O: hysterectomy Social History Social History Alcohol intake: never Patient Tobacco Use Status: Current everyday Tobacco user Tobacco use type: Cigarette Cigarette Packs Per Day: 0.34 Cigarettes Per Day: 6.8 Years Smoked: 32 Second Hand Smoke Exposure: No Substance Use Type: Marijuana Advance Directives: No Advance Directives Information Provided: No Do you have a plan to hurt others: No Plan Physical Exam 2 Vital Signs: Vital Signs: Last Vital Signs Temp 98.2 F 05/09/24 12:00 Pulse 81 05/09/24 12:00 Resp 16 05/09/24 12:00 BP 127/72 05/09/24 12:00 Pulse Ox 96 05/09/24 12:00 O2 Del Method Room Air 05/09/24 10:00 BMI result Body Mass Index 30.4 Appearance: Alert. Oriented X3. No acute distress. Head: normocephalic, atraumatic. Eyes: Pupils equal, round and reactive to light. ENT: Pharynx normal. No tonsillar swelling or exudate. Hoase voice. Neck: Normal inspection. Neck supple. CVS: Normal heart rate and rhythm. Pulses normal. Respiratory: No respiratory distress. Breath sounds normal. Abdomen: Soft and nontender. +BS x4 Skin: Skin warm and dry. Normal skin color. Normal skin turgor. No rashes. Extremities: No lower extremity edema. No joint swelling. Neuro/psych: Oriented X 3. No motor deficit. No sensory deficit. CN II-XII intact. Normal speech and cognition. Medications Administered Discontinued Medications Generic Name Dose Route Start Last Admin Trade Name Freq PRN Reason Stop Dose Admin Droperidol 1.25 mg 05/09/24 06:31 05/09/24 07:41 Droperidol 5 Mg/2 Ml Vial IVPUSH 05/09/24 06:32 1.25 mg ONCE ONE Administration Sodium Chloride 1,000 mls @ 999 mls/hr 05/09/24 06:45 05/09/24 09:34 Ns IVCONT 05/09/24 07:45 Infused .Q1H1M FAM Infusion Ketorolac Tromethamine 30 mg 05/09/24 06:34 05/09/24 07:41 Ketorolac Tromethamine 30 Mg/Ml Vial IVPUSH 05/09/24 06:35 30 mg ONCE ONE Administration Morphine Sulfate 4 mg 05/09/24 07:32 05/09/24 07:41 Morphine Sulfate 4 Mg/Ml Cartridge IVPUSH 05/09/24 07:33 4 mg ONCE ONE Administration Protocol Ondansetron HCl 4 mg 05/09/24 08:54 05/09/24 09:50 Ondansetron Hcl 4 Mg/2 Ml Vial IVPUSH 05/09/24 08:55 4 mg ONCE ONE Administration Potassium Chloride 60 meq 05/09/24 08:54 05/09/24 09:49 Potassium Chloride Er 20 Meq Tab.Er.Prt PO 05/09/24 08:55 60 meq ONCE ONE Administration Medical Decision Making Medical Decision Making MDM Narrative: 43 yo female with history of cyclical vomiting syndrome, bipolar disorder, anxiety, irritable bowel syndrome who was seen here yesterday for N/V presents back to the ER for evaluation of recurrent vomiting along with headaches and chest wall pain with vomiting. c/o tingling in her hands bilaterally. neurologically intact. CT scan from yesterday showing possible colitis - less likely given no abd pain, no diarrhea. IV established and patient given droperidol, morphine and toradol with improvement in her symptoms. she was able to sleep labs showing improving leukocytosis, hypokalemia w/ k 2.8. 60PO KCL ordered and patient was able to tolerate well. She would not stay for repeat labs. She wanted to leave. She is tolerating p.o. Differential Diagnosis Differential Diagnoses: The differential diagnosis associated with the presentation includes Cyclical vomiting, dehydration, metabolic derangement, LITTLE, pancreatitis, colitis Admission/Observation Consideration of admission/observation: Escalation of care including admission/observation considered Lab Data [facility] Lab Attestation statement: I reviewed the patient's lab results. 05/09/24 08:19 05/09/24 12:46 Labs: Lab Results 05/09/24 05/09/2424 Range/Units 08:19 09:59 12:46 WBC 11.7 H (4.8-10.8) X10*3/uL RBC 4.46 (4.20-5.50) X10*6/uL Hgb 13.0 (12.0-16.0) g/dl Hct 36.7 L (37.0-47.0) % MCV 82.3 (80.0-98.0) fL MCH 29.1 (27.0-33.0) pg MCHC 35.4 H (31.0-35.0) g/dl RDW 14.3 (11.0-16.0) % Plt Count 241 (160-400) X10*3/uL MPV 9.4 (9.4-12.3) fL Immature Gran % (Auto) 0.3 (0.0-0.4) % Neut % (Auto) 80.3 H (45-73) % Lymph % (Auto) 13.7 L (20-40) % [place] % (Auto) 5.4 (2-11) % Eos % (Auto) 0.0 (0-4) % Baso % (Auto) 0.3 (0-2) % Lymph # (Auto) 1.6 (1.2-4.9) X10*3/uL [place] # (Auto) 0.6 (0.1-1.2) X10*3/uL Eos # (Auto) 0.0 (0.0-0.4) X10*3/uL Baso # (Auto) 0.0 (0.0-0.2) X10*3/uL Abs Immat Gran (auto) 0.04 H (0.00-0.03) X10*3/uL Absolute Neuts (auto) 9.4 H (2.0-8.3) x10*3/uL Absolute Nucleated RBC 0.000 (0.0-0.012) X10*3/uL Nucleated RBC % (auto) 0.0 (0.0-0.2) /100WBC Sodium 140 (135-145) mmol/L Potassium 2.8 L* D 3.7 D (3.3-5.1) mmol/L Chloride 104 (96-108) mmol/L Carbon Dioxide 24 (22-29) mmol/L Anion Gap 15 (12-20) BUN 11 (9-16) mg/dL Creatinine 0.69 (0.5-1.4) mg/dL Estim Creat Clear Calc 91.1 Estimated GFR > 60 Random Glucose 115 (60-115) mg/dL Calcium 8.7 D (8.4-10.2) mg/dL Magnesium 1.8 (1.6-2.6) mg/dL Urine Color Dark Yellow Urine Appearance Cloudy Urine pH 8.0 (5.0-9.0) Ur Specific [place] >= 1.030 H (1.005-1.025) Urine Protein 100 (2+) H (Neg-Trace) mg/dL Urine Glucose (UA) Negative (Negative) mg/dL Urine Ketones 40 (Negative) mg/dL Urine Blood Negative (Negative) Urine Nitrite Negative (Negative) Ur Leukocyte Esterase Trace H (Negative) Urine RBC 0-2 (0-2) /HPF Urine WBC 6-10 H (0-5) /HPF Ur Squamous Epith Cells 11-20 (0-2) /HPF Urine Bacteria 2+ (None Seen) Hyaline Casts 6-10 (0-2) /LPF Urine Opiates Screen POSITIVE H (Not Detect) Ur Buprenorphine Scrn Not Detected (Not Detect) ng/mL Ur Oxycodone Screen Not Detected (Not Detect) ng/mL Urine Methadone Screen Not Detected (Not Detect) ng/mL Urine Fentanyl Screen Not Detected (Not Detect) Ur Barbiturates Screen Not Detected (Not Detect) Ur Phencyclidine Scrn Not Detected (Not Detect) Ur Amphetamines Screen Not Detected (Not Detect) U Benzodiazepines Scrn Not Detected (Not Detect) Urine Cocaine Screen POSITIVE H (Not Detect) U Marijuana (THC) Screen POSITIVE H (Not Detect) External Record Review External record reviewed: Outpatient record, Prior outpatient labs and Prior outpatient radiology Prescription Management I considered prescription management with: Pain Medication and Antibiotic Chronic Conditions Patient?s care impacted by: Other (Cyclical vomiting, bipolar, anxiety, IBS) Social Determinants Patient?s care significantly limited by Social Determinants of Health including: Other Social Determinant of Health Critical Care Time Critical Care Time Critical Care Time: Yes Total Critical Care Time: 35 Attestation: I have personally provided critical care time exclusive of time spent on separately billable procedures. Time includes review of lab data, radiology, prior hospitalizations, bedside re-evaluations after administration of IV narcotics and sedating medications, and monitoring for potential decompensation. Intervention performed as documented. Discharge Plan Discharge Clinical Impression: Cyclic vomiting syndrome Patient Disposition: Home, Self-Care Instructions: Hypokalemia (ED), Acute Nausea and Vomiting (ED) Additional Instructions: Your lab work today showed low potassium. Your given potassium repletion. Stick to a bland diet, takes Zofran as needed for nausea. Follow-up with your doctor. Do not smoke marijuana, this is what is been likely causing your symptoms. If you develop new or worsening symptoms call 911 or come back to the ER for further evaluation. Prescriptions: No Action aripiprazole 10 mg tablet 1 tab PO DAILY lamotrigine 100 mg tablet 1 tab PO TID lorazepam 1 mg tablet 0.5 tab PO BID melatonin 5 mg tablet 1 tab PO BEDTIME PRN (Reason: insomnia) quetiapine 50 mg tablet 1 tab PO BEDTIME sucralfate 100 mg/mL suspension 10 ml PO BID zolpidem 5 mg tablet 1 tab PO BEDTIME PRN (Reason: Sleep) ondansetron HCl [Zofran] 4 mg tablet 4 mg PO Q6H PRN (Reason: nausea and vomiting) Qty: 10 0RF acetaminophen [Tylenol 8 Hour] 650 mg tablet extended release 650 mg PO Q8H PRN (Reason: pain) Qty: 10 0RF nitrofurantoin monohyd/m-cryst [Macrobid] 100 mg capsule 100 mg PO Q12H 7 Days Qty: 14 0RF Rx Instructions: must administer with a meal/food dicyclomine 10 mg capsule 10 mg PO QID 7 Days Qty: 28 0RF promethazine 25 mg tablet 25 mg PO TID PRN (Reason: nausea and vomiting) Qty: 20 0RF sulfamethoxazole-trimethoprim [Bactrim DS] 800-160 mg tablet 1 tab PO BID Qty: 14 0RF phenazopyridine 100 mg tablet 100 mg PO TID Qty: 6 0RF ibuprofen 600 mg tablet 600 mg PO TID PRN (Reason: pain) Qty: 20 0RF sucralfate 1 gram tablet 1 g PO BID PRN (Reason: Upper abdominal pain) Qty: 40 0RF ondansetron 4 mg tablet,disintegrating 4 mg PO Q6H PRN (Reason: nausea and vomiting) Qty: 10 0RF dicyclomine 10 mg capsule 10 mg PO TID PRN (Reason: abdominal distention) Qty: 20 0RF cefuroxime axetil 250 mg tablet 250 mg PO BID Qty: 10 0RF ondansetron 4 mg tablet,disintegrating 4 mg PO Q8H PRN (Reason: nausea and vomiting) Qty: 7 0RF simethicone [Gas Relief (simethicone)] 180 mg capsule 180 mg PO BID PRN (Reason: abdominal distention) Qty: 14 0RF polyethylene glycol 3350 [Miralax] 17 gram powder in packet 17 g PO DAILY Qty: 14 0RF ondansetron 4 mg tablet,disintegrating 4 mg PO Q6-8H PRN (Reason: nausea and vomiting) Qty: 14 0RF ondansetron 4 mg tablet,disintegrating 4 mg PO Q6H PRN (Reason: nausea and vomiting) Qty: 10 0RF Stand Alone Forms: Against Medical Advice Discharge Date/Time: 05/09/24 12:53 Print Language: [place]
[2024-05-09] MEDS: droPERidol 5 MG/2 ML VIAL 1.25 MG IVPUSH (07:41)
[2024-05-09] MEDS: Ketorolac Tromethamine 30 MG/ML VIAL IVPUSH (07:41)
[2024-05-09] MEDS: Morphine Sulfate 4 MG/ML CARTRIDGE IVPUSH (07:41)
[2024-05-09] MEDS: 0.9 % Sodium Chloride 1,000 ML 999 ML IVCONT (07:42)
[2024-05-09 08:25] LABS: MANUAL DIFF FLAG NO
[2024-05-09 08:26] LABS: Basophils Percent Auto 0.3 % (0-2); Hematocrit 36.7 % (37.0-47.0); Imm Gran Abs Auto 0.04 X10*3/uL (0.00-0.03); Imm Gran Pct Auto 0.3 % (0.0-0.4); Lymphocytes Absolute Auto 1.6 X10*3/uL (1.2-4.9); Lymphocytes Percent Auto 13.7 % (20-40); Mean Corpuscular HGB Conc 35.4 g/dl (31.0-35.0); Mean Corpuscular Hemoglobin 29.1 pg (27.0-33.0); Mean Corpuscular Volume 82.3 fL (80.0-98.0); Mean Platelet Volume 9.4 fL (9.4-12.3); Monocytes Absolute Auto 0.6 X10*3/uL (0.1-1.2); Monocytes Percent Auto 5.4 % (2-11); Neutrophils Absolute Auto 9.4 x10*3/uL (2.0-8.3); Neutrophils Percent Auto 80.3 % (45-73); Platelet Count 241 X10*3/uL (160-400); Red Blood Count 4.46 X10*6/uL (4.20-5.50); Red Cell Distribution Width 14.3 % (11.0-16.0); White Blood Count 11.7 X10*3/uL (4.8-10.8)
[2024-05-09 08:41] LABS: Anion Gap 15 (12-20); Blood Urea Nitrogen 11 mg/dL (9-16); Calcium 8.7 mg/dL (8.4-10.2); Carbon Dioxide 24 mmol/L (22-29); Chloride 104 mmol/L (96-108); Creatinine Clr Calc Pharmacy 91.1; Estimated Glomerular Filt Rate > 60; Glucose Random 115 mg/dL (60-115); Magnesium 1.8 mg/dL (1.6-2.6); Potassium 2.8 mmol/L (3.3-5.1); Sodium 140 mmol/L (135-145)
[2024-05-09] MEDS: Potassium Chloride ER 20 MEQ TAB.ER.PRT 60 MEQ PO (09:49)
[2024-05-09] MEDS: ondansetron HCL 4 MG/2 ML VIAL IVPUSH (09:50)
[2024-05-09 10:00] VITALS: BP 107/67; PULSE 93; RESP 13; TEMP 37; O2SAT 97
[2024-05-09 10:08] LABS: Appearance Urine Cloudy; Color Urine Dark Yellow; Glucose Urine UA Negative (Negative); Leukocyte Esterase Urine Trace (Negative); Nitrite Urine Negative (Negative); Specific Gravity - Urine >= 1.030 (1.005-1.025); UMIC TRIGGER UACC YES; Urine Blood Negative (Negative); Urine Ketones 40 mg/dL (Negative); Urine Protein 100 (2+) mg/dL (Neg-Trace)
[2024-05-09 10:17] LABS: Bacteria Urine 2+ (None Seen); RBC Urine 0-2 /HPF (0-2); UACC Culture Trigger YES
[2024-05-09 10:21] LABS: Amphetamine Screen Urine Not Detected (Not Detect); Barbiturates, Urine Not Detected (Not Detect); Benzodiazepines Screen Urine Not Detected (Not Detect); Buprenorphine Scr Not Detected (Not Detect); Cannabinoid Screen Urine POSITIVE (Not Detect); Cocaine Screen Urine POSITIVE (Not Detect); Fentanyl, urine Not Detected (Not Detect); Methadone Screen, Urine Not Detected (Not Detect); Opiate Screen Urine POSITIVE (Not Detect); Oxycodone Screen Urine Not Detected (Not Detect); Phencyclidine Screen Urine Not Detected (Not Detect)
[2024-05-09 12:00] VITALS: BP 127/72; PULSE 81; RESP 16; TEMP 36.8; O2SAT 96
--- NOTE | 2024-05-09 12:53 | PC.NURSE ---
patient would not wait for potassium result, signed ama paperwork, iv removed. patient ambulated off of unit with steady gait
[2024-05-09 13:14] LABS: Potassium 3.7 mmol/L (3.3-5.1)
== END 2024-05-09 12:53 | disposition home or self-care (01) ==
PROVIDERS: Physician Assistant; Emergency Provider Student in an Organized Health Care Education/Training Program; PCP Internal Medicine
DX: R11.15 Cyclical vomiting syndrome unrelated to migraine (principal); F12.90 Cannabis use, unspecified, uncomplicated; R51.9 Headache, unspecified; F17.210 Nicotine dependence, cigarettes, uncomplicated; Z79.899 Other long term (current) drug therapy; Z53.29 Procedure and treatment not carried out because of patient's decision for other reasons
CPT/HCPCS: 36415; 71045; 80048; 80307; 81001; 83735; 84132; 85025; 87086; 96361; 96374; 96375; 99284; J1790; J1885; J2270; J2405

== ENCOUNTER 2024-05-13 11:31 | Emergency (ER) | payer OTHER, SELFPAY ==
--- NOTE | ~2024-05-13 | XR_ITS ---
EXAMINATION: XR CHEST CLINICAL INFORMATION: Chest pain COMPARISON: Chest radiograph dated 05/09/2024 TECHNIQUE: 2 views of the chest were obtained. FINDINGS: No significant abnormality is noted involving the heart, lungs, mediastinum, bony thorax or soft tissues. XR/XR chest 2V IMPRESSION: Unremarkable examination. Electronically signed by: Cathy Oconnell MD 05/13/2024 12:33 PM EDT RP
[2024-05-13 11:35] VITALS: BP 163/110; PULSE 73; RESP 24; TEMP 36.4; O2SAT 99; BMI 32.2
--- NOTE | 2024-05-13 11:38 | ED_ITS ---
HPI - General Adult General Chief complaint: General Medical Stated complaint: Abd pain, headache Time Seen by Provider: 05/13/24 12:53 Source: patient and family Mode of arrival: ambulatory Limitations: no limitations History of Present Illness ED Provider: DR. Terrazas HPI narrative: 43-year-old female with history cyclic vomiting syndrome, bipolar disorder, anxiety, IBS, return to the emergency department for nausea vomiting and left- sided chest pain patient was seen multiple times in the ED for similar symptoms, this is her 3rd visit this week patient came in for nausea and vomiting, left- sided chest pain, severely anxious, had a full workup for her symptoms including chest x-ray, abdomen and pelvis CT which is unremarkable usually. at the bedside states that the patient with history of anxiety that usually trigger her symptoms of the pain and nausea and vomiting. had normal bowel movement yesterday,passing flatus, no dysuria, no frequency urination, no hematuria. No shortness of breath, no recent travel, no recent prolonged immobilization, no lower extremity swelling or tenderness. Related Data Home Medications ?Medication ?Instructions ?Recorded ?Confirmed aripiprazole 10 mg tablet 1 tab PO DAILY 01/05/21 01/05/21 lamotrigine 100 mg tablet 1 tab PO TID 01/05/21 01/05/21 lorazepam 1 mg tablet 0.5 tab PO BID 01/05/21 01/05/21 melatonin 5 mg tablet 1 tab PO BEDTIME PRN insomnia 01/05/21 01/05/21 quetiapine 50 mg tablet 1 tab PO BEDTIME 01/05/21 01/05/21 sucralfate 100 mg/mL oral 10 ml PO BID 01/05/21 01/05/21 suspension zolpidem 5 mg tablet 1 tab PO BEDTIME PRN Sleep 01/05/21 01/05/21 Previous Rx's ?Medication ?Instructions ?Recorded acetaminophen 650 mg 650 mg PO Q8H PRN pain #10 tabs 01/07/21 tablet,extended release (Tylenol 8 Hour) ondansetron HCl 4 mg tablet 4 mg PO Q6H PRN nausea and 01/07/21 (Zofran) vomiting #10 tabs promethazine 25 mg tablet 25 mg PO TID PRN nausea and 01/06/22 vomiting #20 tabs dicyclomine 10 mg capsule 10 mg PO QID 7 days #28 caps 06/14/22 nitrofurantoin 100 mg PO Q12H 7 days #14 caps 06/14/22 monohydrate/macrocrystals 100 mg capsule (Macrobid) ibuprofen 600 mg tablet 600 mg PO TID PRN pain #20 tabs 06/16/22 phenazopyridine 100 mg tablet 100 mg PO TID 6 doses #6 tabs 06/16/22 sulfamethoxazole 800 1 tab PO BID #14 tabs 06/16/22 mg-trimethoprim 160 mg tablet (Bactrim DS) cefuroxime axetil 250 mg tablet 250 mg PO BID #10 tabs 12/12/22 dicyclomine 10 mg capsule 10 mg PO TID PRN abdominal 12/12/22 distention #20 caps ondansetron 4 mg disintegrating 4 mg PO Q8H PRN nausea and 12/12/22 tablet vomiting #7 tabs polyethylene glycol 3350 17 gram 17 g PO DAILY #14 ea 12/12/22 oral powder packet (Miralax) simethicone 180 mg capsule (Gas 180 mg PO BID PRN abdominal 12/12/22 Relief (simethicone)) distention #14 caps ondansetron 4 mg disintegrating 4 mg PO Q6-8H PRN nausea and 10/03/23 tablet vomiting #14 tabs ondansetron 4 mg disintegrating 4 mg PO Q6H PRN nausea and 12/01/23 tablet vomiting #10 tabs sucralfate 1 gram tablet 1 g PO BID PRN Upper abdominal 12/01/23 pain #40 tabs ondansetron 4 mg disintegrating 4 mg PO Q6H PRN nausea and 05/08/24 tablet vomiting #10 tabs ondansetron 4 mg disintegrating 4 mg PO BEDTIME PRN nausea and 05/13/24 tablet vomiting #7 tabs Allergies Allergy/AdvReac Type Severity Reaction Status Date / Time Penicillins Allergy Intermediate HIVES Verified 05/13/24 11:37 adhesive tape Allergy Rash Verified 05/13/24 11:38 ciprofloxacin Allergy Unresponsiv Verified 05/13/24 11:37 e Amoxicillin Allergy Intermediate Hives Uncoded 05/09/24 05:37 Review of Systems 2 Review of Systems: All other systems are reviewed and are negative Constitutional: Reports as per HPI and Reports no additional constitutional complaints Eyes: Reports as per HPI and Reports no additional eye complaints Reports system reviewed and no additional complaints, except as documented Cardiovascular: Reports as per HPI and Reports no additional cardiovascular complaints Respiratory: Reports as per HPI and Reports no additional respiratory complaints Gastrointestinal: Reports as per HPI and Reports no additional gastrointestinal complaints Genitourinary: Reports no additional female genitourinary complaints Musculoskeletal: Reports no additional musculoskeletal complaints Skin/Breast: Reports system reviewed and no additional complaints, except as docu Psychiatric: Reports no additional psychiatric complaints Endocrine: Reports no additional endocrine complaints Hematologic/Lymphatic: Reports no additional hematologic/lymphatic complaints Allergic/Immunologic: Reports no additional allergic/immunologic complaints Reports system reviewed and no additional complaints, except as documented and Reports Abnormal speech present FORMERLY [facility] Past Medical History Medical History Endometriosis Pulmonary embolism Anxiety Bipolar 1 disorder Surgical History Hx of appendectomy History of cholecystectomy H/O: hysterectomy Social History Social History Alcohol intake: never Patient Tobacco Use Status: Current everyday Tobacco user Tobacco use type: Cigarette Cigarette Packs Per Day: 0.34 Cigarettes Per Day: 6.8 Years Smoked: 32 Smoked in Last 30 Days: No Second Hand Smoke Exposure: No Use of substances other than those prescribed or required for medical reasons: Yes Substance Use Type: Marijuana Substance Use Frequency: Chronic Longstanding Advance Directives: No Advance Directives Information Provided: No Physical Exam ED Vital Signs: Vital Signs - 24 hr 05/13/24 11:35 05/13/24 14:39 05/13/24 14:41 Temperature 97.5 F 97.9 F Pulse Rate 73 75 Respiratory Rate 24 H 25 H 20 Blood Pressure 163/110 H 170/102 H Pulse Oximetry 99 98 Oxygen Delivery Method Room Air Room Air BMI result Body Mass Index 32.2 Vital signs have been reviewed and appear to be correct. Blood pressure elevated. Heart rate normal. Respiratory Rate is elevated. Temperature normal. Oxygen saturation normal. Appearance: anxious, Alert. Oriented X3. No acute distress. Head: Normal external exam. Normocephalic. Atraumatic. No Argueta signs noted. No raccoon eyes noted Eyes: PERRLA. EOMI. Conjunctiva and sclera normal. Eyelids normal. ENT: TM's Normal. Pharynx normal. Uvula midline. Moist mucous membranes. No trismus noted. No drooling noted. No muffled voice noted. Neck: Normal inspection. Neck supple. FROM. No adenopathy. Thyroid Normal. No meningeal signs. No neck mass noted. CVS: Normal heart rate and rhythm. Heart sound normal. No murmurs noted. Pulses normal throughout. Respiratory: No respiratory distress. Painless inspiration. Breath sounds normal. No wheezes/rales/rhonchi noted. Chest nontender. No accessory muscle usage noted or decreased air movement noted. Abdomen: Soft and nontender. Bowel sounds normal in all 4 quadrants. No distention noted. No organomegaly noted. No visible injury noted. Back: No CVA tenderness. Full range of motion noted. Skin: Skin warm and dry. Normal skin color. Normal skin turgor. No rashes/lesions/lacerations noted. Extremities: No lower extremity edema. Extremities exhibit normal range of motion. Extremities nontender. Neuro: Oriented X 3. Cranial nerve exam: II-XII are grossly intact No motor deficit. No sensory deficit. Reflexes normal. Course Course Course Narrative: RME performed by Blanche Lozano PA-C. Patient is a 43 year old assigned female at presenting to the emergency department with nausea, vomiting, and chest pain. Detailed physical exam and review of systems are deferred to the administration internship. EKG, labs, imaging, and swabs ordered. Patient placed back in the waiting room pending room availability and results. Reevaluation(s) Reevaluation #1: history of anxiety, multiple ED visits for similar symptoms in the past persistent vomiting and abdominal/ chest pain, patient was chronic leukocytosis, workup today is unremarkable except for slight leukocytosis with no left shift, patient's symptoms has improved using Dilaudid and Ativan. Signed out to Dr. Yeh to reassess the patient Time: 15:00 Medications Administered Discontinued Medications Generic Name Dose Route Start Last Admin Trade Name Freq PRN Reason Stop Dose Admin Al Hydroxide/Mg Hydroxide 30 ml 05/13/24 14:21 05/13/24 14:40 Magnesium Hydrox/Alum Hydrox 30 Ml Oral.Susp PO 05/13/24 14:22 30 ml ONCE ONE Administration Famotidine 20 mg 05/13/24 14:21 05/13/24 14:39 Famotidine/Pf 20 Mg/2 Ml Vial IVPUSH 05/13/24 14:22 20 mg ONCE ONE Administration Hydromorphone HCl 1 mg 05/13/24 14:19 05/13/24 14:40 Hydromorphone Hcl 1 Mg/Ml Syringe IVPUSH 05/13/24 14:20 1 mg ONCE ONE Administration Protocol Sodium Chloride 1,000 mls @ 999 mls/hr 05/13/24 13:03 05/13/24 13:37 Ns IV 05/13/24 14:03 999 mls/hr .Q1H1M ONE Administration Lorazepam 1 mg 05/13/24 14:19 05/13/24 14:40 Lorazepam 2 Mg/Ml Vial IVPUSH 05/13/24 14:20 1 mg ONCE ONE Administration Morphine Sulfate 1 mg 05/13/24 12:58 05/13/24 13:37 Morphine Sulfate 2 Mg/Ml Cartridge IVPUSH 05/13/24 12:59 1 mg ONCE ONE Administration Protocol Ondansetron HCl 4 mg 05/13/24 13:03 05/13/24 13:37 Ondansetron Hcl 4 Mg/2 Ml Vial IVPUSH 05/13/24 13:04 4 mg ONCE ONE Administration Ondansetron HCl 4 mg 05/13/24 14:21 05/13/24 14:39 Ondansetron Hcl 4 Mg/2 Ml Vial IVPUSH 05/13/24 14:22 4 mg ONCE ONE Administration Medical Decision Making Differential Diagnosis Differential Diagnoses: The differential diagnosis associated with the presentation includes ( Left-sided chest pain, ACS, pulmonary embolism, Samantha-Nieto, esophagitis, gastritis, Electrolyte derangement, severe anemia. Anxiety. ) Admission/Observation Consideration of admission/observation: Escalation of care including admission/observation considered Lab Data MDM Lab Attestation statement: I reviewed the patient's lab results. 05/13/24 11:45 05/13/24 11:45 Labs: Lab Results 05/13/24 05/13/24 Range/Units 11:45 14:37 WBC 12.5 H (4.8-10.8) X10*3/uL RBC 5.06 (4.20-5.50) X10*6/uL Hgb 14.8 (12.0-16.0) g/dl Hct 43.7 (37.0-47.0) % MCV 86.4 (80.0-98.0) fL MCH 29.2 (27.0-33.0) pg MCHC 33.9 (31.0-35.0) g/dl RDW 14.8 (11.0-16.0) % Plt Count 309 D (160-400) X10*3/uL MPV 9.5 (9.4-12.3) fL Immature Gran % (Auto) 0.4 (0.0-0.4) % Neut % (Auto) 60.1 (45-73) % Lymph % (Auto) 30.3 (20-40) % Ward % (Auto) 5.6 (2-11) % Eos % (Auto) 2.7 (0-4) % Baso % (Auto) 0.9 (0-2) % Lymph # (Auto) 3.8 (1.2-4.9) X10*3/uL Ward # (Auto) 0.7 (0.1-1.2) X10*3/uL Eos # (Auto) 0.3 (0.0-0.4) X10*3/uL Baso # (Auto) 0.1 (0.0-0.2) X10*3/uL Abs Immat Gran (auto) 0.05 H (0.00-0.03) X10*3/uL Absolute Neuts (auto) 7.5 (2.0-8.3) x10*3/uL Absolute Nucleated RBC 0.000 (0.0-0.012) X10*3/uL Nucleated RBC % (auto) 0.0 (0.0-0.2) /100WBC Hold Purple Top SEE NOTE PT 9.3 L (10.9-12.4) SEC INR 0.8 L (0.9-1.1) APTT 31.9 (26.0-36.8) SEC D-Dimer High Sensitivty 164 NG/ML Sodium 143 (135-145) mmol/L Potassium 4.6 D (3.3-5.1) mmol/L Chloride 106 (96-108) mmol/L Carbon Dioxide 24 (22-29) mmol/L Anion Gap 18 (12-20) BUN 7 L (9-16) mg/dL Creatinine 0.82 (0.5-1.4) mg/dL Estim Creat Clear Calc 79.0 Estimated GFR > 60 Random Glucose 117 H (60-115) mg/dL Calcium 10.1 D (8.4-10.2) mg/dL Magnesium 2.3 (1.6-2.6) mg/dL Total Bilirubin 0.2 (0.0-1.0) mg/dL AST 17 (5-31) U/L ALT 22 (0-31) U/L Alkaline Phosphatase 109 (39-117) U/L Troponin I High Sens < 2.7 (<3.5-17.0) ng/L Total Protein 8.0 (6.5-8.0) g/dL Albumin 4.6 (3.5-5.0) g/dL Lipase 28 (8-78) U/L Beta HCG, Quant 9 mIU/mL Urine Color Yellow Urine Appearance Clear Urine pH >= 9.0 (5.0-9.0) Ur Specific [place] 1.015 (1.005-1.025) Urine Protein Negative (Neg-Trace) mg/dL Urine Glucose (UA) Negative (Negative) mg/dL Urine Ketones Negative (Negative) mg/dL Urine Blood Negative (Negative) Urine Nitrite Negative (Negative) Ur Leukocyte Esterase Negative (Negative) Influenza Type A (PCR) NEGATIVE (Negative) Influenza Type B (PCR) NEGATIVE (Negative) RSV RNA Qual (PCR) NEGATIVE (Negative) SARS-CoV-2 RNA (RT-PCR) NEGATIVE (Negative) Independent Interpretation I performed an independent interpretation of an: Plain X-Ray ( chest: No acute intrathoracic pathology.) Radiology Impression Discussion of test interpretation with radiology: I have reviewed the radiologist's reading. Discharge Plan Discharge Clinical Impression: Cyclic vomiting syndrome, Anxiety Patient Disposition: Home, Self-Care Instructions: Cyclic Vomiting Syndrome (ED) Prescriptions: New ondansetron 4 mg tablet,disintegrating 4 mg PO BEDTIME PRN (Reason: nausea and vomiting) Qty: 7 0RF No Action aripiprazole 10 mg tablet 1 tab PO DAILY lamotrigine 100 mg tablet 1 tab PO TID lorazepam 1 mg tablet 0.5 tab PO BID melatonin 5 mg tablet 1 tab PO BEDTIME PRN (Reason: insomnia) quetiapine 50 mg tablet 1 tab PO BEDTIME sucralfate 100 mg/mL suspension 10 ml PO BID zolpidem 5 mg tablet 1 tab PO BEDTIME PRN (Reason: Sleep) ondansetron HCl [Zofran] 4 mg tablet 4 mg PO Q6H PRN (Reason: nausea and vomiting) Qty: 10 0RF acetaminophen [Tylenol 8 Hour] 650 mg tablet extended release 650 mg PO Q8H PRN (Reason: pain) Qty: 10 0RF nitrofurantoin monohyd/m-cryst [Macrobid] 100 mg capsule 100 mg PO Q12H 7 Days Qty: 14 0RF Rx Instructions: must administer with a meal/food dicyclomine 10 mg capsule 10 mg PO QID 7 Days Qty: 28 0RF promethazine 25 mg tablet 25 mg PO TID PRN (Reason: nausea and vomiting) Qty: 20 0RF sulfamethoxazole-trimethoprim [Bactrim DS] 800-160 mg tablet 1 tab PO BID Qty: 14 0RF phenazopyridine 100 mg tablet 100 mg PO TID Qty: 6 0RF ibuprofen 600 mg tablet 600 mg PO TID PRN (Reason: pain) Qty: 20 0RF sucralfate 1 gram tablet 1 g PO BID PRN (Reason: Upper abdominal pain) Qty: 40 0RF ondansetron 4 mg tablet,disintegrating 4 mg PO Q6H PRN (Reason: nausea and vomiting) Qty: 10 0RF dicyclomine 10 mg capsule 10 mg PO TID PRN (Reason: abdominal distention) Qty: 20 0RF cefuroxime axetil 250 mg tablet 250 mg PO BID Qty: 10 0RF ondansetron 4 mg tablet,disintegrating 4 mg PO Q8H PRN (Reason: nausea and vomiting) Qty: 7 0RF simethicone [Gas Relief (simethicone)] 180 mg capsule 180 mg PO BID PRN (Reason: abdominal distention) Qty: 14 0RF polyethylene glycol 3350 [Miralax] 17 gram powder in packet 17 g PO DAILY Qty: 14 0RF ondansetron 4 mg tablet,disintegrating 4 mg PO Q6-8H PRN (Reason: nausea and vomiting) Qty: 14 0RF ondansetron 4 mg tablet,disintegrating 4 mg PO Q6H PRN (Reason: nausea and vomiting) Qty: 10 0RF Referrals: Fahad Thompson MD [Primary Care Provider] - Print Language: Nepali
--- NOTE | 2024-05-13 11:39 | ECG_ITS ---
Test Reason : CHEST PAIN Blood Pressure : / mmHG Vent. Rate : 075 BPM Atrial Rate : 075 BPM P-R Int : 132 ms QRS Dur : 090 ms QT Int : 414 ms P-R-T Axes : 055 062 046 degrees QTc Int : 462 ms Normal sinus rhythm Normal ECG When compared with ECG of 08-MAY-2024 08:04, QT has shortened Referred By: Blanche Lozano Electronically Signed By:MONIKA GARCIA
[2024-05-13 11:52] LABS: MANUAL DIFF FLAG NO
[2024-05-13 11:54] LABS: Basophils Absolute Auto 0.1 X10*3/uL (0.0-0.2); Basophils Percent Auto 0.9 % (0-2); Eosinophils Absolute Auto 0.3 X10*3/uL (0.0-0.4); Eosinophils Percent Auto 2.7 % (0-4); Hematocrit 43.7 % (37.0-47.0); Hemoglobin 14.8 g/dl (12.0-16.0); Imm Gran Abs Auto 0.05 X10*3/uL (0.00-0.03); Imm Gran Pct Auto 0.4 % (0.0-0.4); Lymphocytes Absolute Auto 3.8 X10*3/uL (1.2-4.9); Lymphocytes Percent Auto 30.3 % (20-40); Mean Corpuscular HGB Conc 33.9 g/dl (31.0-35.0); Mean Corpuscular Hemoglobin 29.2 pg (27.0-33.0); Mean Corpuscular Volume 86.4 fL (80.0-98.0); Mean Platelet Volume 9.5 fL (9.4-12.3); Monocytes Absolute Auto 0.7 X10*3/uL (0.1-1.2); Monocytes Percent Auto 5.6 % (2-11); Neutrophils Absolute Auto 7.5 x10*3/uL (2.0-8.3); Neutrophils Percent Auto 60.1 % (45-73); Platelet Count 309 X10*3/uL (160-400); Red Blood Count 5.06 X10*6/uL (4.20-5.50); Red Cell Distribution Width 14.8 % (11.0-16.0); White Blood Count 12.5 X10*3/uL (4.8-10.8)
[2024-05-13 11:59] LABS: INTERNATIONAL NORM RATIO 0.8 (0.9-1.1); Prothrombin Time 9.3 SEC (10.9-12.4)
[2024-05-13 12:02] LABS: Partial Thromboplastin Time 31.9 SEC (26.0-36.8)
[2024-05-13 12:17] LABS: Alanine Aminotransferase 22 U/L (0-31); Albumin Level 4.6 g/dL (3.5-5.0); Alkaline Phosphatase 109 U/L (39-117); Anion Gap 18 (12-20); Aspartate Amino Transferase 17 U/L (5-31); Bilirubin Total 0.2 mg/dL (0.0-1.0); Blood Urea Nitrogen 7 mg/dL (9-16); Calcium 10.1 mg/dL (8.4-10.2); Carbon Dioxide 24 mmol/L (22-29); Chloride 106 mmol/L (96-108); Estimated Glomerular Filt Rate > 60; Glucose Random 117 mg/dL (60-115); Lipase 28 U/L (8-78); Magnesium 2.3 mg/dL (1.6-2.6); Potassium 4.6 mmol/L (3.3-5.1); Sodium 143 mmol/L (135-145)
[2024-05-13 12:18] LABS: HCG Quantitative 9 mIU/mL; Troponin-I High Sensitivity < 2.7 ng/L (<3.5-17.0)
[2024-05-13 12:32] LABS: Influenza A PCR NEGATIVE (Negative); Influenza B PCR NEGATIVE (Negative); Resp Syncy Virus RNA Qual PCR NEGATIVE (Negative); SARS COV2 PCR INHOUSE NEGATIVE (Negative)
[2024-05-13 13:15] LABS: D Dimer High Sensitivity 164 NG/ML
[2024-05-13] MEDS: ondansetron HCL 4 MG/2 ML VIAL IVPUSH ×2 (13:37→14:39)
[2024-05-13] MEDS: Morphine Sulfate 2 MG/ML CARTRIDGE 1 MG IVPUSH (13:37)
[2024-05-13] MEDS: 0.9 % Sodium Chloride 1,000 ML 999 ML IV (13:37)
[2024-05-13 14:39] VITALS: RESP 25
[2024-05-13] MEDS: Famotidine/PF 20 MG/2 ML VIAL IVPUSH (14:39)
[2024-05-13] MEDS: HYDROmorphone HCl 1 MG/ML SYRINGE IVPUSH (14:40)
[2024-05-13] MEDS: Magnesium Hydrox/Alum Hydrox 30 ML ORAL.SUSP PO (14:40)
[2024-05-13] MEDS: LORazepam 2 MG/ML VIAL 1 MG IVPUSH (14:40)
[2024-05-13 14:41] VITALS: BP 170/102; PULSE 75; RESP 20; TEMP 36.6; O2SAT 98
[2024-05-13 14:49] LABS: Appearance Urine Clear; Color Urine Yellow; Glucose Urine UA Negative (Negative); Leukocyte Esterase Urine Negative (Negative); Nitrite Urine Negative (Negative); PH >= 9.0 (5.0-9.0); Specific Gravity - Urine 1.015 (1.005-1.025); Urine Blood Negative (Negative); Urine Ketones Negative (Negative); Urine Protein Negative (Neg-Trace)
[2024-05-13 15:26] VITALS: RESP 18
[2024-05-13 17:29] VITALS: BP 160/98; PULSE 70; RESP 18; TEMP 36.7; O2SAT 98
== END 2024-05-13 17:30 | disposition home or self-care (01) ==
PROVIDERS: Physician Assistant Medical; Emergency Provider Emergency Medicine; PCP Internal Medicine
DX: G43.A0 Cyclical vomiting, in migraine, not intractable (principal); R07.89 Other chest pain; F41.9 Anxiety disorder, unspecified; F43.0 Acute stress reaction; F17.210 Nicotine dependence, cigarettes, uncomplicated; Z03.818 Encounter for observation for suspected exposure to other biological agents ruled out; Z79.899 Other long term (current) drug therapy
CPT/HCPCS: 0241U; 36415; 71046; 80053; 81003; 83690; 83735; 84484; 84702; 85025; 85379; 85610; 85730; 93005; 96361; 96374; 96375; 99284; 99285; J1171; J2060; J2270; J2405

== ENCOUNTER 2024-07-10 15:26 | Emergency (ER) | payer OTHER, SELFPAY ==
--- NOTE | ~2024-07-10 | XR_ITS ---
EXAMINATION: XR LUMBOSACRAL SPINE CLINICAL INFORMATION: pain COMPARISON: None available. TECHNIQUE: Three views of the lumbosacral spine. FINDINGS: No acute cortical disruption or gross malalignment. Facet joint hypertrophy at L5-S1. No lytic or blastic lesions. Vascular calcifications. Vascular clips right upper quadrant abdomen and likely related to laparoscopic cholecystectomy. XR/XR lumbar spine 2-3V IMPRESSION: No acute fracture or listhesis. Electronically signed by: Haider Brown MD 07/11/2024 07:18 AM [facility] MAY[facility]
[2024-07-10 16:18] VITALS: BP 161/106; PULSE 88; RESP 16; TEMP 36.8; O2SAT 98; BMI 22.3
--- NOTE | 2024-07-10 16:24 | ED.HA ---
HPI - Headache General Chief Complaint: Abdominal Pain Stated Complaint: Headache, nausea, vomiting, dizzy Time Seen by Provider: 07/10/24 18:54 Source: patient, RN notes reviewed and old records reviewed Mode of arrival: ambulatory Limitations: no limitations History of Present Illness ED Provider: Chloe HPI Narrative: 43-year-old female with past medical history significant for bipolar disorder, cyclic vomiting, anxiety, IBS presents for evaluation of back pain. Patient reports that she has had lower back pain for the last week. She denies any falls or injuries. Today she developed vomiting with diffuse abdominal pain. She rates her pain is 10/10, constant She denies any fevers, chills. She continues to use marijuana Related Data Home Medications ?Medication ?Instructions ?Recorded ?Confirmed aripiprazole 10 mg tablet 1 tab PO DAILY 01/05/21 01/05/21 lamotrigine 100 mg tablet 1 tab PO TID 01/05/21 01/05/21 lorazepam 1 mg tablet 0.5 tab PO BID 01/05/21 01/05/21 melatonin 5 mg tablet 1 tab PO BEDTIME PRN insomnia 01/05/21 01/05/21 quetiapine 50 mg tablet 1 tab PO BEDTIME 01/05/21 01/05/21 sucralfate 100 mg/mL oral 10 ml PO BID 01/05/21 01/05/21 suspension zolpidem 5 mg tablet 1 tab PO BEDTIME PRN Sleep 01/05/21 01/05/21 Previous Rx's ?Medication ?Instructions ?Recorded acetaminophen 650 mg 650 mg PO Q8H PRN pain #10 tabs 01/07/21 tablet,extended release (Tylenol 8 Hour) ondansetron HCl 4 mg tablet 4 mg PO Q6H PRN nausea and 01/07/21 (Zofran) vomiting #10 tabs promethazine 25 mg tablet 25 mg PO TID PRN nausea and 01/06/22 vomiting #20 tabs dicyclomine 10 mg capsule 10 mg PO QID 7 days #28 caps 06/14/22 nitrofurantoin 100 mg PO Q12H 7 days #14 caps 06/14/22 monohydrate/macrocrystals 100 mg capsule (Macrobid) ibuprofen 600 mg tablet 600 mg PO TID PRN pain #20 tabs 06/16/22 phenazopyridine 100 mg tablet 100 mg PO TID 6 doses #6 tabs 06/16/22 sulfamethoxazole 800 1 tab PO BID #14 tabs 06/16/22 mg-trimethoprim 160 mg tablet (Bactrim DS) cefuroxime axetil 250 mg tablet 250 mg PO BID #10 tabs 12/12/22 dicyclomine 10 mg capsule 10 mg PO TID PRN abdominal 12/12/22 distention #20 caps ondansetron 4 mg disintegrating 4 mg PO Q8H PRN nausea and 12/12/22 tablet vomiting #7 tabs polyethylene glycol 3350 17 gram 17 g PO DAILY #14 ea 12/12/22 oral powder packet (Miralax) simethicone 180 mg capsule (Gas 180 mg PO BID PRN abdominal 12/12/22 Relief (simethicone)) distention #14 caps ondansetron 4 mg disintegrating 4 mg PO Q6-8H PRN nausea and 10/03/23 tablet vomiting #14 tabs ondansetron 4 mg disintegrating 4 mg PO Q6H PRN nausea and 12/01/23 tablet vomiting #10 tabs sucralfate 1 gram tablet 1 g PO BID PRN Upper abdominal 12/01/23 pain #40 tabs ondansetron 4 mg disintegrating 4 mg PO Q6H PRN nausea and 05/08/24 tablet vomiting #10 tabs ondansetron 4 mg disintegrating 4 mg PO BEDTIME PRN nausea and 05/13/24 tablet vomiting #7 tabs Allergies Allergy/AdvReac Type Severity Reaction Status Date / Time Penicillins Allergy Intermediate HIVES Verified 07/10/24 16:20 adhesive tape Allergy Rash Verified 07/10/24 16:20 ciprofloxacin Allergy Unresponsiv Verified 07/10/24 16:20 e Amoxicillin Allergy Intermediate Hives Uncoded 07/10/24 16:20 Review of Systems Constitutional: Constitutional: Denies body ache(s), Denies chills, Denies fever(s) and Denies headache(s) Eyes: Eyes: Denies blurry vision ENT: Denies headache(s) and Denies sore throat Cardiovascular: Cardiovascular: Denies chest pain and Denies dyspnea Respiratory: Respiratory: Denies cough and Denies dyspnea Gastrointestinal: Gastrointestinal: Reports abdominal pain, Reports nausea and Reports vomiting Musculoskeletal: Musculoskeletal: Reports back pain Integumentary/Breasts: Skin/Breast: Denies rash Neurologic: Denies headache(s) Psychiatric: Psychiatric: Denies anxiety PMFSH Past Medical History Medical History Endometriosis Pulmonary embolism Anxiety Bipolar 1 disorder Surgical History Hx of appendectomy History of cholecystectomy H/O: hysterectomy Social History Social History Alcohol intake: never Patient Tobacco Use Status: Current everyday Tobacco user Tobacco use type: Cigarette Cigarette Packs Per Day: 0.34 Cigarettes Per Day: 6.8 Years Smoked: 32 Second Hand Smoke Exposure: No Substance Use Type: Marijuana Advance Directives: No Advance Directives Information Provided: No Do you have a plan to hurt others: No Plan Physical Exam Vital Signs: Vital Signs: Last Vital Signs Temp 98.4 F 07/11/24 00:17 Pulse 94 07/11/24 00:17 Resp 20 07/11/24 00:17 BP 180/91 H 07/11/24 00:17 Pulse Ox 97 07/11/24 00:17 O2 Del Method Room Air 07/11/24 00:17 BMI result Body Mass Index 22.3 Const: General: healthy appearing, alert and awake Nutritional Appearance: well nourished Orientation/consciousness: patient oriented x3 HEENT: Head: Yes normocephalic and Yes atraumatic Eyes: Eyelids: Yes eyelids normal Conjunctivae: conjunctivae normal Sclerae: sclerae normal Corneas: corneas normal Pupils: Equal, round and reactive pupils present EOM: EOMs intact bilaterally Neck: Neck: Yes full ROM Resp: Effort & Inspection: normal respiratory effort, able to speak in complete sentences and not labored Cardio: Rate: regular rate Rhythm: regular rhythm GI: Inspection: No distended Palpation (GI): Soft to palpation, not firm, Tenderness to palpation present (GI) (Diffuse abdominal tenderness), no guarding and not rigid Skin: General skin exam: elasticity normal Neuro: General: patient oriented x3 Cranial nerves: Yes Equal, round and reactive pupils present and Yes Bilaterally intact EOM present Cognition (Neuro): normal cognition Course Course Course Narrative: This is a rapid medical exam performed by Denise Fleming PA-C. Patient is a 43-year-old female with a history of chronic abdominal pain, cyclic vomiting syndrome, IBS, anxiety, bipolar, who presents with the abdominal pain and headache since earlier today. Pain diffuse, report of nausea vomiting and diarrhea. Denies recent illness or fever. Patient is begging to be seen I had of other patients, she keeps returning to triage, she is neurologically intact, ambulates with normal steady gait. We will screen basic labs. Patient is hemodynamically stable and was able to return to the waiting room pending her full assessment. Reevaluation(s) Reevaluation #1: Went to re-evaluate the patient and she was sleeping. When I woke her up she reported that her nausea and pain was returning. I agreed to give her another dose of Haldol. For her chronic pain she will follow-up with GI that she already sees. Time: 01:09 Medications Administered Discontinued Medications Generic Name Dose Route Start Last Admin Trade Name Freq PRN Reason Stop Dose Admin Haloperidol Lactate 2.5 mg 07/10/24 21:17 07/10/24 21:24 Haloperidol Lactate 5 Mg/Ml Vial IVPUSH 07/10/24 21:18 2.5 mg STAT STA Administration Hydromorphone HCl 1 mg 07/10/24 20:45 07/10/24 21:04 Hydromorphone Hcl 1 Mg/Ml Syringe IVPUSH 07/10/24 20:46 1 mg ONCE ONE Administration Protocol Sodium Chloride 1,000 mls @ 999 mls/hr 07/10/24 20:45 07/11/24 00:16 Ns IV 07/10/24 21:45 Infused .Q1H1M FAM Infusion Medical Decision Making Medical Decision Making [facility] Narrative: 43-year-old female presents for evaluation of back pain, abdominal pain, nausea and vomiting. She has frequent visits for similar presentations. Her lab values show a leukocytosis with a left shift that may be related to her vomiting or a viral etiology of her discomfort. Her chemistries are without any significant abnormalities. I ordered an x-ray of the lumbar spine that a urinalysis to evaluate for hematuria or infectious process. I think in his less likely the patient has surgical pathology in the abdomen. Her pain and vomiting is likely related to cannabis hyperemesis syndrome Differential Diagnosis Differential Diagnoses: The differential diagnosis associated with the presentation includes Abdominal pain Vomiting Cannabis hyperemesis syndrome Chronic back pain UTI Obstructive uropathy Lab Data [facility] Lab Attestation statement: I reviewed the patient's lab results. 07/10/24 17:12 07/10/24 17:12 Labs: Lab Results 07/10/24 Range/Units 17:12 WBC 13.5 H (4.8-10.8) X10*3/uL RBC 5.18 (4.20-5.50) X10*6/uL Hgb 15.0 (12.0-16.0) g/dl Hct 43.5 (37.0-47.0) % MCV 84.0 (80.0-98.0) fL MCH 29.0 (27.0-33.0) pg MCHC 34.5 (31.0-35.0) g/dl RDW 13.8 (11.0-16.0) % Plt Count 364 (160-400) X10*3/uL MPV 9.3 L (9.4-12.3) fL Immature Gran % (Auto) 0.4 (0.0-0.4) % Neut % (Auto) 80.4 H (45-73) % Lymph % (Auto) 15.5 L (20-40) % [place] % (Auto) 2.6 (2-11) % Eos % (Auto) 0.2 (0-4) % Baso % (Auto) 0.9 (0-2) % Lymph # (Auto) 2.1 (1.2-4.9) X10*3/uL [place] # (Auto) 0.4 (0.1-1.2) X10*3/uL Eos # (Auto) 0.0 (0.0-0.4) X10*3/uL Baso # (Auto) 0.1 (0.0-0.2) X10*3/uL Abs Immat Gran (auto) 0.05 H (0.00-0.03) X10*3/uL Absolute Neuts (auto) 10.9 H (2.0-8.3) x10*3/uL Absolute Nucleated RBC 0.000 (0.0-0.012) X10*3/uL Nucleated RBC % (auto) 0.0 (0.0-0.2) /100WBC Sodium 137 (135-145) mmol/L Potassium 3.9 (3.3-5.1) mmol/L Chloride 103 (96-108) mmol/L Carbon Dioxide 21 L (22-29) mmol/L Anion Gap 17 (12-20) BUN 8 L (9-16) mg/dL Creatinine 0.79 (0.5-1.4) mg/dL Estim Creat Clear Calc 78.5 Estimated GFR > 60 Random Glucose 177 H (60-115) mg/dL Calcium 9.8 (8.4-10.2) mg/dL Magnesium 1.9 (1.6-2.6) mg/dL Total Bilirubin 0.3 (0.0-1.0) mg/dL AST 21 (5-31) U/L ALT 15 (0-31) U/L Alkaline Phosphatase 96 (39-117) U/L Total Protein 7.8 (6.5-8.0) g/dL Albumin 4.6 (3.5-5.0) g/dL Beta HCG, Quant 9 mIU/mL Independent Interpretation I performed an independent interpretation of an: Plain X-Ray (Unremarkable lumbar spine x-ray) Tests considered The following testing was considered but not selected: Consider CT scan of the abdomen pelvis, however the patient has had numerous abdominal CT scans in the past most recently 2 months ago Discharge Plan Discharge Clinical Impression: Abdominal pain, Vomiting, Back pain Patient Disposition: Home, Self-Care Instructions: Abdominal Pain (ED), Acute Nausea and Vomiting (ED), Back Pain (ED) Additional Instructions: Your workup in the ER today was reassuring. This includes your labs as well as your lumbar spine x-ray I recommend that you follow-up with your GI doctor Prescriptions: No Action aripiprazole 10 mg tablet 1 tab PO DAILY lamotrigine 100 mg tablet 1 tab PO TID lorazepam 1 mg tablet 0.5 tab PO BID melatonin 5 mg tablet 1 tab PO BEDTIME PRN (Reason: insomnia) quetiapine 50 mg tablet 1 tab PO BEDTIME sucralfate 100 mg/mL suspension 10 ml PO BID zolpidem 5 mg tablet 1 tab PO BEDTIME PRN (Reason: Sleep) ondansetron HCl [Zofran] 4 mg tablet 4 mg PO Q6H PRN (Reason: nausea and vomiting) Qty: 10 0RF acetaminophen [Tylenol 8 Hour] 650 mg tablet extended release 650 mg PO Q8H PRN (Reason: pain) Qty: 10 0RF nitrofurantoin monohyd/m-cryst [Macrobid] 100 mg capsule 100 mg PO Q12H 7 Days Qty: 14 0RF Rx Instructions: must administer with a meal/food dicyclomine 10 mg capsule 10 mg PO QID 7 Days Qty: 28 0RF promethazine 25 mg tablet 25 mg PO TID PRN (Reason: nausea and vomiting) Qty: 20 0RF sulfamethoxazole-trimethoprim [Bactrim DS] 800-160 mg tablet 1 tab PO BID Qty: 14 0RF phenazopyridine 100 mg tablet 100 mg PO TID Qty: 6 0RF ibuprofen 600 mg tablet 600 mg PO TID PRN (Reason: pain) Qty: 20 0RF sucralfate 1 gram tablet 1 g PO BID PRN (Reason: Upper abdominal pain) Qty: 40 0RF ondansetron 4 mg tablet,disintegrating 4 mg PO Q6H PRN (Reason: nausea and vomiting) Qty: 10 0RF ondansetron 4 mg tablet,disintegrating 4 mg PO BEDTIME PRN (Reason: nausea and vomiting) Qty: 7 0RF dicyclomine 10 mg capsule 10 mg PO TID PRN (Reason: abdominal distention) Qty: 20 0RF cefuroxime axetil 250 mg tablet 250 mg PO BID Qty: 10 0RF ondansetron 4 mg tablet,disintegrating 4 mg PO Q8H PRN (Reason: nausea and vomiting) Qty: 7 0RF simethicone [Gas Relief (simethicone)] 180 mg capsule 180 mg PO BID PRN (Reason: abdominal distention) Qty: 14 0RF polyethylene glycol 3350 [Miralax] 17 gram powder in packet 17 g PO DAILY Qty: 14 0RF ondansetron 4 mg tablet,disintegrating 4 mg PO Q6-8H PRN (Reason: nausea and vomiting) Qty: 14 0RF ondansetron 4 mg tablet,disintegrating 4 mg PO Q6H PRN (Reason: nausea and vomiting) Qty: 10 0RF Print Language: Belarusian
[2024-07-10 17:15] LABS: MANUAL DIFF FLAG NO
[2024-07-10 17:17] LABS: Basophils Absolute Auto 0.1 X10*3/uL (0.0-0.2); Basophils Percent Auto 0.9 % (0-2); Eosinophils Percent Auto 0.2 % (0-4); Hematocrit 43.5 % (37.0-47.0); Imm Gran Abs Auto 0.05 X10*3/uL (0.00-0.03); Imm Gran Pct Auto 0.4 % (0.0-0.4); Lymphocytes Absolute Auto 2.1 X10*3/uL (1.2-4.9); Lymphocytes Percent Auto 15.5 % (20-40); Mean Corpuscular HGB Conc 34.5 g/dl (31.0-35.0); Mean Platelet Volume 9.3 fL (9.4-12.3); Monocytes Absolute Auto 0.4 X10*3/uL (0.1-1.2); Monocytes Percent Auto 2.6 % (2-11); Neutrophils Absolute Auto 10.9 x10*3/uL (2.0-8.3); Neutrophils Percent Auto 80.4 % (45-73); Platelet Count 364 X10*3/uL (160-400); Red Blood Count 5.18 X10*6/uL (4.20-5.50); Red Cell Distribution Width 13.8 % (11.0-16.0); White Blood Count 13.5 X10*3/uL (4.8-10.8)
[2024-07-10 18:07] LABS: Alanine Aminotransferase 15 U/L (0-31); Albumin Level 4.6 g/dL (3.5-5.0); Alkaline Phosphatase 96 U/L (39-117); Anion Gap 17 (12-20); Aspartate Amino Transferase 21 U/L (5-31); Bilirubin Total 0.3 mg/dL (0.0-1.0); Blood Urea Nitrogen 8 mg/dL (9-16); Calcium 9.8 mg/dL (8.4-10.2); Carbon Dioxide 21 mmol/L (22-29); Chloride 103 mmol/L (96-108); Creatinine Clr Calc Pharmacy 78.5; Estimated Glomerular Filt Rate > 60; Glucose Random 177 mg/dL (60-115); Magnesium 1.9 mg/dL (1.6-2.6); Potassium 3.9 mmol/L (3.3-5.1); Sodium 137 mmol/L (135-145); Total Protein 7.8 g/dL (6.5-8.0)
--- NOTE | 2024-07-10 18:54 | ECG_ITS ---
Test Reason : CHEST PAIN Blood Pressure : / mmHG Vent. Rate : 076 BPM Atrial Rate : 076 BPM P-R Int : 126 ms QRS Dur : 082 ms QT Int : 442 ms P-R-T Axes : 044 068 059 degrees QTc Int : 497 ms Normal sinus rhythm with sinus arrhythmia Possible Left atrial enlargement Prolonged QT Abnormal ECG When compared with ECG of 13-MAY-2024 12:04, No significant change was found Referred By: Denise Fleming Electronically Signed By:Pascual Casey
[2024-07-10 18:55] LABS: HCG Quantitative 9 mIU/mL
[2024-07-10 19:41] VITALS: BP 158/92; PULSE 89; RESP 20; TEMP 36.8; O2SAT 98
[2024-07-10] MEDS: HYDROmorphone HCl 1 MG/ML SYRINGE IVPUSH (21:04)
[2024-07-10] MEDS: 0.9 % Sodium Chloride 1,000 ML 999 ML IV (21:05)
[2024-07-10] MEDS: Haloperidol Lactate 5 MG/ML VIAL 2.5 MG IVPUSH (21:24)
[2024-07-10 22:03] VITALS: BP 146/78; PULSE 86; RESP 20; TEMP 36.6; O2SAT 98
[2024-07-11 00:17] VITALS: BP 180/91; PULSE 94; RESP 20; TEMP 36.9; O2SAT 97
[2024-07-11 01:22] VITALS: BP 173/86; PULSE 99; RESP 20; TEMP 36.4; O2SAT 99
[2024-07-11] MEDS: Haloperidol Lactate 5 MG/ML VIAL 2.5 MG IVPUSH (01:22)
[2024-07-11 01:34] VITALS: BP 173/86; PULSE 99; RESP 20; TEMP 36.4; O2SAT 99
== END 2024-07-11 01:35 | disposition home or self-care (01) ==
PROVIDERS: Physician Assistant Medical; Emergency Provider Emergency Medicine Emergency Medical Services
DX: R10.2 Pelvic and perineal pain (principal); M54.50 Low back pain, unspecified; R11.2 Nausea with vomiting, unspecified; R51.9 Headache, unspecified; R42 Dizziness and giddiness; R07.89 Other chest pain; F12.90 Cannabis use, unspecified, uncomplicated; F41.9 Anxiety disorder, unspecified; F17.210 Nicotine dependence, cigarettes, uncomplicated; Z79.899 Other long term (current) drug therapy
CPT/HCPCS: 36415; 72100; 80053; 83735; 84702; 85025; 93005; 96361; 96374; 96375; 99285; J1171; J1630

== ENCOUNTER → 2024-07-10 18:54 | Outpatient (BNV) | payer OTHER, SELFPAY | PROVIDERS: Emergency Provider Emergency Medicine Emergency Medical Services; Visit Provider Internal Medicine Cardiovascular Disease | DX: R94.31 Abnormal electrocardiogram [ECG] [EKG] (principal) | CPT/HCPCS: 93010 ==

== ENCOUNTER → 2024-07-10 20:48 | Outpatient (BNV) | payer OTHER, SELFPAY | PROVIDERS: Emergency Provider Emergency Medicine Emergency Medical Services; Visit Provider Radiology Diagnostic Radiology | DX: M54.50 Low back pain, unspecified (principal) | CPT/HCPCS: 72100 ==

== ENCOUNTER 2024-07-24 10:41 | Emergency (ER) | payer OTHER, SELFPAY ==
--- NOTE | 2024-07-24 10:46 | ECG_ITS ---
Test Reason : CHEST PAIN Blood Pressure : / mmHG Vent. Rate : 092 BPM Atrial Rate : 092 BPM P-R Int : 126 ms QRS Dur : 082 ms QT Int : 396 ms P-R-T Axes : 072 071 052 degrees QTc Int : 489 ms Normal sinus rhythm with sinus arrhythmia Biatrial enlargement Prolonged QT Abnormal ECG When compared with ECG of 10-JUL-2024 18:55, No significant change was found Referred By: Generic ED Physician Electronically Signed By:RHIANNA HAMLIN
[2024-07-24 10:59] VITALS: BP 121/83; PULSE 97; RESP 22; TEMP 36.1; O2SAT 98
--- NOTE | 2024-07-24 11:03 | ED.GENADULT ---
HPI - General Adult General Chief complaint: Nausea/Vomiting/Diarrhea Stated complaint: chest pain Time Seen by Provider: 07/24/24 17:25 Source: patient Limitations: no limitations History of Present Illness ED Provider: Denise rosenbaum PA-C HPI narrative: 43-year-old female with a history of IBS, cyclic vomiting syndrome, bipolar and anxiety, who was well known to our emergency department, who has a high utilizer of resources, presents with nausea vomiting diarrhea since this morning. Associated chest pain since she started vomiting. No sick contacts with similar symptoms. Denies use of recent antibiotics, recent hospitalization, no travel. Related Data Home Medications ?Medication ?Instructions ?Recorded ?Confirmed aripiprazole 10 mg tablet 1 tab PO DAILY 01/05/21 01/05/21 lamotrigine 100 mg tablet 1 tab PO TID 01/05/21 01/05/21 lorazepam 1 mg tablet 0.5 tab PO BID 01/05/21 01/05/21 melatonin 5 mg tablet 1 tab PO BEDTIME PRN insomnia 01/05/21 01/05/21 quetiapine 50 mg tablet 1 tab PO BEDTIME 01/05/21 01/05/21 sucralfate 100 mg/mL oral 10 ml PO BID 01/05/21 01/05/21 suspension zolpidem 5 mg tablet 1 tab PO BEDTIME PRN Sleep 01/05/21 01/05/21 Previous Rx's ?Medication ?Instructions ?Recorded acetaminophen 650 mg 650 mg PO Q8H PRN pain #10 tabs 01/07/21 tablet,extended release (Tylenol 8 Hour) ondansetron HCl 4 mg tablet 4 mg PO Q6H PRN nausea and 01/07/21 (Zofran) vomiting #10 tabs promethazine 25 mg tablet 25 mg PO TID PRN nausea and 01/06/22 vomiting #20 tabs dicyclomine 10 mg capsule 10 mg PO QID 7 days #28 caps 06/14/22 nitrofurantoin 100 mg PO Q12H 7 days #14 caps 06/14/22 monohydrate/macrocrystals 100 mg capsule (Macrobid) ibuprofen 600 mg tablet 600 mg PO TID PRN pain #20 tabs 06/16/22 phenazopyridine 100 mg tablet 100 mg PO TID 6 doses #6 tabs 06/16/22 sulfamethoxazole 800 1 tab PO BID #14 tabs 06/16/22 mg-trimethoprim 160 mg tablet (Bactrim DS) cefuroxime axetil 250 mg tablet 250 mg PO BID #10 tabs 12/12/22 dicyclomine 10 mg capsule 10 mg PO TID PRN abdominal 12/12/22 distention #20 caps ondansetron 4 mg disintegrating 4 mg PO Q8H PRN nausea and 12/12/22 tablet vomiting #7 tabs polyethylene glycol 3350 17 gram 17 g PO DAILY #14 ea 12/12/22 oral powder packet (Miralax) simethicone 180 mg capsule (Gas 180 mg PO BID PRN abdominal 12/12/22 Relief (simethicone)) distention #14 caps ondansetron 4 mg disintegrating 4 mg PO Q6-8H PRN nausea and 10/03/23 tablet vomiting #14 tabs ondansetron 4 mg disintegrating 4 mg PO Q6H PRN nausea and 12/01/23 tablet vomiting #10 tabs sucralfate 1 gram tablet 1 g PO BID PRN Upper abdominal 12/01/23 pain #40 tabs ondansetron 4 mg disintegrating 4 mg PO Q6H PRN nausea and 05/08/24 tablet vomiting #10 tabs ondansetron 4 mg disintegrating 4 mg PO BEDTIME PRN nausea and 05/13/24 tablet vomiting #7 tabs prochlorperazine maleate 10 mg 10 mg PO Q8H PRN nausea and 07/24/24 tablet (Compazine) vomiting #10 tabs Allergies Allergy/AdvReac Type Severity Reaction Status Date / Time Penicillins Allergy Intermediate HIVES Verified 07/24/24 11:01 adhesive tape Allergy Rash Verified 07/10/24 16:20 ciprofloxacin Allergy Unresponsiv Verified 07/10/24 16:20 e Amoxicillin Allergy Intermediate Hives Uncoded 07/10/24 16:20 Review of Systems Review of Systems: Yes all other systems are reviewed and are negative Constitutional: Constitutional: Denies fatigue and Denies fever(s) Cardiovascular: Cardiovascular: Reports chest pain and Denies dyspnea Respiratory: Respiratory: Denies cough and Denies dyspnea Gastrointestinal: Gastrointestinal: Reports abdominal pain, Reports diarrhea, Reports nausea and Reports vomiting Endocrine: Endocrine: Denies fatigue PMFSH Past Medical History Attestation statement: The following information was validated with the patient. Medical History Endometriosis Pulmonary embolism Anxiety Bipolar 1 disorder Surgical History Hx of appendectomy History of cholecystectomy H/O: hysterectomy Social History Social History Alcohol intake: never Patient Tobacco Use Status: Current everyday Tobacco user Tobacco use type: Cigarette Cigarette Packs Per Day: 0.34 Cigarettes Per Day: 6.8 Years Smoked: 32 Smoked in Last 30 Days: Yes Second Hand Smoke Exposure: No Substance Use Type: Marijuana Advance Directives: No Advance Directives Information Provided: No Physical Exam ED Vital Signs: Vital Signs - 24 hr 07/24/24 10:59 07/24/24 16:39 07/24/24 17:55 Temperature 97 F 98 F 98.2 F Pulse Rate 97 91 97 Respiratory Rate 22 H 19 18 Blood Pressure 121/83 165/123 H 169/110 H Pulse Oximetry 98 98 98 Oxygen Delivery Method Room Air Room Air Room Air 07/24/24 18:37 Temperature Pulse Rate Respiratory Rate 16 Blood Pressure Pulse Oximetry Oxygen Delivery Method BMI result Body Mass Index 30.0 Const Other: Awake, appears older than stated age, writhing in the bed, begging for Dilaudid Orientation/consciousness: patient oriented x3 Resp Other: Nonlabored respirations Cardio Other: Normal peripheral perfusion GI Other: With distraction, abdomen is soft, nontender no guarding, it is nondistended not obese Skin Other: Warm dry no rash Neuro General: patient oriented x3, no focal motor deficits and CN's II-XI intact bilaterally Psych Other: Somewhat cooperative, exhibiting medication seeking behavior, pretending to cry but there are no tears Course Course Course Narrative: RME, this is a rapid medical exam performed by Dhruv Corona please refer to primary provider for complete H&P- 43-year-old female presents for evaluation nausea vomiting and that started this morning. She now complains of chest pain abdominal pain that started afterwards. EKG was performed on arrival, labs ordered she will be given a dose of ODT Zofran Reevaluation(s) Reevaluation #1: Patient has not had any episodes of vomiting or diarrhea, she has settled after being medicated with Compazine Benadryl and IV fluid. She may have had the dicyclomine. I am getting her ready for discharge Time: 19:09 Medications Administered Discontinued Medications Generic Name Dose Route Start Last Admin Trade Name Meredith PRN Reason Stop Dose Admin Diphenhydramine HCl 25 mg 07/24/24 17:43 07/24/24 18:09 Diphenhydramine Hcl 50 Mg/Ml Vial IVPUSH 07/24/24 17:44 25 mg ONCE ONE Administration Sodium Chloride 1,000 mls @ 999 mls/hr 07/24/24 17:45 07/24/24 18:07 Ns IV 07/24/24 18:45 999 mls/hr .Q1H1M FAM Administration Ketorolac Tromethamine 15 mg 07/24/24 17:43 07/24/24 18:08 Ketorolac Tromethamine 15 Mg/Ml Vial IVPUSH 07/24/24 17:44 15 mg ONCE ONE Administration Ondansetron HCl 4 mg 07/24/24 11:05 07/24/24 11:24 Ondansetron Odt 4 Mg Tab.Rapdis TRANSLINGU 07/24/24 11:06 Not Given ONCE ONE Prochlorperazine Edisylate 10 mg 07/24/24 17:40 07/24/24 18:10 Prochlorperazine Edisylate 10 Mg/2 Ml Vial IVPUSH 07/24/24 17:41 10 mg ONCE ONE Administration Medical Decision Making Medical Decision Making MDM Narrative: 43-year-old female with a history of IBS, cyclic vomiting syndrome, bipolar and anxiety, who is well known to our emergency department, who is a high utilizer of resources, presents with nausea vomiting diarrhea since this morning. Associated chest pain since she started vomiting. No sick contacts with similar symptoms. Denies use of recent antibiotics, recent hospitalization, no travel. Problem: Medication seeking behavior, cyclic vomiting, psychiatric illness History: Per patient I have considered the following differential diagnoses: Malingering, medication seeking behavior, C diff, traveler's diarrhea, viral gastroenteritis, diverticulitis Plan: Sadly, the patient is well known to our emergency department. She is here often with the same complaint of nausea vomiting diarrhea, she often begs for Dilaudid and/or benzodiazepines. Screening labs already obtained, no acute abnormalities. We will be giving fluid Compazine Benadryl and dicyclomine. She has no risk factors for C diff, nor traveler's diarrhea. She has no focal left lower quadrant pain to suggest diverticulitis. This is viral gastroenteritis versus medication seeking behavior. I have independently reviewed the following tests: Labs: Leukocytosis noted, not anemic, to note she always has a leukocytosis, no electrolyte abnormality, troponin negative, viral panel negative EKG: Normal sinus rhythm with sinus arrhythmia, rate of 92, no ischemic changes no ectopy, prolonged QT at 489 Lab Data 07/24/24 12:11 07/24/24 12:11 Labs: Lab Results 07/24/24 Range/Units 12:11 WBC 15.7 H (4.8-10.8) X10*3/uL RBC 5.03 (4.20-5.50) X10*6/uL Hgb 14.4 (12.0-16.0) g/dl Hct 41.4 (37.0-47.0) % MCV 82.3 (80.0-98.0) fL MCH 28.6 (27.0-33.0) pg MCHC 34.8 (31.0-35.0) g/dl RDW 14.0 (11.0-16.0) % Plt Count 341 (160-400) X10*3/uL MPV 9.1 L (9.4-12.3) fL Immature Gran % (Auto) 0.5 H (0.0-0.4) % Neut % (Auto) 81.2 H (45-73) % Lymph % (Auto) 14.6 L (20-40) % Cocke % (Auto) 2.0 (2-11) % Eos % (Auto) 1.1 (0-4) % Baso % (Auto) 0.6 (0-2) % Lymph # (Auto) 2.3 (1.2-4.9) X10*3/uL Cocke # (Auto) 0.3 (0.1-1.2) X10*3/uL Eos # (Auto) 0.2 (0.0-0.4) X10*3/uL Baso # (Auto) 0.1 (0.0-0.2) X10*3/uL Abs Immat Gran (auto) 0.08 H (0.00-0.03) X10*3/uL Absolute Neuts (auto) 12.8 H (2.0-8.3) x10*3/uL Absolute Nucleated RBC 0.000 (0.0-0.012) X10*3/uL Nucleated RBC % (auto) 0.0 (0.0-0.2) /100WBC PT 10.2 L (10.9-12.4) SEC INR 0.9 (0.9-1.1) Sodium 138 (135-145) mmol/L Potassium 3.3 (3.3-5.1) mmol/L Chloride 104 (96-108) mmol/L Carbon Dioxide 23 (22-29) mmol/L Anion Gap 14 (12-20) BUN 12 (9-16) mg/dL Creatinine 0.74 (0.5-1.4) mg/dL Estim Creat Clear Calc 84.5 Estimated GFR > 60 Random Glucose 199 H (60-115) mg/dL Calcium 9.2 D (8.4-10.2) mg/dL Total Bilirubin 0.2 (0.0-1.0) mg/dL AST 18 (5-31) U/L ALT 17 (0-31) U/L Alkaline Phosphatase 98 (39-117) U/L Troponin I High Sens < 2.7 (<3.5-17.0) ng/L Total Protein 7.6 (6.5-8.0) g/dL Albumin 4.4 (3.5-5.0) g/dL Lipase 39 (8-78) U/L Influenza Type A (PCR) NEGATIVE (Negative) Influenza Type B (PCR) NEGATIVE (Negative) RSV RNA Qual (PCR) NEGATIVE (Negative) SARS-CoV-2 RNA (RT-PCR) NEGATIVE (Negative) Discharge Plan Discharge Clinical Impression: Gastroenteritis Patient Disposition: Home, Self-Care Instructions: Gastroenteritis (ED), Cyclic Vomiting Syndrome (ED) Additional Instructions: Given your report of nausea vomiting diarrhea, this maybe viral gastroenteritis. Such illness has been prevalent within the community. All of your labs were normal. However, this could also be your cyclic vomiting syndrome. You responded well to the combination of the antinausea medication that I gave you coupled with Benadryl. I can send this prescription to your pharmacy. 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 You essentially would take Compazine 10 mg with 25 mg of [id number] Benadryl. This medication combination can be taken every 8 hours. Follow up with your primary care provider as needed. Prescriptions: New prochlorperazine maleate [Compazine] 10 mg tablet 10 mg PO Q8H PRN (Reason: nausea and vomiting) Qty: 10 0RF No Action aripiprazole 10 mg tablet 1 tab PO DAILY lamotrigine 100 mg tablet 1 tab PO TID lorazepam 1 mg tablet 0.5 tab PO BID melatonin 5 mg tablet 1 tab PO BEDTIME PRN (Reason: insomnia) quetiapine 50 mg tablet 1 tab PO BEDTIME sucralfate 100 mg/mL suspension 10 ml PO BID zolpidem 5 mg tablet 1 tab PO BEDTIME PRN (Reason: Sleep) ondansetron HCl [Zofran] 4 mg tablet 4 mg PO Q6H PRN (Reason: nausea and vomiting) Qty: 10 0RF acetaminophen [Tylenol 8 Hour] 650 mg tablet extended release 650 mg PO Q8H PRN (Reason: pain) Qty: 10 0RF nitrofurantoin monohyd/m-cryst [Macrobid] 100 mg capsule 100 mg PO Q12H 7 Days Qty: 14 0RF Rx Instructions: must administer with a meal/food dicyclomine 10 mg capsule 10 mg PO QID 7 Days Qty: 28 0RF promethazine 25 mg tablet 25 mg PO TID PRN (Reason: nausea and vomiting) Qty: 20 0RF sulfamethoxazole-trimethoprim [Bactrim DS] 800-160 mg tablet 1 tab PO BID Qty: 14 0RF phenazopyridine 100 mg tablet 100 mg PO TID Qty: 6 0RF ibuprofen 600 mg tablet 600 mg PO TID PRN (Reason: pain) Qty: 20 0RF sucralfate 1 gram tablet 1 g PO BID PRN (Reason: Upper abdominal pain) Qty: 40 0RF ondansetron 4 mg tablet,disintegrating 4 mg PO Q6H PRN (Reason: nausea and vomiting) Qty: 10 0RF ondansetron 4 mg tablet,disintegrating 4 mg PO BEDTIME PRN (Reason: nausea and vomiting) Qty: 7 0RF dicyclomine 10 mg capsule 10 mg PO TID PRN (Reason: abdominal distention) Qty: 20 0RF cefuroxime axetil 250 mg tablet 250 mg PO BID Qty: 10 0RF ondansetron 4 mg tablet,disintegrating 4 mg PO Q8H PRN (Reason: nausea and vomiting) Qty: 7 0RF simethicone [Gas Relief (simethicone)] 180 mg capsule 180 mg PO BID PRN (Reason: abdominal distention) Qty: 14 0RF polyethylene glycol 3350 [Miralax] 17 gram powder in packet 17 g PO DAILY Qty: 14 0RF ondansetron 4 mg tablet,disintegrating 4 mg PO Q6-8H PRN (Reason: nausea and vomiting) Qty: 14 0RF ondansetron 4 mg tablet,disintegrating 4 mg PO Q6H PRN (Reason: nausea and vomiting) Qty: 10 0RF Print Language: Turkish
[2024-07-24 12:16] LABS: MANUAL DIFF FLAG NO
[2024-07-24 12:18] LABS: Basophils Absolute Auto 0.1 X10*3/uL (0.0-0.2); Basophils Percent Auto 0.6 % (0-2); Eosinophils Absolute Auto 0.2 X10*3/uL (0.0-0.4); Eosinophils Percent Auto 1.1 % (0-4); Hematocrit 41.4 % (37.0-47.0); Hemoglobin 14.4 g/dl (12.0-16.0); Imm Gran Abs Auto 0.08 X10*3/uL (0.00-0.03); Imm Gran Pct Auto 0.5 % (0.0-0.4); Lymphocytes Absolute Auto 2.3 X10*3/uL (1.2-4.9); Lymphocytes Percent Auto 14.6 % (20-40); Mean Corpuscular HGB Conc 34.8 g/dl (31.0-35.0); Mean Corpuscular Hemoglobin 28.6 pg (27.0-33.0); Mean Corpuscular Volume 82.3 fL (80.0-98.0); Mean Platelet Volume 9.1 fL (9.4-12.3); Monocytes Absolute Auto 0.3 X10*3/uL (0.1-1.2); Neutrophils Absolute Auto 12.8 x10*3/uL (2.0-8.3); Neutrophils Percent Auto 81.2 % (45-73); Platelet Count 341 X10*3/uL (160-400); Red Blood Count 5.03 X10*6/uL (4.20-5.50); White Blood Count 15.7 X10*3/uL (4.8-10.8)
[2024-07-24 12:27] LABS: INTERNATIONAL NORM RATIO 0.9 (0.9-1.1); Prothrombin Time 10.2 SEC (10.9-12.4)
[2024-07-24 12:33] LABS: Alanine Aminotransferase 17 U/L (0-31); Albumin Level 4.4 g/dL (3.5-5.0); Alkaline Phosphatase 98 U/L (39-117); Anion Gap 14 (12-20); Aspartate Amino Transferase 18 U/L (5-31); Bilirubin Total 0.2 mg/dL (0.0-1.0); Blood Urea Nitrogen 12 mg/dL (9-16); Calcium 9.2 mg/dL (8.4-10.2); Carbon Dioxide 23 mmol/L (22-29); Chloride 104 mmol/L (96-108); Creatinine Clr Calc Pharmacy 84.5; Estimated Glomerular Filt Rate > 60; Glucose Random 199 mg/dL (60-115); Lipase 39 U/L (8-78); Potassium 3.3 mmol/L (3.3-5.1); Sodium 138 mmol/L (135-145); Total Protein 7.6 g/dL (6.5-8.0)
[2024-07-24 12:45] LABS: Troponin-I High Sensitivity < 2.7 ng/L (<3.5-17.0)
--- NOTE | 2024-07-24 12:54 | PC.NURSE ---
Pt up to triage demanding that she been taking care of- pt refused zofran- pt stated it doesn't work why bother- I need an IV- why can't sit in your chair and just put an IV in me
[2024-07-24 12:55] LABS: Influenza A PCR NEGATIVE (Negative); Influenza B PCR NEGATIVE (Negative); Resp Syncy Virus RNA Qual PCR NEGATIVE (Negative); SARS COV2 PCR INHOUSE NEGATIVE (Negative)
[2024-07-24 16:39] VITALS: BP 165/123; PULSE 91; RESP 19; TEMP 36.6; O2SAT 98
[2024-07-24 17:55] VITALS: BP 169/110; PULSE 97; RESP 18; TEMP 36.8; O2SAT 98
[2024-07-24] MEDS: 0.9 % Sodium Chloride 1,000 ML 999 ML IV (18:07)
[2024-07-24] MEDS: Ketorolac Tromethamine 15 MG/ML VIAL IVPUSH (18:08)
[2024-07-24] MEDS: diphenhydrAMINE HCL 50 MG/ML VIAL 25 MG IVPUSH (18:09)
[2024-07-24] MEDS: Prochlorperazine Edisylate 10 MG/2 ML VIAL IVPUSH (18:10)
--- NOTE | 2024-07-24 18:27 | PC.NURSE ---
dry heaving/wretching seems to be lessening.
[2024-07-24 18:37] VITALS: RESP 16
--- NOTE | 2024-07-24 18:38 | PC.NURSE ---
Pt sleeping. VS held. provider aware
[2024-07-24 19:43] VITALS: BP 0/0; PULSE 0; RESP 0; TEMP -17.7; TEMP 0; O2SAT 0
== END 2024-07-24 19:44 | disposition home or self-care (01) ==
PROVIDERS: Physician Assistant; Emergency Provider Emergency Medicine Emergency Medical Services
DX: K52.9 Noninfective gastroenteritis and colitis, unspecified (principal); R11.2 Nausea with vomiting, unspecified; R07.89 Other chest pain; Z79.899 Other long term (current) drug therapy; Z03.818 Encounter for observation for suspected exposure to other biological agents ruled out
CPT/HCPCS: 0241U; 80053; 83690; 84484; 85025; 85610; 93005; 96361; 96374; 96375; 99285; J0737; J1200; J1885

== ENCOUNTER → 2024-07-24 10:46 | Outpatient (BNV) | payer OTHER, SELFPAY | PROVIDERS: Emergency Provider Emergency Medicine Emergency Medical Services; Visit Provider Internal Medicine | DX: R94.31 Abnormal electrocardiogram [ECG] [EKG] (principal) | CPT/HCPCS: 93010 ==

== ENCOUNTER 2024-08-26 07:13 | Emergency (ER) | payer OTHER, SELFPAY ==
--- NOTE | 2024-08-26 07:32 | ED.GENADULT ---
HPI - General Adult General Chief complaint: Nausea/Vomiting/Diarrhea Stated complaint: headache vomiting blood Time Seen by Provider: 08/26/24 07:32 Source: patient and RN notes reviewed Mode of arrival: ambulatory Limitations: no limitations History of Present Illness ED Provider: Xochilt Carmen PA-C HPI narrative: This is a 43-year-old female, with a history of IBS, cyclical vomiting syndrome, bipolar disorder, anxiety, who is well known to emergency department, who presents emergency department with complaints of nausea and vomiting which started this morning. Patient is well known to this emergency department where she presents with cyclical vomiting. She does report that she smokes marijuana, last use yesterday. She endorses headache, nausea and vomiting. No chest pain or shortness for breath. She does report epigastric pain. She had a cholecystectomy. Denies any urinary symptoms. No other complaints or concerns at this time. MD complaint: Nausea, vomiting Onset (ago): day(s) Radiation: non-radiation Quality: aching Related Data Home Medications ?Medication ?Instructions ?Recorded ?Confirmed aripiprazole 10 mg tablet 1 tab PO DAILY 01/05/21 01/05/21 lamotrigine 100 mg tablet 1 tab PO TID 01/05/21 01/05/21 lorazepam 1 mg tablet 0.5 tab PO BID 01/05/21 01/05/21 melatonin 5 mg tablet 1 tab PO BEDTIME PRN insomnia 01/05/21 01/05/21 quetiapine 50 mg tablet 1 tab PO BEDTIME 01/05/21 01/05/21 sucralfate 100 mg/mL oral 10 ml PO BID 01/05/21 01/05/21 suspension zolpidem 5 mg tablet 1 tab PO BEDTIME PRN Sleep 01/05/21 01/05/21 Previous Rx's ?Medication ?Instructions ?Recorded acetaminophen 650 mg 650 mg PO Q8H PRN pain #10 tabs 01/07/21 tablet,extended release (Tylenol 8 Hour) ondansetron HCl 4 mg tablet 4 mg PO Q6H PRN nausea and 01/07/21 (Zofran) vomiting #10 tabs promethazine 25 mg tablet 25 mg PO TID PRN nausea and 01/06/22 vomiting #20 tabs dicyclomine 10 mg capsule 10 mg PO QID 7 days #28 caps 06/14/22 nitrofurantoin 100 mg PO Q12H 7 days #14 caps 06/14/22 monohydrate/macrocrystals 100 mg capsule (Macrobid) ibuprofen 600 mg tablet 600 mg PO TID PRN pain #20 tabs 06/16/22 phenazopyridine 100 mg tablet 100 mg PO TID 6 doses #6 tabs 06/16/22 sulfamethoxazole 800 1 tab PO BID #14 tabs 06/16/22 mg-trimethoprim 160 mg tablet (Bactrim DS) cefuroxime axetil 250 mg tablet 250 mg PO BID #10 tabs 12/12/22 dicyclomine 10 mg capsule 10 mg PO TID PRN abdominal 12/12/22 distention #20 caps ondansetron 4 mg disintegrating 4 mg PO Q8H PRN nausea and 12/12/22 tablet vomiting #7 tabs polyethylene glycol 3350 17 gram 17 g PO DAILY #14 ea 12/12/22 oral powder packet (Miralax) simethicone 180 mg capsule (Gas 180 mg PO BID PRN abdominal 12/12/22 Relief (simethicone)) distention #14 caps ondansetron 4 mg disintegrating 4 mg PO Q6-8H PRN nausea and 10/03/23 tablet vomiting #14 tabs ondansetron 4 mg disintegrating 4 mg PO Q6H PRN nausea and 12/01/23 tablet vomiting #10 tabs sucralfate 1 gram tablet 1 g PO BID PRN Upper abdominal 12/01/23 pain #40 tabs ondansetron 4 mg disintegrating 4 mg PO Q6H PRN nausea and 05/08/24 tablet vomiting #10 tabs ondansetron 4 mg disintegrating 4 mg PO BEDTIME PRN nausea and 05/13/24 tablet vomiting #7 tabs prochlorperazine maleate 10 mg 10 mg PO Q8H PRN nausea and 07/24/24 tablet (Compazine) vomiting #10 tabs Allergies Allergy/AdvReac Type Severity Reaction Status Date / Time Penicillins Allergy Intermediate HIVES Verified 08/29/24 00:53 adhesive tape Allergy Rash Verified 08/29/24 00:53 ciprofloxacin Allergy Unresponsiv Verified 08/29/24 00:53 e Amoxicillin Allergy Intermediate Hives Uncoded 07/10/24 16:20 Review of Systems Review of Systems: Yes all other systems are reviewed and are negative Constitutional: Constitutional: Reports as per [facility] Past Medical History Medical History Endometriosis Pulmonary embolism Anxiety Bipolar 1 disorder Surgical History Hx of appendectomy History of cholecystectomy H/O: hysterectomy Social History Social History Alcohol intake: never Patient Tobacco Use Status: Current everyday Tobacco user Tobacco use type: Cigarette Cigarette Packs Per Day: 0.34 Cigarettes Per Day: 6.8 Years Smoked: 32 Second Hand Smoke Exposure: No Substance Use Type: Marijuana Advance Directives: No Advance Directives Information Provided: Yes Do you have a plan to hurt others: No Plan Physical Exam ED Vital Signs: Vital Signs - 24 hr 08/26/24 07:38 08/26/24 08:08 08/26/24 10:10 Temperature 98.0 F Pulse Rate 79 Respiratory Rate 24 H 16 16 Blood Pressure 191/97 H Pulse Oximetry 100 Oxygen Delivery Method Room Air 08/26/24 12:25 08/26/24 14:14 Temperature 98.8 F Pulse Rate 83 Respiratory Rate 17 20 Blood Pressure 171/95 H Pulse Oximetry 98 Oxygen Delivery Method Room Air BMI result Body Mass Index 29.4 Const Other: actively vomiting General: cooperative and comfortable Orientation/consciousness: patient oriented x3 Limitations: no limitations HENMT Head: Yes normal to inspection, Yes normocephalic and Yes atraumatic Ears: hearing grossly normal bilaterally General nose exam: Normal external nose present Face and sinus: Yes normal facial exam Mouth: Normal oral and palatal mucosa present, oropharynx normal and moist mucous membranes Throat: Yes posterior oropharynx normal Eyes General: appearance normal, both eyes and all related structures Eyelids: Yes eyelids normal Conjunctivae: conjunctivae normal Sclerae: sclerae normal Pupils: Equal, round and reactive pupils present EOM: EOMs intact bilaterally Neck Neck: Yes normal visual inspection, Yes full ROM and Yes no lymphadenopathy Lymphatic: no lymphadenopathy noted Chest Chest palpation & inspection: normal inspection of the chest Resp Effort & Inspection: normal respiratory effort and able to speak in complete sentences Auscultation: clear to auscultation bilaterally, no crackles, no rales, no rhonchi and no wheezes Cardio Rate: regular rate Rhythm: regular rhythm Heart sounds: S1 normal heart sound present and S2 normal heart sound present GI Other: Abdomen is soft, nontender. Inspection: Yes normal to inspection Skin General skin exam: no rashes or lesions noted Trauma: no lacerations or abrasions Wounds: no wounds Neuro General: patient oriented x3 and moves all extremities Cranial nerves: Yes Equal, round and reactive pupils present Extrem General: Yes normal to inspection Right upper extremity: normal to inspection Left upper extremity: normal to inspection Right lower extremity: normal to inspection Left lower extremity: normal to inspection Course Reevaluation(s) Reevaluation #1: Patient asleep, no longer vomiting. Will continue to closely monitor. Labs returned, she has slight leukocytosis at 11.9, stable H&H, chemistry with no significant electrolyte derangement. She does have slight hypokalemia 3.2. Flu, RSV, COVID negative. Time: 10:51 Reevaluation #2: Patient nauseous again, actively vomiting. Given Zofran IV, will continue to monitor for symptomatic improvement. Time: 11:40 Reevaluation #3: Patient had slight improvement with Zofran however is vomiting again. Assess QTC with EKG, she may need to be admitted for intractable vomiting. Time: 13:22 Additional Reevaluation(s): 1437 - droperidol is on back order, she still reports some nausea, will medicate with whole though. Advised patient that if who she continues to have intractable nausea she will be admitted to the hospital. She understands this we will continue to closely monitor pending reassessment. 1530 - Pt reassessed, her symptoms have resolved and she is feeling much better. She is eating and drinking without return of her symptoms. Urged the importance of following up with GI specialist and avoiding marijuana use. Stable for d/c. Medications Administered Discontinued Medications Generic Name Dose Route Start Last Admin Trade Name Rahatq PRN Reason Stop Dose Admin Diphenhydramine HCl 25 mg 08/26/24 08:05 08/26/24 08:09 Diphenhydramine Hcl 50 Mg/Ml Vial IVPUSH 08/26/24 08:06 25 mg ONCE ONE Administration Droperidol 1.25 mg 08/26/24 07:49 08/26/24 09:07 Droperidol 5 Mg/2 Ml Vial IVPUSH 08/26/24 07:50 Not Given ONCE ONE Droperidol 1.25 mg 08/26/24 14:05 08/26/24 15:07 Droperidol 5 Mg/2 Ml Vial IVPUSH 08/26/24 14:06 Not Given ONCE ONE Haloperidol Lactate 2.5 mg 08/26/24 14:26 08/26/24 15:07 Haloperidol Lactate 5 Mg/Ml Vial IVPUSH 08/26/24 14:27 Not Given ONCE ONE Hydromorphone HCl 1 mg 08/26/24 14:07 08/26/24 14:14 Hydromorphone Hcl 1 Mg/Ml Syringe IVPUSH 08/26/24 14:08 1 mg ONCE ONE Administration Protocol Sodium Chloride 1,000 mls @ 999 mls/hr 08/26/24 07:50 08/26/24 11:35 Ns IV 08/26/24 08:50 Infused .Q1H1M ONE Infusion Acetaminophen 1,000 mg in 100 mls @ 400 mls/hr 08/26/24 07:54 08/26/24 08:24 Ofirmev IV 08/26/24 08:08 Infused ONCE ONE Infusion Sodium Chloride 1,000 mls @ 999 mls/hr 08/26/24 12:14 08/26/24 12:29 Ns IVCONT 08/26/24 13:14 999 mls/hr .Q1H1M ONE Administration Morphine Sulfate 4 mg 08/26/24 07:50 08/26/24 08:08 Morphine Sulfate 4 Mg/Ml Cartridge IVPUSH 08/26/24 07:51 4 mg ONCE ONE Administration Protocol Ondansetron HCl 4 mg 08/26/24 11:43 08/26/24 12:29 Ondansetron Hcl 4 Mg/2 Ml Vial IVPUSH 08/26/24 11:44 4 mg ONCE ONE Administration Prochlorperazine Edisylate 10 mg 08/26/24 08:05 08/26/24 08:09 Prochlorperazine Edisylate 10 Mg/2 Ml Vial IVPUSH 08/26/24 08:06 10 mg ONCE ONE Administration Medical Decision Making Medical Decision Making MDM Narrative: This is a [id number]-female, with a hx of cyclical vomiting syndrome who presents to the ER with complaints of vomiting since last night. On arrival, patient actively vomiting, reporting pain in her epigastrium, consistent with her cyclical vomiting presentation. She had a cholescystectomy. DDX including electrolyte derangemen, acute gastritis, gastroenteritis, ACS - unlikely. Plan: Labs, EKG, anti-emetics, PO challenge Differential Diagnosis Differential Diagnoses: The differential diagnosis associated with the presentation includes see above Admission/Observation Consideration of admission/observation: Escalation of care including admission/observation considered Lab Data MDM Lab Attestation statement: I reviewed the patient's lab results. No leukocytosis, stable H&H, troponin negative, slight hypokalemia at 3.2. 08/26/24 08:13 08/26/24 08:13 Labs: Lab Results 08/26/24 Range/Units 08:13 WBC 11.9 H (4.8-10.8) X10*3/uL RBC 4.90 (4.20-5.50) X10*6/uL Hgb 14.1 (12.0-16.0) g/dl Hct 40.8 (37.0-47.0) % MCV 83.3 (80.0-98.0) fL MCH 28.8 (27.0-33.0) pg MCHC 34.6 (31.0-35.0) g/dl RDW 14.0 (11.0-16.0) % Plt Count 280 (160-400) X10*3/uL MPV 9.2 L (9.4-12.3) fL Immature Gran % (Auto) 0.5 H (0.0-0.4) % Neut % (Auto) 75.1 H (45-73) % Lymph % (Auto) 18.4 L (20-40) % [place] % (Auto) 3.3 (2-11) % Eos % (Auto) 1.9 (0-4) % Baso % (Auto) 0.8 (0-2) % Lymph # (Auto) 2.2 (1.2-4.9) X10*3/uL [place] # (Auto) 0.4 (0.1-1.2) X10*3/uL Eos # (Auto) 0.2 (0.0-0.4) X10*3/uL Baso # (Auto) 0.1 (0.0-0.2) X10*3/uL Abs Immat Gran (auto) 0.06 H (0.00-0.03) X10*3/uL Absolute Neuts (auto) 9.0 H (2.0-8.3) x10*3/uL Absolute Nucleated RBC 0.000 (0.0-0.012) X10*3/uL Nucleated RBC % (auto) 0.0 (0.0-0.2) /100WBC Sodium 141 (135-145) mmol/L Potassium 3.2 L (3.3-5.1) mmol/L Chloride 100 (96-108) mmol/L Carbon Dioxide 27 (22-29) mmol/L Anion Gap 17 (12-20) BUN 11 (9-16) mg/dL Creatinine 0.77 (0.5-1.4) mg/dL Estim Creat Clear Calc 80.3 Estimated GFR > 60 Random Glucose 179 H (60-115) mg/dL Calcium 9.3 (8.4-10.2) mg/dL Magnesium 2.0 (1.6-2.6) mg/dL Total Bilirubin 0.2 (0.0-1.0) mg/dL Direct Bilirubin < 0.2 (0.0-0.5) mg/dL AST 18 (5-31) U/L ALT 15 (0-31) U/L Alkaline Phosphatase 106 (39-117) U/L Troponin I High Sens < 2.7 (<3.5-17.0) ng/L Total Protein 7.7 (6.5-8.0) g/dL Albumin 4.3 (3.5-5.0) g/dL Lipase 16 (8-78) U/L Influenza Type A (PCR) NEGATIVE (Negative) Influenza Type B (PCR) NEGATIVE (Negative) RSV RNA Qual (PCR) NEGATIVE (Negative) SARS-CoV-2 RNA (RT-PCR) NEGATIVE (Negative) Independent Interpretation I performed an independent interpretation of an: EKG Interpretation: EKG NSR at 78bpm, no ST elevation or depression, QT/qTC slightly prolonged at 432/492. Discharge Plan Discharge Clinical Impression: Cyclic vomiting syndrome Patient Disposition: Home, Self-Care Instructions: Acute Nausea and Vomiting (ED) Additional Instructions: You were seen in the emergency department due to nausea and vomiting. Please stick to a bland diet. Avoid spicy or fried foods. Avoid dairy. You need follow-up with your GI specialist due to this issue. If any new or worsening symptoms occur including but not limited to chest pain, shortness for breath, please seek emergent care. Prescriptions: No Action aripiprazole 10 mg tablet 1 tab PO DAILY lamotrigine 100 mg tablet 1 tab PO TID lorazepam 1 mg tablet 0.5 tab PO BID melatonin 5 mg tablet 1 tab PO BEDTIME PRN (Reason: insomnia) quetiapine 50 mg tablet 1 tab PO BEDTIME sucralfate 100 mg/mL suspension 10 ml PO BID zolpidem 5 mg tablet 1 tab PO BEDTIME PRN (Reason: Sleep) ondansetron HCl [Zofran] 4 mg tablet 4 mg PO Q6H PRN (Reason: nausea and vomiting) Qty: 10 0RF acetaminophen [Tylenol 8 Hour] 650 mg tablet extended release 650 mg PO Q8H PRN (Reason: pain) Qty: 10 0RF nitrofurantoin monohyd/m-cryst [Macrobid] 100 mg capsule 100 mg PO Q12H 7 Days Qty: 14 0RF Rx Instructions: must administer with a meal/food dicyclomine 10 mg capsule 10 mg PO QID 7 Days Qty: 28 0RF promethazine 25 mg tablet 25 mg PO TID PRN (Reason: nausea and vomiting) Qty: 20 0RF sulfamethoxazole-trimethoprim [Bactrim DS] 800-160 mg tablet 1 tab PO BID Qty: 14 0RF phenazopyridine 100 mg tablet 100 mg PO TID Qty: 6 0RF ibuprofen 600 mg tablet 600 mg PO TID PRN (Reason: pain) Qty: 20 0RF sucralfate 1 gram tablet 1 g PO BID PRN (Reason: Upper abdominal pain) Qty: 40 0RF ondansetron 4 mg tablet,disintegrating 4 mg PO Q6H PRN (Reason: nausea and vomiting) Qty: 10 0RF ondansetron 4 mg tablet,disintegrating 4 mg PO BEDTIME PRN (Reason: nausea and vomiting) Qty: 7 0RF dicyclomine 10 mg capsule 10 mg PO TID PRN (Reason: abdominal distention) Qty: 20 0RF cefuroxime axetil 250 mg tablet 250 mg PO BID Qty: 10 0RF ondansetron 4 mg tablet,disintegrating 4 mg PO Q8H PRN (Reason: nausea and vomiting) Qty: 7 0RF simethicone [Gas Relief (simethicone)] 180 mg capsule 180 mg PO BID PRN (Reason: abdominal distention) Qty: 14 0RF polyethylene glycol 3350 [Miralax] 17 gram powder in packet 17 g PO DAILY Qty: 14 0RF ondansetron 4 mg tablet,disintegrating 4 mg PO Q6-8H PRN (Reason: nausea and vomiting) Qty: 14 0RF ondansetron 4 mg tablet,disintegrating 4 mg PO Q6H PRN (Reason: nausea and vomiting) Qty: 10 0RF prochlorperazine maleate [Compazine] 10 mg tablet 10 mg PO Q8H PRN (Reason: nausea and vomiting) Qty: 10 0RF Interventions: ED Discharge Assessment Last Done: 08/26/24 15:55 Discharge Date/Time: 08/26/24 15:56 Print Language: [place] Citizen
[2024-08-26 07:38] VITALS: BP 191/97; PULSE 79; RESP 24; TEMP 36.7; O2SAT 100; BMI 29.4
--- NOTE | 2024-08-26 07:49 | ECG_ITS ---
Test Reason : EPIGASTRIC PAIN Blood Pressure : */* mmHG Vent. Rate : 76 BPM Atrial Rate : 76 BPM P-R Int : 132 ms QRS Dur : 96 ms QT Int : 462 ms P-R-T Axes : 68 64 36 degrees QTcB Int : 519 ms Normal sinus rhythm with sinus arrhythmia Possible Left atrial enlargement Incomplete right bundle branch block Prolonged QT Abnormal ECG When compared with ECG of 24-Jul-2024 10:55, No significant change was found Referred By: Xochilt Carmen Electronically Signed By: Pascual Casey
[2024-08-26 08:08] VITALS: RESP 16
[2024-08-26] MEDS: Morphine Sulfate 4 MG/ML CARTRIDGE IVPUSH (08:08)
[2024-08-26] MEDS: diphenhydrAMINE HCL 50 MG/ML VIAL 25 MG IVPUSH (08:09)
[2024-08-26] MEDS: Acetaminophen 1,000 MG/100 ML PIGGYBACK 400 MG IV (08:09)
[2024-08-26] MEDS: Prochlorperazine Edisylate 10 MG/2 ML VIAL IVPUSH (08:09)
[2024-08-26] MEDS: 0.9 % Sodium Chloride 1,000 ML 999 ML IV (08:10)
[2024-08-26 08:18] LABS: MANUAL DIFF FLAG NO
[2024-08-26 08:19] LABS: Basophils Absolute Auto 0.1 X10*3/uL (0.0-0.2); Basophils Percent Auto 0.8 % (0-2); Eosinophils Absolute Auto 0.2 X10*3/uL (0.0-0.4); Eosinophils Percent Auto 1.9 % (0-4); Hematocrit 40.8 % (37.0-47.0); Hemoglobin 14.1 g/dl (12.0-16.0); Imm Gran Abs Auto 0.06 X10*3/uL (0.00-0.03); Imm Gran Pct Auto 0.5 % (0.0-0.4); Lymphocytes Absolute Auto 2.2 X10*3/uL (1.2-4.9); Lymphocytes Percent Auto 18.4 % (20-40); Mean Corpuscular HGB Conc 34.6 g/dl (31.0-35.0); Mean Corpuscular Hemoglobin 28.8 pg (27.0-33.0); Mean Corpuscular Volume 83.3 fL (80.0-98.0); Mean Platelet Volume 9.2 fL (9.4-12.3); Monocytes Absolute Auto 0.4 X10*3/uL (0.1-1.2); Monocytes Percent Auto 3.3 % (2-11); Neutrophils Percent Auto 75.1 % (45-73); Platelet Count 280 X10*3/uL (160-400); White Blood Count 11.9 X10*3/uL (4.8-10.8)
[2024-08-26 08:43] LABS: Alanine Aminotransferase 15 U/L (0-31); Albumin Level 4.3 g/dL (3.5-5.0); Alkaline Phosphatase 106 U/L (39-117); Anion Gap 17 (12-20); Aspartate Amino Transferase 18 U/L (5-31); Bilirubin Direct < 0.2 mg/dL (0.0-0.5); Bilirubin Total 0.2 mg/dL (0.0-1.0); Blood Urea Nitrogen 11 mg/dL (9-16); Calcium 9.3 mg/dL (8.4-10.2); Carbon Dioxide 27 mmol/L (22-29); Chloride 100 mmol/L (96-108); Creatinine Clr Calc Pharmacy 80.3; Estimated Glomerular Filt Rate > 60; Glucose Random 179 mg/dL (60-115); Lipase 16 U/L (8-78); Potassium 3.2 mmol/L (3.3-5.1); Sodium 141 mmol/L (135-145); Total Protein 7.7 g/dL (6.5-8.0)
[2024-08-26 08:56] LABS: Troponin-I High Sensitivity < 2.7 ng/L (<3.5-17.0)
[2024-08-26 09:28] LABS: Influenza A PCR NEGATIVE (Negative); Influenza B PCR NEGATIVE (Negative); Resp Syncy Virus RNA Qual PCR NEGATIVE (Negative); SARS COV2 PCR INHOUSE NEGATIVE (Negative)
[2024-08-26 10:10] VITALS: RESP 16
[2024-08-26 12:25] VITALS: BP 171/95; PULSE 83; RESP 17; TEMP 37.1; O2SAT 98
[2024-08-26] MEDS: 0.9 % Sodium Chloride 1,000 ML 999 ML IVCONT (12:29)
[2024-08-26] MEDS: ondansetron HCL 4 MG/2 ML VIAL IVPUSH (12:29)
--- NOTE | 2024-08-26 13:22 | ECG_ITS ---
Test Reason : ASSESS QTC Blood Pressure : */* mmHG Vent. Rate : 78 BPM Atrial Rate : 78 BPM P-R Int : 124 ms QRS Dur : 88 ms QT Int : 432 ms P-R-T Axes : 62 63 53 degrees QTcB Int : 492 ms Normal sinus rhythm Possible Left atrial enlargement Prolonged QT Abnormal ECG When compared with ECG of 26-Aug-2024 09:10, No significant change was found Referred By: Xochilt Carmen Electronically Signed By: WILFRIDO MARTIN MD
--- NOTE | 2024-08-26 14:12 | PC.NURSE ---
Awaiting Droperidol per pharmacy at this time.
[2024-08-26 14:14] VITALS: RESP 20
[2024-08-26] MEDS: HYDROmorphone HCl 1 MG/ML SYRINGE IVPUSH (14:14)
[2024-08-26 15:55] VITALS: BP 134/79; PULSE 80; RESP 19; TEMP 36.6; O2SAT 98
== END 2024-08-26 15:56 | disposition home or self-care (01) ==
PROVIDERS: Physician Assistant Medical; Emergency Provider Emergency Medicine
DX: R11.15 Cyclical vomiting syndrome unrelated to migraine (principal); F12.19 Cannabis abuse with unspecified cannabis-induced disorder; R11.2 Nausea with vomiting, unspecified; R51.9 Headache, unspecified; F41.9 Anxiety disorder, unspecified; F17.210 Nicotine dependence, cigarettes, uncomplicated; Z03.818 Encounter for observation for suspected exposure to other biological agents ruled out; Z79.899 Other long term (current) drug therapy
CPT/HCPCS: 0241U; 80048; 80076; 83690; 83735; 84484; 85025; 93005; 96365; 96374; 96375; 96376; 99284; 99285; J0131; J0737; J1171; J1200; J2270; J2405

== ENCOUNTER → 2024-08-26 07:49 | Outpatient (BNV) | payer OTHER, SELFPAY | PROVIDERS: Emergency Provider Emergency Medicine; Visit Provider Internal Medicine Cardiovascular Disease | DX: R94.31 Abnormal electrocardiogram [ECG] [EKG] (principal) | CPT/HCPCS: 93010 ==

== ENCOUNTER 2024-08-29 00:26 | Emergency (ER) | payer OTHER, SELFPAY ==
[2024-08-29] VITALS (7 sets, daily range): BP systolic 121–162; BP diastolic 68–90; PULSE 69–96; RESP 16–20; TEMP 36.6–37; O2SAT 97–100; BMI 29.3
--- NOTE | 2024-08-29 | ECG_ITS ---
Test Reason : cp Blood Pressure : */* mmHG Vent. Rate : 95 BPM Atrial Rate : 95 BPM P-R Int : 116 ms QRS Dur : 82 ms QT Int : 400 ms P-R-T Axes : 42 67 55 degrees QTcB Int : 502 ms Normal sinus rhythm Possible Left atrial enlargement Prolonged QT Abnormal ECG When compared with ECG of 26-Aug-2024 13:38, No significant change was found Referred By: Generic ED Physician Electronically Signed By: WILFRIDO MARTIN MD
--- NOTE | ~2024-08-29 | XR_ITS ---
CLINICAL HISTORY: chest pain 2 view chest x-ray Comparison: CR/SR - XR CHEST 2V - 05/13/24 12:05 EDT Findings: The lungs are clear. Normal size heart. No acute fracture. IMPRESSION: 1. No acute findings. This document has been electronically signed by: Cl Aguila MD on 08/29/2024 01:09:52
[2024-08-29 00:48] LABS: MANUAL DIFF FLAG NO
[2024-08-29 00:49] LABS: Basophils Absolute Auto 0.1 X10*3/uL (0.0-0.2); Basophils Percent Auto 0.8 % (0-2); Eosinophils Absolute Auto 0.6 X10*3/uL (0.0-0.4); Eosinophils Percent Auto 5.3 % (0-4); Hemoglobin 13.6 g/dl (12.0-16.0); Imm Gran Abs Auto 0.03 X10*3/uL (0.00-0.03); Imm Gran Pct Auto 0.3 % (0.0-0.4); Lymphocytes Absolute Auto 4.8 X10*3/uL (1.2-4.9); Lymphocytes Percent Auto 42.6 % (20-40); Mean Corpuscular HGB Conc 34.9 g/dl (31.0-35.0); Mean Corpuscular Hemoglobin 29.1 pg (27.0-33.0); Mean Corpuscular Volume 83.3 fL (80.0-98.0); Mean Platelet Volume 9.1 fL (9.4-12.3); Monocytes Absolute Auto 0.7 X10*3/uL (0.1-1.2); Monocytes Percent Auto 5.9 % (2-11); Neutrophils Absolute Auto 5.1 x10*3/uL (2.0-8.3); Neutrophils Percent Auto 45.1 % (45-73); Platelet Count 282 X10*3/uL (160-400); Red Blood Count 4.68 X10*6/uL (4.20-5.50); Red Cell Distribution Width 14.4 % (11.0-16.0); White Blood Count 11.3 X10*3/uL (4.8-10.8)
[2024-08-29 01:08] LABS: Troponin-I High Sensitivity 2.8 ng/L (<3.5-17.0)
[2024-08-29 01:09] LABS: Anion Gap 14 (12-20); Blood Urea Nitrogen 12 mg/dL (9-16); Carbon Dioxide 30 mmol/L (22-29); Chloride 100 mmol/L (96-108); Potassium 3.4 mmol/L (3.3-5.1); Sodium 141 mmol/L (135-145)
[2024-08-29 01:10] LABS: Alanine Aminotransferase 18 U/L (0-31); Alkaline Phosphatase 109 U/L (39-117); Aspartate Amino Transferase 20 U/L (5-31); Bilirubin Total 0.2 mg/dL (0.0-1.0); Calcium 9.5 mg/dL (8.4-10.2); Creatinine Clr Calc Pharmacy 83.5; Estimated Glomerular Filt Rate > 60; Glucose Random 103 mg/dL (60-115); Total Protein 7.2 g/dL (6.5-8.0)
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
--- OUTSIDE RECORDS SUMMARY | 2024-08-29 07:55 | XMS_ITS | Clinical Summary ---
Author Organization Patient Business Ser [facility] Address [address] [place] [address] Care Team Providers Care Outside Solar Sales Consultant Name Role Phone Fahad Thompson MD Primary Care Provider Allergies Active Allergy Reactions Criticality Noted Date Comments Ciprofloxacin 11/27/2013 Penicillins Low 05/12/2007 Other Reaction(s): Rash/Dermatitis Medications Medication Sig Dispensed Refills Start Date End Date Status cyanocobalamin (VITAMIN B-12) 1,000 mcg tablet TAKE 1 TABLET BY MOUTH EVERY DAY 30 tablet 07/11/2024 Active Ventolin HFA 90 mcg/actuation inhaler INHALE 2 PUFFS INTO THE LUNGS EVERY 4 HOURS NEEDED FOR COUGH OR WHEEZING. 18 each 07/20/2024 Active omeprazole (PriLOSEC) [address] capsule Take 1 Capsule by mouth daily. 05/21/2024 Active FLUoxetine (PROzac) 20 mg capsule 12/28/2023 Active hydrOXYzine pamoate (VISTARIL) 25 mg capsule 12/28/2023 Active lamoTRIgine (LaMICtal) 100 mg tablet 12/28/2023 Active ondansetron ODT (ZOFRAN-ODT) 4 mg disintegrating tablet TAKE 1 TABLET BY MOUTH EVERY 8 HOURS NEEDED FOR NAUSEA AND VOMITING 12/02/2023 Active sucralfate (CARAFATE) 1 gram tablet TAKE 1 TABLET BY MOUTH 2 TIMES A DAY NEEDED FOR UPPER ABDOMINAL PAIN 12/01/2023 Active loperamide (IMODIUM) 2 mg capsule TAKE 1 CAPSULE BY MOUTH THREE TIMES A DAY NEEDED FOR DIARRHEA 12/20/2023 Active QUEtiapine (SEROquel) 25 mg tablet 12/28/2023 Active QUEtiapine (SEROquel) 50 mg tablet TAKE 1 TABLET BY MOUTH DAILY AT BEDTIME. NEXT APPOINTMENT IS 11/17/2021 12/01/2023 Active loperamide (IMODIUM A-D) 2 mg tablet Take 1 Tablet by mouth 3 times daily as needed for Diarrhea. 12/20/2023 Active atorvastatin (LIPITOR) 40 mg tablet Take 1 Tablet by mouth daily. 12/19/2023 Active ergocalciferol (VITAMIN D-2) 1,250 mcg (50,000 unit) capsule Take 1 Capsule by mouth once a week. 12/19/2023 Active aluminum-magnesium hydroxide-simethicone (MAALOX MAX) 400-400-40 mg/5 mL suspension Take 10 mL by mouth 4 times daily. 12/16/2023 Active zolpidem (AMBIEN) 5 mg tablet Take by mouth at bedtime as needed. Active cyclobenzaprine (FLEXERIL) 5 mg tablet Take 1-2 Tablets by mouth 2 times daily as needed for Muscle spasms. 09/02/2023 Active oxyCODONE (ROXICODONE) 5 mg immediate release tablet Take 1 Tablet by mouth every 12 hours as needed for Pain (Severe pain). 09/02/2023 Active clotrimazole (LOTRIMIN) 1 % cream To affected area 2 times daily 01/25/2018 Active lamoTRIgine (LaMICtal XR) 300 mg tablet extended release 24hr 24 hr tablet Take by mouth 2 times daily. Active quetiapine fumarate (SEROQUEL ORAL) Take by mouth at bedtime. Active Lactobacillus acidophilus (PROBIOTIC ORAL) Take by mouth at bedtime. Active FLUoxetine (PROzac) 20 mg tablet Take by mouth. Active LORazepam (ATIVAN) 1 mg tablet Take 1 mg by mouth. Twice a day Active Active Problems Problem Noted Date Diagnosed Date Bipolar affective 07/24/2024 Mixed hyperlipidemia 12/19/2023 Kidney stone 09/11/2021 Overview (07/24/2024): [facility] 08/24/2021 Cocaine use 04/13/2013 Overview (07/24/2024): Also pos again in ew In may 2013 Also pos again in sep 2016 Marijuana use 04/13/2013 Overview (07/24/2024): Also pos again in ew May 2013 Endometriosis 12/03/2011 Substance abuse 11/30/2010 Overview (07/24/2024): Positive urine drug screen at [facility] positive for cocaine, benzodiazepine, marijuana date of test November 25, 2010 Pos for cocaine and MJ January Irritable bowel syndrome 07/21/2006 Overview (07/24/2024): negative esophagoscopy 07.21.06. Encounters Date Type Department Care Team Description 08/06/2024 Telephone Adult Medicine [address] [id number] Fahad Thompson MD UTI from Last 3 Months Immunizations Name Administration Dates Next Due Influenza Quadravalent, MDCK , 0.5ml, preservative free (Flucelvax) 6mo and older 05/15/2018 Influenza trivalent, 0.5mL, preservative free (Fluarix; FluLaval; Fluzone) ages 6mo and older (Afluria) 3 years and older 06/13/2007 Surgical History Surgery Date Site/Laterality Comments OTHER SURGICAL HISTORY PROCEDURE: LAPAROSCOPY PROCEDURE NEC; COMMENT: no endometriosis TONSILLECTOMY ADENOIDECTOMY, BILATERAL MYRINGOTOMY AND TUBES PROCEDURE: PA TONSILLECTOMY & ADENOIDECTOMY <AGE 12 APPENDECTOMY PROCEDURE: PA APPENDECTOMY SALPINGOOPHORECTOMY PROCEDURE: PA LAPAROSCOPY W/RMVL ADNEXAL STRUCTURES; COMMENT: left ovary removed SALPINGOOPHORECTOMY 12/13/11 PROCEDURE: PA LAPAROSCOPY W/RMVL ADNEXAL STRUCTURES; COMMENT: Right tube & ovary removed, endometriosis, pain CHOLECYSTECTOMY PROCEDURE: LAPAROSCOPIC CHOLECYSTECT Medical History Medical History Date Comments Irritable bowel syndrome 07/21/2006 DX:Irri table bowel syndrome; COMMENT: negative esophagoscopy 07.21.06. Nausea with vomiting 07/21/2006 DX:Nausea w ith vomiting Bipolar affective (CMS/HCC) DX:B ipolar affective (HCC) Substance abuse (CMS/HCC) 11/30/2010 DX:Sub stance abuse (HCC) Endometriosis 12/03/2011 DX:Endometriosis Recurrent abdominal pain 12/03/2011 DX:Recu rrent abdominal pain Elevated serum hCG in female , not 01/30/2018 DX:Elevated serum hCG in fem sola, not Kidney stone 09/11/2021 DX:Kidney stone; COMMENT: [facility] 08/24/2021 Family History Medical History Relation Name Comments Hypertension Father on medication Other: cancer of breast Mother's side 1 Relation Name Status Comments Father Mother's side 1 Mother's side 2 Social History Tobacco Use Types Packs/Day Years Used Date Smoking Tobacco: Every Day Cigarettes Smokeless Tobacco: Never Alcohol Use Standard Drinks/Week Comments No 0 (1 standard drink = 0.6 oz pur e alcohol) Sex and Gender Information Value Date Recorded Sex Assigned at Not on file Gender Identity Not on file Sexual Orientation Not on file Obstetrics History Last Filed Vital Signs Vital Sign Reading Time Taken Comments Blood Pressure 115/80 01/05/2024 11:08 AM EDT Pulse 84 01/05/2024 11:08 AM EDT Temperature - - Respiratory Rate - - Oxygen Saturation - - Inhaled Oxygen Concentration - - Weight 78.5 kg (173 lb) 01/05/2024 11:08 AM EDT Height 152.4 cm (5') 01/05/2024 11:08 AM EDT Body Mass Index 33.79 01/05/2024 11:08 AM EDT Plan of Treatment Upcoming Encounters Date Type Department Care Team (Late st Contact Info) Description 10/08/2024 4:20 PM EST Appointment Radiology Department [address] [phone] Health Maintenance Due Date Last Done Comments Pneumococcal Vaccine: Pediatrics (0 to 5 Years) and At-Risk Patients (6 to 64 Years) (1 of 2 - PCV) 12/29/1985 DTaP,Tdap,and Td Vaccines (1 - Tdap) 12/29/1998 Hepatitis A Vaccines (1 of 2 - Risk 2-dose series) 12/29/1998 Hepatitis B Vaccines (1 of 3 - 19+ 3-dose series) 12/29/1998 Cervical Cancer Screening: P ap Smear 11/25/2014 11/26/2011 Hepatitis C Screening 06/16/2022 Social Influencers of Health Screening 06/16/2022 COVID-19 Vaccine (1 - 2023-2 5 season) 2024 Influenza Vaccine (#1) 2024 8, 06/13/2007 Depression Screening 09/02/2024 09/02/2023 Breast Cancer Screening 09/21/2025 09/21/19 24, 09/21/2023 Cholesterol Screening (Lipid Panel) 12/15/2028 12/16/2023, 12/16/2023 HIV Screening Completed 06/24/2004 HIB Vaccines Aged Out No longer eligi ble based on patient's age to complete this topic HPV Vaccines Aged Out No longer eligi ble based on patient's age to complete this topic IPV Vaccines Aged Out No longer eligi ble based on patient's age to complete this topic MMR Vaccines Aged Out No longer eligi ble based on patient's age to complete this topic Meningococcal ACWY Vaccine Aged Out N o longer eligible based on patient's age to complete this topic RSV Immunization Patients Under 20 months Aged Out No longer eligible b ased on patient's age to complete this topic Varicella Vaccines Aged Out No longer eligible based on patient's age to complete this topic Procedures Procedure Name Priority Date/Time Associated Diagnosis Comments LIPID PANEL Routine 12/16/2023 SCREENING MAMMOGRAPHY BI 2-VIEW BREAST INC CAD Routine 09/21/2023 7:41 PM EST Encounter for screening mammogram for malignant neoplasm of breast DEPRESSION SCREENING Routine 09/02/2023 PAP SMEAR Routine 11/26/2011 HIV SCREENING Routine 06/24/2004 from Last 3 Months or Most Recently Relevant to Health Maintenance Results * (ABNORMAL) Lipid panel (12/16/2023) LDL/HDL Ratio 6(A) 0 - 4 Triglycerides 196(A) 0 - 150 mg/dL Cholesterol 256(A) 0 - 200 mg/dL HDL 46 40 mg/dL LDL Cholesterol 171(A) 0 - 100 mg/dL Blood Venous blood specimen / Unknown Historical Provider LAB BLOOD ORDERAB LES * SCREENING MAMMOGRAPHY BI 2-VIEW BREAST INC CAD (09/21/2023 7:41 PM EST) Anatomical Region Laterality Modality Radiographic Kiki ging 09/02/2023 10:4 7 AM EST Narrative 09/22/2023 4:11 PM EST This is a summary report. The complete report is available in the patient's medical record. If you cannot access the medical record, please contact the sending organization for a detailed fax or copy. Baseline screening, full field 2D C views and digital mammography, reviewed with CAD. ??The breasts are composed of fatty and fibroglandular tissue. ??No suspicious mass, architectural distortion or suspicious calcifications are identified. IMPRESSION: : No mammographic evidence of malignancy. BIRADS 1-Negative; N. 5 year breast cancer risk assessment 0.9 % Lifetime breast cancer risk assessment 11.8 % Breast cancer risk category Breast cancer risk not assessed Procedure Note Lauryn Rahman MD - 03/26/2024 This is a summary report. The complete report is available in thepatient's medical record. If you cannot access the medical record, pleasecontact the sending organization for a detailed fax or copy. Baseline screening, full field 2D C views and digital mammography,reviewed with CAD. The breasts are composed of fatty and fibroglandulartissue. No suspicious mass, architectural distortion or suspiciouscalcifications are identified. IMPRESSION: : No mammographic evidence of malignancy. BIRADS 1-Negative; N. 5 year breast cancer risk assessment 0.9 % Lifetime breast cancer risk assessment 11.8 % Breast cancer risk category Breast cancer risk not assessed Fahad Thompson MD IMG XR PROCEDURES * Depression Screening (09/02/2023) Depression Screening abstracted Historical Provider [facility] * Pap Smear (11/26/2011) Pap smear negative, abstracted Historical Provider [facility] E * HIV Screening (06/24/2004) HIV Screening abstracted Historical Provider MD MAGDA Jauregui from Last 3 Months or Most Recently Relevant to Health Maintenance Care Teams Outside Solar Sales Consultant Relationship Specialty Start Date End Date Fahad Thompson MD [address] [place] [address] PCP - General Internal Medicine 01/15/22
--- NOTE | 2024-08-29 08:15 | ED_ITS ---
HPI - Chest Pain General Chief Complaint: Chest Pain Stated Complaint: pt believes to be having heart attack Time Seen by Provider: 08/29/24 08:06 Source: patient and family Mode of arrival: ambulatory Limitations: no limitations History of Present Illness ED Provider: DR. Terrazas HPI narrative: This is a 43-year-old female was pertinent history of IBS cyclical vomiting syndrome, bipolar disorder, anxiety who is well known to our staff for frequent visits for similar symptoms of persistent vomiting abdominal pain, and chest pain. Patient was seen here 3 days ago for similar symptoms was offered to be admitted but patient feels improved and was discharged home return today for persistent of vomiting and left-sided chest pain and left shoulder pain. Patient declined any recent travel, no history of prolonged immobilization. State that the only medicine work for her symptoms is Dilaudid for pain and Compazine or Haldol for nausea and vomiting. Related Data Home Medications ?Medication ?Instructions ?Recorded ?Confirmed aripiprazole 10 mg tablet 1 tab PO DAILY 01/05/21 01/05/21 lamotrigine 100 mg tablet 1 tab PO TID 01/05/21 01/05/21 lorazepam 1 mg tablet 0.5 tab PO BID 01/05/21 01/05/21 melatonin 5 mg tablet 1 tab PO BEDTIME PRN insomnia 01/05/21 01/05/21 quetiapine 50 mg tablet 1 tab PO BEDTIME 01/05/21 01/05/21 sucralfate 100 mg/mL oral 10 ml PO BID 01/05/21 01/05/21 suspension zolpidem 5 mg tablet 1 tab PO BEDTIME PRN Sleep 01/05/21 01/05/21 Previous Rx's ?Medication ?Instructions ?Recorded acetaminophen 650 mg 650 mg PO Q8H PRN pain #10 tabs 01/07/21 tablet,extended release (Tylenol 8 Hour) ondansetron HCl 4 mg tablet 4 mg PO Q6H PRN nausea and 01/07/21 (Zofran) vomiting #10 tabs promethazine 25 mg tablet 25 mg PO TID PRN nausea and 01/06/22 vomiting #20 tabs dicyclomine 10 mg capsule 10 mg PO QID 7 days #28 caps 06/14/22 nitrofurantoin 100 mg PO Q12H 7 days #14 caps 06/14/22 monohydrate/macrocrystals 100 mg capsule (Macrobid) ibuprofen 600 mg tablet 600 mg PO TID PRN pain #20 tabs 06/16/22 phenazopyridine 100 mg tablet 100 mg PO TID 6 doses #6 tabs 06/16/22 sulfamethoxazole 800 1 tab PO BID #14 tabs 06/16/22 mg-trimethoprim 160 mg tablet (Bactrim DS) cefuroxime axetil 250 mg tablet 250 mg PO BID #10 tabs 12/12/22 dicyclomine 10 mg capsule 10 mg PO TID PRN abdominal 12/12/22 distention #20 caps ondansetron 4 mg disintegrating 4 mg PO Q8H PRN nausea and 12/12/22 tablet vomiting #7 tabs polyethylene glycol 3350 17 gram 17 g PO DAILY #14 ea 12/12/22 oral powder packet (Miralax) simethicone 180 mg capsule (Gas 180 mg PO BID PRN abdominal 12/12/22 Relief (simethicone)) distention #14 caps ondansetron 4 mg disintegrating 4 mg PO Q6-8H PRN nausea and 10/03/23 tablet vomiting #14 tabs ondansetron 4 mg disintegrating 4 mg PO Q6H PRN nausea and 12/01/23 tablet vomiting #10 tabs sucralfate 1 gram tablet 1 g PO BID PRN Upper abdominal 12/01/23 pain #40 tabs ondansetron 4 mg disintegrating 4 mg PO Q6H PRN nausea and 05/08/24 tablet vomiting #10 tabs ondansetron 4 mg disintegrating 4 mg PO BEDTIME PRN nausea and 05/13/24 tablet vomiting #7 tabs prochlorperazine maleate 10 mg 10 mg PO Q8H PRN nausea and 07/24/24 tablet (Compazine) vomiting #10 tabs Allergies Allergy/AdvReac Type Severity Reaction Status Date / Time Penicillins Allergy Intermediate HIVES Verified 08/29/24 00:53 adhesive tape Allergy Rash Verified 08/29/24 00:53 ciprofloxacin Allergy Unresponsiv Verified 08/29/24 00:53 e Amoxicillin Allergy Intermediate Hives Uncoded 07/10/24 16:20 Review of Systems 2 Review of Systems: All other systems are reviewed and are negative Constitutional: Reports as per HPI and Reports no additional constitutional complaints Eyes: Reports as per HPI and Reports no additional eye complaints Reports system reviewed and no additional complaints, except as documented Cardiovascular: Reports as per HPI and Reports no additional cardiovascular complaints Respiratory: Reports as per HPI and Reports no additional respiratory complaints Gastrointestinal: Reports as per HPI and Reports no additional gastrointestinal complaints Genitourinary: Reports no additional female genitourinary complaints Musculoskeletal: Reports no additional musculoskeletal complaints Skin/Breast: Reports system reviewed and no additional complaints, except as docu Psychiatric: Reports no additional psychiatric complaints Endocrine: Reports no additional endocrine complaints Hematologic/Lymphatic: Reports no additional hematologic/lymphatic complaints Allergic/Immunologic: Reports no additional allergic/immunologic complaints Reports system reviewed and no additional complaints, except as documented and Reports Abnormal speech present [facility] Past Medical History Medical History Endometriosis Pulmonary embolism Anxiety Bipolar 1 disorder Surgical History Hx of appendectomy History of cholecystectomy H/O: hysterectomy Social History Social History Alcohol intake: never Patient Tobacco Use Status: Current everyday Tobacco user Tobacco use type: Cigarette Cigarette Packs Per Day: 0.34 Cigarettes Per Day: 6.8 Years Smoked: 32 Second Hand Smoke Exposure: No Substance Use Type: Marijuana Advance Directives: No Advance Directives Information Provided: Yes Do you have a plan to hurt others: No Plan Physical Exam 2 Vital Signs: Vital Signs: Last Vital Signs Temp 98.0 F 08/29/24 08:31 Pulse 69 08/29/24 08:31 Resp 18 08/29/24 08:52 BP 162/90 H 08/29/24 08:31 Pulse Ox 100 08/29/24 08:31 O2 Del Method Room Air 08/29/24 08:31 BMI result Body Mass Index 29.3 Vital signs have been reviewed and appear to be correct. Blood pressure elevated. Heart rate normal. Respiratory rate normal. Temperature normal. Oxygen saturation normal. Appearance: Anxious, Alert. Oriented X3. No acute distress. Head: Normal external exam. Normocephalic. Atraumatic. No Argueta signs noted. No raccoon eyes noted Eyes: PERRLA. EOMI. Conjunctiva and sclera normal. Eyelids normal. ENT: TM's Normal. Pharynx normal. Uvula midline. Moist mucous membranes. No trismus noted. No drooling noted. No muffled voice noted. Neck: Normal inspection. Neck supple. FROM. No adenopathy. Thyroid Normal. No meningeal signs. No neck mass noted. CVS: Normal heart rate and rhythm. Heart sound normal. No murmurs noted. Pulses normal throughout. Respiratory: No respiratory distress. Painless inspiration. Breath sounds normal. No wheezes/rales/rhonchi noted. Chest nontender. No accessory muscle usage noted or decreased air movement noted. Abdomen: Soft and nontender. Bowel sounds normal in all 4 quadrants. No distention noted. No organomegaly noted. No visible injury noted. Back: No CVA tenderness. Full range of motion noted. Skin: Skin warm and dry. Normal skin color. Normal skin turgor. No rashes/lesions/lacerations noted. Extremities: No lower extremity edema. Extremities exhibit normal range of motion. Extremities nontender. Neuro: Oriented X 3. Cranial nerve exam: II-XII are grossly intact No motor deficit. No sensory deficit. Reflexes normal. Course Reevaluation(s) Reevaluation #1: 43-year-old female with history of cyclical vomiting syndrome, patient is well known to our staff for frequent ED visits for vomiting and chest or abdominal pain. Patient return to the ED with left-sided chest pain and left shoulder pain, ACS/pulmonary embolism was ruled out by negative markers in the ED. patient improved after multiple doses of pain medication and Compazine with hydration. Will be going home. Time: 11:00 Medications Administered Discontinued Medications Generic Name Dose Route Start Last Admin Trade Name Meredith PRN Reason Stop Dose Admin Famotidine 20 mg 08/29/24 08:12 08/29/24 08:52 Famotidine/Pf 20 Mg/2 Ml Vial IVPUSH 08/29/24 08:13 20 mg ONCE ONE Administration Hydromorphone HCl 1 mg 08/29/24 08:11 08/29/24 08:52 Hydromorphone Hcl 1 Mg/Ml Syringe IVPUSH 08/29/24 08:12 1 mg ONCE ONE Administration Protocol Sodium Chloride 1,000 mls @ 999 mls/hr 08/29/24 08:11 08/29/24 08:47 Ns IV 08/29/24 09:11 999 mls/hr .Q1H1M ONE Administration Prochlorperazine Edisylate 10 mg 08/29/24 08:11 08/29/24 08:52 Prochlorperazine Edisylate 10 Mg/2 Ml Vial IVPUSH 08/29/24 08:12 10 mg ONCE ONE Administration Medical Decision Making Differential Diagnosis Differential Diagnoses: The differential diagnosis associated with the presentation includes (ACS, pulmonary embolism, pneumonia, pneumothorax, pleural effusion, dehydration, electrolyte derangement, severe anemia.) Admission/Observation Consideration of admission/observation: Escalation of care including admission/observation considered Lab Data MDM Lab Attestation statement: I reviewed the patient's lab results. 08/29/24 00:43 08/29/24 00:43 Labs: Lab Results 08/29/24 08/29/24 08/29/24 Range/Units 00:43 07:52 08:44 WBC 11.3 H (4.8-10.8) X10*3/uL RBC 4.68 (4.20-5.50) X10*6/uL Hgb 13.6 (12.0-16.0) g/dl Hct 39.0 (37.0-47.0) % MCV 83.3 (80.0-98.0) fL MCH 29.1 (27.0-33.0) pg MCHC 34.9 (31.0-35.0) g/dl RDW 14.4 (11.0-16.0) % Plt Count 282 (160-400) X10*3/uL MPV 9.1 L (9.4-12.3) fL Immature Gran % (Auto) 0.3 (0.0-0.4) % Neut % (Auto) 45.1 (45-73) % Lymph % (Auto) 42.6 H (20-40) % Mower % (Auto) 5.9 (2-11) % Eos % (Auto) 5.3 H (0-4) % Baso % (Auto) 0.8 (0-2) % Lymph # (Auto) 4.8 (1.2-4.9) X10*3/uL Mower # (Auto) 0.7 (0.1-1.2) X10*3/uL Eos # (Auto) 0.6 H (0.0-0.4) X10*3/uL Baso # (Auto) 0.1 (0.0-0.2) X10*3/uL Abs Immat Gran (auto) 0.03 (0.00-0.03) X10*3/uL Absolute Neuts (auto) 5.1 (2.0-8.3) x10*3/uL Absolute Nucleated RBC 0.000 (0.0-0.012) X10*3/uL Nucleated RBC % (auto) 0.0 (0.0-0.2) /100WBC D-Dimer High Sensitivty < 150 NG/ML Sodium 141 (135-145) mmol/L Potassium 3.4 (3.3-5.1) mmol/L Chloride 100 (96-108) mmol/L Carbon Dioxide 30 H (22-29) mmol/L Anion Gap 14 (12-20) BUN 12 (9-16) mg/dL Creatinine 0.74 (0.5-1.4) mg/dL Estim Creat Clear Calc 83.5 Estimated GFR > 60 Random Glucose 103 (60-115) mg/dL Calcium 9.5 (8.4-10.2) mg/dL Total Bilirubin 0.2 (0.0-1.0) mg/dL AST 20 (5-31) U/L ALT 18 (0-31) U/L Alkaline Phosphatase 109 (39-117) U/L Troponin I High Sens 2.8 2.7 (<3.5-17.0) ng/L Total Protein 7.2 (6.5-8.0) g/dL Albumin 4.0 (3.5-5.0) g/dL Independent Interpretation I performed an independent interpretation of an: Plain X-Ray (Chest: No acute findings.) Radiology Impression Discussion of test interpretation with radiology: I have reviewed the radiologist's reading. Discharge Plan Discharge Clinical Impression: Cyclic vomiting syndrome, Atypical chest pain Patient Disposition: Home, Self-Care Instructions: Cyclic Vomiting Syndrome (ED) Prescriptions: No Action aripiprazole 10 mg tablet 1 tab PO DAILY lamotrigine 100 mg tablet 1 tab PO TID lorazepam 1 mg tablet 0.5 tab PO BID melatonin 5 mg tablet 1 tab PO BEDTIME PRN (Reason: insomnia) quetiapine 50 mg tablet 1 tab PO BEDTIME sucralfate 100 mg/mL suspension 10 ml PO BID zolpidem 5 mg tablet 1 tab PO BEDTIME PRN (Reason: Sleep) ondansetron HCl [Zofran] 4 mg tablet 4 mg PO Q6H PRN (Reason: nausea and vomiting) Qty: 10 0RF acetaminophen [Tylenol 8 Hour] 650 mg tablet extended release 650 mg PO Q8H PRN (Reason: pain) Qty: 10 0RF nitrofurantoin monohyd/m-cryst [Macrobid] 100 mg capsule 100 mg PO Q12H 7 Days Qty: 14 0RF Rx Instructions: must administer with a meal/food dicyclomine 10 mg capsule 10 mg PO QID 7 Days Qty: 28 0RF promethazine 25 mg tablet 25 mg PO TID PRN (Reason: nausea and vomiting) Qty: 20 0RF sulfamethoxazole-trimethoprim [Bactrim DS] 800-160 mg tablet 1 tab PO BID Qty: 14 0RF phenazopyridine 100 mg tablet 100 mg PO TID Qty: 6 0RF ibuprofen 600 mg tablet 600 mg PO TID PRN (Reason: pain) Qty: 20 0RF sucralfate 1 gram tablet 1 g PO BID PRN (Reason: Upper abdominal pain) Qty: 40 0RF ondansetron 4 mg tablet,disintegrating 4 mg PO Q6H PRN (Reason: nausea and vomiting) Qty: 10 0RF ondansetron 4 mg tablet,disintegrating 4 mg PO BEDTIME PRN (Reason: nausea and vomiting) Qty: 7 0RF dicyclomine 10 mg capsule 10 mg PO TID PRN (Reason: abdominal distention) Qty: 20 0RF cefuroxime axetil 250 mg tablet 250 mg PO BID Qty: 10 0RF ondansetron 4 mg tablet,disintegrating 4 mg PO Q8H PRN (Reason: nausea and vomiting) Qty: 7 0RF simethicone [Gas Relief (simethicone)] 180 mg capsule 180 mg PO BID PRN (Reason: abdominal distention) Qty: 14 0RF polyethylene glycol 3350 [Miralax] 17 gram powder in packet 17 g PO DAILY Qty: 14 0RF ondansetron 4 mg tablet,disintegrating 4 mg PO Q6-8H PRN (Reason: nausea and vomiting) Qty: 14 0RF ondansetron 4 mg tablet,disintegrating 4 mg PO Q6H PRN (Reason: nausea and vomiting) Qty: 10 0RF prochlorperazine maleate [Compazine] 10 mg tablet 10 mg PO Q8H PRN (Reason: nausea and vomiting) Qty: 10 0RF Referrals: Fahad Thompson MD [Primary Care Provider] - Print Language: Tunisian
[2024-08-29 08:22] LABS: Troponin-I High Sensitivity 2.7 ng/L (<3.5-17.0)
[2024-08-29] MEDS: 0.9 % Sodium Chloride 1,000 ML 999 ML IV (08:47)
[2024-08-29] MEDS: Prochlorperazine Edisylate 10 MG/2 ML VIAL IVPUSH (08:52)
[2024-08-29] MEDS: HYDROmorphone HCl 1 MG/ML SYRINGE IVPUSH ×2 (08:52→10:03)
[2024-08-29] MEDS: Famotidine/PF 20 MG/2 ML VIAL IVPUSH (08:52)
[2024-08-29 09:06] LABS: D Dimer High Sensitivity < 150 NG/ML
== END 2024-08-29 10:58 | disposition home or self-care (01) ==
PROVIDERS: Emergency Provider Emergency Medicine; PCP Internal Medicine
DX: R11.15 Cyclical vomiting syndrome unrelated to migraine (principal); R07.89 Other chest pain; R11.2 Nausea with vomiting, unspecified; M25.512 Pain in left shoulder; R94.31 Abnormal electrocardiogram [ECG] [EKG]; F17.210 Nicotine dependence, cigarettes, uncomplicated; Z79.899 Other long term (current) drug therapy
CPT/HCPCS: 36415; 71046; 80053; 84484; 85025; 85379; 93005; 96361; 96374; 96375; 96376; 99284; J0737; J1171

== ENCOUNTER → 2024-08-29 00:36 | Outpatient (BNV) | payer OTHER, SELFPAY | PROVIDERS: Emergency Provider Emergency Medicine; PCP Internal Medicine; Visit Provider Internal Medicine Cardiovascular Disease | DX: R94.31 Abnormal electrocardiogram [ECG] [EKG] (principal) | CPT/HCPCS: 93010 ==

== ENCOUNTER → 2024-08-29 00:38 | Outpatient (BNV) | payer OTHER, SELFPAY | PROVIDERS: Visit Provider Radiology Diagnostic Radiology | DX: R07.9 Chest pain, unspecified (principal) | CPT/HCPCS: 71046 ==

== ENCOUNTER 2024-10-11 12:25 | Emergency (ER) | payer OTHER, SELFPAY ==
--- NOTE | ~2024-10-11 | CT_ITS ---
EXAMINATION: CT HEAD WITHOUT CONTRAST CLINICAL INFORMATION: headache, n/v COMPARISON: None available. TECHNIQUE: Contiguous axial imaging was performed from the skull base to vertex without intravenous administration of contrast. This CT examination was performed using dose optimization techniques as appropriate, variously including the following: *Automated exposure control *Adjustment of mA and/or kV according to patient size (this includes techniques or standardized protocols for targeted exams where dose is matched to indication/reason for exam; i.e. extremities or head) *Use of iterative reconstruction technique DLP: 548 mGy-cm FINDINGS: Metallic piercing in the preseptal superior right periorbital. 1 mm calcification in the soft tissues left forehead. No acute fracture, bony calvarium. No acute intracranial hemorrhage, mass effect, midline shift, hydrocephalus or herniation. Ellison-white matter differentiation is normal. Posterior ground fossa contents demonstrated no acute intracranial hemorrhage or mass effect. Sellar/suprasellar region demonstrated no gross masses. No air-fluid levels in the included paranasal sinuses. Tympanic cavities and mastoid cells are aerated. CT/CT head/brain wo IV con IMPRESSION: No acute or structural brain abnormality by CT Electronically signed by: Haider Brown MD 10/11/2024 03:08 PM [facility]
[2024-10-11 13:20] VITALS: BP 134/40; PULSE 84; RESP 20; TEMP 36.9; O2SAT 99; BMI 30.8
--- NOTE | 2024-10-11 13:21 | ED_ITS ---
HPI - General Adult General Chief complaint: General Medical Stated complaint: Headache, tingling in arms Time Seen by Provider: 10/11/24 17:26 Source: patient and old records reviewed Mode of arrival: ambulatory Limitations: no limitations History of Present Illness ED Provider: GILES AYOUB narrative: 43 yo female with PMH of bipolar, remoted provoked PE, anxiety, IBS, cyclical vomiting syndrome here with c/o headache occurring at rest yesterday she is not on blood thinners, no fevers, no trauma. States it got worse throughout the day today now she has nausea. She is very anxious on arrival and crying. She denies any other symptoms or concerns. MD complaint: headache Onset (ago): day(s) (1) Location: head Radiation: non-radiation Severity: severe Quality: other (throbbing) Pain Consistency: constant Relieving factors: none Exacerbating factors: other (nausea) Associated symptoms: headaches and nausea/vomiting Treatments prior to arrival: none Related Data Home Medications ?Medication ?Instructions ?Recorded ?Confirmed aripiprazole 10 mg tablet 1 tab PO DAILY 01/05/21 01/05/21 lamotrigine 100 mg tablet 1 tab PO TID 01/05/21 01/05/21 lorazepam 1 mg tablet 0.5 tab PO BID 01/05/21 01/05/21 melatonin 5 mg tablet 1 tab PO BEDTIME PRN insomnia 01/05/21 01/05/21 quetiapine 50 mg tablet 1 tab PO BEDTIME 01/05/21 01/05/21 sucralfate 100 mg/mL oral 10 ml PO BID 01/05/21 01/05/21 suspension zolpidem 5 mg tablet 1 tab PO BEDTIME PRN Sleep 01/05/21 01/05/21 Previous Rx's ?Medication ?Instructions ?Recorded acetaminophen 650 mg 650 mg PO Q8H PRN pain #10 tabs 01/07/21 tablet,extended release (Tylenol 8 Hour) ondansetron HCl 4 mg tablet 4 mg PO Q6H PRN nausea and 01/07/21 (Zofran) vomiting #10 tabs promethazine 25 mg tablet 25 mg PO TID PRN nausea and 01/06/22 vomiting #20 tabs dicyclomine 10 mg capsule 10 mg PO QID 7 days #28 caps 06/14/22 nitrofurantoin 100 mg PO Q12H 7 days #14 caps 06/14/22 monohydrate/macrocrystals 100 mg capsule (Macrobid) ibuprofen 600 mg tablet 600 mg PO TID PRN pain #20 tabs 06/16/22 phenazopyridine 100 mg tablet 100 mg PO TID 6 doses #6 tabs 06/16/22 sulfamethoxazole 800 1 tab PO BID #14 tabs 06/16/22 mg-trimethoprim 160 mg tablet (Bactrim DS) cefuroxime axetil 250 mg tablet 250 mg PO BID #10 tabs 12/12/22 dicyclomine 10 mg capsule 10 mg PO TID PRN abdominal 12/12/22 distention #20 caps ondansetron 4 mg disintegrating 4 mg PO Q8H PRN nausea and 12/12/22 tablet vomiting #7 tabs polyethylene glycol 3350 17 gram 17 g PO DAILY #14 ea 12/12/22 oral powder packet (Miralax) simethicone 180 mg capsule (Gas 180 mg PO BID PRN abdominal 12/12/22 Relief (simethicone)) distention #14 caps ondansetron 4 mg disintegrating 4 mg PO Q6-8H PRN nausea and 10/03/23 tablet vomiting #14 tabs ondansetron 4 mg disintegrating 4 mg PO Q6H PRN nausea and 12/01/23 tablet vomiting #10 tabs sucralfate 1 gram tablet 1 g PO BID PRN Upper abdominal 12/01/23 pain #40 tabs ondansetron 4 mg disintegrating 4 mg PO Q6H PRN nausea and 05/08/24 tablet vomiting #10 tabs ondansetron 4 mg disintegrating 4 mg PO BEDTIME PRN nausea and 05/13/24 tablet vomiting #7 tabs prochlorperazine maleate 10 mg 10 mg PO Q8H PRN nausea and 07/24/24 tablet (Compazine) vomiting #10 tabs Allergies Allergy/AdvReac Type Severity Reaction Status Date / Time Penicillins Allergy Intermediate HIVES Verified 10/11/24 13:22 adhesive tape Allergy Rash Verified 10/11/24 13:22 ciprofloxacin Allergy Unresponsiv Verified 10/11/24 13:22 e Amoxicillin Allergy Intermediate Hives Uncoded 10/11/24 13:22 Review of Systems 2 Review of Systems: Constitutional : No Fever, No Chills, No Fatigue ENT/Mouth : No sore throat, No Rhinorrhea Eyes: No Eye Pain, No Swelling, No Redness Cardiovascular : No Chest Pain, No SOB, No Dyspnea on Exertion Respiratory : No Cough, No Sputum Gastrointestinal : pos Nausea, No Vomiting, No Diarrhea, No abdominal Pain Genitourinary : No Dysuria, No Urinary Frequency, No Hematuria, Musculoskeletal : No joint pain, No Myalgias, No Joint Swelling Skin : No Skin Lesions, No rash Neuro : No Weakness, No Numbness, No Dizziness, positive Headache All other systems reviewed and are negative [facility] Past Medical History Attestation statement: The following information was validated with the patient. Source: old records reviewed Medical History Endometriosis Pulmonary embolism Anxiety Bipolar 1 disorder Surgical History Hx of appendectomy History of cholecystectomy H/O: hysterectomy Social History Social History Alcohol intake: never Patient Tobacco Use Status: Current everyday Tobacco user Tobacco use type: Cigarette Cigarette Packs Per Day: 0.34 Cigarettes Per Day: 6.8 Years Smoked: 32 Second Hand Smoke Exposure: No Substance Use Type: Marijuana Advance Directives: No Advance Directives Information Provided: No Physical Exam ED Vital Signs: Vital Signs - 24 hr 10/11/24 13:20 10/11/24 15:28 10/11/24 17:39 Temperature 98.5 F 96.7 F L 98.0 F Pulse Rate 84 70 72 Respiratory Rate 20 24 H 16 Blood Pressure 134/40 L 142/114 H 186/104 H Pulse Oximetry 99 100 100 Oxygen Delivery Method Room Air Room Air Room Air 10/11/24 22:48 10/11/24 23:06 10/12/24 00:05 Temperature 98.1 F Pulse Rate 75 Respiratory Rate 22 H Blood Pressure 192/110 H 179/113 H 135/91 H Pulse Oximetry 98 Oxygen Delivery Method Room Air BMI result Body Mass Index 30.8 Appearance: Alert. Oriented X3. No acute distress. Anxious pressured speech, rocking in bed Eyes: Pupils equal, round and reactive to light. ENT: Pharynx normal. Neck: Normal inspection. Neck supple. CVS: Normal heart rate and rhythm. Pulses normal. Respiratory: No respiratory distress. Breath sounds normal. Abdomen: Soft and nontender. Skin: Skin warm and dry. Normal skin color. Normal skin turgor. Extremities: No lower extremity edema. No calf ttp Neuro: Oriented X 3. No motor deficit. No sensory deficit. CN2-12 intact Course Course Course Narrative: This is an RME: Additional HPI, ROS, PE not included below will be deferred to primary provider. RME assessment and note performed by: Xochilt Carmen PA-C This is a 43-year-old female, with a pertinent history of IBS, cyclical vomiting syndrome, bipolar disorder, anxiety, who presents emergency department with complaints of severe headache, nausea and vomiting starting this AM. Pt tearful, stating please help me, please Plan: Labs, CT head, Pt to be brought back alessandra Reevaluation(s) Reevaluation #1: BP elevated due to anxiety and writhing around on stretcher Reevaluation #2: up and walking to and from bathroom she has been asking for something stronger for her headaches I explained we do not treat migraines with narcotics but we have other medications to treat them better. After her initial therapy of medications she has been sleeping and no vomiting was seen while resting in the ED. Reevaluation #3: did well after 2nd round of medications stable for DC Additional Reevaluation(s): patients BP was low on arrival and after pain control and rest it is elevated she has no BP medications at home unclear if this is med related. She had low BP with severe headache on arrival and it has slowly trended up after medications. patient asleep and resting BP trending down significant response to IV morphine suspect possible component of opiate use vs withdrawal vs med reaction Medications Administered Discontinued Medications Generic Name Dose Route Start Last Admin Trade Name Freq PRN Reason Stop Dose Admin Diphenhydramine HCl 25 mg 10/11/24 20:46 10/11/24 20:51 Diphenhydramine Hcl 50 Mg/Ml Vial IVPUSH 10/11/24 20:47 25 mg ONCE ONE Administration Ketorolac Tromethamine 15 mg 10/11/24 17:53 10/11/24 18:01 Ketorolac Tromethamine 15 Mg/Ml Vial IVPUSH 10/11/24 17:54 15 mg ONCE ONE Administration Lorazepam 1 mg 10/11/24 17:53 10/11/24 18:01 Lorazepam 2 Mg/Ml Vial IVPUSH 10/11/24 17:54 1 mg STAT STA Administration Metoclopramide HCl 10 mg 10/11/24 17:53 10/11/24 18:01 Metoclopramide Hcl 10 Mg/2 Ml Vial IVPUSH 10/11/24 17:54 10 mg ONCE ONE Administration Morphine Sulfate 4 mg 10/11/24 23:24 10/11/24 23:32 Morphine Sulfate 4 Mg/Ml Cartridge IVPUSH 10/11/24 23:25 4 mg ONCE ONE Administration Protocol Prochlorperazine Edisylate 10 mg 10/11/24 20:46 10/11/24 20:51 Prochlorperazine Edisylate 10 Mg/2 Ml Vial IVPUSH 10/11/24 20:47 10 mg ONCE ONE Administration Medical Decision Making Medical Decision Making [facility] Narrative: 43 yo female with PMH of bipolar, remoted provoked PE, anxiety, IBS, cyclical vomiting syndrome here with c/o headache and worsening symptoms with nausea given gradual onset and worsening symptoms without fever or increase in elevated WBC count I doubt she has SAH, [employer] infection. Will provide nausea relief and anxiety relief. Differential Diagnosis Differential Diagnoses: The differential diagnosis associated with the presentation includes migraine, tension headache, anxiety Admission/Observation Consideration of admission/observation: Escalation of care including admission/observation considered work up negative stable for DC Lab Data [facility] Lab Attestation statement: I reviewed the patient's lab results. 10/11/24 14:06 10/11/24 14:06 Labs: Lab Results 10/11/24 Range/Units 14:06 WBC 13.8 H (4.8-10.8) X10*3/uL RBC 5.03 (4.20-5.50) X10*6/uL Hgb 14.3 (12.0-16.0) g/dl Hct 42.7 (37.0-47.0) % MCV 84.9 (80.0-98.0) fL MCH 28.4 (27.0-33.0) pg MCHC 33.5 (31.0-35.0) g/dl RDW 14.2 (11.0-16.0) % Plt Count 355 D (160-400) X10*3/uL MPV 9.4 (9.4-12.3) fL Immature Gran % (Auto) 0.4 (0.0-0.4) % Neut % (Auto) 77.9 H (45-73) % Lymph % (Auto) 16.0 L (20-40) % Cla[place]orne % (Auto) 3.3 (2-11) % Eos % (Auto) 1.5 (0-4) % Baso % (Auto) 0.9 (0-2) % Lymph # (Auto) 2.2 (1.2-4.9) X10*3/uL Cla[place]orne # (Auto) 0.5 (0.1-1.2) X10*3/uL Eos # (Auto) 0.2 (0.0-0.4) X10*3/uL Baso # (Auto) 0.1 (0.0-0.2) X10*3/uL Abs Immat Gran (auto) 0.06 H (0.00-0.03) X10*3/uL Absolute Neuts (auto) 10.7 H (2.0-8.3) x10*3/uL Absolute Nucleated RBC 0.000 (0.0-0.012) X10*3/uL Nucleated RBC % (auto) 0.0 (0.0-0.2) /100WBC Sodium 142 (135-145) mmol/L Potassium 3.9 (3.3-5.1) mmol/L Chloride 108 (96-108) mmol/L Carbon Dioxide 23 (22-29) mmol/L Anion Gap 15 (12-20) BUN 9 (9-16) mg/dL Creatinine 0.75 (0.5-1.4) mg/dL Estim Creat Clear Calc 102.3 Estimated GFR > 60 Random Glucose 166 H (60-115) mg/dL Calcium 9.4 (8.4-10.2) mg/dL Magnesium 2.2 (1.6-2.6) mg/dL Total Bilirubin 0.2 (0.0-1.0) mg/dL Direct Bilirubin < 0.2 (0.0-0.5) mg/dL AST 19 (5-31) U/L ALT 19 (0-31) U/L Alkaline Phosphatase 101 (39-117) U/L Total Protein 7.9 (6.5-8.0) g/dL Albumin 4.3 (3.5-5.0) g/dL Lipase 21 (8-78) U/L Beta HCG, Quant 7 mIU/mL Influenza Type A (PCR) NEGATIVE (Negative) Influenza Type B (PCR) NEGATIVE (Negative) RSV RNA Qual (PCR) NEGATIVE (Negative) SARS-CoV-2 RNA (RT-PCR) NEGATIVE (Negative) Independent Interpretation I performed an independent interpretation of an: CT Scan (normal ) Radiology Impression Discussion of test interpretation with radiology: I have reviewed the radiologist's reading. External Record Review External record reviewed: Outpatient record Prescription Management I considered prescription management with: Other Discharge Plan Discharge Clinical Impression: Acute headache Patient Disposition: Home, Self-Care Instructions: Acute Headache (ED) Additional Instructions: labs and CT scan reassuring rest and stay hydrated return for any worsening symptoms, fevers, confusion, unable to eat or drink, numbness or weakness and any other concerns. we monitored your blood pressure recheck it in the next day with your doctor - some of the medications we gave your for nausea/anxiety might have caused an increase your blood pressure while you were here. Your initial blood pressures prior to treatment were normal. On discharge your blood pressure went back to normal - recheck with your doctor by next my Tuesday Prescriptions: No Action aripiprazole 10 mg tablet 1 tab PO DAILY lamotrigine 100 mg tablet 1 tab PO TID lorazepam 1 mg tablet 0.5 tab PO BID melatonin 5 mg tablet 1 tab PO BEDTIME PRN (Reason: insomnia) quetiapine 50 mg tablet 1 tab PO BEDTIME sucralfate 100 mg/mL suspension 10 ml PO BID zolpidem 5 mg tablet 1 tab PO BEDTIME PRN (Reason: Sleep) ondansetron HCl [Zofran] 4 mg tablet 4 mg PO Q6H PRN (Reason: nausea and vomiting) Qty: 10 0RF acetaminophen [Tylenol 8 Hour] 650 mg tablet extended release 650 mg PO Q8H PRN (Reason: pain) Qty: 10 0RF nitrofurantoin monohyd/m-cryst [Macrobid] 100 mg capsule 100 mg PO Q12H 7 Days Qty: 14 0RF Rx Instructions: must administer with a meal/food dicyclomine 10 mg capsule 10 mg PO QID 7 Days Qty: 28 0RF promethazine 25 mg tablet 25 mg PO TID PRN (Reason: nausea and vomiting) Qty: 20 0RF sulfamethoxazole-trimethoprim [Bactrim DS] 800-160 mg tablet 1 tab PO BID Qty: 14 0RF phenazopyridine 100 mg tablet 100 mg PO TID Qty: 6 0RF ibuprofen 600 mg tablet 600 mg PO TID PRN (Reason: pain) Qty: 20 0RF sucralfate 1 gram tablet 1 g PO BID PRN (Reason: Upper abdominal pain) Qty: 40 0RF ondansetron 4 mg tablet,disintegrating 4 mg PO Q6H PRN (Reason: nausea and vomiting) Qty: 10 0RF ondansetron 4 mg tablet,disintegrating 4 mg PO BEDTIME PRN (Reason: nausea and vomiting) Qty: 7 0RF dicyclomine 10 mg capsule 10 mg PO TID PRN (Reason: abdominal distention) Qty: 20 0RF cefuroxime axetil 250 mg tablet 250 mg PO BID Qty: 10 0RF ondansetron 4 mg tablet,disintegrating 4 mg PO Q8H PRN (Reason: nausea and vomiting) Qty: 7 0RF simethicone [Gas Relief (simethicone)] 180 mg capsule 180 mg PO BID PRN (Reason: abdominal distention) Qty: 14 0RF polyethylene glycol 3350 [Miralax] 17 gram powder in packet 17 g PO DAILY Qty: 14 0RF ondansetron 4 mg tablet,disintegrating 4 mg PO Q6-8H PRN (Reason: nausea and vomiting) Qty: 14 0RF ondansetron 4 mg tablet,disintegrating 4 mg PO Q6H PRN (Reason: nausea and vomiting) Qty: 10 0RF prochlorperazine maleate [Compazine] 10 mg tablet 10 mg PO Q8H PRN (Reason: nausea and vomiting) Qty: 10 0RF Print Language: Haitian
[2024-10-11 14:14] LABS: MANUAL DIFF FLAG NO
[2024-10-11 14:16] LABS: Basophils Absolute Auto 0.1 X10*3/uL (0.0-0.2); Basophils Percent Auto 0.9 % (0-2); Eosinophils Absolute Auto 0.2 X10*3/uL (0.0-0.4); Eosinophils Percent Auto 1.5 % (0-4); Hematocrit 42.7 % (37.0-47.0); Hemoglobin 14.3 g/dl (12.0-16.0); Imm Gran Abs Auto 0.06 X10*3/uL (0.00-0.03); Imm Gran Pct Auto 0.4 % (0.0-0.4); Lymphocytes Absolute Auto 2.2 X10*3/uL (1.2-4.9); Mean Corpuscular HGB Conc 33.5 g/dl (31.0-35.0); Mean Corpuscular Hemoglobin 28.4 pg (27.0-33.0); Mean Corpuscular Volume 84.9 fL (80.0-98.0); Mean Platelet Volume 9.4 fL (9.4-12.3); Monocytes Absolute Auto 0.5 X10*3/uL (0.1-1.2); Monocytes Percent Auto 3.3 % (2-11); Neutrophils Absolute Auto 10.7 x10*3/uL (2.0-8.3); Neutrophils Percent Auto 77.9 % (45-73); Platelet Count 355 X10*3/uL (160-400); Red Blood Count 5.03 X10*6/uL (4.20-5.50); Red Cell Distribution Width 14.2 % (11.0-16.0); White Blood Count 13.8 X10*3/uL (4.8-10.8)
[2024-10-11 14:42] LABS: Alanine Aminotransferase 19 U/L (0-31); Albumin Level 4.3 g/dL (3.5-5.0); Alkaline Phosphatase 101 U/L (39-117); Anion Gap 15 (12-20); Aspartate Amino Transferase 19 U/L (5-31); Bilirubin Direct < 0.2 mg/dL (0.0-0.5); Bilirubin Total 0.2 mg/dL (0.0-1.0); Blood Urea Nitrogen 9 mg/dL (9-16); Calcium 9.4 mg/dL (8.4-10.2); Carbon Dioxide 23 mmol/L (22-29); Chloride 108 mmol/L (96-108); Creatinine Clr Calc Pharmacy 102.3; Estimated Glomerular Filt Rate > 60; Glucose Random 166 mg/dL (60-115); Lipase 21 U/L (8-78); Magnesium 2.2 mg/dL (1.6-2.6); Potassium 3.9 mmol/L (3.3-5.1); Sodium 142 mmol/L (135-145); Total Protein 7.9 g/dL (6.5-8.0)
[2024-10-11 14:45] LABS: HCG Quantitative 7 mIU/mL
[2024-10-11 15:00] LABS: Influenza A PCR NEGATIVE (Negative); Influenza B PCR NEGATIVE (Negative); Resp Syncy Virus RNA Qual PCR NEGATIVE (Negative); SARS COV2 PCR INHOUSE NEGATIVE (Negative)
[2024-10-11 15:28] VITALS: BP 142/114; PULSE 70; RESP 24; TEMP 35.9; O2SAT 100
--- OUTSIDE RECORDS SUMMARY | 2024-10-11 17:06 | XMS_ITS | Clinical Summary ---
Author Organization Patient Business Ser [facility] [place] Address [address] [place] [address] Care Team Providers Care Fur Designer Name Role Phone Fahad Thompson MD Primary Care Provider Allergies Active Allergy Reactions Criticality Noted Date Comments Ciprofloxacin 11/27/2013 Penicillins Low 05/12/2007 Other Reaction(s): Rash/Dermatitis Medications cyanocobalamin (VITAMIN B-12) 1,000 mcg tablet TAKE 1 TABLET BY MOUTH EVERY DAY 30 tablet 07/11/20 24 Active Ventolin HFA 90 mcg/actuation inhaler INHALE 2 PUFFS INTO THE LUNGS EVERY 4 HOURS NEEDED FOR COUGH OR WHEEZING. 18 each 07/20/20 24 Active omeprazole (PriLOSEC) [address] capsule Take 1 Capsule by mouth daily. 05/21/20 24 Active FLUoxetine (PROzac) 20 mg capsule 12/28/19 24 Active hydrOXYzine pamoate (VISTARIL) 25 mg capsule 12/28/19 24 Active lamoTRIgine (LaMICtal) 100 mg tablet 12/28/19 24 Active ondansetron ODT (ZOFRAN-ODT) 4 mg disintegrating tablet TAKE 1 TABLET BY MOUTH EVERY 8 HOURS NEEDED FOR NAUSEA AND VOMITING 12/02/19 24 Active sucralfate (CARAFATE) 1 gram tablet TAKE 1 TABLET BY MOUTH 2 TIMES A DAY NEEDED FOR UPPER ABDOMINAL PAIN 12/01/19 24 Active loperamide (IMODIUM) 2 mg capsule TAKE 1 CAPSULE BY MOUTH THREE TIMES A DAY NEEDED FOR DIARRHEA 12/20/19 24 Active QUEtiapine (SEROquel) 25 mg tablet 12/28/19 24 Active QUEtiapine (SEROquel) 50 mg tablet TAKE 1 TABLET BY MOUTH DAILY AT BEDTIME. NEXT APPOINTMENT IS 11/17/2021 12/01/19 24 Active loperamide (IMODIUM A-D) 2 mg tablet Take 1 Tablet by mouth 3 times daily as needed for Diarrhea. 12/20/19 24 Active atorvastatin (LIPITOR) 40 mg tablet Take 1 Tablet by mouth daily. 12/19/19 24 Active ergocalciferol (VITAMIN D-2) 1,250 mcg (50,000 unit) capsule Take 1 Capsule by mouth once a week. 12/19/19 24 Active aluminum-magnesium hydroxide-simethic one (MAALOX MAX) 400-400-40 mg/5 mL suspension Take 10 mL by mouth 4 times daily. 12/16/19 24 Active zolpidem (AMBIEN) 5 mg tablet Take by mouth at bedtime as needed. Active cyclobenzaprine (FLEXERIL) 5 mg tablet Take 1-2 Tablets by mouth 2 times daily as needed for Muscle spasms. 09/02/19 24 Active oxyCODONE (ROXICODONE) 5 mg immediate release tablet Take 1 Tablet by mouth every 12 hours as needed for Pain (Severe pain). 09/02/19 24 Active clotrimazole (LOTRIMIN) 1 % cream To affected area 2 times daily 01/26/20 18 Active lamoTRIgine (LaMICtal XR) 300 mg tablet extended release 24hr 24 hr tablet Take by mouth 2 times daily. Active quetiapine fumarate (SEROQUEL ORAL) Take by mouth at bedtime. Active Lactobacillus acidophilus (PROBIOTIC ORAL) Take by mouth at bedtime. Active FLUoxetine (PROzac) 20 mg tablet Take by mouth. Activ e LORazepam (ATIVAN) 1 mg tablet Take 1 [...] Overview (07/24/2024): Positive urine drug screen at [facility] positive for cocaine, benzodiazepine, marijuana date of test November 25, 2010 Pos for cocaine and MJ January Irritable bowel syndrome 07/21/2006 Overview (07/24/2024): negative esophagoscopy 07.21.06. Encounters Date Type Department Care Team Description 08/06/2024 Telephone Adult Medicine [address] [id number] Fahad Thompson MD UTI from Last 3 [...] TONSILLECTOMY ADENOIDECTOMY, BILATERAL MYRINGOTOMY AND TUBES PROCEDURE: RI TONSILLECTOMY & ADENOIDECTOMY <AGE 12 APPENDECTOMY PROCEDURE: RI APPENDECTOMY SALPINGOOPHORECTOMY PROCEDURE: RI LAPAROSCOPY W/RMVL ADNEXAL STRUCTURES; COMMENT: left ovary removed SALPINGOOPHORECTOMY 12/13/11 PROCEDURE: RI LAPAROSCOPY W/RMVL ADNEXAL STRUCTURES; COMMENT: Right tube [...] drink = 0.6 oz pur e alcohol) Comments Unknown Sex and Gender Information Value Date Recorded Sex Assigned at Not on file Legal Sex Female 11:54 AM EST Gender Identity Not on file Sexual Orientation [...] 01/05/2024 11:08 AM EDT Plan of Treatment Health Maintenance Due Date Last Done Comments DTaP,Tdap,and Td Vaccines (1 - Tdap) 12/29/1998 Hepatitis B Vaccines (1 of 3 - 19+ 3-dose series) 12/29/1998 Pneumococcal Vaccine: Pediatrics (0 to 5 Years) and At-Risk Patients (6 to 64 Years) (1 of 2 - PCV) 12/29/1998 Cervical Cancer Screening: P ap Smear [...] on patient's age to complete this topic Hepatitis A Vaccines Aged Out No long er eligible based on patient's age to complete this topic IPV Vaccines Aged Out No longer eligi ble based on patient's age to complete this topic MMR Vaccines Aged Out No longer eligi ble based on patient's age to complete this topic Meningococcal ACWY Vaccine Aged Out N o longer eligible based on patient's age to complete this topic Meningococcal B Vacine Aged Out No lo nger eligible based on patient's age to complete [...] 256(A) 0 - 200 mg/dL HDL 46 >=40 mg/dL LDL Cholesterol 171(A) 0 - 100 mg/dL Blood Venous blood specimen / Unknown Historical Provider LAB BLOOD ORDERABLES Parul l Result * SCREENING MAMMOGRAPHY BI 2-VIEW BREAST INC [...] assessed Fahad Thompson MD IMG XR PROCEDURES Final Res ult * Depression Screening (09/02/2023) Depression Screening abstracted Historical Provider HEALTH MAINTENANCE Final Result * Pap Smear (11/26/2011) Pap smear negative, abstracted us Historical Provider HEALTH MAINTENANCE Final Result * HIV Screening (06/24/2004) HIV Screening abstracted us Historical Provider HEALTH MAINTENANCE Final Result from Last 3 Months or Most Recently Relevant to Health Maintenance Insurance [facility] [employer] [facility] [place]ICA[facility] - [place] Care Teams Fur Designer Relationship Specialty Start Date End Date Fahad Thompson MD [address] [place] [address] PCP - General Internal Medicine 01/15/22
[2024-10-11 17:39] VITALS: BP 186/104; PULSE 72; RESP 16; TEMP 36.7; O2SAT 100
--- NOTE | 2024-10-11 17:47 | PC.NURSE ---
patient laying on stretcher, crying, 20g IV placed. awaiting ER provider and disposition.
[2024-10-11] MEDS: Ketorolac Tromethamine 15 MG/ML VIAL IVPUSH (18:01)
[2024-10-11] MEDS: LORazepam 2 MG/ML VIAL 1 MG IVPUSH (18:01)
[2024-10-11] MEDS: Metoclopramide HCl 10 MG/2 ML VIAL IVPUSH (18:01)
[2024-10-11] MEDS: Prochlorperazine Edisylate 10 MG/2 ML VIAL IVPUSH (20:51)
[2024-10-11] MEDS: diphenhydrAMINE HCL 50 MG/ML VIAL 25 MG IVPUSH (20:51)
[2024-10-11 22:48] VITALS: BP 192/110; PULSE 75; RESP 22; TEMP 36.7; O2SAT 98
[2024-10-11 23:06] VITALS: BP 179/113
[2024-10-11] MEDS: Morphine Sulfate 4 MG/ML CARTRIDGE IVPUSH (23:32)
[2024-10-12 00:05] VITALS: BP 135/91
[2024-10-12 00:22] VITALS: BP 127/73; PULSE 79; RESP 15; TEMP 36.9; O2SAT 98
[2024-10-12 00:23] VITALS: BP 127/73; PULSE 79; RESP 15; TEMP 36.9; O2SAT 98
== END 2024-10-12 00:30 | disposition home or self-care (01) ==
PROVIDERS: Physician Assistant Medical; Emergency Provider Emergency Medicine; PCP Internal Medicine
DX: R51.9 Headache, unspecified (principal); F41.9 Anxiety disorder, unspecified; R11.2 Nausea with vomiting, unspecified; F17.210 Nicotine dependence, cigarettes, uncomplicated; F12.90 Cannabis use, unspecified, uncomplicated; Z03.818 Encounter for observation for suspected exposure to other biological agents ruled out; Z79.899 Other long term (current) drug therapy
CPT/HCPCS: 0241U; 36415; 70450; 80048; 80076; 83690; 83735; 84702; 85025; 96374; 96375; 99284; J0737; J1200; J1885; J2060; J2270; J2765

== ENCOUNTER → 2024-10-11 13:23 | Outpatient (BNV) | payer OTHER, SELFPAY | PROVIDERS: PCP Internal Medicine; Visit Provider Radiology Diagnostic Radiology | DX: R51.9 Headache, unspecified (principal); R11.2 Nausea with vomiting, unspecified | CPT/HCPCS: 70450 ==

== ENCOUNTER 2024-11-17 11:39 | Emergency (ER) | payer OTHER, SELFPAY ==
[2024-11-17] VITALS (9 sets, daily range): BP systolic 169–189; BP diastolic 76–101; PULSE 86–102; RESP 15–24; TEMP 36.4–36.9; O2SAT 96–98; BMI 30.3
--- NOTE | ~2024-11-17 | CT_ITS ---
CLINICAL HISTORY: headache, high blood pressure CT head without contrast. COMPARISON: CT head dated 10/11/24 at 14:42 EST FINDINGS: The visualized paranasal sinuses are clear. The mastoid air cells are clear. No calvarial fracture. No evidence for mass or mass effect. No intracranial hemorrhage or abnormal extra-axial fluid collection. No evidence of hydrocephalus. The basilar cisterns are patent. Posterior fossa appears unremarkable. IMPRESSION: 1. No acute intracranial findings. This document has been electronically signed by: Matt Metz MD on 11/17/2024 17:48:00
--- NOTE | ~2024-11-17 | XR_ITS ---
CLINICAL HISTORY: left sided chest pain, white count Two views of the chest. COMPARISON: XR chest dated 08/29/24 at 00:49 EST FINDINGS: Normal heart and mediastinal contours. No consolidation. No pleural effusion or pneumothorax. No fracture identified. IMPRESSION: 1. No consolidation. This document has been electronically signed by: Matt Metz MD on 11/17/2024 13:43:40
--- NOTE | 2024-11-17 11:41 | ECG_ITS ---
Test Reason : chest pain Blood Pressure : */* mmHG Vent. Rate : 90 BPM Atrial Rate : 90 BPM P-R Int : 120 ms QRS Dur : 82 ms QT Int : 418 ms P-R-T Axes : 41 65 56 degrees QTcB Int : 511 ms Normal sinus rhythm Prolonged QT Abnormal ECG When compared with ECG of 29-Aug-2024 00:36, No significant change was found Referred By: Generic ED Physician Electronically Signed By: Pascual Casey
--- NOTE | 2024-11-17 11:54 | ED.GENADULT ---
HPI - General Adult General Chief complaint: General Medical Stated complaint: Fever symptoms, chest pain Time Seen by Provider: 11/17/24 12:08 Source: patient Mode of arrival: ambulatory Limitations: no limitations History of Present Illness ED Provider: PAYTON CASTELLANOS PA-C HPI narrative: 43 year old female with pmhx significant or bipolar disorder, remote provoked PE, anxiety, IBS, cyclical vomiting syndrome presents to the ED complainant of headache, left sided chest pain, nausea and vomiting which began last night. Reports pain primarily to the left side of her chest. Admits to multiple episodes of vomiting since last night. Tells me she has chronic pain . Reports taking tylenol and motrin at home however states she is typically treated with morphine or dialudid while in ED. Denies known sick contacts. Denies fever, chills, sob, palpitations, LE pain/swelling. Anxious and crying on arrival. Bilious emesis noted in emesis bag. Related Data Home Medications ?Medication ?Instructions ?Recorded ?Confirmed aripiprazole 10 mg tablet 1 tab PO DAILY 01/05/21 01/05/21 lamotrigine 100 mg tablet 1 tab PO TID 01/05/21 01/05/21 lorazepam 1 mg tablet 0.5 tab PO BID 01/05/21 01/05/21 melatonin 5 mg tablet 1 tab PO BEDTIME PRN insomnia 01/05/21 01/05/21 quetiapine 50 mg tablet 1 tab PO BEDTIME 01/05/21 01/05/21 sucralfate 100 mg/mL oral 10 ml PO BID 01/05/21 01/05/21 suspension zolpidem 5 mg tablet 1 tab PO BEDTIME PRN Sleep 01/05/21 01/05/21 Previous Rx's ?Medication ?Instructions ?Recorded acetaminophen 650 mg 650 mg PO Q8H PRN pain #10 tabs 01/07/21 tablet,extended release (Tylenol 8 Hour) ondansetron HCl 4 mg tablet 4 mg PO Q6H PRN nausea and 01/07/21 (Zofran) vomiting #10 tabs promethazine 25 mg tablet 25 mg PO TID PRN nausea and 01/06/22 vomiting #20 tabs dicyclomine 10 mg capsule 10 mg PO QID 7 days #28 caps 06/14/22 nitrofurantoin 100 mg PO Q12H 7 days #14 caps 06/14/22 monohydrate/macrocrystals 100 mg capsule (Macrobid) ibuprofen 600 mg tablet 600 mg PO TID PRN pain #20 tabs 06/16/22 phenazopyridine 100 mg tablet 100 mg PO TID 6 doses #6 tabs 06/16/22 sulfamethoxazole 800 1 tab PO BID #14 tabs 06/16/22 mg-trimethoprim 160 mg tablet (Bactrim DS) cefuroxime axetil 250 mg tablet 250 mg PO BID #10 tabs 12/12/22 dicyclomine 10 mg capsule 10 mg PO TID PRN abdominal 12/12/22 distention #20 caps ondansetron 4 mg disintegrating 4 mg PO Q8H PRN nausea and 12/12/22 tablet vomiting #7 tabs polyethylene glycol 3350 17 gram 17 g PO DAILY #14 ea 12/12/22 oral powder packet (Miralax) simethicone 180 mg capsule (Gas 180 mg PO BID PRN abdominal 12/12/22 Relief (simethicone)) distention #14 caps ondansetron 4 mg disintegrating 4 mg PO Q6-8H PRN nausea and 10/03/23 tablet vomiting #14 tabs ondansetron 4 mg disintegrating 4 mg PO Q6H PRN nausea and 12/01/23 tablet vomiting #10 tabs sucralfate 1 gram tablet 1 g PO BID PRN Upper abdominal 12/01/23 pain #40 tabs ondansetron 4 mg disintegrating 4 mg PO Q6H PRN nausea and 05/08/24 tablet vomiting #10 tabs ondansetron 4 mg disintegrating 4 mg PO BEDTIME PRN nausea and 05/13/24 tablet vomiting #7 tabs prochlorperazine maleate 10 mg 10 mg PO Q8H PRN nausea and 07/24/24 tablet (Compazine) vomiting #10 tabs Allergies Allergy/AdvReac Type Severity Reaction Status Date / Time Penicillins Allergy Intermediate HIVES Verified 11/17/24 11:56 adhesive tape Allergy Rash Verified 11/17/24 11:56 ciprofloxacin Allergy Unresponsiv Verified 11/17/24 11:56 e Amoxicillin Allergy Intermediate Hives Uncoded 10/11/24 13:22 Review of Systems Review of Systems: Yes all other systems are reviewed and are negative PMFSH Past Medical History Attestation statement: The following information was validated with the patient. Source: old records reviewed and nursing notes reviewed Medical History Endometriosis Pulmonary embolism Anxiety Bipolar 1 disorder Surgical History Hx of appendectomy History of cholecystectomy H/O: hysterectomy Social History Social History Alcohol intake: never Patient Tobacco Use Status: Current everyday Tobacco user Tobacco use type: Cigarette Cigarette Packs Per Day: 0.34 Cigarettes Per Day: 6.8 Years Smoked: 32 Second Hand Smoke Exposure: No Substance Use Type: Marijuana Physical Exam ED Vital Signs: Vital Signs - 24 hr 11/17/24 11:49 11/17/24 12:59 11/17/24 13:44 Temperature 97.6 F Pulse Rate 86 Respiratory Rate 16 20 Blood Pressure 169/88 H Pulse Oximetry 96 Oxygen Delivery Method Room Air 11/17/24 14:38 11/17/24 14:44 11/17/24 15:10 Temperature 98.4 F Pulse Rate 98 96 Respiratory Rate 24 H 16 16 Blood Pressure 181/101 H 178/100 H Pulse Oximetry 98 Oxygen Delivery Method Room Air 11/17/24 15:57 11/17/24 18:12 Temperature 97.8 F Pulse Rate 102 H 91 Respiratory Rate 15 16 Blood Pressure 170/76 H 189/91 H Pulse Oximetry 98 Oxygen Delivery Method Room Air BMI result Body Mass Index 30.3 General: anxious, rocking back and forth in bed Skin: Warm, dry, intact. No rashes or lesions. Head: Normocephalic, atraumatic. EENT: Hearing is intact b/l. Conjunctiva clear. PERRLA. EOM intact. Moist mucous membranes.? Cardiac: Chest wall symmetric. RRR. Lungs: Normal respiratory effort without accessory muscle use. CTA bilaterally Abdomen: Soft, non-tender, non-distended. No rebound tenderness or guarding. Positive BS x4. Back: No midline spinous or paraspinal tenderness. No step off deformity. Ext: Upper and lower extremities atraumatic, without tenderness, deformity, swelling or erythema. no calf tenderness. Neuro: AOx3. Normal speech. NIH 0. CN 2-12 grossly intact. Ambulating with steady gait. Course Course Course Narrative: This is a rapid medical exam performed by Tessa Gomez NP: Additional HPI, ROS, PE not included below will be deferred to primary provider. 11/17/24 11:54 Patient is a 43-year-old female with history of IBS, cyclical vomiting syndrome, anxiety, bipolar 1 disorder presenting to the ED with complaint of nausea, vomiting, headache x 3 days. Today developed chest pain, left arm pain. Plan: EKG, labs, viral swab Reevaluation(s) Reevaluation #1: CBC with leukocytosis or 19.1. no left shift. this may be reactive to multiple episodes of vomiting. ddimer undetectable - unlikely PE. chemistry without acute electrolyte abnormality requiring intervention. no LITTLE. liver function wnl. troponin undetectable. > nausea treated with regaln + benadryl. no further episodes of vomiting. patient tolerating crackers, water, and sandwich. > pain treated with morphine followed by one dose of dilaudid. reports resolution of chest pain. mild ARRIAGA still present. states this feels like her typical - states sleep usually helps with this. > blood pressure has been increasing. last BP read 178/100. likely secondary to pain/ anxiety. she states she has a history of HTN - is prescribed medication for this however is not compliant. CT head w/o hemorrhage. > stable for discharge home at this time. Patient has remained stable throughout ED visit today. Discussed worrisome signs and symptoms and when to return to the ED. All questions answered at this time. Patient is agreeable with disposition and stable for discharge. Medications Administered Discontinued Medications Generic Name Dose Route Start Last Admin Trade Name Meredith PRN Reason Stop Dose Admin Diphenhydramine HCl 25 mg 11/17/24 12:44 11/17/24 12:59 Diphenhydramine Hcl 50 Mg/Ml Vial IVPUSH 11/17/24 12:45 25 mg ONCE ONE Administration Hydromorphone HCl 1 mg 11/17/24 14:41 11/17/24 14:44 Hydromorphone Hcl 1 Mg/Ml Syringe IVPUSH 11/17/24 14:42 1 mg ONCE ONE Administration Protocol Sodium Chloride 1,000 mls @ 999 mls/hr 11/17/24 13:45 11/17/24 15:58 Ns IV 11/17/24 14:45 Infused .Q1H1M FAM Infusion Lorazepam 1 mg 11/17/24 12:44 11/17/24 12:59 Lorazepam 2 Mg/Ml Vial IVPUSH 11/17/24 12:45 1 mg ONCE ONE Administration Metoclopramide HCl 10 mg 11/17/24 12:44 11/17/24 12:59 Metoclopramide Hcl 10 Mg/2 Ml Vial IVPUSH 11/17/24 12:45 10 mg ONCE ONE Administration Morphine Sulfate 4 mg 11/17/24 12:44 11/17/24 12:59 Morphine Sulfate 4 Mg/Ml Cartridge IVPUSH 11/17/24 12:45 4 mg ONCE ONE Administration Protocol Morphine Sulfate 4 mg 11/17/24 17:29 11/17/24 17:38 Morphine Sulfate 4 Mg/Ml Cartridge IVPUSH 11/17/24 17:30 4 mg ONCE ONE Administration Protocol Prochlorperazine Edisylate 10 mg 11/17/24 17:29 11/17/24 17:38 Prochlorperazine Edisylate 10 Mg/2 Ml Vial IVPUSH 11/17/24 17:30 10 mg ONCE ONE Administration Medical Decision Making Medical Decision Making [facility] Narrative: 43 year old female with pmhx significant or bipolar disorder, remote provoked PE, anxiety, IBS, cyclical vomiting syndrome presents to the ED complainant of headache, left sided chest pain, nausea and vomiting which began last night. Differential diagnosis includes anemia, electrolyte abnormality, dehydration, viral syndrome, migraine vs tension type headache, ACS, arrhythmia. No headache red flags. Neurologic exam without evidence of meningismus. No focal neurologic findings. Presentation not consistent with acute intracranial bleed including SAH. Presentation not consistent with acute [employer] infection including meningitis or brain abscess. Temporal arteritis unlikely, as is acute angle closure glaucoma given history and physical findings. Presentation not consistent with other acute, emergent causes of headache at this time. Plan to treat symptomatically with pain medication. No indication for LP at this time. Plan: labs, viral swabs, pain control, CT brain, reassessment Differential Diagnosis Differential Diagnoses: The differential diagnosis associated with the presentation includes as above Admission/Observation not indicated Lab Data [facility] Lab Attestation statement: I reviewed the patient's lab results. as above. 11/17/24 12:06 11/17/24 12:06 Labs: Lab Results 11/17/24 11/17/24 Range/Units 12:06 14:49 WBC 19.1 H (4.8-10.8) X10*3/uL RBC 5.36 (4.20-5.50) X10*6/uL Hgb 15.2 (12.0-16.0) g/dl Hct 45.1 (37.0-47.0) % MCV 84.1 (80.0-98.0) fL MCH 28.4 (27.0-33.0) pg MCHC 33.7 (31.0-35.0) g/dl RDW 14.5 (11.0-16.0) % Plt Count 338 (160-400) X10*3/uL MPV 9.3 L (9.4-12.3) fL Immature Gran % (Auto) 0.5 H (0.0-0.4) % Neut % (Auto) 74.6 H (45-73) % Lymph % (Auto) 16.9 L (20-40) % [place] % (Auto) 3.6 (2-11) % Eos % (Auto) 3.5 (0-4) % Baso % (Auto) 0.9 (0-2) % Lymph # (Auto) 3.2 (1.2-4.9) X10*3/uL [place] # (Auto) 0.7 (0.1-1.2) X10*3/uL Eos # (Auto) 0.7 H (0.0-0.4) X10*3/uL Baso # (Auto) 0.2 (0.0-0.2) X10*3/uL Abs Immat Gran (auto) 0.10 H (0.00-0.03) X10*3/uL Absolute Neuts (auto) 14.3 H (2.0-8.3) x10*3/uL Absolute Nucleated RBC 0.000 (0.0-0.012) X10*3/uL Nucleated RBC % (auto) 0.0 (0.0-0.2) /100WBC D-Dimer High Sensitivty < 150 NG/ML Sodium 141 (135-145) mmol/L Potassium 4.3 (3.3-5.1) mmol/L Chloride 106 (96-108) mmol/L Carbon Dioxide 25 (22-29) mmol/L Anion Gap 14 (12-20) BUN 9 (9-16) mg/dL Creatinine 0.76 (0.5-1.4) mg/dL Estim Creat Clear Calc 82.6 Estimated GFR > 60 Random Glucose 153 H (60-115) mg/dL Calcium 9.4 (8.4-10.2) mg/dL Magnesium 2.2 (1.6-2.6) mg/dL Total Bilirubin 0.2 (0.0-1.0) mg/dL AST 18 (5-31) U/L ALT 20 (0-31) U/L Alkaline Phosphatase 116 (39-117) U/L Troponin I High Sens < 2.7 (<3.5-17.0) ng/L Total Protein 7.6 (6.5-8.0) g/dL Albumin 4.4 (3.5-5.0) g/dL Lipase 17 (8-78) U/L Influenza Type A (PCR) NEGATIVE (Negative) Influenza Type B (PCR) NEGATIVE (Negative) RSV RNA Qual (PCR) NEGATIVE (Negative) SARS-CoV-2 RNA (RT-PCR) NEGATIVE (Negative) Independent Interpretation I performed an independent interpretation of an: EKG, Plain X-Ray and CT Scan Interpretation: cxr without infiltrate or consolidation ct head/brain w/o bleed ekg showing NSR w/ rate of 90 bpm, prolonged QT evident on prior EKGs, no acute ischemic changes or st elevations Radiology Impression Discussion of test interpretation with radiology: I have reviewed the radiologist's reading. Radiologist Impression: Procedure(s): CT head/brain wo IV con Accession Number(s): [id number] cc: Fahad Tohmpson MD; Payton Castellanos~ Report Number: [id number]: Total DLP = 573.00 mGy-cm CLINICAL HISTORY: headache, high blood pressure CT head without contrast. COMPARISON: CT head dated 10/11/24 at 14:42 EST FINDINGS: The visualized paranasal sinuses are clear. The mastoid air cells are clear. No calvarial fracture. No evidence for mass or mass effect. No intracranial hemorrhage or abnormal extra-axial fluid collection. No evidence of hydrocephalus. The basilar cisterns are patent. Posterior fossa appears unremarkable. IMPRESSION: 1. No acute intracranial findings. Date of Service: 11/17/24 Procedure(s): XR chest 2V Accession Number(s): [id number] cc: Fahad Thompson MD; Payton Castellanos~ CLINICAL HISTORY: left sided chest pain, white count Two views of the chest. COMPARISON: XR chest dated 08/29/24 at 00:49 EST FINDINGS: Normal heart and mediastinal contours. No consolidation. No pleural effusion or pneumothorax. No fracture identified. IMPRESSION: 1. No consolidation. External Record Review External record reviewed: Inpatient record, Office record, Outpatient record, Prior outpatient labs, Prior outpatient radiology and Primary care record Chronic Conditions Patient?s care impacted by: Hypertension Social Determinants Patient?s care significantly limited by Social Determinants of Health including: Other Social Determinant of Health Critical Care Time Critical Care Time Critical Care Time: No Discharge Plan Discharge Clinical Impression: Headache Patient Disposition: Home, Self-Care Instructions: Tension Headache (ED) Additional Instructions: Your blood work, chest xray, and CT scan of your head are reassuring. Monitor your blood pressures at home. Follow up with your primary care provider outpatient. Return with new or worsening symptoms. In the case of an emergency call 911. Prescriptions: No Action aripiprazole 10 mg tablet 1 tab PO DAILY lamotrigine 100 mg tablet 1 tab PO TID lorazepam 1 mg tablet 0.5 tab PO BID melatonin 5 mg tablet 1 tab PO BEDTIME PRN (Reason: insomnia) quetiapine 50 mg tablet 1 tab PO BEDTIME sucralfate 100 mg/mL suspension 10 ml PO BID zolpidem 5 mg tablet 1 tab PO BEDTIME PRN (Reason: Sleep) ondansetron HCl [Zofran] 4 mg tablet 4 mg PO Q6H PRN (Reason: nausea and vomiting) Qty: 10 0RF acetaminophen [Tylenol 8 Hour] 650 mg tablet extended release 650 mg PO Q8H PRN (Reason: pain) Qty: 10 0RF nitrofurantoin monohyd/m-cryst [Macrobid] 100 mg capsule 100 mg PO Q12H 7 Days Qty: 14 0RF Rx Instructions: must administer with a meal/food dicyclomine 10 mg capsule 10 mg PO QID 7 Days Qty: 28 0RF promethazine 25 mg tablet 25 mg PO TID PRN (Reason: nausea and vomiting) Qty: 20 0RF sulfamethoxazole-trimethoprim [Bactrim DS] 800-160 mg tablet 1 tab PO BID Qty: 14 0RF phenazopyridine 100 mg tablet 100 mg PO TID Qty: 6 0RF ibuprofen 600 mg tablet 600 mg PO TID PRN (Reason: pain) Qty: 20 0RF sucralfate 1 gram tablet 1 g PO BID PRN (Reason: Upper abdominal pain) Qty: 40 0RF ondansetron 4 mg tablet,disintegrating 4 mg PO Q6H PRN (Reason: nausea and vomiting) Qty: 10 0RF ondansetron 4 mg tablet,disintegrating 4 mg PO BEDTIME PRN (Reason: nausea and vomiting) Qty: 7 0RF dicyclomine 10 mg capsule 10 mg PO TID PRN (Reason: abdominal distention) Qty: 20 0RF cefuroxime axetil 250 mg tablet 250 mg PO BID Qty: 10 0RF ondansetron 4 mg tablet,disintegrating 4 mg PO Q8H PRN (Reason: nausea and vomiting) Qty: 7 0RF simethicone [Gas Relief (simethicone)] 180 mg capsule 180 mg PO BID PRN (Reason: abdominal distention) Qty: 14 0RF polyethylene glycol 3350 [Miralax] 17 gram powder in packet 17 g PO DAILY Qty: 14 0RF ondansetron 4 mg tablet,disintegrating 4 mg PO Q6-8H PRN (Reason: nausea and vomiting) Qty: 14 0RF ondansetron 4 mg tablet,disintegrating 4 mg PO Q6H PRN (Reason: nausea and vomiting) Qty: 10 0RF prochlorperazine maleate [Compazine] 10 mg tablet 10 mg PO Q8H PRN (Reason: nausea and vomiting) Qty: 10 0RF Referrals: Fahad Thompson MD [Primary Care Provider] - Interventions: ED Discharge Assessment Last Done: 11/17/24 18:27 Discharge Date/Time: 11/17/24 18:30 Print Language: Sami
[2024-11-17 12:10] LABS: MANUAL DIFF FLAG NO
[2024-11-17 12:13] LABS: Basophils Absolute Auto 0.2 X10*3/uL (0.0-0.2); Basophils Percent Auto 0.9 % (0-2); Eosinophils Absolute Auto 0.7 X10*3/uL (0.0-0.4); Eosinophils Percent Auto 3.5 % (0-4); Hematocrit 45.1 % (37.0-47.0); Hemoglobin 15.2 g/dl (12.0-16.0); Imm Gran Pct Auto 0.5 % (0.0-0.4); Lymphocytes Absolute Auto 3.2 X10*3/uL (1.2-4.9); Lymphocytes Percent Auto 16.9 % (20-40); Mean Corpuscular HGB Conc 33.7 g/dl (31.0-35.0); Mean Corpuscular Hemoglobin 28.4 pg (27.0-33.0); Mean Corpuscular Volume 84.1 fL (80.0-98.0); Mean Platelet Volume 9.3 fL (9.4-12.3); Monocytes Absolute Auto 0.7 X10*3/uL (0.1-1.2); Monocytes Percent Auto 3.6 % (2-11); Neutrophils Absolute Auto 14.3 x10*3/uL (2.0-8.3); Neutrophils Percent Auto 74.6 % (45-73); Platelet Count 338 X10*3/uL (160-400); Red Blood Count 5.36 X10*6/uL (4.20-5.50); Red Cell Distribution Width 14.5 % (11.0-16.0); White Blood Count 19.1 X10*3/uL (4.8-10.8)
[2024-11-17 12:26] LABS: Alanine Aminotransferase 20 U/L (0-31); Albumin Level 4.4 g/dL (3.5-5.0); Alkaline Phosphatase 116 U/L (39-117); Anion Gap 14 (12-20); Aspartate Amino Transferase 18 U/L (5-31); Bilirubin Total 0.2 mg/dL (0.0-1.0); Blood Urea Nitrogen 9 mg/dL (9-16); Calcium 9.4 mg/dL (8.4-10.2); Carbon Dioxide 25 mmol/L (22-29); Chloride 106 mmol/L (96-108); Creatinine Clr Calc Pharmacy 82.6; Estimated Glomerular Filt Rate > 60; Glucose Random 153 mg/dL (60-115); Lipase 17 U/L (8-78); Magnesium 2.2 mg/dL (1.6-2.6); Potassium 4.3 mmol/L (3.3-5.1); Sodium 141 mmol/L (135-145); Total Protein 7.6 g/dL (6.5-8.0)
[2024-11-17 12:43] LABS: Troponin-I High Sensitivity < 2.7 ng/L (<3.5-17.0)
[2024-11-17 12:59] LABS: Influenza A PCR NEGATIVE (Negative); Influenza B PCR NEGATIVE (Negative); Resp Syncy Virus RNA Qual PCR NEGATIVE (Negative); SARS COV2 PCR INHOUSE NEGATIVE (Negative)
[2024-11-17] MEDS: Metoclopramide HCl 10 MG/2 ML VIAL IVPUSH (12:59)
[2024-11-17] MEDS: LORazepam 2 MG/ML VIAL 1 MG IVPUSH (12:59)
[2024-11-17] MEDS: diphenhydrAMINE HCL 50 MG/ML VIAL 25 MG IVPUSH (12:59)
[2024-11-17] MEDS: Morphine Sulfate 4 MG/ML CARTRIDGE IVPUSH ×2 (12:59→17:38)
[2024-11-17] MEDS: 0.9 % Sodium Chloride 1,000 ML 999 ML IV (14:37)
[2024-11-17] MEDS: HYDROmorphone HCl 1 MG/ML SYRINGE IVPUSH (14:44)
[2024-11-17 15:03] LABS: D Dimer High Sensitivity < 150 NG/ML
[2024-11-17] MEDS: Prochlorperazine Edisylate 10 MG/2 ML VIAL IVPUSH (17:38)
== END 2024-11-17 18:30 | disposition home or self-care (01) ==
PROVIDERS: Physician Assistant Medical; Registered Nurse Emergency; Emergency Provider Emergency Medicine; PCP Internal Medicine
DX: R51.9 Headache, unspecified (principal); R07.89 Other chest pain; R50.9 Fever, unspecified; R11.2 Nausea with vomiting, unspecified; F17.210 Nicotine dependence, cigarettes, uncomplicated; Z03.818 Encounter for observation for suspected exposure to other biological agents ruled out; Z79.899 Other long term (current) drug therapy
CPT/HCPCS: 0241U; 36415; 70450; 71046; 80053; 83690; 83735; 84484; 85025; 85379; 93005; 96361; 96374; 96375; 96376; 99284; 99285; J0737; J1171; J1200; J2060; J2270; J2765

== ENCOUNTER → 2024-11-17 11:41 | Outpatient (BNV) | payer OTHER, SELFPAY | PROVIDERS: Emergency Provider Emergency Medicine; PCP Internal Medicine; Visit Provider Internal Medicine Cardiovascular Disease | DX: R94.31 Abnormal electrocardiogram [ECG] [EKG] (principal); R07.9 Chest pain, unspecified | CPT/HCPCS: 93010 ==

== ENCOUNTER → 2024-11-17 12:50 | Outpatient (BNV) | payer OTHER, SELFPAY | PROVIDERS: Emergency Provider Emergency Medicine; PCP Internal Medicine; Visit Provider Radiology Diagnostic Radiology | DX: R51.9 Headache, unspecified (principal); R07.9 Chest pain, unspecified; R03.0 Elevated blood-pressure reading, without diagnosis of hypertension | CPT/HCPCS: 70450; 71046 ==

== ENCOUNTER 2024-12-11 11:46 | Emergency (ER) | payer OTHER, SELFPAY ==
--- NOTE | 2024-12-11 | ECG_ITS ---
Test Reason : CP Blood Pressure : */* mmHG Vent. Rate : 85 BPM Atrial Rate : 85 BPM P-R Int : 128 ms QRS Dur : 82 ms QT Int : 420 ms P-R-T Axes : 71 58 47 degrees QTcB Int : 499 ms Normal sinus rhythm Left atrial enlargement Prolonged QT Abnormal ECG When compared with ECG of 17-Nov-2024 11:41, No significant change was found Referred By: Generic ED Physician Electronically Signed By: RHIANNA HAMLIN
[2024-12-11 12:13] VITALS: BP 148/119; PULSE 93; RESP 20; TEMP 37; O2SAT 100; BMI 25.0
--- NOTE | 2024-12-11 12:19 | ED_ITS ---
HPI - General Adult General Chief complaint: Nausea/Vomiting/Diarrhea Stated complaint: Chest pain, nausea, dizziness History of Present Illness HPI narrative: Patient left before completion of treatment by ED provider Related Data Home Medications ?Medication ?Instructions ?Recorded ?Confirmed aripiprazole 10 mg tablet 1 tab PO DAILY 01/05/21 01/05/21 lamotrigine 100 mg tablet 1 tab PO TID 01/05/21 01/05/21 lorazepam 1 mg tablet 0.5 tab PO BID 01/05/21 01/05/21 melatonin 5 mg tablet 1 tab PO BEDTIME PRN insomnia 01/05/21 01/05/21 quetiapine 50 mg tablet 1 tab PO BEDTIME 01/05/21 01/05/21 sucralfate 100 mg/mL oral 10 ml PO BID 01/05/21 01/05/21 suspension zolpidem 5 mg tablet 1 tab PO BEDTIME PRN Sleep 01/05/21 01/05/21 Previous Rx's ?Medication ?Instructions ?Recorded acetaminophen 650 mg 650 mg PO Q8H PRN pain #10 tabs 01/07/21 tablet,extended release (Tylenol 8 Hour) ondansetron HCl 4 mg tablet 4 mg PO Q6H PRN nausea and 01/07/21 (Zofran) vomiting #10 tabs promethazine 25 mg tablet 25 mg PO TID PRN nausea and 01/06/22 vomiting #20 tabs dicyclomine 10 mg capsule 10 mg PO QID 7 days #28 caps 06/14/22 nitrofurantoin 100 mg PO Q12H 7 days #14 caps 06/14/22 monohydrate/macrocrystals 100 mg capsule (Macrobid) ibuprofen 600 mg tablet 600 mg PO TID PRN pain #20 tabs 06/16/22 phenazopyridine 100 mg tablet 100 mg PO TID 6 doses #6 tabs 06/16/22 sulfamethoxazole 800 1 tab PO BID #14 tabs 06/16/22 mg-trimethoprim 160 mg tablet (Bactrim DS) cefuroxime axetil 250 mg tablet 250 mg PO BID #10 tabs 12/12/22 dicyclomine 10 mg capsule 10 mg PO TID PRN abdominal 12/12/22 distention #20 caps ondansetron 4 mg disintegrating 4 mg PO Q8H PRN nausea and 12/12/22 tablet vomiting #7 tabs polyethylene glycol 3350 17 gram 17 g PO DAILY #14 ea 12/12/22 oral powder packet (Miralax) simethicone 180 mg capsule (Gas 180 mg PO BID PRN abdominal 12/12/22 Relief (simethicone)) distention #14 caps ondansetron 4 mg disintegrating 4 mg PO Q6-8H PRN nausea and 10/03/23 tablet vomiting #14 tabs ondansetron 4 mg disintegrating 4 mg PO Q6H PRN nausea and 12/01/23 tablet vomiting #10 tabs sucralfate 1 gram tablet 1 g PO BID PRN Upper abdominal 12/01/23 pain #40 tabs ondansetron 4 mg disintegrating 4 mg PO Q6H PRN nausea and 05/08/24 tablet vomiting #10 tabs ondansetron 4 mg disintegrating 4 mg PO BEDTIME PRN nausea and 05/13/24 tablet vomiting #7 tabs prochlorperazine maleate 10 mg 10 mg PO Q8H PRN nausea and 07/24/24 tablet (Compazine) vomiting #10 tabs Allergies Allergy/AdvReac Type Severity Reaction Status Date / Time Penicillins Allergy Intermediate HIVES Verified 12/11/24 12:16 adhesive tape Allergy Rash Verified 12/11/24 12:16 ciprofloxacin Allergy Unresponsiv Verified 12/11/24 12:16 e Amoxicillin Allergy Intermediate Hives Uncoded 12/11/24 12:16 [facility] Past Medical History Medical History Endometriosis Pulmonary embolism Anxiety Bipolar 1 disorder Surgical History Hx of appendectomy History of cholecystectomy H/O: hysterectomy Social History Social History Alcohol intake: never Patient Tobacco Use Status: Current everyday Tobacco user Tobacco use type: Cigarette Cigarette Packs Per Day: 0.34 Cigarettes Per Day: 6.8 Years Smoked: 32 Second Hand Smoke Exposure: No Substance Use Type: Marijuana Advance Directives: No Advance Directives Information Provided: No Physical Exam ED Vital Signs: Vital Signs - 24 hr 12/11/24 12:13 Temperature 98.6 F Pulse Rate 93 Respiratory Rate 20 Blood Pressure 148/119 H Pulse Oximetry 100 Oxygen Delivery Method Room Air BMI result Body Mass Index 25.0 Course Course Course Narrative: RME: 43 yold female presents to the ED for abdominal pain, chest pain, sweaiting, nausea, and vomitting, and lightheadedness. NIH score zero. EKG, labs ordered Discharge Plan Discharge Clinical Impression: Abdominal pain with vomiting Patient Disposition: Left W/O Completing Treatment Prescriptions: No Action aripiprazole 10 mg tablet 1 tab PO DAILY lamotrigine 100 mg tablet 1 tab PO TID lorazepam 1 mg tablet 0.5 tab PO BID melatonin 5 mg tablet 1 tab PO BEDTIME PRN (Reason: insomnia) quetiapine 50 mg tablet 1 tab PO BEDTIME sucralfate 100 mg/mL suspension 10 ml PO BID zolpidem 5 mg tablet 1 tab PO BEDTIME PRN (Reason: Sleep) ondansetron HCl [Zofran] 4 mg tablet 4 mg PO Q6H PRN (Reason: nausea and vomiting) Qty: 10 0RF acetaminophen [Tylenol 8 Hour] 650 mg tablet extended release 650 mg PO Q8H PRN (Reason: pain) Qty: 10 0RF nitrofurantoin monohyd/m-cryst [Macrobid] 100 mg capsule 100 mg PO Q12H 7 Days Qty: 14 0RF Rx Instructions: must administer with a meal/food dicyclomine 10 mg capsule 10 mg PO QID 7 Days Qty: 28 0RF promethazine 25 mg tablet 25 mg PO TID PRN (Reason: nausea and vomiting) Qty: 20 0RF sulfamethoxazole-trimethoprim [Bactrim DS] 800-160 mg tablet 1 tab PO BID Qty: 14 0RF phenazopyridine 100 mg tablet 100 mg PO TID Qty: 6 0RF ibuprofen 600 mg tablet 600 mg PO TID PRN (Reason: pain) Qty: 20 0RF sucralfate 1 gram tablet 1 g PO BID PRN (Reason: Upper abdominal pain) Qty: 40 0RF ondansetron 4 mg tablet,disintegrating 4 mg PO Q6H PRN (Reason: nausea and vomiting) Qty: 10 0RF ondansetron 4 mg tablet,disintegrating 4 mg PO BEDTIME PRN (Reason: nausea and vomiting) Qty: 7 0RF dicyclomine 10 mg capsule 10 mg PO TID PRN (Reason: abdominal distention) Qty: 20 0RF cefuroxime axetil 250 mg tablet 250 mg PO BID Qty: 10 0RF ondansetron 4 mg tablet,disintegrating 4 mg PO Q8H PRN (Reason: nausea and vomiting) Qty: 7 0RF simethicone [Gas Relief (simethicone)] 180 mg capsule 180 mg PO BID PRN (Reason: abdominal distention) Qty: 14 0RF polyethylene glycol 3350 [Miralax] 17 gram powder in packet 17 g PO DAILY Qty: 14 0RF ondansetron 4 mg tablet,disintegrating 4 mg PO Q6-8H PRN (Reason: nausea and vomiting) Qty: 14 0RF ondansetron 4 mg tablet,disintegrating 4 mg PO Q6H PRN (Reason: nausea and vomiting) Qty: 10 0RF prochlorperazine maleate [Compazine] 10 mg tablet 10 mg PO Q8H PRN (Reason: nausea and vomiting) Qty: 10 0RF Discharge Date/Time: 12/11/24 14:40
--- OUTSIDE RECORDS SUMMARY | 2024-12-11 15:49 | XMS_ITS | Clinical Summary ---
Author Organization Patient Business Ser [facility] Address [address] [place] [address] Care Team Providers Care Fountain Supervisor Name Role Phone Fahad Thompson MD Primary [...] mg by mouth. Twice a day Active predniSONE (DELTASONE) 20 mg tablet Take 60 mg PO daily for 3 days, then take 40 mg PO daily for 3 days, then 20 mg PO daily for 3 days, then stop 18 tablet 10/26/19 25 Active gabapentin (NEURONTIN) 300 mg capsule Take 1 capsule (300 mg total) by mouth 2 (two) times a day if needed (pain). 90 each 11 10/26/19 25 Active Active Problems Problem Noted Date Diagnosed Date Bipolar affective ([facility] V24, [facility] V28) Mixed hyperlipidemia 12/19/2023 Kidney stone 09/11/2021 Overview (07/24/2024): [facility] 08/24/2021 Cocaine use 04/13/2013 Overview (07/24/2024): Also pos again in ew In may 2013 Also pos again in sep 2016 Marijuana use 04/13/2013 Overview (07/24/2024): Also pos again in ew May 2013 Endometriosis 12/03/2011 Substance abuse ([facility] V24, [facility] V28) 11/30 Overview (07/24/2024): Positive urine drug screen at [facility] positive for cocaine, benzodiazepine, marijuana date of test November 25, 2010 Pos for cocaine and MJ January Irritable bowel syndrome 07/21/2006 Overview (07/24/2024): negative esophagoscopy 07.21.06. Encounters Date Type Department Care Team Description 10/25/2024 9:00 AM EDT Office Visit Adult Medicine [address] [phone] Mayi Iverson PA Acute pain of right shoulder (Primary Dx); Elevated blood pressure reading 10/23/2024 Telephone Adult Medicine [address] [phone] Kayleigh Ricks MA PINCHED NERVE ON RIGHT SHOULDER from Last 3 Months Immunizations Name Administration Dates Next Due Influenza Quadravalent, MDCK , 0.5ml, preservative free (Flucelvax) 6mo and older 05/15/2018 Influenza trivalent, 0.5mL, preservative free (Fluarix; FluLaval; Fluzone) ages 6mo and older (Afluria) 3 years and older 06/13/2007 Surgical History Surgery Date Site/Laterality Comments OTHER SURGICAL HISTORY PROCEDURE: LAPAROSCOPY PROCEDURE NEC; COMMENT: no endometriosis TONSILLECTOMY ADENOIDECTOMY, BILATERAL MYRINGOTOMY AND TUBES PROCEDURE: AL TONSILLECTOMY & ADENOIDECTOMY <AGE 12 APPENDECTOMY PROCEDURE: AL APPENDECTOMY SALPINGOOPHORECTOMY PROCEDURE: AL LAPAROSCOPY W/RMVL ADNEXAL STRUCTURES; COMMENT: left ovary removed SALPINGOOPHORECTOMY 12/13/11 PROCEDURE: AL LAPAROSCOPY W/RMVL ADNEXAL STRUCTURES; COMMENT: Right tube & ovary removed, endometriosis, pain CHOLECYSTECTOMY PROCEDURE: LAPAROSCOPIC CHOLECYSTECT Medical History Medical History Date Comments Irritable bowel syndrome 07/21/2006 DX:Irri table bowel syndrome; COMMENT: negative esophagoscopy 07.21.06. Nausea with vomiting 07/21/2006 DX:Nausea w ith vomiting Bipolar affective ([facility] V 24, CMS/HCC V28) DX:Bipolar affective ([facility]) Substance abuse (CMS/HCC V24 , CMS/HCC V28) 11/30/2010 DX:Substance abuse ([facility]) Endometriosis 12/03/2011 DX:Endometriosis Recurrent abdominal pain 12/03/2011 [...] Tobacco: Every Day Cigarettes Smokeless Tobacco: Never Tobacco Cessation:Ready to Q uit: Not Asked; Counseling Given: Not Answered Alcohol Use Standard Drinks/Week Comments No 0 (1 standard drink = 0.6 oz pur e alcohol) Comments No Sex and Gender Information Value Date Recorded Sex Assigned at Not on file Legal Sex Female 11:54 AM EST Gender Identity Not on file Sexual Orientation Not on file Obstetrics History Last Filed Vital Signs Vital Sign Reading Time Taken Comments Blood Pressure 146/107 10/25/2024 8:44 AM EDT Pulse 84 01/05/2024 11:08 AM EDT Temperature - - Respiratory Rate 16 10/25/2024 8:44 AM EDT Oxygen Saturation - - Inhaled Oxygen Concentration - - Weight 67.6 kg (149 lb) 10/25/2024 8:44 AM EDT Height 152.4 cm (5') 10/25/2024 8:44 AM EDT Body Mass Index 29.1 10/25/2024 8:44 AM EDT Plan of Treatment Health Maintenance Due Date Last Done Comments DTaP,Tdap,and Td Vaccines (1 - Tdap) 12/29/1998 Hepatitis A Vaccines (1 of 2 - Risk 2-dose series) 12/29/1998 Hepatitis B Vaccines (1 of 3 - 19+ 3-dose series) 12/29/1998 Pneumococcal Vaccine: Pediatrics (0 to 5 Years) and At-Risk Patients (6 to 64 Years) (2 of 2 - PCV) 08/24/2013 08/24/2012 Cervical Cancer Screening: P ap Smear 11/25/2014 11/26/2011 Hepatitis C Screening 06/16/2022 Social Influencers of Health Screening 06/16/2022 COVID-19 Vaccine ( - 2023-2 5 season) 2024 Depression Screening 09/02/2024 09/02/2023 Influenza Vaccine (Season Ended) 2025 05/15/2018, 08/24/2012, 06/13/2007 Breast Cancer Screening 09/21/2025 09/21/19, 09/21/2023 Cholesterol Screening (Lipid Panel) 12/15/2028 12/16/2023, [...] age to complete this topic Meningococcal B Vaccine Aged Out No l onger eligible based on patient's age to complete [...] mg/dL Blood Venous blood specimen / Unknown [facility] Provider LAB BLOOD ORDERABLES Parul l Result [...] risk category Breast cancer risk not assessed Result [facility] Fahad Thompson MD IMG XR PROCEDURES Final Res ult * Depression Screening (09/02/2023) Depression Screening abstracted Result [facility] Historical Provider HEALTH MAINTENANCE Final Result * Pap Smear (11/26/2011) Pap smear negative, abstracted Result [facility] Provider HEALTH MAINTENANCE Final Result * HIV Screening (06/24/2004) Pathologist [facility] HIV Screening abstracted Result [facility] Historical Provider HEALTH MAINTENANCE Final Result from Last 3 Months or Most Recently Relevant to Health Maintenance Insurance [place] [phone] Care Teams Fountain Supervisor Relationship Specialty Start Date End Date Fahad Thompson MD [address] [place] [address] PCP - General Internal Medicine 01/15/22
== END 2024-12-11 14:40 | disposition left against medical advice (07) ==
LOC: HO.ED 14:38
PROVIDERS: Emergency Provider Emergency Medicine; PCP Internal Medicine
DX: R10.9 Unspecified abdominal pain (principal); R11.2 Nausea with vomiting, unspecified; R42 Dizziness and giddiness
CPT/HCPCS: 93005; 99283

== ENCOUNTER → 2024-12-11 11:55 | Outpatient (BNV) | payer OTHER, SELFPAY | PROVIDERS: Emergency Provider Emergency Medicine; PCP Internal Medicine; Visit Provider Internal Medicine | DX: I51.7 Cardiomegaly (principal) | CPT/HCPCS: 93010 ==

== ENCOUNTER 2025-01-10 18:07 | Emergency (ER) | payer OTHER, SELFPAY ==
--- NOTE | ~2025-01-10 | XR_ITS ---
CLINICAL HISTORY: cp 1 view chest x-ray Comparison: 05/09/2024, 11/17/2024 Findings: The lungs are clear. Normal size heart. No acute fracture. IMPRESSION: 1. No acute findings. This document has been electronically signed by: Tristian Wadsworth MD on 01/10/2025 19:06:18
--- NOTE | 2025-01-10 18:09 | ECG_ITS ---
Test Reason : CP Blood Pressure : */* mmHG Vent. Rate : 87 BPM Atrial Rate : 87 BPM P-R Int : 126 ms QRS Dur : 88 ms QT Int : 428 ms P-R-T Axes : 76 63 41 degrees QTcB Int : 515 ms Normal sinus rhythm Biatrial enlargement Nonspecific ST abnormality Prolonged QT Abnormal ECG When compared with ECG of 11-Dec-2024 11:55, No significant change was found Referred By: Inna Overton Electronically Signed By: RHIANNA HAMLIN
[2025-01-10 18:13] VITALS: BP 196/157; PULSE 87; RESP 18; TEMP 37; O2SAT 98; BMI 26.8
--- NOTE | 2025-01-10 18:14 | ED_ITS ---
HPI - Chest Pain General Chief Complaint: Chest Pain Stated Complaint: cp Time Seen by Provider: 01/10/25 18:40 Source: patient Mode of arrival: ambulatory Limitations: no limitations History of Present Illness ED Provider: HPI narrative: patient with cyclic vomiting syndrome been here multiple times comes here with increased anxiety and nausea vomiting with epigastric pain history of same in the past Related Data Home Medications ?Medication ?Instructions ?Recorded ?Confirmed aripiprazole 10 mg tablet 1 tab PO DAILY 01/05/21 01/05/21 lamotrigine 100 mg tablet 1 tab PO TID 01/05/21 01/05/21 lorazepam 1 mg tablet 0.5 tab PO BID 01/05/21 01/05/21 melatonin 5 mg tablet 1 tab PO BEDTIME PRN insomnia 01/05/21 01/05/21 quetiapine 50 mg tablet 1 tab PO BEDTIME 01/05/21 01/05/21 sucralfate 100 mg/mL oral 10 ml PO BID 01/05/21 01/05/21 suspension zolpidem 5 mg tablet 1 tab PO BEDTIME PRN Sleep 01/05/21 01/05/21 Previous Rx's ?Medication ?Instructions ?Recorded acetaminophen 650 mg 650 mg PO Q8H PRN pain #10 tabs 01/07/21 tablet,extended release (Tylenol 8 Hour) ondansetron HCl 4 mg tablet 4 mg PO Q6H PRN nausea and 01/07/21 (Zofran) vomiting #10 tabs promethazine 25 mg tablet 25 mg PO TID PRN nausea and 01/06/22 vomiting #20 tabs dicyclomine 10 mg capsule 10 mg PO QID 7 days #28 caps 06/14/22 nitrofurantoin 100 mg PO Q12H 7 days #14 caps 06/14/22 monohydrate/macrocrystals 100 mg capsule (Macrobid) ibuprofen 600 mg tablet 600 mg PO TID PRN pain #20 tabs 06/16/22 phenazopyridine 100 mg tablet 100 mg PO TID 6 doses #6 tabs 06/16/22 sulfamethoxazole 800 1 tab PO BID #14 tabs 06/16/22 mg-trimethoprim 160 mg tablet (Bactrim DS) cefuroxime axetil 250 mg tablet 250 mg PO BID #10 tabs 12/12/22 dicyclomine 10 mg capsule 10 mg PO TID PRN abdominal 12/12/22 distention #20 caps ondansetron 4 mg disintegrating 4 mg PO Q8H PRN nausea and 12/12/22 tablet vomiting #7 tabs polyethylene glycol 3350 17 gram 17 g PO DAILY #14 ea 12/12/22 oral powder packet (Miralax) simethicone 180 mg capsule (Gas 180 mg PO BID PRN abdominal 12/12/22 Relief (simethicone)) distention #14 caps ondansetron 4 mg disintegrating 4 mg PO Q6-8H PRN nausea and 10/03/23 tablet vomiting #14 tabs ondansetron 4 mg disintegrating 4 mg PO Q6H PRN nausea and 12/01/23 tablet vomiting #10 tabs sucralfate 1 gram tablet 1 g PO BID PRN Upper abdominal 12/01/23 pain #40 tabs ondansetron 4 mg disintegrating 4 mg PO Q6H PRN nausea and 05/08/24 tablet vomiting #10 tabs ondansetron 4 mg disintegrating 4 mg PO BEDTIME PRN nausea and 05/13/24 tablet vomiting #7 tabs prochlorperazine maleate 10 mg 10 mg PO Q8H PRN nausea and 07/24/24 tablet (Compazine) vomiting #10 tabs Allergies Allergy/AdvReac Type Severity Reaction Status Date / Time Penicillins Allergy Intermediate HIVES Verified 01/10/25 18:15 adhesive tape Allergy Rash Verified 01/10/25 18:15 ciprofloxacin Allergy Unresponsiv Verified 01/10/25 18:15 e Amoxicillin Allergy Intermediate Hives Uncoded 01/10/25 18:15 Review of Systems 2 Review of Systems: Yes all other systems are reviewed and are negative [facility] Past Medical History Medical History Endometriosis Pulmonary embolism Anxiety Bipolar 1 disorder Surgical History Hx of appendectomy History of cholecystectomy H/O: hysterectomy Social History Social History Alcohol intake: never Patient Tobacco Use Status: Current everyday Tobacco user Tobacco use type: Cigarette Cigarette Packs Per Day: 0.34 Cigarettes Per Day: 6.8 Years Smoked: 32 Second Hand Smoke Exposure: No Substance Use Type: Marijuana Advance Directives: No Advance Directives Information Provided: No Physical Exam 2 Vital Signs: Vital Signs: Last Vital Signs Temp 97.4 F 01/10/25 21:02 Pulse 87 01/10/25 21:02 Resp 18 01/10/25 21:02 BP 97/63 01/10/25 21:02 Pulse Ox 96 01/10/25 21:02 O2 Del Method Room Air 01/10/25 21:02 BMI result Body Mass Index 26.8 Appearance: Alert. Oriented X3. No acute distress. Eyes: PERRLA, No Nystagmus ENT: Pharynx normal. Oral Mucosa moist Neck: Normal inspection. Neck supple. CVS: Normal heart rate and rhythm. Pulses normal. Respiratory: No respiratory distress. Equal air entry bilateral, no wheezing/rales/rhonchi Abdomen: Soft and epigastric tenderness. Bowel sounds are present, no mass palpable, no CVA tenderness Skin: Skin warm and dry. Normal skin color. Normal skin turgor. Extremities: No lower extremity edema. No calf tenderness Neuro: Oriented X 3. No motor deficit. No sensory deficit.No cerebellar signs , cranial nerves II-XII intact Course Course Course Narrative: This is a Rapid Medical Exam performed in triage by Inna Overton PA-C. Full HPI, ROS and PE to be performed by primary ED provider. 44 yo F w/PMHx anxiety, bipolar, IBS, cyclical vomiting presenting to the ED c/o chest pain beneath breast since this afternoon w/assoc dizziness & SOB. Also reports diarrhea PE: dry heaving during triage, HTNsive but writhing around in chair Plan: EKG, labs, CXR, SARs Medications Administered Discontinued Medications Generic Name Dose Route Start Last Admin Trade Name Freq PRN Reason Stop Dose Admin Famotidine 20 mg 01/10/25 19:13 01/10/25 19:24 Famotidine/Pf 20 Mg/2 Ml Vial IVPUSH 01/10/25 19:14 20 mg ONCE ONE Administration Hydromorphone HCl 2 mg 01/10/25 19:12 01/10/25 19:24 Hydromorphone Hcl 2 Mg/Ml Vial IVPUSH 01/10/25 19:13 2 mg ONCE ONE Administration Protocol Sodium Chloride 1,000 mls @ 999 mls/hr 01/10/25 19:10 01/10/25 20:25 Ns IV 01/10/25 20:10 Infused .Q1H1M ONE Infusion Prochlorperazine Edisylate 10 mg 01/10/25 19:12 01/10/25 19:24 Prochlorperazine Edisylate 10 Mg/2 Ml Vial IVPUSH 01/10/25 19:13 10 mg ONCE ONE Administration Medical Decision Making Medical Decision Making [facility] Narrative: Patient has felt much better after taking Dilaudid and Compazine taking p.o. fluids will discharge patient home advised to follow up with PCP Differential Diagnosis Differential Diagnoses: The differential diagnosis associated with the presentation includes Cyclic vomiting syndrome/polysubstance abuse Lab Data [facility] Lab Attestation statement: I reviewed the patient's lab results. 01/10/25 18:26 01/10/25 18:26 Labs: Lab Results 01/10/25 Range/Units 18:26 WBC 14.0 H (4.8-10.8) X10*3/uL RBC 5.19 (4.20-5.50) X10*6/uL Hgb 14.6 (12.0-16.0) g/dl Hct 42.1 (37.0-47.0) % MCV 81.1 (80.0-98.0) fL MCH 28.1 (27.0-33.0) pg MCHC 34.7 (31.0-35.0) g/dl RDW 14.8 (11.0-16.0) % Plt Count 322 (160-400) X10*3/uL MPV 9.5 (9.4-12.3) fL Immature Gran % (Auto) 0.4 (0.0-0.4) % Neut % (Auto) 80.5 H (45-73) % Lymph % (Auto) 15.3 L (20-40) % [place] % (Auto) 2.9 (2-11) % Eos % (Auto) 0.3 (0-4) % Baso % (Auto) 0.6 (0-2) % Lymph # (Auto) 2.2 (1.2-4.9) X10*3/uL [place] # (Auto) 0.4 (0.1-1.2) X10*3/uL Eos # (Auto) 0.0 (0.0-0.4) X10*3/uL Baso # (Auto) 0.1 (0.0-0.2) X10*3/uL Abs Immat Gran (auto) 0.05 H (0.00-0.03) X10*3/uL Absolute Neuts (auto) 11.3 H (2.0-8.3) x10*3/uL Absolute Nucleated RBC 0.000 (0.0-0.012) X10*3/uL Nucleated RBC % (auto) 0.0 (0.0-0.2) /100WBC Sodium 140 (135-145) mmol/L Potassium 3.6 (3.3-5.1) mmol/L Chloride 104 (96-108) mmol/L Carbon Dioxide 23 (22-29) mmol/L Anion Gap 17 (12-20) BUN 13 (9-16) mg/dL Creatinine 0.74 (0.5-1.4) mg/dL Estim Creat Clear Calc 82.5 Estimated GFR > 60 Random Glucose 161 H (60-115) mg/dL Calcium 10.2 D (8.4-10.2) mg/dL Magnesium 2.4 (1.6-2.6) mg/dL Total Bilirubin 0.4 (0.0-1.0) mg/dL Direct Bilirubin 0.2 (0.0-0.5) mg/dL AST 19 (5-31) U/L ALT 19 (0-31) U/L Alkaline Phosphatase 97 (39-117) U/L Troponin I High Sens < 2.7 (<3.5-17.0) ng/L Total Protein 8.0 (6.5-8.0) g/dL Albumin 5.0 (3.5-5.0) g/dL Lipase 18 (8-78) U/L Influenza Type A (PCR) NEGATIVE (Negative) Influenza Type B (PCR) NEGATIVE (Negative) RSV RNA Qual (PCR) NEGATIVE (Negative) SARS-CoV-2 RNA (RT-PCR) NEGATIVE (Negative) Independent Interpretation I performed an independent interpretation of an: EKG Interpretation: Normal sinus rhythm heart rate 87 beats per minute normal interval normal axis no acute STT wave changes QTC is 515 milliseconds Discharge Plan Discharge Clinical Impression: Cyclic vomiting syndrome Patient Disposition: Home, Self-Care Instructions: Cyclic Vomiting Syndrome (ED) Additional Instructions: Take medication as prescribed by your PCP Prescriptions: No Action aripiprazole 10 mg tablet 1 tab PO DAILY lamotrigine 100 mg tablet 1 tab PO TID lorazepam 1 mg tablet 0.5 tab PO BID melatonin 5 mg tablet 1 tab PO BEDTIME PRN (Reason: insomnia) quetiapine 50 mg tablet 1 tab PO BEDTIME sucralfate 100 mg/mL suspension 10 ml PO BID zolpidem 5 mg tablet 1 tab PO BEDTIME PRN (Reason: Sleep) ondansetron HCl [Zofran] 4 mg tablet 4 mg PO Q6H PRN (Reason: nausea and vomiting) Qty: 10 0RF acetaminophen [Tylenol 8 Hour] 650 mg tablet extended release 650 mg PO Q8H PRN (Reason: pain) Qty: 10 0RF nitrofurantoin monohyd/m-cryst [Macrobid] 100 mg capsule 100 mg PO Q12H 7 Days Qty: 14 0RF Rx Instructions: must administer with a meal/food dicyclomine 10 mg capsule 10 mg PO QID 7 Days Qty: 28 0RF promethazine 25 mg tablet 25 mg PO TID PRN (Reason: nausea and vomiting) Qty: 20 0RF sulfamethoxazole-trimethoprim [Bactrim DS] 800-160 mg tablet 1 tab PO BID Qty: 14 0RF phenazopyridine 100 mg tablet 100 mg PO TID Qty: 6 0RF ibuprofen 600 mg tablet 600 mg PO TID PRN (Reason: pain) Qty: 20 0RF sucralfate 1 gram tablet 1 g PO BID PRN (Reason: Upper abdominal pain) Qty: 40 0RF ondansetron 4 mg tablet,disintegrating 4 mg PO Q6H PRN (Reason: nausea and vomiting) Qty: 10 0RF ondansetron 4 mg tablet,disintegrating 4 mg PO BEDTIME PRN (Reason: nausea and vomiting) Qty: 7 0RF dicyclomine 10 mg capsule 10 mg PO TID PRN (Reason: abdominal distention) Qty: 20 0RF cefuroxime axetil 250 mg tablet 250 mg PO BID Qty: 10 0RF ondansetron 4 mg tablet,disintegrating 4 mg PO Q8H PRN (Reason: nausea and vomiting) Qty: 7 0RF simethicone [Gas Relief (simethicone)] 180 mg capsule 180 mg PO BID PRN (Reason: abdominal distention) Qty: 14 0RF polyethylene glycol 3350 [Miralax] 17 gram powder in packet 17 g PO DAILY Qty: 14 0RF ondansetron 4 mg tablet,disintegrating 4 mg PO Q6-8H PRN (Reason: nausea and vomiting) Qty: 14 0RF ondansetron 4 mg tablet,disintegrating 4 mg PO Q6H PRN (Reason: nausea and vomiting) Qty: 10 0RF prochlorperazine maleate [Compazine] 10 mg tablet 10 mg PO Q8H PRN (Reason: nausea and vomiting) Qty: 10 0RF Interventions: ED Discharge Assessment Last Done: 01/10/25 21:02 Discharge Date/Time: 01/10/25 21:02 Print Language: Mozambican
[2025-01-10 18:32] LABS: MANUAL DIFF FLAG NO
[2025-01-10 18:33] LABS: Basophils Absolute Auto 0.1 X10*3/uL (0.0-0.2); Basophils Percent Auto 0.6 % (0-2); Eosinophils Percent Auto 0.3 % (0-4); Hematocrit 42.1 % (37.0-47.0); Hemoglobin 14.6 g/dl (12.0-16.0); Imm Gran Abs Auto 0.05 X10*3/uL (0.00-0.03); Imm Gran Pct Auto 0.4 % (0.0-0.4); Lymphocytes Absolute Auto 2.2 X10*3/uL (1.2-4.9); Lymphocytes Percent Auto 15.3 % (20-40); Mean Corpuscular HGB Conc 34.7 g/dl (31.0-35.0); Mean Corpuscular Hemoglobin 28.1 pg (27.0-33.0); Mean Corpuscular Volume 81.1 fL (80.0-98.0); Mean Platelet Volume 9.5 fL (9.4-12.3); Monocytes Absolute Auto 0.4 X10*3/uL (0.1-1.2); Monocytes Percent Auto 2.9 % (2-11); Neutrophils Absolute Auto 11.3 x10*3/uL (2.0-8.3); Neutrophils Percent Auto 80.5 % (45-73); Platelet Count 322 X10*3/uL (160-400); Red Blood Count 5.19 X10*6/uL (4.20-5.50); Red Cell Distribution Width 14.8 % (11.0-16.0)
[2025-01-10 18:47] LABS: Alanine Aminotransferase 19 U/L (0-31); Alkaline Phosphatase 97 U/L (39-117); Anion Gap 17 (12-20); Aspartate Amino Transferase 19 U/L (5-31); Bilirubin Direct 0.2 mg/dL (0.0-0.5); Bilirubin Total 0.4 mg/dL (0.0-1.0); Blood Urea Nitrogen 13 mg/dL (9-16); Calcium 10.2 mg/dL (8.4-10.2); Carbon Dioxide 23 mmol/L (22-29); Chloride 104 mmol/L (96-108); Creatinine Clr Calc Pharmacy 82.5; Estimated Glomerular Filt Rate > 60; Glucose Random 161 mg/dL (60-115); Lipase 18 U/L (8-78); Magnesium 2.4 mg/dL (1.6-2.6); Potassium 3.6 mmol/L (3.3-5.1); Sodium 140 mmol/L (135-145)
[2025-01-10 18:59] LABS: Troponin-I High Sensitivity < 2.7 ng/L (<3.5-17.0)
[2025-01-10 19:09] LABS: Influenza A PCR NEGATIVE (Negative); Influenza B PCR NEGATIVE (Negative); Resp Syncy Virus RNA Qual PCR NEGATIVE (Negative); SARS COV2 PCR INHOUSE NEGATIVE (Negative)
[2025-01-10 19:24] VITALS: RESP 20
[2025-01-10] MEDS: HYDROmorphone HCl 2 MG/ML VIAL IVPUSH (19:24)
[2025-01-10] MEDS: Famotidine/PF 20 MG/2 ML VIAL IVPUSH (19:24)
[2025-01-10] MEDS: Prochlorperazine Edisylate 10 MG/2 ML VIAL IVPUSH (19:24)
[2025-01-10] MEDS: 0.9 % Sodium Chloride 1,000 ML 999 ML IV (19:24)
[2025-01-10 20:40] VITALS: BP 97/63; PULSE 87; RESP 18; TEMP 36.3; O2SAT 96
[2025-01-10 21:02] VITALS: BP 97/63; PULSE 87; RESP 18; TEMP 36.3; O2SAT 96
== END 2025-01-10 21:02 | disposition home or self-care (01) ==
PROVIDERS: Physician Assistant; Emergency Provider Internal Medicine
DX: R11.2 Nausea with vomiting, unspecified (principal); R07.89 Other chest pain; F41.9 Anxiety disorder, unspecified; R10.13 Epigastric pain; F17.210 Nicotine dependence, cigarettes, uncomplicated; Z79.899 Other long term (current) drug therapy; Z03.818 Encounter for observation for suspected exposure to other biological agents ruled out
CPT/HCPCS: 0241U; 71045; 80048; 80076; 83690; 83735; 84484; 85025; 93005; 96361; 96374; 96375; 99284; J0737; J1171; J1308

== ENCOUNTER → 2025-01-10 18:09 | Outpatient (BNV) | payer OTHER, SELFPAY | PROVIDERS: Emergency Provider Internal Medicine; Visit Provider Internal Medicine | DX: I51.7 Cardiomegaly (principal) | CPT/HCPCS: 93010 ==

== ENCOUNTER → 2025-01-10 18:17 | Outpatient (BNV) | payer OTHER, SELFPAY | PROVIDERS: Emergency Provider Internal Medicine; Visit Provider Specialist | DX: R07.9 Chest pain, unspecified (principal) | CPT/HCPCS: 71045 ==

== ENCOUNTER 2025-01-14 11:26 | Emergency (ER) | payer OTHER, SELFPAY ==
--- NOTE | ~2025-01-14 | XR_ITS ---
CLINICAL HISTORY: L chest pain --- 1 view chest x-ray Comparison: CR - XR CHEST 1V - 01/10/25 18:34 EDT CR - XR CHEST 2V - 11/17/24 13:22 EDT Findings: The lungs are clear. Normal size heart. No acute fracture. IMPRESSION: 1. No acute findings. This document has been electronically signed by: Dee Maher MD on 01/14/2025 18:18:53
[2025-01-14 11:40] VITALS: BP 180/124; PULSE 89; RESP 19; TEMP 36.6; O2SAT 98; BMI 33.2
--- NOTE | 2025-01-14 11:40 | ED.GENADULT ---
HPI - General Adult General Chief complaint: Chest Pain Stated complaint: Chest pain, vomit Time Seen by Provider: 01/14/25 15:58 History of Present Illness ED Provider: Rambo Bolden MD HPI narrative: 44-year-old female with a history of chronic recurrent vomiting abdominal pain episodes comes in with left-sided chest pain and epigastric pain consistent with previous episodes. She smokes cigarettes she denies drug use other than marijuana. Patient is distressed anxious repeatedly walking up to the nursing station demanding medications. Related Data Home Medications ?Medication ?Instructions ?Recorded ?Confirmed aripiprazole 10 mg tablet 1 tab PO DAILY 01/05/21 01/05/21 lamotrigine 100 mg tablet 1 tab PO TID 01/05/21 01/05/21 lorazepam 1 mg tablet 0.5 tab PO BID 01/05/21 01/05/21 melatonin 5 mg tablet 1 tab PO BEDTIME PRN insomnia 01/05/21 01/05/21 quetiapine 50 mg tablet 1 tab PO BEDTIME 01/05/21 01/05/21 sucralfate 100 mg/mL oral 10 ml PO BID 01/05/21 01/05/21 suspension zolpidem 5 mg tablet 1 tab PO BEDTIME PRN Sleep 01/05/21 01/05/21 Previous Rx's ?Medication ?Instructions ?Recorded acetaminophen 650 mg 650 mg PO Q8H PRN pain #10 tabs 01/07/21 tablet,extended release (Tylenol 8 Hour) ondansetron HCl 4 mg tablet 4 mg PO Q6H PRN nausea and 01/07/21 (Zofran) vomiting #10 tabs promethazine 25 mg tablet 25 mg PO TID PRN nausea and 01/06/22 vomiting #20 tabs dicyclomine 10 mg capsule 10 mg PO QID 7 days #28 caps 06/14/22 nitrofurantoin 100 mg PO Q12H 7 days #14 caps 06/14/22 monohydrate/macrocrystals 100 mg capsule (Macrobid) ibuprofen 600 mg tablet 600 mg PO TID PRN pain #20 tabs 06/16/22 phenazopyridine 100 mg tablet 100 mg PO TID 6 doses #6 tabs 06/16/22 sulfamethoxazole 800 1 tab PO BID #14 tabs 06/16/22 mg-trimethoprim 160 mg tablet (Bactrim DS) cefuroxime axetil 250 mg tablet 250 mg PO BID #10 tabs 12/12/22 dicyclomine 10 mg capsule 10 mg PO TID PRN abdominal 12/12/22 distention #20 caps ondansetron 4 mg disintegrating 4 mg PO Q8H PRN nausea and 12/12/22 tablet vomiting #7 tabs polyethylene glycol 3350 17 gram 17 g PO DAILY #14 ea 12/12/22 oral powder packet (Miralax) simethicone 180 mg capsule (Gas 180 mg PO BID PRN abdominal 12/12/22 Relief (simethicone)) distention #14 caps ondansetron 4 mg disintegrating 4 mg PO Q6-8H PRN nausea and 10/03/23 tablet vomiting #14 tabs ondansetron 4 mg disintegrating 4 mg PO Q6H PRN nausea and 12/01/23 tablet vomiting #10 tabs sucralfate 1 gram tablet 1 g PO BID PRN Upper abdominal 12/01/23 pain #40 tabs ondansetron 4 mg disintegrating 4 mg PO Q6H PRN nausea and 05/08/24 tablet vomiting #10 tabs ondansetron 4 mg disintegrating 4 mg PO BEDTIME PRN nausea and 05/13/24 tablet vomiting #7 tabs prochlorperazine maleate 10 mg 10 mg PO Q8H PRN nausea and 07/24/24 tablet (Compazine) vomiting #10 tabs Allergies Allergy/AdvReac Type Severity Reaction Status Date / Time Penicillins Allergy Intermediate HIVES Verified 01/14/25 11:41 adhesive tape Allergy Rash Verified 01/14/25 11:41 ciprofloxacin Allergy Unresponsiv Verified 01/14/25 11:41 e Amoxicillin Allergy Intermediate Hives Uncoded 01/14/25 11:41 [facility] Past Medical History Medical History Endometriosis Pulmonary embolism Anxiety Bipolar 1 disorder Surgical History Hx of appendectomy History of cholecystectomy H/O: hysterectomy Social History Social History Alcohol intake: never Patient Tobacco Use Status: Current everyday Tobacco user Tobacco use type: Cigarette Cigarette Packs Per Day: 0.34 Cigarettes Per Day: 6.8 Years Smoked: 32 Second Hand Smoke Exposure: No Substance Use Type: Marijuana Physical Exam ED Vital Signs: Vital Signs - 24 hr 01/14/25 11:40 01/14/25 15:08 Temperature 98 F 98 F Pulse Rate 89 85 Respiratory Rate 19 19 Blood Pressure 180/124 H 164/111 H Pulse Oximetry 98 96 Oxygen Delivery Method Room Air Room Air BMI result Body Mass Index 33.2 Const Other: EXAM: Gen: Alert, distressed, anxious looking disheveled chronically ill-appearing Head: Atraumatic Eyes: Anicteric, Normal conjunctiva. ENT: Moist mucosa, no pallor. ? Neck: Supple. Skin: ?No observable rash or bruising on exposed or examined skin Respiratory: Breathing comfortably, No distress.Clear to auscultation bilaterally, symmetric chest expansion, No wheeze, rales, ronchi. Cardiovascular: Regular rate and rhythm. No murmurs or rub. Well perfused periphery, warm extremities. No edema. ? Abdominal: Midepigastric tenderness mild. Soft, no objective distension. No palpable masses or obvious organomegaly. ?No guarding, no rebound tenderness or other peritoneal findings. : No flank tenderness. Neuro: Alert. Gross movement of all extremities intact. ? Psych: Calm. Cooperative. MSK: No grossly visible deformity. Vital signs: See flowsheet Course Course Course Narrative: RME, this is a rapid medical exam performed by Dhruv Corona please refer to primary provider for complete H&P- 44 year old female presents for evaluation of chest pain and nausea with vomiting. She also complains of a headache. Plan for labs and an EKG Medications Administered Discontinued Medications Generic Name Dose Route Start Last Admin Trade Name Rahatq PRN Reason Stop Dose Admin Diazepam 5 mg 01/14/25 17:21 01/14/25 17:36 Diazepam 10 Mg/2 Ml Cartridge IM 01/14/25 17:22 5 mg STAT STA Administration Hydroxyzine HCl 50 mg 01/14/25 18:34 01/14/25 19:14 Hydroxyzine Hcl 50 Mg/Ml Vial IM 01/14/25 18:35 50 mg ONCE ONE Administration Ketorolac Tromethamine 15 mg 01/14/25 18:34 01/14/25 18:50 Ketorolac Tromethamine 15 Mg/Ml Vial IM 01/14/25 18:35 15 mg ONCE ONE Administration Lorazepam 0.5 mg 01/14/25 16:11 01/14/25 16:17 Lorazepam 0.5 Mg Tablet PO 01/14/25 16:12 0.5 mg ONCE ONE Administration Metoclopramide HCl 10 mg 01/14/25 16:23 01/14/25 16:31 Metoclopramide Hcl 10 Mg/2 Ml Vial IM 01/14/25 16:24 10 mg ONCE ONE Administration Medical Decision Making Medical Decision Making [facility] Narrative: 44-year-old female with history of IBS cyclic vomiting syndrome with epigastric pain chest pain atypical in nature chronic and recurrent. Patient demanding benzodiazepine opioid medication despite its contraindication with cyclic vomiting. QTC is slightly prolonged 501. No ischemic changes on ECG. Chest x-ray: Troponin negative doubt ACS, PE, dissection per staff who has seen her multiple recurrent episodes of similar presentation she frequently complains of the same character and nature of chest pain Intramuscular benzodiazepine, metoclopramide Lab Data [facility] Lab Attestation statement: I reviewed the patient's lab results. 01/14/25 12:21 01/14/25 12:21 Labs: Lab Results 01/14/25 Range/Units 12:21 WBC 14.0 H (4.8-10.8) X10*3/uL RBC 5.36 (4.20-5.50) X10*6/uL Hgb 15.2 (12.0-16.0) g/dl Hct 45.2 (37.0-47.0) % MCV 84.3 (80.0-98.0) fL MCH 28.4 (27.0-33.0) pg MCHC 33.6 (31.0-35.0) g/dl RDW 15.1 (11.0-16.0) % Plt Count 301 (160-400) X10*3/uL MPV 9.4 (9.4-12.3) fL Immature Gran % (Auto) 0.4 (0.0-0.4) % Neut % (Auto) 71.3 (45-73) % Lymph % (Auto) 21.6 (20-40) % Marshall % (Auto) 4.1 (2-11) % Eos % (Auto) 1.7 (0-4) % Baso % (Auto) 0.9 (0-2) % Lymph # (Auto) 3.0 (1.2-4.9) X10*3/uL Marshall # (Auto) 0.6 (0.1-1.2) X10*3/uL Eos # (Auto) 0.2 (0.0-0.4) X10*3/uL Baso # (Auto) 0.1 (0.0-0.2) X10*3/uL Abs Immat Gran (auto) 0.05 H (0.00-0.03) X10*3/uL Absolute Neuts (auto) 10.0 H (2.0-8.3) x10*3/uL Absolute Nucleated RBC 0.000 (0.0-0.012) X10*3/uL Nucleated RBC % (auto) 0.0 (0.0-0.2) /100WBC Sodium 140 (135-145) mmol/L Potassium 3.9 (3.3-5.1) mmol/L Chloride 106 (96-108) mmol/L Carbon Dioxide 24 (22-29) mmol/L Anion Gap 14 (12-20) BUN 8 L (9-16) mg/dL Creatinine 0.67 (0.5-1.4) mg/dL Estim Creat Clear Calc 97.3 Estimated GFR > 60 Random Glucose 131 H (60-115) mg/dL Calcium 9.4 D (8.4-10.2) mg/dL Magnesium 2.0 (1.6-2.6) mg/dL Total Bilirubin 0.2 (0.0-1.0) mg/dL AST 18 (5-31) U/L ALT 17 (0-31) U/L Alkaline Phosphatase 87 (39-117) U/L Troponin I High Sens < 2.7 (<3.5-17.0) ng/L Total Protein 7.4 (6.5-8.0) g/dL Albumin 4.6 (3.5-5.0) g/dL Lipase 20 (8-78) U/L Beta HCG, Quant 9 mIU/mL Urine Color Yellow Urine Appearance Clear Urine pH >= 9.0 (5.0-9.0) Ur Specific Driscoll 1.015 (1.005-1.025) Urine Protein 30 (1+) H (Neg-Trace) mg/dL Urine Glucose (UA) Negative (Negative) mg/dL Urine Ketones Negative (Negative) mg/dL Urine Blood Negative (Negative) Urine Nitrite Negative (Negative) Ur Leukocyte Esterase Negative (Negative) Urine RBC 0-2 (0-2) /HPF Urine WBC 0-5 (0-5) /HPF Ur Squamous Epith Cells 3-5 (0-2) /HPF Ur Transition Epith Cell Present Urine Bacteria Trace (None Seen) Hyaline Casts 0-2 (0-2) /LPF Influenza Type A (PCR) NEGATIVE (Negative) Influenza Type B (PCR) NEGATIVE (Negative) RSV RNA Qual (PCR) NEGATIVE (Negative) SARS-CoV-2 RNA (RT-PCR) NEGATIVE (Negative) Independent Interpretation I performed an independent interpretation of an: EKG (Sinus rhythm rate 89 QTC 501. Normal intervals, normal axis, no acute ischemic changes.) Discharge Plan Discharge Clinical Impression: Anxiety Patient Disposition: Home, Self-Care Instructions: Anxiety (ED) Additional Instructions: DISCHARGE DIAGNOSES: Anxiety -chronic Chest pain of unclear cause heart attack and other acute emergent cardiac or lung problems excluded HISTORY OF PRESENTATION: ?Anxiety chest pain vomiting epigastric pain EMERGENCY DEPARTMENT COURSE,TESTS, TREATMENTS: While in the ED today you had lab work which was grossly reassuring including heart attack enzyme EKG DISCHARGE MEDICATIONS: ?[We have made no changes to your regular medication regimen] FOLLOW-UP: ?Call your primary or general physician soon as possible to discuss your symptoms, your ED visit and to discuss follow up plans Call your primary physician or a psychiatric prescriber for follow up INSTRUCTIONS ?& RETURN PRECAUTIONS: If any symptoms change first call your primary physician, if it is after-hours your primary doctors office should have a provider applications system analyst you can speak with. If the symptoms are severe or very concerning to you then call 911 or return to the ED. Rambo Bolden MD Emergency Physician [facility] Prescriptions: No Action aripiprazole 10 mg tablet 1 tab PO DAILY lamotrigine 100 mg tablet 1 tab PO TID lorazepam 1 mg tablet 0.5 tab PO BID melatonin 5 mg tablet 1 tab PO BEDTIME PRN (Reason: insomnia) quetiapine 50 mg tablet 1 tab PO BEDTIME sucralfate 100 mg/mL suspension 10 ml PO BID zolpidem 5 mg tablet 1 tab PO BEDTIME PRN (Reason: Sleep) ondansetron HCl [Zofran] 4 mg tablet 4 mg PO Q6H PRN (Reason: nausea and vomiting) Qty: 10 0RF acetaminophen [Tylenol 8 Hour] 650 mg tablet extended release 650 mg PO Q8H PRN (Reason: pain) Qty: 10 0RF nitrofurantoin monohyd/m-cryst [Macrobid] 100 mg capsule 100 mg PO Q12H 7 Days Qty: 14 0RF Rx Instructions: must administer with a meal/food dicyclomine 10 mg capsule 10 mg PO QID 7 Days Qty: 28 0RF promethazine 25 mg tablet 25 mg PO TID PRN (Reason: nausea and vomiting) Qty: 20 0RF sulfamethoxazole-trimethoprim [Bactrim DS] 800-160 mg tablet 1 tab PO BID Qty: 14 0RF phenazopyridine 100 mg tablet 100 mg PO TID Qty: 6 0RF ibuprofen 600 mg tablet 600 mg PO TID PRN (Reason: pain) Qty: 20 0RF sucralfate 1 gram tablet 1 g PO BID PRN (Reason: Upper abdominal pain) Qty: 40 0RF ondansetron 4 mg tablet,disintegrating 4 mg PO Q6H PRN (Reason: nausea and vomiting) Qty: 10 0RF ondansetron 4 mg tablet,disintegrating 4 mg PO BEDTIME PRN (Reason: nausea and vomiting) Qty: 7 0RF dicyclomine 10 mg capsule 10 mg PO TID PRN (Reason: abdominal distention) Qty: 20 0RF cefuroxime axetil 250 mg tablet 250 mg PO BID Qty: 10 0RF ondansetron 4 mg tablet,disintegrating 4 mg PO Q8H PRN (Reason: nausea and vomiting) Qty: 7 0RF simethicone [Gas Relief (simethicone)] 180 mg capsule 180 mg PO BID PRN (Reason: abdominal distention) Qty: 14 0RF polyethylene glycol 3350 [Miralax] 17 gram powder in packet 17 g PO DAILY Qty: 14 0RF ondansetron 4 mg tablet,disintegrating 4 mg PO Q6-8H PRN (Reason: nausea and vomiting) Qty: 14 0RF ondansetron 4 mg tablet,disintegrating 4 mg PO Q6H PRN (Reason: nausea and vomiting) Qty: 10 0RF prochlorperazine maleate [Compazine] 10 mg tablet 10 mg PO Q8H PRN (Reason: nausea and vomiting) Qty: 10 0RF Interventions: ED Discharge Assessment Last Done: 01/14/25 20:16 Discharge Date/Time: 01/14/25 20:17 Print Language: Japanese
[2025-01-14 12:26] LABS: MANUAL DIFF FLAG NO
[2025-01-14 12:27] LABS: Basophils Absolute Auto 0.1 X10*3/uL (0.0-0.2); Basophils Percent Auto 0.9 % (0-2); Eosinophils Absolute Auto 0.2 X10*3/uL (0.0-0.4); Eosinophils Percent Auto 1.7 % (0-4); Hematocrit 45.2 % (37.0-47.0); Hemoglobin 15.2 g/dl (12.0-16.0); Imm Gran Abs Auto 0.05 X10*3/uL (0.00-0.03); Imm Gran Pct Auto 0.4 % (0.0-0.4); Lymphocytes Percent Auto 21.6 % (20-40); Mean Corpuscular HGB Conc 33.6 g/dl (31.0-35.0); Mean Corpuscular Hemoglobin 28.4 pg (27.0-33.0); Mean Corpuscular Volume 84.3 fL (80.0-98.0); Mean Platelet Volume 9.4 fL (9.4-12.3); Monocytes Absolute Auto 0.6 X10*3/uL (0.1-1.2); Monocytes Percent Auto 4.1 % (2-11); Neutrophils Percent Auto 71.3 % (45-73); Platelet Count 301 X10*3/uL (160-400); Red Blood Count 5.36 X10*6/uL (4.20-5.50); Red Cell Distribution Width 15.1 % (11.0-16.0)
[2025-01-14 12:28] LABS: Appearance Urine Clear; Color Urine Yellow; Glucose Urine UA Negative (Negative); Leukocyte Esterase Urine Negative (Negative); Nitrite Urine Negative (Negative); PH >= 9.0 (5.0-9.0); Specific Gravity - Urine 1.015 (1.005-1.025); UMIC TRIGGER UACC YES; Urine Blood Negative (Negative); Urine Ketones Negative (Negative); Urine Protein 30 (1+) mg/dL (Neg-Trace)
[2025-01-14 12:37] LABS: Bacteria Urine Trace (None Seen); Hyaline Casts Urine 0-2 /LPF (0-2); RBC Urine 0-2 /HPF (0-2); Transitional Epi Cells Urine Present; WBC Urine 0-5 /HPF (0-5)
[2025-01-14 12:46] LABS: Troponin-I High Sensitivity < 2.7 ng/L (<3.5-17.0)
[2025-01-14 12:49] LABS: Alanine Aminotransferase 17 U/L (0-31); Albumin Level 4.6 g/dL (3.5-5.0); Alkaline Phosphatase 87 U/L (39-117); Anion Gap 14 (12-20); Aspartate Amino Transferase 18 U/L (5-31); Bilirubin Total 0.2 mg/dL (0.0-1.0); Blood Urea Nitrogen 8 mg/dL (9-16); Calcium 9.4 mg/dL (8.4-10.2); Carbon Dioxide 24 mmol/L (22-29); Chloride 106 mmol/L (96-108); Creatinine Clr Calc Pharmacy 97.3; Estimated Glomerular Filt Rate > 60; Glucose Random 131 mg/dL (60-115); Lipase 20 U/L (8-78); Potassium 3.9 mmol/L (3.3-5.1); Sodium 140 mmol/L (135-145); Total Protein 7.4 g/dL (6.5-8.0)
[2025-01-14 12:50] LABS: HCG Quantitative 9 mIU/mL
[2025-01-14 13:04] LABS: Influenza A PCR NEGATIVE (Negative); Influenza B PCR NEGATIVE (Negative); Resp Syncy Virus RNA Qual PCR NEGATIVE (Negative); SARS COV2 PCR INHOUSE NEGATIVE (Negative)
--- OUTSIDE RECORDS SUMMARY | 2025-01-14 13:27 | XMS_ITS | Clinical Summary ---
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 Role Phone Fahad Thompson MD Primary [...] Problem Noted Date Diagnosed Date Bipolar affective ([facility] V24, [facility] V28) Mixed hyperlipidemia 12/19/2023 Kidney stone 09/11/2021 Overview (07/24/2024): [facility] 08/24/2021 Cocaine use 04/13/2013 Overview (07/24/2024): Also pos again in ew In may 2013 Also pos again in sep 2016 Marijuana use 04/13/2013 Overview (07/24/2024): Also pos again in ew May 2013 Endometriosis 12/03/2011 Substance abuse ([facility] V24, [facility] V28) 11/30 Overview (07/24/2024): Positive urine drug screen at [facility] positive for cocaine, benzodiazepine, marijuana date of test November 25, 2010 Pos for cocaine and MJ January Irritable bowel syndrome 07/21/2006 Overview (07/24/2024): negative esophagoscopy 07.21.06. Encounters Date Type Department Care Team Description 10/25/2024 9:00 AM EDT Office Visit Adult Medicine [address] [phone] Mayi Iverson PA Acute pain of right shoulder (Primary Dx); Elevated blood pressure reading 10/23/2024 Telephone Adult Medicine [address] [phone] Kayleigh Ricks MA PINCHED NERVE ON RIGHT [...] TONSILLECTOMY ADENOIDECTOMY, BILATERAL MYRINGOTOMY AND TUBES PROCEDURE: MD TONSILLECTOMY & ADENOIDECTOMY <AGE 11 APPENDECTOMY PROCEDURE: MD APPENDECTOMY SALPINGOOPHORECTOMY PROCEDURE: MD LAPAROSCOPY W/RMVL ADNEXAL STRUCTURES; COMMENT: left ovary removed SALPINGOOPHORECTOMY 12/13/11 PROCEDURE: MD LAPAROSCOPY W/RMVL ADNEXAL STRUCTURES; COMMENT: Right tube & ovary removed, endometriosis, pain CHOLECYSTECTOMY PROCEDURE: LAPAROSCOPIC CHOLECYSTECT Medical History Medical History Date Comments Irritable bowel syndrome 07/21/2006 DX:Irri table bowel syndrome; COMMENT: negative esophagoscopy 07.21.06. Nausea with vomiting 07/21/2006 DX:Nausea w ith vomiting Bipolar affective ([facility] V 24, CMS/HCC V28) DX:Bipolar affective ([facility]) Substance abuse (CMS/HCC V24 , CMS/HCC V28) 11/30/2010 DX:Substance abuse ([facility]) Endometriosis 12/03/2011 DX:Endometriosis Recurrent abdominal pain [...] Cancer Screening: P ap Smear 11/25/2014 11/26/2011 Colorectal Cancer Screening: Colonoscopy 06/16/2022 Hepatitis C Screening 06/16/2022 Social Influencers of Health Screening 06/16/2022 COVID-19 Vaccine (1 - 2023-2 5 season) 2024 Depression Screening [...] Smear (11/26/2011) Pap smear negative, abstracted Result [facility] Historical Provider HEALTH MAINTENANCE Final Result * HIV Screening (06/24/2004) Pathologist [facility] HIV Screening abstracted Result [facility] Historical Provider HEALTH MAINTENANCE Final Result from Last 3 Months or Most Recently Relevant to Health Maintenance Insurance [facility] Care Teams Pellet Mill Operator Relationship Specialty Start Date End Date Fahad Thompson MD [address] [place] [address] PCP - General Internal Medicine 01/15/22
[2025-01-14 15:08] VITALS: BP 164/111; PULSE 85; RESP 19; TEMP 36.6; O2SAT 96
--- NOTE | 2025-01-14 15:27 | PC.NURSE ---
Pt from triage to ED [address], restless/anxious. Pt very tearful but answering questions appropriately. Reports 10/10 chest pain that started this morning. States feeling very anxious which is making pain worse. Also reports n/v since this morning.
--- NOTE | 2025-01-14 15:49 | PC.NURSE ---
Pt reported episode of bloody diarrhea x1, requested pt notifiy staff member when next stool occurs.
[2025-01-14] MEDS: LORazepam 0.5 MG TABLET PO (16:17)
[2025-01-14] MEDS: Metoclopramide HCl 10 MG/2 ML VIAL IM (16:31)
[2025-01-14] MEDS: diazePAM 10 MG/2 ML CARTRIDGE 5 MG IM (17:36)
[2025-01-14 17:54] VITALS: BP 192/55; PULSE 86; RESP 16; TEMP 36.6; O2SAT 99
[2025-01-14] MEDS: Ketorolac Tromethamine 15 MG/ML VIAL IM (18:50)
[2025-01-14] MEDS: hydrOXYzine HCL 50 MG/ML VIAL IM (19:14)
--- NOTE | 2025-01-14 19:17 | PC.NURSE ---
Assumed care of pt at 1900. PT walking to the nurses station multiple times during report reporting extreme anxiety and requesting Valium or Ativan. Informed pt of her plan of care. PT continuing to request Valium or Ativan. IM atarax given as per OCT.
[2025-01-14 20:07] VITALS: BP 149/94; PULSE 89; RESP 22; TEMP 36.8; O2SAT 96
[2025-01-14 20:16] VITALS: BP 174/99; PULSE 87; RESP 16; TEMP 36.8; O2SAT 97
== END 2025-01-14 20:17 | disposition home or self-care (01) ==
PROVIDERS: Physician Assistant; Emergency Provider Emergency Medicine
DX: F41.9 Anxiety disorder, unspecified (principal); R07.89 Other chest pain; R10.2 Pelvic and perineal pain; R11.2 Nausea with vomiting, unspecified; R51.9 Headache, unspecified; Z79.899 Other long term (current) drug therapy; F17.210 Nicotine dependence, cigarettes, uncomplicated; Z03.818 Encounter for observation for suspected exposure to other biological agents ruled out
CPT/HCPCS: 0241U; 71045; 80053; 81001; 83690; 83735; 84484; 84702; 85025; 96372; 99285; J1885; J2765; J3360; J3410

== ENCOUNTER → 2025-01-14 16:39 | Outpatient (BNV) | payer OTHER, SELFPAY | PROVIDERS: Emergency Provider Emergency Medicine; Visit Provider Radiology Diagnostic Radiology | DX: R07.9 Chest pain, unspecified (principal) | CPT/HCPCS: 71045 ==

== ENCOUNTER 2025-02-05 09:45 | Emergency (ER) | payer OTHER, SELFPAY ==
[2025-02-05] VITALS (14 sets, daily range): BP systolic 125–222; BP diastolic 47–147; PULSE 52–78; RESP 14–30; TEMP -17.7–36.3; O2SAT 96–100; BMI 28.3
--- NOTE | ~2025-02-05 | CT_ITS ---
EXAMINATION: CT ABDOMEN AND PELVIS WITH CONTRAST CLINICAL INFORMATION: Altered mental status DLP: 1604 mGY*cm COMPARISON: 05/08/2024 and June 14, 2022 TECHNIQUE: Multidetector volumetric images were obtained from the superior aspect of the liver through the pubic symphysis following administration 100 mL of Omnipaque 350 intravenous contrast. Sagittal and coronal reformatted images were obtained on the technologist's workstation. Oral contrast: No This CT examination was performed using dose optimization techniques as appropriate, variously including the following: *Automated exposure control *Adjustment of mA and/or kV according to patient size (this includes techniques or standardized protocols for targeted exams where dose is matched to indication/reason for exam; i.e. extremities or head) *Use of iterative reconstruction technique FINDINGS: LIVER, GALLBLADDER, AND BILIARY TREE: Stable 3 mm hypodensity in the dome of liver is too small to characterize. Mild patchy fatty changes are subtle. Gallbladder surgically absent. There are surgical clips in the gallbladder fossa. There is stable mild dilation right bile duct dilation. PANCREAS: Unremarkable. SPLEEN: Vague subcentimeter hypodensity in the superior lateral spleen is nonspecific and stable ADRENAL GLANDS: Unremarkable. KIDNEYS AND URETERS: The kidneys are normal in size, shape, and attenuation. No hydronephrosis, hydroureter, or calculi seen. No perinephric stranding. BLADDER: Unremarkable. GASTROINTESTINAL TRACT: NG tube terminates in the gastric antrum. Clip along the inferior margin of cecum and clips anterior to the cecum are likely related to appendectomy. Right and transverse colon are partially decompressed ABDOMINAL WALL: No significant hernia is appreciated. LYMPH NODES: Normal. VASCULAR: Multifocal atherosclerotic calcifications are present. PELVIC VISCERA: Unremarkable. OSSEOUS STRUCTURES: Unremarkable. CT/CT abdomen pelvis w IV con IMPRESSION: NG tube terminates at the gastric antrum. Cholecystectomy. Appendectomy. No acute abnormality. Fleischner guidelines were followed. Electronically signed by: Faisal Ghosh MD 02/05/2025 12:08 PM EDT
--- NOTE | ~2025-02-05 | XR_ITS ---
EXAMINATION: XR CHEST CLINICAL INFORMATION: AMS COMPARISON: January 14, 2025 TECHNIQUE: Frontal view of the chest was obtained. FINDINGS: No consolidation pleural effusion or pneumothorax. Cardiomediastinal silhouette size is normal. Endotracheal tube is 4 cm above monique. There is an NG tube dated the is not included in the [id number] for the left hemiabdomen. Vascular clips right upper quadrant abdomen. XR/XR chest 1V IMPRESSION: Status post intubation 4 cm above monique. Status post NG tube placement below the left hemidiaphragm, left hemiabdomen. No acute airspace disease. Status post cholecystectomy. Electronically signed by: Haider Brown MD 02/05/2025 10:32 AM EDT
--- NOTE | ~2025-02-05 | CT_ITS ---
EXAMINATION: CT HEAD WITHOUT CONTRAST CLINICAL INFORMATION: [facility] COMPARISON: November 17, 2024. TECHNIQUE: Contiguous axial imaging was performed from the skull base to vertex without intravenous administration of contrast. This CT examination was performed using dose optimization techniques as appropriate, variously including the following: *Automated exposure control *Adjustment of mA and/or kV according to patient size (this includes techniques or standardized protocols for targeted exams where dose is matched to indication/reason for exam; i.e. extremities or head) *Use of iterative reconstruction technique DLP: 599.56 mGy-cm FINDINGS: There is moderate to large volume of the extra-axial hyperdensity extending from suprasellar and perimesencephalic cisterns into the sylvian fissures and at the foramen magnum upper cervical spine. There is CSF effacement. There is effacement of the cerebral sulci and cerebellar folia as well as the cisterns. There is mild to moderate prominent lateral ventricles with effacement of the third and fourth ventricles. There is no midline shift or guidewire herniation. No acute fracture in the bony calvarium or the skull base. Metallic piercing in the superior lateral right periorbital. Mucosal thickening, ethmoid air cells and maxillary sinuses. Tympanic cavities and mastoid cells are aerated. CT/CT head/brain wo IV con IMPRESSION: Acute subarachnoid hemorrhage resulting in global cerebral edema and mild to moderate hydrocephalus concerning for obstruction of the CSF dynamic flow. Consider ruptured cerebral aneurysm. No downward herniation. Electronically signed by: Haider Brown MD 02/05/2025 11:11 AM EDT
--- NOTE | ~2025-02-05 | CT_ITS ---
EXAMINATION: CT CERVICAL SPINE WITHOUT CONTRAST CLINICAL INFORMATION: Change in mental status. COMPARISON: None available. TECHNIQUE: Contiguous axial images through the cervical spine using 3 mm collimation with bone and soft tissue algorithm. Sagittal and coronal reformatted images acquired. DLP: 344.[address] examination was performed using dose optimization techniques as appropriate, variously including the following: *Automated exposure control *Adjustment of mA and/or kV according to patient size (this includes techniques or standardized protocols for targeted exams where dose is matched to indication/reason for exam; i.e. extremities or head) *Use of iterative reconstruction technique FINDINGS: Craniocervical junction is intact with normal alignment between the occipital condyles and the lateral masses of C1. C1 is intact. C2 is intact. C3 is intact. C4 is intact. C5 is intact. C6 is intact. C7 is intact. No gross prevertebral compartment hematoma. There is a moderate to large volume of the extra-axial hyperdensity extending from the the foramen magnum into the ventral aspect of the central spinal canal at that the subdural/subarachnoid compartment. Small marginal osteophyte formation and decreased intervertebral disc height from C3-4 to C6-7 levels. Mild reverse curvature apex at C5 There is a endotracheal tube and NG tube identified and tips are not included in the [id number]. The mastoid air cells are aerated CT/CT cervical spine wo IV con IMPRESSION: No acute fracture or trauma-related listhesis. Multilevel cervical spondylosis C4 C7. Moderate to large volume subarachnoid hemorrhage. Patient referred to CT head. Fleischner guidelines were followed. Electronically signed by: Haider Brown MD 02/05/2025 11:17 AM EDT
--- NOTE | ~2025-02-05 | CT_ITS ---
EXAMINATION: CTA NECK WITH CONTRAST (STROKE) CTA BRAIN WITH CONTRAST (STROKE) CLINICAL INFORMATION: Acute subarachnoid hemorrhage. COMPARISON: None available. TECHNIQUE: CTA of the head and neck was performed in the axial plane from the mediastinum to the skull vertex using 100 mL Omnipaque 350 intravenous contrast. Additional reformatted multiplanar images including maximum intensity projection MIP images are generated on the CT workstation. This CT examination was performed using dose optimization techniques as appropriate, variously including the following: *Automated exposure control *Adjustment of mA and/or kV according to patient size (this includes techniques or standardized protocols for targeted exams where dose is matched to indication/reason for exam; i.e. extremities or head) *Use of iterative reconstruction technique DLP: 633.54 mGy centimeter. FINDINGS: The degree of stenosis determined by criteria similar to NASCET. Chest CTA: No aneurysm or dissection or focal stenosis, aortic arch. Neck CTA: Right CCA: Normal patency. No focal stenosis. No intimal flap. Right ICA: Calcified plaque, proximal segment with a focal narrowing at representing 80-90% stenosis. No intimal flap. Left CCA: Normal patency. No focal stenosis. No intimal flap. Left ICA: No focal stenosis. No intimal flap. V1/V2 segments: Normal patency. No focal stenosis. No intimal flap. Codominant vertebral arteries. Brain CTA: Anterior cerebral circulation: ICAs: No focal stenosis. No abrupt cut off. Calcified plaques in the cavernous supraclinoid segments. MCA's: Normal patency. No focal stenosis. No abrupt cut off. Bifurcation/trifurcation demonstrated no vascular irregularity. ACAs: Normal patency. No focal stenosis. No abrupt cut off. Ophthalmic arteries are patent without vascular irregularity at the origin. Right posterior communicating artery is patent and robust without vascular irregularity at the origin. Anterior communicating artery is not identified. Posterior cerebral circulation: V3/V4 segments are patent without focal stenosis or intimal flap. Left posterior inferior cerebellar artery is patent and normal. Right posterior inferior cerebellar artery with a likely contracted with the anterior inferior cerebral artery. Basilar artery is patent without focal stenosis or intimal flap. Superior cerebellar arteries are patent. Right P1 segment is absent versus atretic. There is a right P2 V3 segment the posterior communicating artery. Left CCA is patent without focal stenosis or abrupt cut off. CT/CT angio head neck IMPRESSION: No gross cerebral aneurysm. 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 Calcified plaques representing 80-90% stenosis, right ICA. No dissection. Acute subarachnoid hemorrhage. Please refer to the CT brain. This critical test result is communicated to: Emergency physician Dr. Marcelino on February 05, 2025. via [employer] connect at 11:52 AM Electronically signed by: Haider Brown MD 02/05/2025 12:16 PM EDT
--- NOTE | ~2025-02-05 | CT_ITS ---
EXAMINATION: CT CHEST WITH CONTRAST CLINICAL INFORMATION: Altered mental status COMPARISON: November 20, 2016 TECHNIQUE: Multidetector volumetric CT imaging of the chest was obtained after the administration of 100 mL of Omnipaque 350 intravenous contrast without immediate adverse reactions. Axial MIP volume rendering provided. Sagittal and coronal reformatted images were obtained. This CT examination was performed using dose optimization techniques as appropriate, variously including the following: *Automated exposure control *Adjustment of mA and/or kV according to patient size (this includes techniques or standardized protocols for targeted exams where dose is matched to indication/reason for exam; i.e. extremities or head) *Use of iterative reconstruction technique DLP: 1604 mGY*cm FINDINGS: LUNGS: Breathing motion artifacts blur details in the mid to lower lungs. There is minimal opacity in the posterior basilar portion of the left lower lobe, likely dependent atelectasis. MEDIASTINUM: ET tube terminates in the lower trachea, 1.8 cm cephalad to the monique. NG tube passes through the esophagus and into the stomach terminating near the pylorus, right of midline. No adenopathy. PLEURA: There is a 1 cm mixed fatty density along the posterior mid left chest wall. There is no pleural effusion. AXILLA: No lymphadenopathy. UPPER ABDOMEN: The gallbladder is surgically absent. There are cholecystectomy clips. OSSEOUS STRUCTURES: Unremarkable. CT/CT chest w IV con IMPRESSION: The patient is intubated. ET tube terminates in the lower trachea, 1.8 cm above monique. Mild dependent atelectasis. Fleischner guidelines were followed. Electronically signed by: Faisal Ghosh MD 02/05/2025 11:57 AM EDT
--- NOTE | 2025-02-05 09:57 | ECG_ITS ---
Test Reason : UNRESPONSIVE Blood Pressure : */* mmHG Vent. Rate : 63 BPM Atrial Rate : * BPM P-R Int : * ms QRS Dur : 94 ms QT Int : 448 ms P-R-T Axes : * 71 -52 degrees QTcB Int : 458 ms Junctional rhythm Marked ST abnormality, possible inferior subendocardial injury Abnormal ECG When compared with ECG of 10-Jan-2025 18:08, Junctional rhythm has replaced Sinus rhythm QT has shortened Referred By: Generic ED Physician Electronically Signed By: WILFRIDO MARTIN MD
--- NOTE | 2025-02-05 09:58 | ED_ITS ---
HPI - General Adult General Chief complaint: General Medical Stated complaint: Pain Fall 02/05/25 Time Seen by Provider: 02/05/25 09:57 Source: patient, family and RN notes reviewed Mode of arrival: ambulatory Limitations: altered mental status History of Present Illness ED Provider: Xochilt Red PA-C HPI narrative: This is a 44-year-old female, very well known to us for recurrent cannabis induced cyclical vomiting syndrome, who presents emergency department with boyfriend, with concerns for altered mental status. Patient is awake, however not speaking, groaning, therefore HPI information was collected by Jermaine fields. Boyfriengeorgie states that yesterday they had a normal evening, patient was not complaining of anything. Boyfriengeorgie states that patient awoke this morning and patient was concern for dental pain, and was not acting herself afterwards and immediately brought patient to the emergency room. Per boyfriend, patient was in the restroom, and complaining about dizziness therefore boyfriend went to the bathroom and helped assist her, she then proceeded to go outside and was stating that she was very dizzy and told him that she needed to go to the emergency room for further evaluation. Getting into her car this afternoon, patient did fall however no head strike or LOC per the boyfriend. Yanethiengeorgie states that patient does not use any drugs, states that she does use marijuana however this is always from a dispensary. MD complaint: Altered mental status Related Data Home Medications ?Medication ?Instructions ?Recorded ?Confirmed aripiprazole 10 mg tablet 1 tab PO DAILY 01/05/2112/08 lamotrigine 100 mg tablet 1 tab PO TID 01/05/21 lorazepam 1 mg tablet 0.5 tab PO BID 01/05/2112/08 melatonin 5 mg tablet 1 tab PO BEDTIME PRN insomni a 01/05/21 01/05/21 quetiapine 50 mg tablet 1 tab PO BEDTIME 01/05/21 sucralfate 100 mg/mL oral 10 ml PO BID 01/05/21 suspension zolpidem 5 mg tablet 1 tab PO BEDTIME PRN Sleep 0 01/05/21 01/05/21 Previous Rx's ?Medication ?Instructions ?Recorded acetaminophen 650 mg 650 mg PO Q8H PRN pain #10 t abs 01/07/21 tablet,extended release (Tylenol 8 Hour) ondansetron HCl 4 mg tablet 4 mg PO Q6H PRN nausea and 01/07/21 (Zofran) vomiting #10 tabs promethazine 25 mg tablet 25 mg PO TID PRN nausea and 01/06/22 vomiting #20 tabs dicyclomine 10 mg capsule 10 mg PO QID 7 days #28 caps 06/14/22 nitrofurantoin 100 mg PO Q12H 7 days #14 ca ps 06/14/22 monohydrate/macrocrystals 100 mg capsule (Macrobid) ibuprofen 600 mg tablet 600 mg PO TID PRN pain #20 t abs 06/16/22 phenazopyridine 100 mg tablet 100 mg PO TID 6 doses #6 tabs 06/16/22 sulfamethoxazole 800 1 tab PO BID #14 tabs mg-trimethoprim 160 mg tablet (Bactrim DS) cefuroxime axetil 250 mg tablet 250 mg PO BID #10 tabs 12/12/22 dicyclomine 10 mg capsule 10 mg PO TID PRN abdominal 0 12/12/22 distention #20 caps ondansetron 4 mg disintegrating 4 mg PO Q8H PRN nausea and 12/12/22 tablet vomiting #7 tabs polyethylene glycol 3350 17 gram 17 g PO DAILY #14 ea 12/12/22 oral powder packet (Miralax) simethicone 180 mg capsule (Gas 180 mg PO BID PRN abdo erika 12/12/22 Relief (simethicone)) distention #14 caps ondansetron 4 mg disintegrating 4 mg PO Q6-8H PRN naus ea and 10/03/23 tablet vomiting #14 tabs ondansetron 4 mg disintegrating 4 mg PO Q6H PRN nausea and 12/01/23 tablet vomiting #10 tabs sucralfate 1 gram tablet 1 g PO BID PRN Upper abdomin al 12/01/23 pain #40 tabs ondansetron 4 mg disintegrating 4 mg PO Q6H PRN nausea and 05/08/24 tablet vomiting #10 tabs ondansetron 4 mg disintegrating 4 mg PO BEDTIME PRN na usea and 05/13/24 tablet vomiting #7 tabs prochlorperazine maleate 10 mg 10 mg PO Q8H PRN nausea and 07/24/24 tablet (Compazine) vomiting #10 tabs Allergies Allergy/AdvReac Type Severity Reaction Status Date / Time Penicillins Allergy Intermediate HIVES Verified 02/05/25 09:50 adhesive tape Allergy Rash Verified 02/05/25 09:50 ciprofloxacin Allergy Unresponsiv Verified 02/05/25 09:50 e Amoxicillin Allergy Intermediate Hives Uncoded 02/05/25 09:50 Review of Systems 2 Review of Systems: Yes Unobtainable due to mental status Constitutional: Constitutional: Reports as per HPI Neurologic: Reports confusion Psychiatric: Psychiatric: Reports confusion [facility] Past Medical History Medical History Endometriosis Pulmonary embolism Anxiety Bipolar 1 disorder Surgical History Hx of appendectomy History of cholecystectomy H/O: hysterectomy Social History Social History Alcohol intake: never Patient Tobacco Use Status: Current everyday Tobacco user Tobacco use type: Cigarette Cigarette Packs Per Day: 0.34 Cigarettes Per Day: 6.8 Years Smoked: 32 Second Hand Smoke Exposure: No Substance Use Type: Marijuana Physical Exam ED Vital Signs: Vital Signs - 24 hr 02/05/25 17:56 Pulse Rate 66 Respiratory Rate 23 H Blood Pressure 197/101 H Pulse Oximetry 99 Oxygen Delivery Method Mechanical Ventilation BMI result Body Mass Index 28.3 Const General: awake, acute distress, anxious, confusion, lethargic and patient obtunded Nutritional Appearance: average body habitus Orientation/consciousness: confusion, patient obtunded and lethargic Limitations: altered mental status HENMT Head: Yes normal to inspection, Yes normocephalic and Yes atraumatic General nose exam: Normal external nose present Face and sinus: Yes normal facial exam Mouth: Normal oral and palatal mucosa present, oropharynx normal and moist mucous membranes Throat: Yes posterior oropharynx normal Eyes General: appearance normal, both eyes and all related structures Eyelids: Yes eyelids normal Conjunctivae: conjunctivae normal Sclerae: sclerae normal Pupils: Equal, round and reactive pupils present EOM: EOMs intact bilaterally Neck Neck: Yes normal visual inspection, Yes full ROM and Yes no lymphadenopathy Lymphatic: no lymphadenopathy noted Chest Chest palpation & inspection: normal inspection of the chest Resp Effort & Inspection: normal respiratory effort and able to speak in complete sentences Auscultation: clear to auscultation bilaterally, no crackles, no rales, no rhonchi and no wheezes Cardio Rate: regular rate Rhythm: regular rhythm Heart sounds: S1 normal heart sound present and S2 normal heart sound present GI Other: Abd soft, nontender Inspection: Yes normal to inspection Skin General skin exam: no rashes or lesions noted Trauma: no lacerations or abrasions Wounds: no wounds Neuro Other: Neuro examination significantly limited secondary to patient's curent condition General: moves all extremities, confusion, patient obtunded and Unable to assess gait Cranial nerves: Yes Equal, round and reactive pupils present and Yes Bilaterally intact EOM present Cognition (Neuro): abnormal cognition Gait exam (Neuro): Unable to assess gait Pupils: Normal pupillary reactivity/response: bilateral Extrem General: Yes normal to inspection Right upper extremity: normal to inspection Left upper extremity: normal to inspection Right lower extremity: normal to inspection Left lower extremity: normal to inspection NIH Stroke Scale Internal: Initial- Upon Arrival Level of Consciousness: Responds only with reflex motor or autonomic effects, or unresponsive Level of Consciousness Questions: Answers neither question correctly Level of Consciousness Commands: Performs neither task correctly Best Gaze: Normal Visual: No visual loss Facial Palsy: Normal Motor Arm (Right): Some effort against gravity Motor Arm (Left): Some effort against gravity Motor Leg (Right): Some effort against gravity Motor Leg (Left): Some effort against gravity Limb Ataxia: Absent (unable to assess) Sensory: Mild to moderate sensory loss (unable to assess ) Best Language: Mild to moderate aphasia Dysarthia: Mild to moderate dysarthria Extinction and Inattention: No abnormality Score: 18 Medications Administered Discontinued Medications Generic Name Dose Route Start Last Admin Trade Name Freq PRN Reason Stop Dose Admin Etomidate 20 mg 02/05/25 10:38 02/05/25 10:10 Etomidate 20 Mg/10 Ml Vial IVPUSH 02/05/25 10:39 20 mg ONCE ONE Administration Propofol 1,000 mg in 100 mls @ 0 mls/hr 02/05/25 10:30 02/05/25 11:27 Diprivan IVCONT 50 mcg/kg/min .Q0M FAM 19.73 mls/hr Protocol Titration Per Protocol Sodium Chloride 250 mls @ 500 mls/hr 02/05/25 11:15 02/05/25 12:28 Sodium Chloride 3 % IV 02/05/25 11:44 Infused ONCE ONE Infusion Iohexol 100 ml 02/05/25 11:37 02/05/25 11:38 Iohexol 350 Mg/Ml 100 Ml Infus..Btl IV 02/05/25 11:38 100 ml ONCE ONE Administration Midazolam HCl 4 mg 02/05/25 11:02 02/05/25 11:06 Midazolam Hcl 2 Mg/2 Ml Vial IVPUSH 02/05/25 11:03 4 mg ONCE ONE Administration Midazolam HCl 4 mg 02/05/25 11:29 02/05/25 11:33 Midazolam Hcl 2 Mg/2 Ml Vial IVPUSH 02/05/25 11:30 4 mg ONCE ONE Administration Succinylcholine Chloride 100 mg 02/05/25 10:37 02/05/25 10:11 Succinylcholine Chloride 200 Mg/10 Ml Vial IVPUSH 02/05/25 10:38 100 mg ONCE ONE Administration Procedures Intubation Intubation Type:: Endotracheal Tube Insertion Intubation Date:: 02/05/25 Intubation Time:: 11:26 Time out performed: Yes sedative: Etomidate Mg Given: 20 paralytic: Succinylcholine Mg Given: 100 Laryngoscope: fiber optic video scope ET Tube Size: 7.5 ET Tube Uncuffed: No Tube Secured Depth (cm): 25 Tube Secured Location: lips Tube Placement Confirmation: visualized tube passing through cords Patient Tolerated Procedure: no complications Intubation Complications: none Medical Decision Making Medical Decision Making MDM Narrative: This is a 44-year-old female who presents emergency department with concerns of ?altered mental status. Patient was brought into triage, found to be uncooperative, restless, according to triage note, patient was screaming ?please help me?. I saw patient when she was placed in ED room immedaitely and noticed that patient was awake, thrashing around in bed, and started to actively vomit. Patient's pupils equal and reactive, not pinpoint. She was given Narcan x 2, point of care at bedside was over 200. I immediately grabbed my supervising physician, and patient was no longer maintaining an airway, now having a GCS of less than 8. This happened all within 5 minutes of patient being in the ED room. Patient was then intubated by my supervising physician, Dr. Marcelino. Per patient's partner, they had a normal evening, and awoke this morning, patient was complaining about dental pain, and partner started to feel as though she was not acting herself and brought her to the emergency room. Per partner, patient was in the restroom, and was profoundly dizzy and nearly collapsed in partners arms. Per partner, patient adamantly denies drug use, states that she does smoke marijuana however states that she only smokes marijuana from the dispensary that she uses. It is unclear what is causing her significant change in also mental status. Labs upon arrival, patient hypertensive at 204/115, pulse 142. Course: CT scan revealing patient has an acute posterior fossa hemorrhage, reached out to [facility] for transfer of care. Patient seems to be starting to awake during CTA head/neck and CT scan of chest and abdomen. This was reviewed with our social security assessor, Dr. Zamudio. Given patient has an ICH, patient can not be managed here in our hospital therefore patient needs to be transferred out. 11:05AM - [facility] accepted patient into the neuro ICU - Accepting Physician, Dr. Arredondo - transfer of care initiated. Recommending 250cc NS 3% bolus over 30 minutes. Spoke to pharmacist who placed this. Dr. Lyman also recommending nicardipine drip was also ordered, patient has had to be placed at 30? as soon as she is out from CT scan. Delay in transfer of care to EMS d/t delay in receiving recommending NS bolus 3% as well as transitioning patient onto their own intubation machinery. Pt had to be on for 20 minutes to ensure no complications en route. Addendum Dr. Marcelino : I was called to bedside because of patient's change in mental status baseline patient is awake alert found the patient dizzy then was unresponsive. On arrival patient's sugar was over 200 patient has had no response to Narcan clearly her GCS was below 8. I then intubated the patient. Please see procedure note. I was involved during the case. We took her the CAT scan right away. The CT head was positive for having blood in the posterior fossa likely from a subarachnoid hemorrhage with some mass effect. I communicated with the radiologist about the intracranial bleeding. Patient's case discussed with [facility]. I discussed the case with the neuro ICU attending Dr. Up. Accepted patient to the neuro ICU. Head of the bed at 30 degrees. We are getting ready to start patient on medication to lower the blood pressure went her repeat blood pressure was now 120/80. Currently on propofol for sedation. Additional boluses of Versed was given for sedation. Risks and benefits of transfer explained to patient family. next sec. Agreed to plan of transfer ensure that patient has a bed at the neuro ICU. Patient to be transferred via ALS ambulance. Risks and benefits of transfer explained to patient's family. Differential Diagnosis Differential Diagnoses: The differential diagnosis associated with the presentation includes ICH, substance abuse, metabolic enecphalopathy, electrolyte deranagement Admission/Observation Consideration of admission/observation: Escalation of care including admission/observation considered Patient requiring transfer secondary to acute ICH Consult Healthcare Provider Management of the patient was discussed with: Locomotive Engineer Diesel See course comment Lab Data MDM Lab Attestation statement: I reviewed the patient's lab results. Patient with leukocytosis at 11.9, VBG revealing respiratory alkalosis with a pH of 7.5, and bicarb of 19. Point of care 231, lactic acidosis at 5.3 - nonspecific. Troponin less than 2.7, no evidence of LITTLE. 02/05/25 10:19 02/05/25 10:19 Labs: Lab Results 02/05/25 02/05/25 02/05/25 Range/Units 09:56 10:10 10:16 WBC (4.8-10.8) X10*3/uL RBC (4.20-5.50) X10*6/uL Hgb (12.0-16.0) g/dl Hct (37.0-47.0) % MCV (80.0-98.0) fL MCH (27.0-33.0) pg MCHC (31.0-35.0) g/dl RDW (11.0-16.0) % Plt Count (160-400) X10*3/uL MPV (9.4-12.3) fL Immature Gran % (Auto) (0.0-0.4) % Neut % (Auto) (45-73) % Lymph % (Auto) (20-40) % [place] % (Auto) (2-11) % Eos % (Auto) (0-4) % Baso % (Auto) (0-2) % Lymph # (Auto) (1.2-4.9) X10*3/uL [place] # (Auto) (0.1-1.2) X10*3/uL Eos # (Auto) (0.0-0.4) X10*3/uL Baso # (Auto) (0.0-0.2) X10*3/uL Abs Immat Gran (auto) (0.00-0.03) X10*3/uL Absolute Neuts (auto) (2.0-8.3) x10*3/uL Absolute Nucleated RBC (0.0-0.012) X10*3/uL Nucleated RBC % (auto) (0.0-0.2) /100WBC Smear Tech's Comments Smear Path Review Hold Purple Top SEE NOTE PT 9.8 L (10.9-12.4) SEC INR 0.9 (0.9-1.1) APTT 27.5 (26.0-36.8) SEC Hold Blue Top SEE NOTE O2 Saturation % ABG pH at Pt Temp (7.35-7.45) ABG pCO2 at Pt Temp (32-45) mmHg ABG pO2 at Pt Temp (83-108) mmHg ABG HCO3 (22-26) mmol/L ABG Base Excess (Actual) mmol/L VBG pH (7.32-7.43) VBG pCO2 mmHg VBG pO2 mmHg VBG HCO3 (22-26) mmol/L VBG O2 Saturation % VBG Base Excess mmol/L Sodium (135-145) mmol/L Potassium (3.3-5.1) mmol/L Chloride (96-108) mmol/L Carbon Dioxide (22-29) mmol/L Anion Gap (12-20) BUN (9-16) mg/dL Creatinine (0.5-1.4) mg/dL Estim Creat Clear Calc Estimated GFR POC Glucose 200 H 231 H (60-115) mg/dL Random Glucose (60-115) mg/dL Lactic Acid (0.5-2.0) mmol/L Calcium (8.4-10.2) mg/dL Magnesium (1.6-2.6) mg/dL Total Bilirubin (0.0-1.0) mg/dL Direct Bilirubin (0.0-0.5) mg/dL AST (5-31) U/L ALT (0-31) U/L Alkaline Phosphatase (39-117) U/L Ammonia (13-55) umol/L Troponin I High Sens (<3.5-17.0) ng/L Total Protein (6.5-8.0) g/dL Albumin (3.5-5.0) g/dL Lipase (8-78) U/L Beta HCG, Quant mIU/mL Urine Color Urine Appearance Urine pH (5.0-9.0) Ur Specific [place] (1.005-1.025) Urine Protein (Neg-Trace) mg/dL Urine Glucose (UA) (Negative) mg/dL Urine Ketones (Negative) mg/dL Urine Blood (Negative) Urine Nitrite (Negative) Ur Leukocyte Esterase (Negative) Urine RBC (0-2) /HPF Urine WBC (0-5) /HPF Ur Squamous Epith Cells (0-2) /HPF Urine Bacteria (None Seen) Hyaline Casts (0-2) /LPF Salicylates (15-30) mg/dL Urine Opiates Screen (Not Detect) Ur Buprenorphine Scrn (Not Detect) ng/mL Ur Oxycodone Screen (Not Detect) ng/mL Urine Methadone Screen (Not Detect) ng/mL Urine Fentanyl Screen (Not Detect) Acetaminophen (<30) mcg/mL Ur Barbiturates Screen (Not Detect) Ur Phencyclidine Scrn (Not Detect) Ur Amphetamines Screen (Not Detect) U Benzodiazepines Scrn (Not Detect) Urine Cocaine Screen (Not Detect) U Marijuana (THC) Screen (Not Detect) Ethyl Alcohol mg/dL Influenza Type A (PCR) (Negative) Influenza Type B (PCR) (Negative) RSV RNA Qual (PCR) (Negative) SARS-CoV-2 RNA (RT-PCR) (Negative) 02/05/25 02/05/25 02/05/25 Range/Units 10:19 10:22 11:24 WBC 11.9 H (4.8-10.8) X10*3/uL RBC 5.30 (4.20-5.50) X10*6/uL Hgb 15.1 (12.0-16.0) g/dl Hct 44.0 (37.0-47.0) % MCV 83.0 (80.0-98.0) fL MCH 28.5 (27.0-33.0) pg MCHC 34.3 (31.0-35.0) g/dl RDW 15.3 (11.0-16.0) % Plt Count 353 (160-400) X10*3/uL MPV 9.7 (9.4-12.3) fL Immature Gran % (Auto) 0.3 (0.0-0.4) % Neut % (Auto) 32.8 L (45-73) % Lymph % (Auto) 55.3 H (20-40) % [place] % (Auto) 7.1 (2-11) % Eos % (Auto) 3.3 (0-4) % Baso % (Auto) 1.2 (0-2) % Lymph # (Auto) 6.6 H (1.2-4.9) X10*3/uL [place] # (Auto) 0.9 (0.1-1.2) X10*3/uL Eos # (Auto) 0.4 (0.0-0.4) X10*3/uL Baso # (Auto) 0.1 (0.0-0.2) X10*3/uL Abs Immat Gran (auto) 0.04 H (0.00-0.03) X10*3/uL Absolute Neuts (auto) 3.9 (2.0-8.3) x10*3/uL Absolute Nucleated RBC 0.000 (0.0-0.012) X10*3/uL Nucleated RBC % (auto) 0.0 (0.0-0.2) /100WBC Smear Tech's Comments VERIFIED Smear Path Review SEE NOTE Hold Purple Top PT (10.9-12.4) SEC INR (0.9-1.1) APTT (26.0-36.8) SEC Hold Blue Top O2 Saturation 99.0 % ABG pH at Pt Temp 7.55 H (7.35-7.45) ABG pCO2 at Pt Temp 21 L (32-45) mmHg ABG pO2 at Pt Temp 300 H (83-108) mmHg ABG HCO3 18 L (22-26) mmol/L ABG Base Excess (Actual) -1.4 mmol/L VBG pH 7.54 H (7.32-7.43) VBG pCO2 22 mmHg VBG pO2 153 mmHg VBG HCO3 19 L (22-26) mmol/L VBG O2 Saturation 100.0 % VBG Base Excess -0.6 mmol/L Sodium 140 (135-145) mmol/L Potassium 3.6 (3.3-5.1) mmol/L Chloride 106 (96-108) mmol/L Carbon Dioxide 19 L (22-29) mmol/L Anion Gap 19 (12-20) BUN 9 (9-16) mg/dL Creatinine 0.67 (0.5-1.4) mg/dL Estim Creat Clear Calc 89.7 Estimated GFR > 60 POC Glucose (60-115) mg/dL Random Glucose 188 H (60-115) mg/dL Lactic Acid 5.3 H* (0.5-2.0) mmol/L Calcium 9.5 (8.4-10.2) mg/dL Magnesium 2.2 (1.6-2.6) mg/dL Total Bilirubin 0.2 (0.0-1.0) mg/dL Direct Bilirubin < 0.2 (0.0-0.5) mg/dL AST 20 (5-31) U/L ALT 16 (0-31) U/L Alkaline Phosphatase 103 (39-117) U/L Ammonia 32 (13-55) umol/L Troponin I High Sens < 2.7 (<3.5-17.0) ng/L Total Protein 7.2 (6.5-8.0) g/dL Albumin 4.7 (3.5-5.0) g/dL Lipase 23 (8-78) U/L Beta HCG, Quant 8 mIU/mL Urine Color Urine Appearance Urine pH (5.0-9.0) Ur Specific [place] (1.005-1.025) Urine Protein (Neg-Trace) mg/dL Urine Glucose (UA) (Negative) mg/dL Urine Ketones (Negative) mg/dL Urine Blood (Negative) Urine Nitrite (Negative) Ur Leukocyte Esterase (Negative) Urine RBC (0-2) /HPF Urine WBC (0-5) /HPF Ur Squamous Epith Cells (0-2) /HPF Urine Bacteria (None Seen) Hyaline Casts (0-2) /LPF Salicylates < 5.0 L (15-30) mg/dL Urine Opiates Screen (Not Detect) Ur Buprenorphine Scrn (Not Detect) ng/mL Ur Oxycodone Screen (Not Detect) ng/mL Urine Methadone Screen (Not Detect) ng/mL Urine Fentanyl Screen (Not Detect) Acetaminophen < 3 (<30) mcg/mL Ur Barbiturates Screen (Not Detect) Ur Phencyclidine Scrn (Not Detect) Ur Amphetamines Screen (Not Detect) U Benzodiazepines Scrn (Not Detect) Urine Cocaine Screen (Not Detect) U Marijuana (THC) Screen (Not Detect) Ethyl Alcohol < 10 mg/dL Influenza Type A (PCR) NEGATIVE (Negative) Influenza Type B (PCR) NEGATIVE (Negative) RSV RNA Qual (PCR) NEGATIVE (Negative) SARS-CoV-2 RNA (RT-PCR) NEGATIVE (Negative) 02/05/25 Range/Units 11:44 WBC (4.8-10.8) X10*3/uL RBC (4.20-5.50) X10*6/uL Hgb (12.0-16.0) g/dl Hct (37.0-47.0) % MCV (80.0-98.0) fL MCH (27.0-33.0) pg MCHC (31.0-35.0) g/dl RDW (11.0-16.0) % Plt Count (160-400) X10*3/uL MPV (9.4-12.3) fL Immature Gran % (Auto) (0.0-0.4) % Neut % (Auto) (45-73) % Lymph % (Auto) (20-40) % [place] % (Auto) (2-11) % Eos % (Auto) (0-4) % Baso % (Auto) (0-2) % Lymph # (Auto) (1.2-4.9) X10*3/uL [place] # (Auto) (0.1-1.2) X10*3/uL Eos # (Auto) (0.0-0.4) X10*3/uL Baso # (Auto) (0.0-0.2) X10*3/uL Abs Immat Gran (auto) (0.00-0.03) X10*3/uL Absolute Neuts (auto) (2.0-8.3) x10*3/uL Absolute Nucleated RBC (0.0-0.012) X10*3/uL Nucleated RBC % (auto) (0.0-0.2) /100WBC Smear Tech's Comments Smear Path Review Hold Purple Top PT (10.9-12.4) SEC INR (0.9-1.1) APTT (26.0-36.8) SEC Hold Blue Top O2 Saturation % ABG pH at Pt Temp (7.35-7.45) ABG pCO2 at Pt Temp (32-45) mmHg ABG pO2 at Pt Temp (83-108) mmHg ABG HCO3 (22-26) mmol/L ABG Base Excess (Actual) mmol/L VBG pH (7.32-7.43) VBG pCO2 mmHg VBG pO2 mmHg VBG HCO3 (22-26) mmol/L VBG O2 Saturation % VBG Base Excess mmol/L Sodium (135-145) mmol/L Potassium (3.3-5.1) mmol/L Chloride (96-108) mmol/L Carbon Dioxide (22-29) mmol/L Anion Gap (12-20) BUN (9-16) mg/dL Creatinine (0.5-1.4) mg/dL Estim Creat Clear Calc Estimated GFR POC Glucose (60-115) mg/dL Random Glucose (60-115) mg/dL Lactic Acid (0.5-2.0) mmol/L Calcium (8.4-10.2) mg/dL Magnesium (1.6-2.6) mg/dL Total Bilirubin (0.0-1.0) mg/dL Direct Bilirubin (0.0-0.5) mg/dL AST (5-31) U/L ALT (0-31) U/L Alkaline Phosphatase (39-117) U/L Ammonia (13-55) umol/L Troponin I High Sens (<3.5-17.0) ng/L Total Protein (6.5-8.0) g/dL Albumin (3.5-5.0) g/dL Lipase (8-78) U/L Beta HCG, Quant mIU/mL Urine Color Yellow Urine Appearance Clear Urine pH 7.5 (5.0-9.0) Ur Specific [place] >= 1.030 H (1.005-1.025) Urine Protein 30 (1+) H (Neg-Trace) mg/dL Urine Glucose (UA) 500 H (Negative) mg/dL Urine Ketones Trace (Negative) mg/dL Urine Blood Negative (Negative) Urine Nitrite Negative (Negative) Ur Leukocyte Esterase Negative (Negative) Urine RBC 0-2 (0-2) /HPF Urine WBC 0-5 (0-5) /HPF Ur Squamous Epith Cells 0-2 (0-2) /HPF Urine Bacteria None Seen (None Seen) Hyaline Casts 0-2 (0-2) /LPF Salicylates (15-30) mg/dL Urine Opiates Screen Not Detected (Not Detect) Ur Buprenorphine Scrn Not Detected (Not Detect) ng/mL Ur Oxycodone Screen Not Detected (Not Detect) ng/mL Urine Methadone Screen Not Detected (Not Detect) ng/mL Urine Fentanyl Screen Not Detected (Not Detect) Acetaminophen (<30) mcg/mL Ur Barbiturates Screen Not Detected (Not Detect) Ur Phencyclidine Scrn Not Detected (Not Detect) Ur Amphetamines Screen Not Detected (Not Detect) U Benzodiazepines Scrn POSITIVE H (Not Detect) Urine Cocaine Screen POSITIVE H (Not Detect) U Marijuana (THC) Screen POSITIVE H (Not Detect) Ethyl Alcohol mg/dL Influenza Type A (PCR) (Negative) Influenza Type B (PCR) (Negative) RSV RNA Qual (PCR) (Negative) SARS-CoV-2 RNA (RT-PCR) (Negative) Radiology Impression Discussion of test interpretation with radiology: I have reviewed the radiologist's reading. Radiologist Impression: FINDINGS: There is moderate to large volume of the extra-axial hyperdensity extending from suprasellar and perimesencephalic cisterns into the sylvian fissures and at the foramen magnum upper cervical spine. There is CSF effacement. There is effacement of the cerebral sulci and cerebellar folia as well as the cisterns. There is mild to moderate prominent lateral ventricles with effacement of the third and fourth ventricles. There is no midline shift or guidewire herniation. No acute fracture in the bony calvarium or the skull base. Metallic piercing in the superior lateral right periorbital. Mucosal thickening, ethmoid air cells and maxillary sinuses. Tympanic cavities and mastoid cells are aerated. CT/CT head/brain wo IV con IMPRESSION: Acute subarachnoid hemorrhage resulting in global cerebral edema and mild to moderate hydrocephalus concerning for obstruction of the CSF dynamic flow. Consider ruptured cerebral aneurysm. No downward herniation. Electronically signed by: Haider Brown MD 02/05/2025 11:11 AM EDT RP Dictated By: Haider Liz MD CT/CT cervical spine wo IV con IMPRESSION: No acute fracture or trauma-related listhesis. Multilevel cervical spondylosis C4 C7. Moderate to large volume subarachnoid hemorrhage. Patient referred to CT head. Fleischner guidelines were followed. Electronically signed by: Haider Brown MD 02/05/2025 11:17 AM EDT RP Critical Care Time Critical Care Time Critical Care Time: Yes Total Critical Care Time: 94 Attestation: I have personally provided critical care time exclusive of time spent on separately billable procedures. Time includes review of lab data, radiology results, discussion with consultants, and monitoring for potential decompensation. Intervention performed as documented. Discharge Plan Discharge Clinical Impression: ICH (intracerebral hemorrhage) Patient Disposition: [facility] Transfer Details: [facility] - Neuro ICU - Dr. Vickers Prescriptions: No Action aripiprazole 10 mg tablet 1 tab PO DAILY lamotrigine 100 mg tablet 1 tab PO TID lorazepam 1 mg tablet 0.5 tab PO BID melatonin 5 mg tablet 1 tab PO BEDTIME PRN (Reason: insomnia) quetiapine 50 mg tablet 1 tab PO BEDTIME sucralfate 100 mg/mL suspension 10 ml PO BID zolpidem 5 mg tablet 1 tab PO BEDTIME PRN (Reason: Sleep) ondansetron HCl [Zofran] 4 mg tablet 4 mg PO Q6H PRN (Reason: nausea and vomiting) Qty: 10 0RF acetaminophen [Tylenol 8 Hour] 650 mg tablet extended release 650 mg PO Q8H PRN (Reason: pain) Qty: 10 0RF nitrofurantoin monohyd/m-cryst [Macrobid] 100 mg capsule 100 mg PO Q12H 7 Days Qty: 14 0RF Rx Instructions: must administer with a meal/food dicyclomine 10 mg capsule 10 mg PO QID 7 Days Qty: 28 0RF promethazine 25 mg tablet 25 mg PO TID PRN (Reason: nausea and vomiting) Qty: 20 0RF sulfamethoxazole-trimethoprim [Bactrim DS] 800-160 mg tablet 1 tab PO BID Qty: 14 0RF phenazopyridine 100 mg tablet 100 mg PO TID Qty: 6 0RF ibuprofen 600 mg tablet 600 mg PO TID PRN (Reason: pain) Qty: 20 0RF sucralfate 1 gram tablet 1 g PO BID PRN (Reason: Upper abdominal pain) Qty: 40 0RF ondansetron 4 mg tablet,disintegrating 4 mg PO Q6H PRN (Reason: nausea and vomiting) Qty: 10 0RF ondansetron 4 mg tablet,disintegrating 4 mg PO BEDTIME PRN (Reason: nausea and vomiting) Qty: 7 0RF dicyclomine 10 mg capsule 10 mg PO TID PRN (Reason: abdominal distention) Qty: 20 0RF cefuroxime axetil 250 mg tablet 250 mg PO BID Qty: 10 0RF ondansetron 4 mg tablet,disintegrating 4 mg PO Q8H PRN (Reason: nausea and vomiting) Qty: 7 0RF simethicone [Gas Relief (simethicone)] 180 mg capsule 180 mg PO BID PRN (Reason: abdominal distention) Qty: 14 0RF polyethylene glycol 3350 [Miralax] 17 gram powder in packet 17 g PO DAILY Qty: 14 0RF ondansetron 4 mg tablet,disintegrating 4 mg PO Q6-8H PRN (Reason: nausea and vomiting) Qty: 14 0RF ondansetron 4 mg tablet,disintegrating 4 mg PO Q6H PRN (Reason: nausea and vomiting) Qty: 10 0RF prochlorperazine maleate [Compazine] 10 mg tablet 10 mg PO Q8H PRN (Reason: nausea and vomiting) Qty: 10 0RF Interventions: Acute Care Transfer Worksheet (ED) Last Done: 02/05/25 12:10 Discharge Date/Time: 02/05/25 12:10 Print Language: Slovak
[2025-02-05] MEDS: Etomidate 20 MG/10 ML VIAL IVPUSH (10:10)
--- NOTE | 2025-02-05 10:12 | PC.NURSE ---
Addendum entered by Carleen Alvarez RN 02/07/25 07:29: late entry: fall occurred at approximately 0947 in triage, call made to charge for assistance to get pt back into wheelchair and to be brought back to ER room for assessment. Original Note: pt slumped forward in wheelchair and landed onto floor, witnessed by this RN, no HS. call made to charge for assistance. BF in room got pt back into wheelchair. pt cool and clammy, tachypnic. unable to complete full triage d/t pts lack of participation, unable to obtain BP d/t pts restlessness. brought back to room 2. Tierra CUNNINGHAM at bedside to assume care
[2025-02-05 10:21] LABS: Glucose, Whole Blood 231 mg/dL (60-115)
--- NOTE | 2025-02-05 10:22 | PC.NURSE ---
patient presents to ED2 via wheelchair from triage. upon assessment, pt seemingly weak/lethargic/flaccid. unable to hold body upright/answer questions/follow commands appropriately. 3:1 assist needed to get patient into/onto bed. pt noted to be extremely diaphoretic/clammy when being changed into hospital attire. pt placed on the pvc monitor displaying sinus ford. otherwise vss and up to date. pt minimally responsive to verbal stimuli. POC obtained/WNL. 18gIV placed in the right AC - labs obtained/sent to lab. additional 18gIV placed in the left AC. when placing 2nd IV access, patient noted to no longer become responsive to verbal stimuli. physical stimuli/vigorous sternal rub performed w/ no response. patient then noted to become apneic for approximately 30 seconds. 8mg narcan administered per provider order w/ no good effect/response. patient then placed on 15L via NRB w/ limited effect. MD/RT bedside for assistance. patient then move to ED4. RSI kit obtained - patient immediately intubated w/ 20mg of etomidate and 100mg of succinylcholine. +color change. 7.0 ETT/24cm @ the lip. OG tube then placed by MD. repeat CXR s/p intubation completed. ETT advanced to 25cm @ the lip. placed on mechanical ventilator by RT. patient then originally placed on propofol @ 30mcg/kg/min for sedation. see MAR for titration per [facility] protocol. patient's boyfriend currently in family room - will update patient's significant other shortly.
[2025-02-05 10:23] LABS: Venous Blood Gas Refer to POC result
[2025-02-05 10:27] LABS: VBG HCO3 19 mmol/L (22-26); VBG O2 % Saturation 100.0 %
[2025-02-05 10:28] LABS: Hematocrit 44.0 % (37.0-47.0); Hemoglobin 15.1 g/dl (12.0-16.0); Imm Gran Abs Auto 0.04 X10*3/uL (0.00-0.03); Imm Gran Pct Auto 0.3 % (0.0-0.4); MANUAL DIFF FLAG SCAN; Mean Corpuscular HGB Conc 34.3 g/dl (31.0-35.0); Mean Corpuscular Hemoglobin 28.5 pg (27.0-33.0); Mean Corpuscular Volume 83.0 fL (80.0-98.0); NRBC Abs Auto 0.000 X10*3/uL (0.0-0.012); NRBC Pct Auto 0.0 /100WBC (0.0-0.2); Platelet Count 353 X10*3/uL (160-400); Red Blood Count 5.30 X10*6/uL (4.20-5.50); SCAN SMEAR FLAG 1; White Blood Count 11.9 X10*3/uL (4.8-10.8)
[2025-02-05 10:30] LABS: Lymphocytes Absolute Auto 6.6 X10*3/uL (1.2-4.9)
[2025-02-05 10:46] LABS: Alanine Aminotransferase 16 U/L (0-31); Albumin Level 4.7 g/dL (3.5-5.0); Alkaline Phosphatase 103 U/L (39-117); Anion Gap 19 (12-20); Aspartate Amino Transferase 20 U/L (5-31); Blood Urea Nitrogen 9 mg/dL (9-16); Calcium 9.5 mg/dL (8.4-10.2); Carbon Dioxide 19 mmol/L (22-29); Chloride 106 mmol/L (96-108); Creatinine Clr Calc Pharmacy 89.7; Estimated Glomerular Filt Rate > 60; Lipase 23 U/L (8-78); Magnesium 2.2 mg/dL (1.6-2.6); Potassium 3.6 mmol/L (3.3-5.1); Sodium 140 mmol/L (135-145); Total Protein 7.2 g/dL (6.5-8.0)
[2025-02-05 10:48] LABS: Acetaminophen LAB < 3 mcg/mL (<30); Salicylate < 5.0 mg/dL (15-30)
[2025-02-05 10:51] LABS: Troponin-I High Sensitivity < 2.7 ng/L (<3.5-17.0)
[2025-02-05 10:52] LABS: Ammonia 32 umol/L (13-55)
--- NOTE | 2025-02-05 11:00 | PC.NURSE ---
update provided to patient's significant other. significant other now bedside for support. plan of care ongoing.
--- NOTE | 2025-02-05 11:06 | PC.NURSE ---
Patient transferred to CT w/ this RN, Lukasz RN and RT at this time. Patient noted to start vomiting around ETT/OG tube. Patient suctioned on CT table w/ good effect. Patient continuously remains restless/moving extremities. Additional medication administered per provider order. Effectiveness pending.
--- OUTSIDE RECORDS SUMMARY | 2025-02-05 11:07 | XMS_ITS | Clinical Summary ---
Author Organization Patient Business Ser [facility] Address [address] [place] [address] Care Team Providers Care Application Systems Administrator Name Role Phone Fahad Thompson MD Primary [...] Problem Noted Date Diagnosed Date Bipolar affective ([facility] V24, [facility] V28) Mixed hyperlipidemia 12/19/2023 Kidney stone 09/11/2021 Overview (07/24/2024): [facility] 08/24/2021 Cocaine use 04/13/2013 Overview (07/24/2024): Also pos again in ew In may 2013 Also pos again in sep 2016 Marijuana use 04/13/2013 Overview (07/24/2024): Also pos again in ew May 2013 Endometriosis 12/03/2011 Substance abuse ([facility] V24, [facility] V28) 11/30 Overview (07/24/2024): Positive urine drug screen at [facility] positive for cocaine, benzodiazepine, marijuana date of test November 25, 2010 Pos for cocaine and MJ January Irritable bowel syndrome 07/21/2006 Overview (07/24/2024): negative esophagoscopy 07.21.06. Immunizations Name Administration Dates Next Due Influenza Quadravalent, MDCK , 0.5ml, preservative free (Flucelvax) 6mo and older 05/15/2018 Influenza trivalent, 0.5mL, preservative free (Fluarix; FluLaval; Fluzone) ages 6mo and older (Afluria) 3 years and older 06/13/2007 Surgical History Surgery Date Site/Laterality Comments OTHER SURGICAL HISTORY PROCEDURE: LAPAROSCOPY PROCEDURE NEC; COMMENT: no endometriosis TONSILLECTOMY ADENOIDECTOMY, BILATERAL MYRINGOTOMY AND TUBES PROCEDURE: [place] TONSILLECTOMY & ADENOIDECTOMY <AGE 12 APPENDECTOMY PROCEDURE: [place] APPENDECTOMY SALPINGOOPHORECTOMY PROCEDURE: [place] LAPAROSCOPY W/RMVL ADNEXAL STRUCTURES; COMMENT: left ovary removed SALPINGOOPHORECTOMY 12/13/11 PROCEDURE: [place] LAPAROSCOPY W/RMVL ADNEXAL STRUCTURES; COMMENT: Right tube & ovary removed, endometriosis, pain CHOLECYSTECTOMY PROCEDURE: LAPAROSCOPIC CHOLECYSTECT Medical History Medical History Date Comments Irritable bowel syndrome 07/21/2006 DX:Irri table bowel syndrome; COMMENT: negative esophagoscopy 07.21.06. Nausea with vomiting 07/21/2006 DX:Nausea w ith vomiting Bipolar affective ([facility] V 24, [facility] V28) DX:Bipolar affective (HCC) Substance abuse ([facility] V24 , [facility] V28) 11/30/2010 DX:Substance abuse (HCC) Endometriosis 12/03/2011 DX:Endometriosis Recurrent abdominal [...] mg/dL Blood Venous blood specimen / Unknown us Historical Provider LAB BLOOD ORDERABLES Parul l [...] views and digital mammography, reviewed with CAD. The breasts are composed of fatty and fibroglandular tissue. No suspicious mass, architectural distortion or suspicious calcifications [...] (11/26/2011) Pap smear negative, abstracted Historical Provider HEALTH MAINTENANCE Final Result * HIV Screening (06/24/2004) HIV Screening abstracted Historical Provider HEALTH MAINTENANCE Final Result from Last 3 Months or Most Recently Relevant to Health Maintenance Insurance [facility] [employer] Care Teams Application Systems Administrator Relationship Specialty Start Date End Date Fahad Thompson MD [address] [place] [address] PCP - General Internal Medicine 01/15/22
[2025-02-05 11:16] LABS: Resp Syncy Virus RNA Qual PCR NEGATIVE (Negative); SARS COV2 PCR INHOUSE NEGATIVE (Negative)
[2025-02-05 11:17] LABS: INTERNATIONAL NORM RATIO 0.9 (0.9-1.1); Prothrombin Time 9.8 SEC (10.9-12.4)
[2025-02-05 11:19] LABS: Partial Thromboplastin Time 27.5 SEC (26.0-36.8)
[2025-02-05 11:28] LABS: ABG HCO3 18 mmol/L (22-26); ABG O2 % Saturation 99.0 %
[2025-02-05] MEDS: iohexoL 350 MG/ML 100 ML INFUS..BTL IV (11:38)
--- NOTE | 2025-02-05 11:45 | PC.NURSE ---
16Fr temp sensing vargas placed at this time. 100ml of clear, pale yellow, non-foul urine noted immediately post output. pt tolerated well. specimen obtained/sent to lab.
--- NOTE | 2025-02-05 11:50 | PC.NURSE ---
Report given to MARISA Durant in the Neuro ICU at [facility] at this time. Patient pending transfer via ALS. Plan of care ongoing.
--- NOTE | 2025-02-05 11:50 | PC.RT ---
RT called to bedside STAT. Upon arrival, pt was non-responsive, gurgling w/ snoring respirations, NRB on 15L, SATs 100% on monitor, narcan x2 given prior. RT repositioned pt head w/ head tilt chin lift, snoring respirations ceased. Pt was emergently moved to room 4 and intubated by MD. Pt intubated on first attempt w/ 7.0 ETT, 24cm @lip. ETT confirmed w/ colormetric ETCO2, bilateral chest rise and breath sounds, and condensation. X-Ray taken and ETT was moved in 1 cm per MD request, ETT now 25cm @lip. Pt placed on mechanical ventilation ACPC settings as documented. Pt transported to CT on transport ventilator, nithin well. ABG drawn and run by RT, results given to PA. Pt is now switched over to EMS ventilator, settings per RT. Pt nithin well. EMS to transport pt to [facility].
[2025-02-05 11:53] LABS: Appearance Urine Clear; Glucose Urine UA 500 mg/dL (Negative); PH 7.5 (5.0-9.0); Specific Gravity - Urine >= 1.030 (1.005-1.025); UMIC TRIGGER UACC YES
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
[2025-02-05 12:06] LABS: Cannabinoid Screen Urine POSITIVE (Not Detect)
--- NOTE | 2025-02-05 12:10 | PC.NURSE ---
Patient being transferred to Neuro ICU at [facility] via CORAL Levin at this time. Patient leaving [facility] ED w/ 3% NS and propofol infusing @ 50 mcg/kg/min via pump.
[2025-02-05 12:33] LABS: Reflex Lactate? Lactic Acid Added
[2025-02-05 16:17] LABS: Glucose, Whole Blood 200 mg/dL (60-115)
[2025-02-05 17:52] LABS: ABG Refer to POC result
== END 2025-02-05 12:10 | disposition short-term general hospital (02) ==
PROVIDERS: Physician Assistant Medical; Emergency Provider Emergency Medicine Emergency Medical Services
DX: I61.9 Nontraumatic intracerebral hemorrhage, unspecified (principal); R42 Dizziness and giddiness; R29.718 NIHSS score 18; K08.89 Other specified disorders of teeth and supporting structures; F41.9 Anxiety disorder, unspecified; F17.210 Nicotine dependence, cigarettes, uncomplicated; F12.90 Cannabis use, unspecified, uncomplicated; Z86.711 Personal history of pulmonary embolism; Z79.899 Other long term (current) drug therapy; Z03.818 Encounter for observation for suspected exposure to other biological agents ruled out
CPT/HCPCS: 31500; 36415; 51702; 70450; 70496; 70498; 71045; 71260; 72125; 74177; 80048; 80076; 80143; 80179; 80307; 81001; 82140; 82803; 82947; 83605; 83690; 83735; 84484; 84702; 85025; 85610; 85730; 87040; 87637; 93005; 94002; 96374; 96375; 96376; 99285; J0330; J2250; J2704; J7131; Q9967

== ENCOUNTER → 2025-02-05 09:57 | Outpatient (BNV) | payer OTHER, SELFPAY | PROVIDERS: Emergency Provider Emergency Medicine Emergency Medical Services; Visit Provider Internal Medicine Cardiovascular Disease | DX: R94.31 Abnormal electrocardiogram [ECG] [EKG] (principal); R46.4 Slowness and poor responsiveness | CPT/HCPCS: 93010 ==

== ENCOUNTER → 2025-02-05 10:08 | Outpatient (BNV) | payer OTHER, SELFPAY | PROVIDERS: Emergency Provider Emergency Medicine Emergency Medical Services; Visit Provider Radiology Diagnostic Radiology | DX: R41.82 Altered mental status, unspecified (principal); Z46.59 Encounter for fitting and adjustment of other gastrointestinal appliance and device; Z90.89 Acquired absence of other organs; I60.9 Nontraumatic subarachnoid hemorrhage, unspecified; I65.23 Occlusion and stenosis of bilateral carotid arteries; M47.812 Spondylosis without myelopathy or radiculopathy, cervical region; G91.9 Hydrocephalus, unspecified | CPT/HCPCS: 70450; 70496; 70498; 71045; 72125 ==